=== PATIENT | male | born 1995 | race Caucasian/White ===

== ENCOUNTER 2018-06-29 19:59 | Emergency (ER) | payer SELFPAY ==
[~2018-06-29] VITALS: Ht 175.3 cm; Wt 135.2 kg
--- OUTSIDE RECORDS SUMMARY | 2018-06-29 20:08 | XMS REPORT | Clinical Summary ---
Author Author Admin, MARKUS Organization [facility] Address Unknown Phone Unavailable Allergies, Adverse Reactions, Alerts Allergy Name Reaction Description Start Date Severity Status Provider No Known Allergies Raysa Elder Conditions or Problems Problem Name Problem Code Onset Date Status Entry Date Provider Comment Standard Description Annotate G E R D 530.81 Active Stephanie Deluca MD Esophageal reflux HYPERTENSION 401.9 Active Stephanie Deluca MD Unspecified essential hypertension FH DIABETES V18.0 Active Stephanie Deluca MD Family history of diabetes mellitus INCONTINENCE, MIXED, URGE/STRESS 788.33 Active Stephanie Deluca MD Mixed incontinence (female) (male) Overactive Bladder 596.51 Active Stephanie Deluca MD Hypertonicity of bladder Medication List Medication Instructions Start Date Stop Date Generic Name NDC Status Provider Patient Instruction DETROL LA 4 MG CP24 1 cap daily TOLTERODINE TARTRATE 92087700814 No Longer Active Stephanie Deluca MD Active CELEXA 20 MG ORAL TABS 1 tab by mouth daily CITALOPRAM HYDROBROMIDE 25281833313 Active Stephanie Deluca MD Active METOPROLOL SUCCINATE ER 25 MG ORAL [id number] take 1 tab daily METOPROLOL SUCCINATE 99747677461 Active Stephanie Deluca MD Active RANITIDINE HCL 150 MG ORAL TABS take 1 tab at night RANITIDINE HCL 19594734305 Active Stephanie Deluca MD Active ABILIFY 10 MG ORAL TABS take1 tab in morning ARIPIPRAZOLE 09875561597 Active Stephanie Deluca MD Active RISPERDAL 1 MG TABS by mouth twice a day RISPERIDONE 91475979280 No Longer Active Stephanie Deluca MD Active INTUNIV 2 MG [id number] Take one by mouth daily GUANFACINE HCL 98289157534 No Longer Active Stephanie Deluca MD Active HYDROXYZINE HCL 25 MG TABS Take 2 by mouth in pm HYDROXYZINE HCL 89693272319 Active Stephanie Deluca MD Active VENTOLIN HFA 108 (90 BASE) MCG/ACT AERS ALBUTEROL SULFATE 55457961650 No Longer Active Stephanie Deluca MD Active DETROL LA 4 MG [id number] Take one by mouth daily TOLTERODINE TARTRATE 48662973932 Active Rebekah Blakely Active ESCITALOPRAM OXALATE 10 MG TABS Take one by mouth daily ESCITALOPRAM OXALATE 16373309706 Active Stephanie Deluca MD Active ALLERGY 10 MG TABS take at bedtime LORATADINE 79106879041 Active Stephanie Deluca MD Active [facility] OMEPRAZOLE 20 MG TBEC Take one by mouth daily OMEPRAZOLE 32850768271 Active Stephanie Deluca MD Active VENTOLIN HFA 108 (90 BASE) MCG/ACT AERS VENTOLIN HFA 108 (90 BASE) MCG/ACT AERS ALBUTEROL SULFATE Inactive INTUNIV 2 MG [id number]-JSM Take one by mouth daily INTUNIV 2 MG [id number] GUANFACINE HCL Inactive RISPERDAL 1 MG TABS by mouth twice a day RISPERDAL 1 MG TABS 570290 RISPERIDONE Inactive DETROL LA 4 MG CP24 1 cap daily DETROL LA 4 MG CP24 TOLTERODINE TARTRATE Inactive Advance Directives Directive Description Start Date PERMISSION TO SHARE Vital Signs Date Name Value Unit Range Description blood pressure, diastolic - 8462-4 65 mm[Hg] BP grant blood pressure, systolic - 8480-6 120 mm[Hg] BP sys pulse rate E&M - 8867-4 77 /min Heart rate weight E&M - 3141-9 290 [lb_av] Weight Measured Diagnostic Results Date Name Value Unit Range Description Office Visit: Yearly followup Detrol - Chemistry RBC, urine, dipstick negative protein, total urine random negative mg/dL Office Visit: Yearly followup Detrol - Urinalysis pH, urine, semiquantitative 5 specific gravity, urine 1.025 ketones, urine, by test strip negative bilirubin, urine negative glucose, urine, semiquantitative negative urinalysis, routine Clean Catch urine color yellow appearance, urine clear leukocyte esterase, urine, by dipstick negative nitrite, urine, semiquantitative negative urobilinogen, urine, semiquantitative (dipstick) 1 protein, urine, semiquantitative (dipstick) negative Encounters Code Encounter Date Provider Facility CPT-79991 Level 2 Est. Patient 13:42:45 CDT Stephanie Deluca MD [facility] CPT-70284 Level 3 Est. Patient 14:02:52 CDT Stephanie Deluca MD [facility] CPT-53874 Level 3 Est. Patient 16:52:37 CDT Stephanie Deluca MD [facility] CPT-76293 Level 3 New Patient 15:13:15 DOOR TO DOOR LEAD GENERATION Stephanie Deluca MD [facility] Procedures Code Procedure Name Date Entry Date Standard Description CPT-51082 Urine Dip (Floor Use Only) 14:02:53 CDT CPT-65788 Bladder Scan 14:02:53 CDT CPT-93475 Bladder Scan 16:52:37 CDT CPT-39251 Urine Dip (Floor Use Only) 15:13:15 DOOR TO DOOR LEAD GENERATION CPT-96919 Bladder Scan 15:13:15 DOOR TO DOOR LEAD GENERATION
--- OUTSIDE RECORDS SUMMARY | 2018-06-29 20:09 | XMS REPORT | Clinical Summary ---
Author Author Admin, MARKUS Organization [facility] Address Unknown Phone Unavailable Allergies, Adverse Reactions, Alerts Allergy Name Reaction Description Start Date Severity Status Provider No Known Allergies BAO Aparicio Conditions or Problems Problem Name Problem Code [...] Instructions Start Date Stop Date Generic Name ND Status Provider Patient Instruction DETROL LA 4 MG CP24 1 cap daily TOLTERODINE TARTRATE 40680833288 No Longer Active Stephanie Deluca MD Active CELEXA 20 MG ORAL TABS 1 tab by mouth daily CITALOPRAM HYDROBROMIDE 89281040166 Active Stephanie Deluca MD Active METOPROLOL SUCCINATE ER 25 MG ORAL [id number] take 1 tab daily METOPROLOL SUCCINATE 70660688177 Active Stephanie Deluca MD Active RANITIDINE HCL 150 MG ORAL TABS take 1 tab at night RANITIDINE HCL 14264296999 Active Stephanie Deluca MD Active ABILIFY 10 MG ORAL TABS take1 tab in morning ARIPIPRAZOLE 25947452801 Active Stephanie Deluca MD Active RISPERDAL 1 MG TABS by mouth twice a day RISPERIDONE 71299375881 No Longer Active Stephanie Deluca MD Active INTUNIV 2 MG IN88Q-MFB Take one by mouth daily GUANFACINE HCL 12448670707 No Longer Active Stephanie Deluca MD Active HYDROXYZINE HCL 25 MG TABS Take 2 by mouth in pm HYDROXYZINE HCL 44036813916 Active Stephanie Deluca MD Active VENTOLIN HFA 108 (90 BASE) MCG/ACT AERS ALBUTEROL SULFATE 36997962028 No Longer Active Stephanie Deluca MD Active DETROL LA 4 MG [id number]-QYF Take one by mouth daily TOLTERODINE TARTRATE 61540373757 Active Rebekah Reddy Active ESCITALOPRAM OXALATE 10 MG TABS Take one by mouth daily ESCITALOPRAM OXALATE 43708182642 Active Stephanie Deluca MD Active ALLERGY 10 MG TABS take at bedtime LORATADINE 66768843171 Active Stephanie Deluca MD Active [facility] OMEPRAZOLE 20 MG TBEC Take one by mouth daily OMEPRAZOLE 81912213303 Active Stephanie Deluca MD Active VENTOLIN HFA 108 (90 BASE) MCG/ACT AERS VENTOLIN HFA 108 (90 BASE) MCG/ACT AERS ALBUTEROL SULFATE Inactive INTUNIV 2 MG FJ68I-TFQ Take one by mouth daily INTUNIV 2 MG [id number]-UQO GUANFACINE HCL Inactive RISPERDAL 1 MG TABS by mouth twice a day RISPERDAL 1 MG TABS 064287 RISPERIDONE Inactive DETROL LA 4 MG CP24 1 cap daily DETROL LA 4 MG CP24 TOLTERODINE TARTRATE Inactive Advance Directives Directive Description Start Date PERMISSION TO SHARE Encounters Code Encounter Date Provider Facility CPT-04009 Level 2 Est. Patient 13:42:45 CDT Stephanie Deluca MD [facility] CPT-02200 Level 3 Est. Patient 14:02:52 CDT Stephanie Deluca MD [facility] CPT-87589 Level 3 Est. Patient 16:52:37 CDT Stephanie Deluca MD [facility] CPT-81381 Level 3 New Patient 15:13:15 PHYSICAL AERODYNAMICIST Stephanie Deluca MD [facility] Procedures Code Procedure Name Date Entry Date Standard Description CPT-58031 Urine Dip (Floor Use Only) 14:02:53 CDT CPT-82404 Bladder Scan 14:02:53 CDT CPT-93406 Bladder Scan 16:52:37 CDT CPT-24786 Urine Dip (Floor Use Only) 15:13:15 PHYSICAL AERODYNAMICIST CPT-63758 Bladder Scan 15:13:15 PHYSICAL AERODYNAMICIST
--- OUTSIDE RECORDS SUMMARY | 2018-06-29 20:09 | XMS REPORT ---
Author Author CHELO ADAM [facility] Address [address] [place] [address] Care Team Providers Care [employer] Information [employer] Supervisor Name Role Phone CHELO ADAM Unavailable PROBLEMS Type Condition ICD9-CM Code ZFS09-ST Code Onset Dates Condition Status SNOMED Code Problem ADHD (attention deficit hyperactivity disorder), combined type 314.01 Active 76609151 Problem ODD (oppositional defiant disorder) 313.81 Active 65685491 Problem Hypothyroid 244.9 Active 07529598 Problem Benign hypertension 401.1 Active 07850292 Problem Bipolar disorder 296.80 Active 24366087 Problem Hypothyroidism 244.9 Active 90105084 Problem ADHD (attention deficit hyperactivity disorder) 314.01 Active 733874327 Problem Bipolar 1 disorder 296.7 Active 180692814 Problem GERD (gastroesophageal reflux disease) 530.81 Active 551319163 Problem Other chronic pain G89.29 Active 64352338 Problem Asthma 493.90 Active 141169620 Problem Hyperlipidemia, unspecified E78.5 Active 91982604 Problem Hyperlipidemia 272.4 Active 40857509 Problem Hypothyroidism, unspecified E03.9 Active 95240991 Problem Right foot pain M79.671 Active 84847670 Problem Essential (primary) hypertension I10 Active 46049464 Problem Mood disorder F39 Active 80531526 Problem Mild intellectual disabilities F70 Active 35760810 Problem Knee pain, right M25.561 Active 22250319 Problem Constipation K59.00 Active 49759090 Problem Wrist pain, right M25.531 Active 09482830 Problem Pain in left shoulder M25.512 Active 76312706 Problem Intractable migraine, unspecified migraine type G43.919 Active 156047398 Problem Morbid obesity due to excess calories E66.01 Active 296049741 Problem Obesity (BMI 30-39.9) E66.9 Active 534614177 Problem Dental examination V72.2 Active 42606739 Problem Gastro-esophageal reflux disease without esophagitis K21.9 Active 869400440 Problem OCD (obsessive compulsive disorder) 300.3 Active 117510082 Problem Bipolar disorder, unspecified F31.9 Active 66890611 Problem Left ankle sprain S93.402A Active 30871690 Problem Pain in left wrist M25.532 Active 25971033 Problem Acne vulgaris L70.0 Active 38267698 Problem Bruised ribs, right, subsequent encounter S20.211D Active 904874757 Problem Attention-deficit hyperactivity disorder, combined type F90.2 Active 47112948 Problem Environmental allergies Z91.09 Active 274396625 ALLERGIES Substance Reaction Event Type Date Status pedialyte hives Non Drug Allergy Mar, Active ENCOUNTERS Encounter Location Date Diagnosis [facility] [id number] [place] [address] Apr, [facility] [address] [address] Mar, Mood disorder F39 and BMI 45.0-49.9, adult Z68.42 [facility] [id number] [place] [address] Feb, Mood disorder F39 and BMI 45.0-49.9, adult Z68.42 [facility] [id number] [place] [address] Feb, [address] [place] [address] Jan, [facility] [address] [place] [address] Dec, [facility] [id number] [place] [address] Dec, [facility] [address] [place] [address] Dec, BMI 45.0- 49.9, adult Z68.42 [facility] [address] [place] [address] Dec, BMI 45.0- 49.9, adult Z68.42 and Mood disorder F39 [facility] [address] [address] [place] [address] Dec, [facility] [address] [place] [address] Dec, [facility] [address] [place] [address] Dec, Bipolar disorder, unspecified F31.9 [facility] [place] [address] [place] [address] August, Bipolar disorder, unspecified F31.9 [facility] [place] [address] [place] [address] August, Bipolar disorder, unspecified F31.9 [facility] [place] [address] [place] [address] Jul, [facility] [place] [address] [place] [address] Jul, [facility] [place] [address] [place] [address] Apr, Bipolar disorder, unspecified F31.9 ; Attention-deficit hyperactivity disorder, combined type F90.2 and Mild intellectual disabilities F70 [facility] [place] [address] [place] [address] Apr, [facility] [place] [address] [place] [address] Mar, [facility] [place] [address] [place] [address] Jan, [facility] [place] [address] [place] [address] Dec, [facility] [place] [address] [place] [address] Nov, [facility] [place] [address] [place] [address] 09 Sep, 2016 Pain in left shoulder M25.512 ; Intractable migraine, unspecified migraine type G43.919 and Morbid obesity due to excess calories E66.01 [facility] [place] [address] [place] [address] 14 Jul, 2016 Right foot pain M79.671 [facility] [address] [place] [address] Jul, Attention- deficit hyperactivity disorder, combined type F90.2 ; Bipolar disorder, unspecified F31.9 ; Right foot pain M79.671 and Postoperative pain, acute, shoulder, left M25.512 [facility] [place] [address] [place] [address] Jun, [facility] [place] [address] [place] [address] Jun, [facility] [address] [address] Jun, Pain in left shoulder M25.512 [facility] [address] [address] May, Essential ( primary) hypertension I10 ; Hypothyroidism, unspecified E03.9 and Hyperlipidemia , unspecified E78.5 [facility] [address] [place] [address] Apr, [facility] [address] [address] Apr, [address] [address] Apr, Pain in left shoulder M25.512 and Other chronic pain G89.29 [address] [address] Apr, [address] [id number] [address] Feb, [facility] [address] [place] [address] Feb, Pain in left shoulder M25.512 and Other chronic pain G89.29 [facility] [address] [place] [address] Jan, Bruised ribs, right, subsequent encounter S20.211D ; Acne vulgaris L70.0 and Routine sports physical exam Z02.5 [facility] [address] [place] [address] Nov, Knee pain, right M25.561 ; Environmental allergies Z91.09 ; Attention-deficit hyperactivity disorder, combined type F90.2 and Bipolar disorder, unspecified F31.9 [facility] [place] [address] [place] [address] Nov, [facility] [place] [address] [place] [address] Oct, [facility] [place] [address] [place] [address] Oct, Knee pain, right M25.561 and Pain in left wrist M25.532 [facility] [place] [address] [place] [address] August, [facility] [place] [address] [place] [address] Jul, [facility] [place] [address] [place] [address] Jul, [facility] [place] [address] [place] [address] Jul, Gastro- esophageal reflux disease without esophagitis K21.9 and Pain in left wrist M25.532 [facility] [place] [address] [place] [address] Jul, [facility] [place] [address] [place] [address] Jun, [facility] [place] [address] [place] [address] Jun, Strain of right knee S86.911A and Right knee pain M25.561 [facility] [place] [address] [place] [address] May, Pain in left shoulder M25.512 [facility] [place] [address] [place] [address] May, [facility] [place] [address] [place] [address] Apr, Knee pain, right M25.561 and Left ankle sprain S93.402A [facility] [place] [address] [place] [address] Apr, Knee pain, right M25.561 [facility] [place] [address] [place] [address] Mar, [facility] [place] [address] [place] [address] Mar, Wrist pain , right M25.531 and Constipation K59.00 [facility] [place] [address] [place] [address] Feb, Wrist pain , right M25.531 [facility] [address] [address] Feb, Wrist pain , right M25.531 [facility] [address] [address] Jan, Wrist pain , right M25.531 [facility] [address] [address] Jan, [facility] [address] [address] Dec, Right leg pain 729.5 ; Benign hypertension 401.1 and GERD (gastroesophageal reflux disease ) 530.81 [facility] [address] [address] Dec, Dental examination V72.2 [facility] [address] [address] Dec, [facility] [address] [address] Dec, [facility] [address] [address] Nov, Benign hypertension 401.1 ; Hypothyroidism 244.9 and Hyperlipidemia 272.[address] [address] Nov, Benign hypertension 401.1 ; Bipolar 1 disorder 296.7 and GERD (gastroesophageal reflux disease) 530.[address] [address] Sep, [facility] [address] [address] Sep, ADHD ( attention deficit hyperactivity disorder), combined type 314.01 ; Bipolar disorder 296.80 ; OCD (obsessive compulsive disorder) 300.3 ; Hyperlipidemia 272.4 ; Hypothyroidism 244.9 and Asthma 493.90 [facility] [address] [facility] [id number] [place] [address] Jul, [facility] [address] [facility] [id number] [address] Jul, [facility] [address] [facility] [id number] [place] [address] Mar, IMMUNIZATIONS No Known Immunizations SOCIAL HISTORY Never Assessed REASON FOR VISIT f[facility]u [facility] Activity Details Follow Up 6 Weeks Reason: VITAL SIGNS Height 66.5" in 2018-03-26 Weight 290.7 lbs 2018-03-26 Heart Rate 60 bpm 2018-03-26 Respiratory Rate 20 2018-03-26 BMI 46.21 kg/m2 2018-03-26 Blood pressure systolic 118 mmHg 2018-03-26 Blood pressure diastolic 76 mmHg 2018-03-26 MEDICATIONS Medication Instructions Dosage Frequency Start Date End Date Duration Status Pantoprazole Sodium 40 mg Orally Once a day 1 tablet 24h 90 days Active Tolterodine Tartrate ER 4 MG TAKE 1 CAPSULE DAILY. 90 days Active Levothyroxine Sodium 25 MCG Orally Once a day TAKE 1 TABLET BY MOUTH DAILY 24h 90 days Active Escitalopram Oxalate 20 mg Orally Once a day 1 tablet 24h Active HydrOXYzine HCl 25 MG TAKE 1 TABLET BY MOUTH TWICE DAILY 90 days Active Celecoxib 200 mg TAKE 1 CAPSULE BY MOUTH DAILY 90 days Active GuanFACINE HCl ER 2 MG Orally Once a day TAKE 1 TABLET BY MOUTH DAILY 24h Active Simvastatin 10 mg Orally Once a day TAKE 1 TABLET DAILY IN THE EVENING 24h 90 days Active Metoprolol Succinate ER 25 MG Orally Once a day TAKE 1 TABLET BY MOUTH DAILY 24h 90 days Active Trileptal 300 MG Orally Twice a day 1 tablet 12h Feb, 30 days Active RESULTS No Results PROCEDURES No Known procedures INSTRUCTIONS MEDICATIONS ADMINISTERED No Known Medications MEDICAL (GENERAL) HISTORY Type Description Date Medical History Bipolar 1 disorder Medical History Benign hypertension Medical History Asthma Medical History GERD (gastroesophageal reflux disease) Medical History ODD (oppositional defiant disorder) Medical History Hypothyroid Medical History ADHD (attention deficit hyperactivity disorder) Surgical History tonsillectomy and adenoidectomy Surgical History ear tubes Surgical History left shoulder muscle repair 2016 Hospitalization History Hospitalization for surgery only
--- OUTSIDE RECORDS SUMMARY | 2018-06-29 20:09 | XMS REPORT ---
Author Author CHELO CARLTON [facility] Address [address] [place] [address] Care Team Providers Care Public Health Microbiologist Name Role Phone CHELO CARLTON Unavailable PROBLEMS Type Condition ICD9-CM Code LOX98-ZB Code Onset Dates Condition Status SNOMED Code Problem ADHD (attention deficit hyperactivity disorder), combined type 314.01 Active 82125942 Problem ODD (oppositional defiant disorder) 313.81 Active 96708526 Problem Hypothyroid 244.9 Active 78334250 Problem Benign hypertension 401.1 Active 61311366 Problem Bipolar disorder 296.80 Active 70140402 Problem Hypothyroidism 244.9 Active 51200384 Problem ADHD (attention deficit hyperactivity disorder) 314.01 Active 267512217 Problem Bipolar 1 disorder 296.7 Active 851802644 Problem GERD (gastroesophageal reflux disease) 530.81 Active 497696526 Problem Other chronic pain G89.29 Active 73352968 Problem Asthma 493.90 Active 847749136 Problem Hyperlipidemia, unspecified E78.5 Active 45485393 Problem Hyperlipidemia 272.4 Active 98000353 Problem Hypothyroidism, unspecified E03.9 Active 21047730 Problem Right foot pain M79.671 Active 80083366 Problem Essential (primary) hypertension I10 Active 15444385 Problem Mood disorder F39 Active 45925522 Problem Mild intellectual disabilities F70 Active 92451577 Problem Knee pain, right M25.561 Active 69693539 Problem Constipation K59.00 Active 36383927 Problem Wrist pain, right M25.531 Active 44947074 Problem Pain in left shoulder M25.512 Active 14905350 Problem Intractable migraine, unspecified migraine type G43.919 Active 165779169 Problem Morbid obesity due to excess calories E66.01 Active 989548910 Problem Obesity (BMI 30-39.9) E66.9 Active 910512155 Problem Dental examination V72.2 Active 35966031 Problem Gastro-esophageal reflux disease without esophagitis K21.9 Active 208576670 Problem OCD (obsessive compulsive disorder) 300.3 Active 947567352 Problem Bipolar disorder, unspecified F31.9 Active 43291244 Problem Left ankle sprain S93.402A Active 98395584 Problem Pain in left wrist M25.532 Active 59306050 Problem Acne vulgaris L70.0 Active 65592533 Problem Bruised ribs, right, subsequent encounter S20.211D Active 655201589 Problem Attention-deficit hyperactivity disorder, combined type F90.2 Active 11571873 Problem Environmental allergies Z91.09 Active 365011204 ALLERGIES Substance Reaction Event Type Date Status pedialyte hives Non Drug Allergy Feb, Active ENCOUNTERS Encounter Location Date Diagnosis [facility] [address] [address] Mar, [facility] [id number] [place] [address] Feb, Mood disorder F39 and BMI 45.0-49.9, adult Z68.42 [facility] [address] [place] [address] Feb, [facility] [address] [place] [address] Jan, [facility] [address] [place] [address] Dec, [facility] [address] [address] Dec, [facility] [address] [place] [address] Dec, BMI 45.0- 49.9, adult Z68.42 [facility] [address] [place] [address] Dec, BMI 45.0- 49.9, adult Z68.42 and Mood disorder F39 [facility] [address] [place] [address] 17 Dec, 2017 [facility] [address] [place] [address] Dec, [facility] [address] [place] [address] Dec, Bipolar disorder, unspecified F31.9 [facility] [place] [address] [place] [address] August, Bipolar disorder, unspecified F31.9 [facility] [place] [address] [place] [address] August, Bipolar disorder, unspecified F31.9 [facility] [address] [place] [address] Jul, [facility] [place] [address] [place] [address] Jul, [facility] [place] [address] [place] [address] Apr, Bipolar disorder, unspecified F31.9 ; Attention-deficit hyperactivity disorder, combined type F90.2 and Mild intellectual disabilities F70 [facility] [place] [address] [place] [address] Apr, [facility] [place] [address] [place] [address] Mar, [facility] [place] [address] [place] [address] Jan, [facility] [place] [address] [place] [address] Dec, [facility] [address] [place] [address] Nov, [facility] [address] [address] 09 Sep, 2016 Pain in left shoulder M25.512 ; Intractable migraine, unspecified migraine type G43.919 and Morbid obesity due to excess calories E66.01 [facility] [place] [address] [place] [address] 14 Jul, 2016 Right foot pain M79.671 [facility] [place] [address] [place] [address] Jul, Attention- deficit hyperactivity disorder, combined type F90.2 ; Bipolar disorder, unspecified F31.9 ; Right foot pain M79.671 and Postoperative pain, acute, shoulder, left M25.512 [facility] [place] [address] [place] [address] Jun, [facility] [place] [address] [place] [address] Jun, [facility] [place] [address] [place] [address] Jun, Pain in left shoulder M25.512 [facility] [place] [address] [place] [address] May, Essential ( primary) hypertension I10 ; Hypothyroidism, unspecified E03.9 and Hyperlipidemia , unspecified E78.5 [facility] [place] [address] [place] [address] Apr, [facility] [place] [address] [place] [address] Apr, Ana Rosa [place] [address] [place] [address] Apr, Pain in left shoulder M25.512 and Other chronic pain G89.29 [address] [address] Apr, [facility] [address] [place] [address] [place] [address] Feb, [facility] [place] [address] [place] [address] Feb, Pain in left shoulder M25.512 and Other chronic pain G89.29 [facility] [address] [place] [address] Jan, Bruised ribs, right, subsequent encounter S20.211D ; Acne vulgaris L70.0 and Routine sports physical exam Z02.5 [facility] [address] [place] [address] Nov, Knee pain, right M25.561 ; Environmental allergies Z91.09 ; Attention-deficit hyperactivity disorder, combined type F90.2 and Bipolar disorder, unspecified F31.9 [facility] [address] [place] [address] Nov, [facility] [address] [place] [address] Oct, [facility] [place] [address] [place] [address] Oct, Knee pain, right M25.561 and Pain in left wrist M25.532 [facility] [place] [place] [address] August, [facility] [place] [address] [place] [address] Jul, [facility] [place] [address] [place] [address] Jul, [facility] [place] [address] [place] [address] Jul, Gastro- esophageal reflux disease without esophagitis K21.9 and Pain in left wrist M25.532 [facility] [place] [address] [place] [address] Jul, [facility] [place] [address] [place] [address] Jun, [facility] [place] [address] [place] [address] Jun, Strain of right knee S86.911A and Right knee pain M25.561 [facility] [place] [address] [place] [address] May, Pain in left shoulder M25.512 [facility] [address] [place] [address] May, [facility] [place] [address] [place] [address] Apr, Knee pain, right M25.561 and Left ankle sprain S93.402A [facility] [place] [address] [place] [address] Apr, Knee pain, right M25.561 [facility] [place] [address] [place] [address] 16 Mar, 2015 [facility] [place] [address] [place] [address] Mar, Wrist pain , right M25.531 and Constipation K59.00 [facility] [address] [place] [address] Feb, Wrist pain , right M25.531 [facility] [place] [address] [place] [address] Feb, Wrist pain , right M25.531 [facility] [place] [address] [place] [address] Jan, Wrist pain , right M25.531 [facility] [address] [place] [address] Jan, [facility] [place] [address] [place] [address] Dec, Right leg pain 729.5 ; Benign hypertension 401.1 and GERD (gastroesophageal reflux disease ) 530.81 [facility] [place] [address] [place] [address] Dec, Dental examination V72.[address] [facility] [address] [address] 15 Dec, 2014 [facility] [address] [place] [address] Dec, [facility] [place] [address] [place] [address] Nov, Benign hypertension 401.1 ; Hypothyroidism 244.9 and Hyperlipidemia 272.4 [facility] [place] [address] [place] [address] Nov, Benign hypertension 401.1 ; Bipolar 1 disorder 296.7 and GERD (gastroesophageal reflux disease) 530.81 [facility] [place] [address] [place] [address] Sep, [facility] [place] [address] [place] [address] Sep, ADHD ( attention deficit hyperactivity disorder), combined type 314.01 ; Bipolar disorder 296.80 ; OCD (obsessive compulsive disorder) 300.3 ; Hyperlipidemia 272.4 ; Hypothyroidism 244.9 and Asthma 493.[address] [id number] [address] Jul, [facility] [address] [place] [id number] [address] Jul, [facility] [address] [facility] [id number] [address] Mar, IMMUNIZATIONS No Known Immunizations SOCIAL HISTORY Never Assessed REASON FOR VISIT f/u [place] [facility]en[place] PLAN OF CARE Activity Details Follow Up 3 Weeks Reason: VITAL SIGNS Height 66.5" in 2018-03-12 Weight 289.4 lbs 2018-03-12 Heart Rate 106 bpm 2018-03-12 Respiratory Rate 20 2018-03-12 BMI 46.01 kg/m2 2018-03-12 Blood pressure systolic 138 mmHg 2018-03-12 Blood pressure diastolic 90 mmHg 2018-03-12 MEDICATIONS Medication Instructions Dosage Frequency Start Date End Date Duration Status Levothyroxine Sodium 25 MCG Orally Once a day TAKE 1 TABLET BY MOUTH DAILY 24h 90 days Active HydrOXYzine HCl 25 MG TAKE 1 TABLET BY MOUTH TWICE DAILY 90 days Active Pantoprazole Sodium 40 mg Orally Once a day 1 tablet 24h 90 days Active Tolterodine Tartrate ER 4 MG TAKE 1 CAPSULE DAILY. 90 days Active Escitalopram Oxalate 20 mg Orally Once a day 1 tablet 24h Active Trileptal 300 MG Orally Twice a day 1 tablet 12h Feb, 30 day(s ) Active Metoprolol Succinate ER 25 MG Orally Once a day TAKE 1 TABLET BY MOUTH DAILY 24h 90 days Active Simvastatin 10 mg Orally Once a day TAKE 1 TABLET DAILY IN THE EVENING 24h 90 days Active Celecoxib 200 mg TAKE 1 CAPSULE BY MOUTH DAILY 90 days Active GuanFACINE HCl ER 2 MG Orally Once a day TAKE 1 TABLET BY MOUTH DAILY 24h Active RESULTS No Results PROCEDURES No Known [...]
--- OUTSIDE RECORDS SUMMARY | 2018-06-29 20:09 | XMS REPORT ---
Author Author CHELO CARLTON [facility] Address [address] [place] [address] Care Team Providers Care Plastic Surgery Technician Name Role Phone CHELO CARLTON Unavailable PROBLEMS Type Condition ICD9-CM Code [id number] Code Onset Dates Condition Status SNOMED Code Problem ADHD (attention deficit hyperactivity disorder), combined type 314.01 Active 64544749 Problem ODD (oppositional defiant disorder) 313.81 Active 53024769 Problem Hypothyroid 244.9 Active 47128399 Problem Benign hypertension 401.1 Active 72483456 Problem Bipolar disorder 296.80 Active 88212937 Problem Hypothyroidism 244.9 Active 31599137 Problem ADHD (attention deficit hyperactivity disorder) 314.01 Active 830854233 Problem Bipolar 1 disorder 296.7 Active 427953076 Problem GERD (gastroesophageal reflux disease) 530.81 Active 119355771 Problem Other chronic pain G89.29 Active 52135291 Problem Asthma 493.90 Active 632434572 Problem Hyperlipidemia, unspecified E78.5 Active 65543678 Problem Hyperlipidemia 272.4 Active 74844173 Problem Hypothyroidism, unspecified E03.9 Active 69435052 Problem Right foot pain M79.671 Active 79100208 Problem Essential (primary) hypertension I10 Active 86920469 Problem Mood disorder F39 Active 90394991 Problem Mild intellectual disabilities F70 Active 62403069 Problem Knee pain, right M25.561 Active 01518901 Problem Constipation K59.00 Active 06198174 Problem Wrist pain, right M25.531 Active 32599431 Problem Pain in left shoulder M25.512 Active 75054966 Problem Intractable migraine, unspecified migraine type G43.919 Active 568437841 Problem Morbid obesity due to excess calories E66.01 Active 483787452 Problem Obesity (BMI 30-39.9) E66.9 Active 245368067 Problem Dental examination V72.2 Active 63712262 Problem Gastro-esophageal reflux disease without esophagitis K21.9 Active 928728400 Problem OCD (obsessive compulsive disorder) 300.3 Active 669119696 Problem Bipolar disorder, unspecified F31.9 Active 14293747 Problem Left ankle sprain S93.402A Active 13102370 Problem Pain in left wrist M25.532 Active 71833857 Problem Acne vulgaris L70.0 Active 70946664 Problem Bruised ribs, right, subsequent encounter S20.211D Active 691956318 Problem Attention-deficit hyperactivity disorder, combined type F90.2 Active 62731856 Problem Environmental allergies Z91.09 Active 585116872 ALLERGIES No Information ENCOUNTERS Encounter Location Date Diagnosis [facility] [address] [place] [address] Mar, [address] [address] Feb, Mood disorder F39 and BMI 45.0-49.9, adult Z68.[address] [address] Feb, [facility] [address] [place] [address] Jan, [facility] [address] [place] [address] Dec, [place] [id number] [place] [address] Dec, [facility] [address] [place] [address] Dec, BMI 45.0- 49.9, adult Z68.42 [facility] [address] [place] [address] Dec, BMI 45.0- 49.9, adult Z68.42 and Mood disorder F39 [facility] [address] [facility] [address] [place] [address] 17 Dec, 2017 [facility] [address] [place] [address] 13 Dec, 2017 [facility] [address] [place] [address] 10 Dec, 2017 Bipolar disorder, unspecified F31.9 [facility] [place] [address] [place] [address] August, Bipolar disorder, unspecified F31.9 [facility] [address] [place] [address] August, Bipolar disorder, unspecified F31.9 [facility] [place] [address] [place] [address] Jul, [facility] [place] [address] [place] [address] Jul, [facility] [place] [address] [place] [address] Apr, Bipolar disorder, unspecified F31.9 ; Attention-deficit hyperactivity disorder, combined type F90.2 and Mild intellectual disabilities F70 [facility] [place] [address] [place] [address] Apr, [facility] [place] [address] [place] [address] Mar, [facility] [place] [address] [place] [address] Jan, [facility] [address] [place] [address] Dec, [facility] [place] [address] [place] [address] Nov, [facility] [address] [address] Sep, Pain in left shoulder M25.512 ; Intractable migraine, unspecified migraine type G43.919 and Morbid obesity due to excess calories E66.01 [facility] [address] [place] [address] Jul, Right foot pain M79.671 [facility] [place] [address] [place] [address] Jul, Attention- deficit hyperactivity disorder, combined type F90.2 ; Bipolar disorder, unspecified F31.9 ; Right foot pain M79.671 and Postoperative pain, acute, shoulder, left M25.512 [facility] [place] [address] [place] [address] Jun, [facility] [place] [address] [place] [address] Jun, [facility] [place] [address] [place] [address] Jun, Pain in left shoulder M25.512 [facility] [place] [address] [place] [address] May, Essential ( primary) hypertension I10 ; Hypothyroidism, unspecified E03.9 and Hyperlipidemia , unspecified E78.5 [facility] [place] [address] [place] [address] Apr, [facility] [place] [address] [place] [address] Apr, Ana Rosa [place] [address] [place] [address] Apr, Pain in left shoulder M25.512 and Other chronic pain G89.29 [address] [address] Apr, [facility] [address] [place] [address] [address] Feb, [facility] [place] [address] [place] [address] Feb, Pain in left shoulder M25.512 and Other chronic pain G89.29 [facility] [place] [address] [place] [address] Jan, Bruised ribs, right, subsequent encounter S20.211D ; Acne vulgaris L70.0 and Routine sports physical exam Z02.5 [facility] [address] [place] [address] Nov, Knee pain, right M25.561 ; Environmental allergies Z91.09 ; Attention-deficit hyperactivity disorder, combined type F90.2 and Bipolar disorder, unspecified F31.9 [facility] [place] [address] [place] [address] Nov, [facility] [place] [address] [place] [address] Oct, [facility] [place] [address] [place] [address] Oct, Knee pain, right M25.561 and Pain in left wrist M25.532 [facility] [place] [address] [place] [address] August, [facility] [place] [address] [place] [address] Jul, [facility] [place] [address] [place] [address] Jul, [facility] [place] [address] [place] [address] Jul, Gastro- esophageal reflux disease without esophagitis K21.9 and Pain in left wrist M25.532 [facility] [address] [place] [address] Jul, [facility] [place] [address] [place] [address] Jun, [facility] [place] [address] [place] [address] Jun, Strain of right knee S86.911A and Right knee pain M25.561 [facility] [place] [address] [place] [address] May, Pain in left shoulder M25.512 [facility] [place] [address] [place] [address] May, [facility] [place] [address] [place] [address] Apr, Knee pain, right M25.561 and Left ankle sprain S93.402A [facility] [address] [place] [address] Apr, Knee pain, right M25.561 [facility] [place] [address] [place] [address] Mar, [facility] [place] [address] [place] [address] Mar, Wrist pain , right M25.531 and Constipation K59.00 [facility] [address] [place] [address] Feb, Wrist pain , right M25.531 Ana Rosa [place] [address] [place] [address] Feb, Wrist pain , right M25.531 Sudarshan FOURNIER [address] [place] [address] Jan, Wrist pain , right M25.5[address] [address] Jan, Ana Rosa [address] [address] Dec, Right leg pain 729.5 ; Benign hypertension 401.1 and GERD (gastroesophageal reflux disease ) 530.81 [facility] [address] [address] Dec, Dental examination V72.[address] [address] Dec, [facility] [address] [address] Dec, [facility] [address] [address] Nov, Benign hypertension 401.1 ; Hypothyroidism 244.9 and Hyperlipidemia 272.4 [facility] [address] [address] Nov, Benign hypertension 401.1 ; Bipolar 1 disorder 296.7 and GERD (gastroesophageal reflux disease) 530.81 [facility] [address] [address] Sep, [address] [address] Sep, ADHD ( attention deficit hyperactivity disorder), combined type 314.01 ; Bipolar disorder 296.80 ; OCD (obsessive compulsive disorder) 300.3 ; Hyperlipidemia 272.4 ; Hypothyroidism 244.9 and Asthma 493.90 [facility] [id number] [address] Jul, [facility] [id number] [address] Jul, [facility] [address] [facility] [id number] [address] Mar, IMMUNIZATIONS No Known Immunizations SOCIAL HISTORY Never Assessed REASON FOR VISIT behavior PLAN OF CARE VITAL SIGNS MEDICATIONS Unknown Medications RESULTS No Results PROCEDURES No Known procedures [...] tubes Surgical History left shoulder muscle repair 2017 Hospitalization History Hospitalization for surgery only
--- OUTSIDE RECORDS SUMMARY | 2018-06-29 20:09 | XMS REPORT | Clinical Summary ---
Author Author Admin, MARKUS Organization [facility] Address Unknown Phone Unavailable Allergies, Adverse Reactions, [...] Generic Name NDC Status Provider Patient Instruction METOPROLOL SUCCINATE ER 25 MG ORAL [id number] take 1 tab daily METOPROLOL SUCCINATE 20686500635 Active Stephanie Deluca MD Active RANITIDINE HCL 150 MG ORAL TABS take 1 tab at night RANITIDINE HCL 31533674066 Active Stephanie Deluca MD Active ABILIFY 10 MG ORAL TABS take1 tab in morning ARIPIPRAZOLE 04296677487 Active Stephanie Deluca MD Active RISPERDAL 1 MG TABS by mouth twice a day RISPERIDONE 94440728582 No Longer Active Stephanie Deluca MD Active INTUNIV 2 MG [id number] Take one by mouth daily GUANFACINE HCL 09815350680 No Longer Active Stephanie Deluca MD Active HYDROXYZINE HCL 25 MG TABS Take 2 by mouth in pm HYDROXYZINE HCL 70192648463 Active Stephanie Deluca MD Active VENTOLIN HFA 108 (90 BASE) MCG/ACT AERS ALBUTEROL SULFATE 12532052367 No Longer Active Stephanie Deluca MD Active DETROL LA 4 MG [id number] Take one by mouth daily TOLTERODINE TARTRATE 18081696447 Active Stephanie Deluca MD Active DETROL LA 4 MG CP24 1 cap daily TOLTERODINE TARTRATE 59410582267 Active tSephanie Deluca MD Active ESCITALOPRAM OXALATE 10 MG TABS Take one by mouth daily ESCITALOPRAM OXALATE 26477677161 Active Stephanie Deluca MD Active ALLERGY 10 MG TABS take at bedtime LORATADINE 32868682686 Active Stephanie Deluca MD Active [facility] OMEPRAZOLE 20 MG TBEC Take one by mouth daily OMEPRAZOLE 67429128387 Active Stephanie Deluca MD Active VENTOLIN HFA 108 (90 BASE) MCG/ACT AERS VENTOLIN HFA 108 (90 BASE) MCG/ACT AERS ALBUTEROL SULFATE Inactive INTUNIV 2 MG SA25F-PHT Take one by mouth daily INTUNIV 2 MG [id number] GUANFACINE HCL Inactive RISPERDAL 1 MG TABS by mouth twice a day RISPERDAL 1 MG TABS 256165 RISPERIDONE Inactive Vital Signs Date Name Value Unit Range Description blood pressure, diastolic - 8462-4 68 mm[Hg] BP grant blood pressure, systolic - 8480-6 120 mm[Hg] BP sys temperature E&M 98.2 [degF] Body temperature weight E&M - 3141-9 256 [lb_av] Weight Measured Diagnostic Results Date Name Value Unit Range Description Office Visit: Medication refill - Chemistry RBC, urine, dipstick negative protein, total urine random negative mg/dL Office Visit: Medication refill - Urinalysis pH, urine, semiquantitative 5 specific gravity, urine 1.010 ketones, urine, by test strip negative bilirubin, urine negative glucose, urine, semiquantitative negative urine color light yellow appearance, urine clear leukocyte esterase, urine, by dipstick negative nitrite, urine, semiquantitative negative urobilinogen, urine, semiquantitative (dipstick) 0.2 Encounters Code Encounter Date Provider Facility CPT-72755 Level 3 Est. Patient 14:02:52 CDT Stephanie Deluca MD [facility] CPT-73104 Level 3 Est. Patient 16:52:37 CDT Stephanie Deluca MD [facility] CPT-41291 Level 3 New Patient 15:13:15 CANDLEMAKER Stephanie Deluca MD [facility] Procedures Code Procedure Name Date Entry Date Standard Description CPT-19014 Urine Dip (Floor Use Only) 14:02:53 CDT CPT-65130 Bladder Scan 14:02:53 CDT CPT-11563 Bladder Scan 16:52:37 CDT CPT-17451 Urine Dip (Floor Use Only) 15:13:15 CANDLEMAKER CPT-14388 Bladder Scan 15:13:15 CANDLEMAKER
--- OUTSIDE RECORDS SUMMARY | 2018-06-29 20:10 | XMS REPORT ---
Author Author GERSON MAJANO [facility] [address] Address [address] [place] [address] Care Team Providers Care Nailhead Setter Name Role Phone GERSON MAJANO Unavailable PROBLEMS Type Condition ICD9-CM Code DRL80-TT Code Onset Dates Condition Status SNOMED Code Problem ADHD (attention deficit hyperactivity disorder), combined type 314.01 Active 03962819 Problem ODD (oppositional defiant disorder) 313.81 Active 65598740 Problem Hypothyroid 244.9 Active 14813239 Problem Benign hypertension 401.1 Active 98301773 Problem Bipolar disorder 296.80 Active 25936491 Problem Hypothyroidism 244.9 Active 64018526 Problem ADHD (attention deficit hyperactivity disorder) 314.01 Active 779445928 Problem Bipolar 1 disorder 296.7 Active 537728100 Problem GERD (gastroesophageal reflux disease) 530.81 Active 957029738 Problem Other chronic pain G89.29 Active 60931263 Problem Asthma 493.90 Active 000340940 Problem Hyperlipidemia, unspecified E78.5 Active 44341989 Problem Hyperlipidemia 272.4 Active 86442335 Problem Hypothyroidism, unspecified E03.9 Active 22853722 Problem Right foot pain M79.671 Active 08923662 Problem Essential (primary) hypertension I10 Active 62060825 Problem Mood disorder F39 Active 31124104 Problem Mild intellectual disabilities F70 Active 83187948 Problem Knee pain, right M25.561 Active 63513732 Problem Constipation K59.00 Active 51057478 Problem Wrist pain, right M25.531 Active 11258136 Problem Pain in left shoulder M25.512 Active 99295795 Problem Intractable migraine, unspecified migraine type G43.919 Active 953983458 Problem Morbid obesity due to excess calories E66.01 Active 248585895 Problem Obesity (BMI 30-39.9) E66.9 Active 831333052 Problem Dental examination V72.2 Active 35256412 Problem Gastro-esophageal reflux disease without esophagitis K21.9 Active 415717201 Problem OCD (obsessive compulsive disorder) 300.3 Active 707043544 Problem Bipolar disorder, unspecified F31.9 Active 78223522 Problem Left ankle sprain S93.402A Active 05225447 Problem Pain in left wrist M25.532 Active 27897395 Problem Acne vulgaris L70.0 Active 75263272 Problem Bruised ribs, right, subsequent encounter S20.211D Active 039883086 Problem Attention-deficit hyperactivity disorder, combined type F90.2 Active 80375333 Problem Environmental allergies Z91.09 Active 506987362 ALLERGIES No Information ENCOUNTERS Encounter Location Date Diagnosis [facility] [id number], [place] [address] Jan, [facility] [address] [place] [address] Dec, [facility] [id number], [place] [address] Dec, [facility] [address] [place] [address] [place] [address] Dec, BMI 45.0- 49.9, adult Z68.42 [facility] [address] [place] [address] Dec, BMI 45.0- 49.9, adult Z68.42 and Mood disorder F39 [facility] [address] [place] [address] 17 Dec, 2017 [facility] [address] [place] [address] Dec, [facility] [address] [place] [address] Dec, Bipolar disorder, unspecified F31.9 [facility] [place] [address] [place] [address] August, Bipolar disorder, unspecified F31.9 [facility] [place] [address] [place] [address] August, Bipolar disorder, unspecified F31.9 [facility] [place] [address] [place] [address] Jul, [facility] [place] [address] [place] [address] Jul, [facility] [address] [place] [address] Apr, Bipolar disorder, unspecified F31.9 ; Attention-deficit hyperactivity disorder, combined type F90.2 and Mild intellectual disabilities F70 [facility] [address] [place] [address] Apr, [facility] [address] [place] [address] Mar, [facility] [address] [place] [address] Jan, [facility] [address] [place] [address] Dec, [facility] [address] [place] [address] Nov, [facility] [address] [place] [address] Sep, Pain in left shoulder M25.512 ; Intractable migraine, unspecified migraine type G43.919 and Morbid obesity due to excess calories E66.01 [facility] [address] [address] [place] [address] Jul, Right foot pain M79.671 Ana Rosa [address] [address] Jul, Attention- deficit hyperactivity disorder, combined type F90.2 ; Bipolar disorder, unspecified F31.9 ; Right foot pain M79.671 and Postoperative pain, acute, shoulder, left M25.512 [facility] [address] [address] [place] [address] Jun, [facility] [address] [place] [address] Jun, [facility] [address] [address] [place] [address] Jun, Pain in left shoulder M25.512 [facility] [address] [place] [address] May, Essential ( primary) hypertension I10 ; Hypothyroidism, unspecified E03.9 and Hyperlipidemia , unspecified E78.5 [facility] [place] [address] [place] [address] Apr, [facility] [address] [place] [address] Apr, [facility] [place] [address] [place] [address] Apr, Pain in left shoulder M25.512 and Other chronic pain G89.29 [facility] [id number], [place] [address] Apr, [facility] [id number], [place] [address] Feb, [facility] [address] [place] [address] Feb, Pain in left shoulder M25.512 and Other chronic pain G89.29 [facility] [address] [place] [address] Jan, Bruised ribs, right, subsequent encounter S20.211D ; Acne vulgaris L70.0 and Routine sports physical exam Z02.5 [facility] [address] [place] [address] Nov, Knee pain, right M25.561 ; Environmental allergies Z91.09 ; Attention-deficit hyperactivity disorder, combined type F90.2 and Bipolar disorder, unspecified F31.9 [facility] [address] [place] [address] Nov, [facility] [place] [address] [place] [address] Oct, [facility] [place] [address] [place] [address] Oct, Knee pain, right M25.561 and Pain in left wrist M25.532 [facility] [address] [place] [address] August, [facility] [place] [address] [place] [address] Jul, [facility] [place] [address] [place] [address] Jul, [facility] [address] [place] [address] Jul, Gastro- esophageal reflux disease without esophagitis K21.9 and Pain in left wrist M25.532 [facility] [address] [place] [address] 14 Jul, 2015 [facility] [place] [address] [place] [address] Jun, [facility]ADALBERT[facility] [address] [place] [address] Jun, Strain of right knee S86.911A and Right knee pain M25.561 [facility] [address] [address] [place] [address] May, Pain in left shoulder M25.512 zAna Rosa [facility] [address] [place] [address] May, [facility]ADALBERTOE[facility] [address] [place] [address] Apr, Knee pain, right M25.561 and Left ankle sprain S93.402A [facility] [address] [facility] [address] [place] [address] Apr, Knee pain, right M25.561 [facility] [address] [place] [address] Mar, [facility] [address] [place] [address] Mar, Wrist pain , right M25.531 and Constipation K59.00 [facility] [address] [place] [address] Feb, Wrist pain , right M25.531 [facility] [place] [address] [place] [address] Feb, Wrist pain , right M25.531 [facility] [place] [address] [place] [address] Jan, Wrist pain , right M25.531 [facility] [place] [address] [place] [address] Jan, [facility] [address] [place] [address] Dec, Right leg pain 729.5 ; Benign hypertension 401.1 and GERD (gastroesophageal reflux disease ) 530.[address] [address] Dec, Dental examination V72.[address] [address] Dec, [address] [address] Dec, [address] [address] Nov, Benign hypertension 401.1 ; Hypothyroidism 244.9 and Hyperlipidemia 272.[address] [address] Nov, Benign hypertension 401.1 ; Bipolar 1 disorder 296.7 and GERD (gastroesophageal reflux disease) 530.[address] [address] Sep, [address] [address] Sep, ADHD ( attention deficit hyperactivity disorder), combined type 314.01 ; Bipolar disorder 296.80 ; OCD (obsessive compulsive disorder) 300.3 ; Hyperlipidemia 272.4 ; Hypothyroidism 244.9 and Asthma 493.[address] [place] [address] Jul, [id number] [place] [address] Jul, [address] [place] [address] Mar, IMMUNIZATIONS No Known Immunizations SOCIAL HISTORY Never Assessed REASON FOR VISIT Requests return call PLAN OF CARE VITAL SIGNS MEDICATIONS Unknown [...]
--- OUTSIDE RECORDS SUMMARY | 2018-06-29 20:10 | XMS REPORT ---
Author Author CHELO CARLTON [facility] Address [address] [place] [address] Care Team Providers Care Horticulture Instructor Name Role Phone CHELO CARLTON Unavailable PROBLEMS Type Condition ICD9-CM Code KKK84-XD Code Onset Dates Condition Status SNOMED Code Problem ADHD (attention deficit hyperactivity disorder), combined type 314.01 Active 08201393 Problem ODD (oppositional defiant disorder) 313.81 Active 29607349 Problem Hypothyroid 244.9 Active 97959850 Problem Benign hypertension 401.1 Active 76004102 Problem Bipolar disorder 296.80 Active 89161079 Problem Hypothyroidism 244.9 Active 21557637 Problem ADHD (attention deficit hyperactivity disorder) 314.01 Active 301741158 Problem Bipolar 1 disorder 296.7 Active 950223067 Problem GERD (gastroesophageal reflux disease) 530.81 Active 052320496 Problem Other chronic pain G89.29 Active 74704733 Problem Asthma 493.90 Active 145191802 Problem Hyperlipidemia, unspecified E78.5 Active 06211559 Problem Hyperlipidemia 272.4 Active 01815960 Problem Hypothyroidism, unspecified E03.9 Active 34311991 Problem Right foot pain M79.671 Active 77548919 Problem Essential (primary) hypertension I10 Active 58939050 Problem Mood disorder F39 Active 56402510 Problem Mild intellectual disabilities F70 Active 41317202 Problem Knee pain, right M25.561 Active 05453852 Problem Constipation K59.00 Active 30817131 Problem Wrist pain, right M25.531 Active 90943273 Problem Pain in left shoulder M25.512 Active 90237476 Problem Intractable migraine, unspecified migraine type G43.919 Active 065954805 Problem Morbid obesity due to excess calories E66.01 Active 801794135 Problem Obesity (BMI 30-39.9) E66.9 Active 943613394 Problem Dental examination V72.2 Active 26323530 Problem Gastro-esophageal reflux disease without esophagitis K21.9 Active 048198244 Problem OCD (obsessive compulsive disorder) 300.3 Active 910386457 Problem Bipolar disorder, unspecified F31.9 Active 80636709 Problem Left ankle sprain S93.402A Active 37181141 Problem Pain in left wrist M25.532 Active 91206691 Problem Acne vulgaris L70.0 Active 95505458 Problem Bruised ribs, right, subsequent encounter S20.211D Active 317701772 Problem Attention-deficit hyperactivity disorder, combined type F90.2 Active 71164284 Problem Environmental allergies Z91.09 Active 371788199 ALLERGIES Substance Reaction Event Type Date Status pedialyte hives Non Drug Allergy Dec, Active ENCOUNTERS Encounter Location Date Diagnosis [facility] [id number], [place] [address] Jan, [facility] [place] [address] [place] [address] Dec, [facility] [id number], [place] [address] Dec, [facility] [address] [place] [address] Dec, BMI 45.0- 49.9, adult Z68.42 [facility] [address] [place] [address] Dec, BMI 45.0- 49.9, adult Z68.42 and Mood disorder F39 [facility] [address] [place] [address] 17 Dec, 2017 [facility] [address] [place] [address] Dec, [facility] [address] [place] [address] Dec, Bipolar disorder, unspecified F31.9 [facility] [place] [address] [place] [address] August, Bipolar disorder, unspecified F31.9 [facility] [place] [address] [place] [address] August, Bipolar disorder, unspecified F31.9 [facility] [place] [address] [place] [address] Jul, [facility] [place] [address] [place] [address] Jul, [facility] [place] [address] [place] [address] Apr, Bipolar disorder, unspecified F31.9 ; Attention-deficit hyperactivity disorder, combined type F90.2 and Mild intellectual disabilities F70 [facility] [place] [address] [place] [address] Apr, [facility] [place] [address] [place] [address] Mar, [facility] [place] [address] [place] [address] Jan, [facility] [place] [address] [place] [address] Dec, [facility] [place] [address] [place] [address] Nov, [facility] [place] [address] [place] [address] Sep, Pain in left shoulder M25.512 ; Intractable migraine, unspecified migraine type G43.919 and Morbid obesity due to excess calories E66.01 [facility] [address] [place] [address] Jul, Right foot pain M79.671 [facility] [place] [address] [place] [address] Jul, Attention- deficit hyperactivity disorder, combined type F90.2 ; Bipolar disorder, unspecified F31.9 ; Right foot pain M79.671 and Postoperative pain, acute, shoulder, left M25.512 [facility] [place] [address] [place] [address] Jun, [facility] [place] [address] [place] [address] Jun, [facility] [place] [address] [place] [address] Jun, Pain in left shoulder M25.512 [facility] [place] [address] [place] [address] May, Essential ( primary) hypertension I10 ; Hypothyroidism, unspecified E03.9 and Hyperlipidemia , unspecified E78.5 [facility] [place] [address] [place] [address] Apr, [facility] [place] [address] [place] [address] Apr, Ana Rosa [place] [address] [place] [address] Apr, Pain in left shoulder M25.512 and Other chronic pain G89.29 [facility] [id number], [place] [address] Apr, [facility] [address] [place] [id number], [place] [address] Feb, Ana Rosa [place] [address] [place] [address] Feb, Pain in left shoulder M25.512 and Other chronic pain G89.29 [facility] [place] [address] [place] [address] Jan, Bruised ribs, right, subsequent encounter S20.211D ; Acne vulgaris L70.0 and Routine sports physical exam Z02.5 [facility] [place] [address] [place] [address] Nov, Knee pain, right M25.561 ; Environmental allergies Z91.09 ; Attention-deficit hyperactivity disorder, combined type F90.2 and Bipolar disorder, unspecified F31.9 [facility] [place] [address] [place] [address] Nov, [facility] [place] [address] [place] [address] Oct, [facility] [place] [address] [place] [address] Oct, Knee pain, right M25.561 and Pain in left wrist M25.532 [facility] [place] [address] [place] [address] August, [facility] [place] [address] [place] [address] Jul, [facility] [place] [address] [place] [address] Jul, [facility] [place] [address] [place] [address] Jul, Gastro- esophageal reflux disease without esophagitis K21.9 and Pain in left wrist M25.532 [facility] [place] [address] [place] [address] Jul, [facility] [place] [address] [place] [address] Jun, [facility] [place] [address] [place] [address] Jun, Strain of right knee S86.911A and Right knee pain M25.561 [facility] [address] [place] [address] 15 May, 2015 Pain in left shoulder M25.512 [facility] [place] [address] [place] [address] May, [facility] [place] [address] [place] [address] Apr, Knee pain, right M25.561 and Left ankle sprain S93.402A [facility] [address] [place] [address] Apr, Knee pain, right M25.561 [facility] [place] [address] [place] [address] 16 Mar, 2015 [facility] [place] [address] [place] [address] Mar, Wrist pain , right M25.531 and Constipation K59.00 [facility] [address] [place] [address] Feb, Wrist pain , right M25.531 [facility] [place] [address] [place] [address] Feb, Wrist pain , right M25.531 [facility] [place] [address] [place] [address] Jan, Wrist pain , right M25.531 [facility] [address] [place] [address] Jan, [address] [address] Dec, Right leg pain 729.5 ; Benign hypertension 401.1 and GERD (gastroesophageal reflux disease ) 530.81 [facility] [address] [place] [address] Dec, Dental examination V72.2 [facility] [address] [place] [address] Dec, [address] [address] Dec, [address] [address] Nov, Benign hypertension 401.1 ; Hypothyroidism 244.9 and Hyperlipidemia 272.[address] [address] Nov, Benign hypertension 401.1 ; Bipolar 1 disorder 296.7 and GERD (gastroesophageal reflux disease) 530.[address] [address] Sep, [address] [address] Sep, ADHD ( attention deficit hyperactivity disorder), combined type 314.01 ; Bipolar disorder 296.80 ; OCD (obsessive compulsive disorder) 300.3 ; Hyperlipidemia 272.4 ; Hypothyroidism 244.9 and Asthma 493.90 [address], [place] [address] Jul, [facility] [address] [place] [address] [place] [address] Jul, [address] [place] [address] Mar, IMMUNIZATIONS No Known Immunizations SOCIAL HISTORY Never Assessed REASON FOR VISIT BH intake, seeking new medication to control anger management and depression. Fabi Joseph RN PLAN OF CARE Activity Details Follow Up 2 Weeks Reason: VITAL SIGNS Height 66.5" in 2018-01-09 Weight 299.3 lbs 2018-01-09 Temperature 98.7 degrees Fahrenheit 2018-01-09 Heart Rate 66 bpm 2018-01-09 Respiratory Rate 20 2018-01-09 BMI 47.58 kg/m2 2018-01-09 Blood pressure systolic 124 mmHg 2018-01-09 Blood pressure diastolic 87 mmHg 2018-01-09 MEDICATIONS Medication Instructions Dosage Frequency Start Date End Date Duration Status Celecoxib 200 mg TAKE 1 CAPSULE BY MOUTH DAILY 90 days Active GuanFACINE HCl ER 2 MG Orally Once a day TAKE 1 TABLET BY MOUTH DAILY 24h Active HydrOXYzine HCl 25 MG TAKE 1 TABLET BY MOUTH TWICE DAILY 90 days Active Escitalopram Oxalate 20 MG Orally Once a day 1 tablet 24h 30 days Active Simvastatin 10 mg Orally Once a day TAKE 1 TABLET DAILY IN THE EVENING 24h 90 days Active Tolterodine Tartrate ER 4 MG TAKE 1 CAPSULE DAILY. 90 days Active Metoprolol Succinate ER 25 MG Orally Once a day TAKE 1 TABLET BY MOUTH DAILY 24h 90 days Active Levothyroxine Sodium 25 MCG [place] Once a day TAKE 1 TABLET BY MOUTH DAILY 24h 90 days Active Pantoprazole Sodium 40 mg Orally Once a day 1 tablet 24h 90 days Active RESULTS No Results PROCEDURES No [...]
--- OUTSIDE RECORDS SUMMARY | 2018-06-29 20:10 | XMS REPORT ---
Author Author GERSON MAJANO [facility] [address] Address [address] [place] [address] Care Team Providers Care Power Cleaner Operator Name Role Phone GERSON MAJANO Unavailable PROBLEMS Type Condition ICD9-CM Code [id number] Code Onset Dates Condition Status SNOMED Code Problem ADHD (attention deficit hyperactivity disorder), combined type 314.01 Active 74862606 Problem ODD (oppositional defiant disorder) 313.81 Active 15829872 Problem Hypothyroid 244.9 Active 64018944 Problem Benign hypertension 401.1 Active 96213476 Problem Bipolar disorder 296.80 Active 53487298 Problem Hypothyroidism 244.9 Active 27989931 Problem ADHD (attention deficit hyperactivity disorder) 314.01 Active 494653978 Problem Bipolar 1 disorder 296.7 Active 153125993 Problem GERD (gastroesophageal reflux disease) 530.81 Active 040863296 Problem Other chronic pain G89.29 Active 63404497 Problem Asthma 493.90 Active 867428253 Problem Hyperlipidemia, unspecified E78.5 Active 36029674 Problem Hyperlipidemia 272.4 Active 28463154 Problem Hypothyroidism, unspecified E03.9 Active 68766879 Problem Right foot pain M79.671 Active 09205390 Problem Essential (primary) hypertension I10 Active 57204727 Problem Mood disorder F39 Active 07561801 Problem Mild intellectual disabilities F70 Active 97070668 Problem Knee pain, right M25.561 Active 04042496 Problem Constipation K59.00 Active 91603270 Problem Wrist pain, right M25.531 Active 39475070 Problem Pain in left shoulder M25.512 Active 96905725 Problem Intractable migraine, unspecified migraine type G43.919 Active 401441941 Problem Morbid obesity due to excess calories E66.01 Active 905502492 Problem Obesity (BMI 30-39.9) E66.9 Active 953628237 Problem Dental examination V72.2 Active 65616682 Problem Gastro-esophageal reflux disease without esophagitis K21.9 Active 231474357 Problem OCD (obsessive compulsive disorder) 300.3 Active 887840777 Problem Bipolar disorder, unspecified F31.9 Active 42871070 Problem Left ankle sprain S93.402A Active 89825872 Problem Pain in left wrist M25.532 Active 88410264 Problem Acne vulgaris L70.0 Active 47315992 Problem Bruised ribs, right, subsequent encounter S20.211D Active 079992754 Problem Attention-deficit hyperactivity disorder, combined type F90.2 Active 90252842 Problem Environmental allergies Z91.09 Active 697828395 ALLERGIES No Information ENCOUNTERS Encounter Location Date Diagnosis [facility] [id number], [place] [address] Jan, [facility] [address] [place] [address] Dec, [facility] [id number], [place] [address] Dec, [facility] [address] [place] [address] [place] [address] Dec, BMI 45.0- 49.9, adult Z68.42 [facility] [address] [place] [address] Dec, BMI 45.0- 49.9, adult Z68.42 and Mood disorder F39 [facility] [address] [place] [address] 17 Dec, 2017 [facility] [address] [place] [address] Dec, [facility] [address] [place] [address] Dec, Bipolar disorder, unspecified F31.9 [facility] [place] [address] [place] [address] August, Bipolar disorder, unspecified F31.9 [facility] [place] [address] [place] [address] August, Bipolar disorder, unspecified F31.9 [facility] [place] [address] [place] [address] Jul, [facility] [place] [address] [place] [address] Jul, [facility] [place] [address] [place] [address] Apr, Bipolar disorder, unspecified F31.9 ; Attention-deficit hyperactivity disorder, combined type F90.2 and Mild intellectual disabilities F70 [facility] [place] [address] [place] [address] Apr, [facility] [place] [address] [place] [address] Mar, [facility] [place] [address] [place] [address] Jan, [facility] [place] [address] [place] [address] Dec, Ana Rosa [place] [address] [place] [address] Nov, Ana Rosa [place] [address] [place] [address] Sep, Pain in left shoulder M25.512 ; Intractable migraine, unspecified migraine type G43.919 and Morbid obesity due to excess calories E66.01 [facility] [place] [address] [place] [address] Jul, Right foot pain M79.671 Ana Rosa [address] [address] Jul, Attention- deficit hyperactivity disorder, combined type F90.2 ; Bipolar disorder, unspecified F31.9 ; Right foot pain M79.671 and Postoperative pain, acute, shoulder, left M25.512 [facility] [place] [address] [place] [address] Jun, [facility] [place] [address] [place] [address] Jun, [facility] [place] [address] [place] [address] Jun, Pain in left shoulder M25.512 [facility] [place] [address] [place] [address] May, Essential ( primary) hypertension I10 ; Hypothyroidism, unspecified E03.9 and Hyperlipidemia , unspecified E78.5 [facility] [place] [address] [place] [address] Apr, [facility] [address] [place] [address] Apr, [facility] [place] [address] [place] [address] Apr, Pain in left shoulder M25.512 and Other chronic pain G89.29 [facility] [id number] [address] Apr, [facility] [id number], [place] [address] Feb, [facility] [place] [address] [place] [address] Feb, Pain in left shoulder M25.512 and Other chronic pain G89.29 [facility] [place] [address] [place] [address] Jan, Bruised ribs, right, subsequent encounter S20.211D ; Acne vulgaris L70.0 and Routine sports physical exam Z02.5 [facility] [place] [address] [place] [address] Nov, Knee pain, right M25.561 ; Environmental allergies Z91.09 ; Attention-deficit hyperactivity disorder, combined type F90.2 and Bipolar disorder, unspecified F31.9 [facility] [place] [address] [place] [address] Nov, [facility] [place] [address] [place] [address] Oct, [facility] [place] [address] [place] [address] Oct, Knee pain, right M25.561 and Pain in left wrist M25.532 [facility] [place] [address] [place] [address] August, [facility] [place] [address] [place] [address] Jul, [facility] [place] [address] [place] [address] Jul, [facility] [address] [place] [address] Jul, Gastro- esophageal reflux disease without esophagitis K21.9 and Pain in left wrist M25.532 [facility] [address] [place] [address] 14 Jul, 2015 [facility] [place] [address] [place] [address] Jun, [facility] [address] [place] [address] Jun, Strain of right knee S86.911A and Right knee pain M25.561 [facility] [place] [address] [place] [address] May, Pain in left shoulder M25.512 [facility] [address] [place] [address] May, [facility] [address] [place] [address] Apr, Knee pain, right M25.561 and Left ankle sprain S93.402A [facility] [place] [address] [place] [address] Apr, Knee pain, right M25.561 [facility] [address] [place] [address] Mar, [facility] [place] [address] [place] [address] Mar, Wrist pain , right M25.531 and Constipation K59.00 [facility] [address] [place] [address] Feb, Wrist pain , right M25.531 [facility] [place] [address] [place] [address] Feb, Wrist pain , right M25.531 [facility] [place] [address] [place] [address] Jan, Wrist pain , right M25.531 [facility] [place] [address] [place] [address] Jan, [facility] [address] [place] [address] Dec, Right leg pain 729.5 ; Benign hypertension 401.1 and GERD (gastroesophageal reflux disease ) 530.[address] [address] Dec, Dental examination V72.[address] [address] Dec, [address] [address] Dec, [address] [address] Nov, Benign hypertension 401.1 ; Hypothyroidism 244.9 and Hyperlipidemia 272.[address] [address] Nov, Benign hypertension 401.1 ; Bipolar 1 disorder 296.7 and GERD (gastroesophageal reflux disease) 530.[address] [address] Sep, [address] [address] Sep, ADHD ( attention deficit hyperactivity disorder), combined type 314.01 ; Bipolar disorder 296.80 ; OCD (obsessive compulsive disorder) 300.3 ; Hyperlipidemia 272.4 ; Hypothyroidism 244.9 and Asthma 493.90 [address] [place] [address] Jul, [id number] [place] [address] Jul, [address] [place] [phone] Mar, IMMUNIZATIONS No Known Immunizations SOCIAL HISTORY Never Assessed REASON FOR VISIT Refill request PLAN OF CARE VITAL SIGNS MEDICATIONS Unknown [...]
--- OUTSIDE RECORDS SUMMARY | 2018-06-29 20:10 | XMS REPORT ---
Author CHELO Baker [facility] Address [address] [place] [address] Care Team Providers Care Engine Watchman Name Role Phone CHELO CARLTON Unavailable PROBLEMS ALLERGIES No Information ENCOUNTERS IMMUNIZATIONS No Known Immunizations SOCIAL HISTORY No smoking Hx information available REASON FOR VISIT PLAN OF CARE VITAL SIGNS MEDICATIONS Unknown Medications RESULTS No Results PROCEDURES No Known procedures INSTRUCTIONS MEDICATIONS ADMINISTERED No Known Medications MEDICAL (GENERAL) HISTORY
--- OUTSIDE RECORDS SUMMARY | 2018-06-29 20:10 | XMS REPORT ---
Author Author CHELO CARLTON [facility] Address [address] [place] [address] Care Team Providers Care Trichologist Name Role Phone CHELO CARLTON Unavailable PROBLEMS Type Condition ICD9-CM Code AJI82-LU Code Onset Dates Condition Status SNOMED Code Problem ADHD (attention deficit hyperactivity disorder), combined type 314.01 Active 84229195 Problem ODD (oppositional defiant disorder) 313.81 Active 24320569 Problem Hypothyroid 244.9 Active 96322983 Problem Benign hypertension 401.1 Active 64727826 Problem Bipolar disorder 296.80 Active 46014020 Problem Hypothyroidism 244.9 Active 42481846 Problem ADHD (attention deficit hyperactivity disorder) 314.01 Active 405002048 Problem Bipolar 1 disorder 296.7 Active 440882103 Problem GERD (gastroesophageal reflux disease) 530.81 Active 761240696 Problem Other chronic pain G89.29 Active 25667662 Problem Asthma 493.90 Active 678431365 Problem Hyperlipidemia, unspecified E78.5 Active 85647248 Problem Hyperlipidemia 272.4 Active 18034331 Problem Hypothyroidism, unspecified E03.9 Active 01446605 Problem Right foot pain M79.671 Active 45108164 Problem Essential (primary) hypertension I10 Active 15832547 Problem Mood disorder F39 Active 01094467 Problem Mild intellectual disabilities F70 Active 77142665 Problem Knee pain, right M25.561 Active 93373922 Problem Constipation K59.00 Active 66679635 Problem Wrist pain, right M25.531 Active 22354085 Problem Pain in left shoulder M25.512 Active 07996899 Problem Intractable migraine, unspecified migraine type G43.919 Active 076985694 Problem Morbid obesity due to excess calories E66.01 Active 263079077 Problem Obesity (BMI 30-39.9) E66.9 Active 284592277 Problem Dental examination V72.2 Active 99234125 Problem Gastro-esophageal reflux disease without esophagitis K21.9 Active 201875233 Problem OCD (obsessive compulsive disorder) 300.3 Active 216004113 Problem Bipolar disorder, unspecified F31.9 Active 25912914 Problem Left ankle sprain S93.402A Active 24213975 Problem Pain in left wrist M25.532 Active 11060600 Problem Acne vulgaris L70.0 Active 88745190 Problem Bruised ribs, right, subsequent encounter S20.211D Active 612132168 Problem Attention-deficit hyperactivity disorder, combined type F90.2 Active 09541754 Problem Environmental allergies Z91.09 Active 543229841 ALLERGIES No Information ENCOUNTERS Encounter Location Date Diagnosis [facility] [id number], [place] [address] Jan, [facility] [address] [place] [address] Dec, [facility] [id number], [place] [address] Dec, [facility] [address] [place] [address] Dec, BMI 45.0- 49.9, adult Z68.42 [facility] [address] [place] [address] Dec, BMI 45.0- 49.9, adult Z68.42 and Mood disorder F39 [facility] [address] [place] [address] 17 Dec, 2017 [facility] [address] [place] [address] Dec, [facility] [address] [place] [address] Dec, Bipolar disorder, unspecified F31.9 [facility] [place] [address] [place] [address] August, Bipolar disorder, unspecified F31.9 [facility] [place] [address] [place] [address] August, Bipolar disorder, unspecified F31.9 [facility] [place] [address] [place] [address] Jul, [facility] [place] [address] [place] [address] Jul, [facility] [place] [address] [place] [address] Apr, Bipolar disorder, unspecified F31.9 ; Attention-deficit hyperactivity disorder, combined type F90.2 and Mild intellectual disabilities F70 [facility] [place] [address] [place] [address] Apr, [facility] [place] [address] [place] [address] Mar, [facility] [place] [address] [place] [address] Jan, [facility] [place] [address] [place] [address] Dec, Ana Rosa [place] [address] [place] [address] Nov, [facility]HELLE [place] [address] [place] [address] Sep, Pain in left shoulder M25.512 ; Intractable migraine, unspecified migraine type G43.919 and Morbid obesity due to excess calories E66.01 [facility] [place] [address] [place] [address] Jul, Right foot pain M79.671 Ana Rosa [place] [address] [place] [address] Jul, Attention- deficit hyperactivity disorder, combined type F90.2 ; Bipolar disorder, unspecified F31.9 ; Right foot pain M79.671 and Postoperative pain, acute, shoulder, left M25.512 [facility] [place] [address] [place] [address] Jun, [facility] [place] [address] [place] [address] Jun, [facility] [place] [address] [place] [address] Jun, Pain in left shoulder M25.512 [facility] [place] [address] [place] [address] May, Essential ( primary) hypertension I10 ; Hypothyroidism, unspecified E03.9 and Hyperlipidemia , unspecified E78.5 [facility] [place] [address] [place] [address] Apr, [facility] [place] [address] [place] [address] Apr, [facility] [place] [address] [place] [address] Apr, Pain in left shoulder M25.512 and Other chronic pain G89.29 [facility] [id number], [place] [address] Apr, [facility] [id number], [place] [address] Feb, [facility] [place] [address] [place] [address] Feb, Pain in left shoulder M25.512 and Other chronic pain G89.29 [facility] [place] [address] [place] [address] Jan, Bruised ribs, right, subsequent encounter S20.211D ; Acne vulgaris L70.0 and Routine sports physical exam Z02.5 [facility] [place] [address] [place] [address] Nov, Knee pain, right M25.561 ; Environmental allergies Z91.09 ; Attention-deficit hyperactivity disorder, combined type F90.2 and Bipolar disorder, unspecified F31.9 [facility] [place] [address] [place] [address] Nov, [facility] [place] [address] [place] [address] Oct, [facility] [place] [address] [place] [address] Oct, Knee pain, right M25.561 and Pain in left wrist M25.532 [facility] [place] [address] [place] [address] August, [facility] [place] [address] [place] [address] Jul, [facility] [place] [address] [place] [address] Jul, [facility] [place] [address] [place] [address] Jul, Gastro- esophageal reflux disease without esophagitis K21.9 and Pain in left wrist M25.532 [facility] [place] [address] [place] [address] 14 Jul, 2015 [facility] [place] [address] [place] [address] Jun, [facility] [place] [address] [place] [address] Jun, Strain of right knee S86.911A and Right knee pain M25.561 [facility] [place] [address] [place] [address] May, Pain in left shoulder M25.512 [facility] [place] [address] [place] [address] May, [facility] [place] [address] [place] [address] Apr, Knee pain, right M25.561 and Left ankle sprain S93.402A [facility] [address] [place] [address] Apr, Knee pain, right M25.561 [facility] [place] [address] [place] [address] Mar, [facility] [place] [address] [place] [address] Mar, Wrist pain , right M25.531 and Constipation K59.00 [facility] [place] [address] [place] [address] Feb, Wrist pain , right M25.531 [facility] [place] [address] [place] [address] Feb, Wrist pain , right M25.531 [facility] [place] [address] [place] [address] Jan, Wrist pain , right M25.531 [facility] [place] [address] [place] [address] Jan, [facility] [address] [place] [address] Dec, Right leg pain 729.5 ; Benign hypertension 401.1 and GERD (gastroesophageal reflux disease ) 530.[address] [address] Dec, Dental examination V72.[address] [address] 15 Dec, [address] [address] Dec, [address] [address] Nov, Benign hypertension 401.1 ; Hypothyroidism 244.9 and Hyperlipidemia 272.[address] [address] Nov, Benign hypertension 401.1 ; Bipolar 1 disorder 296.7 and GERD (gastroesophageal reflux disease) 530.[address] [address] Sep, [address] [address] Sep, ADHD ( attention deficit hyperactivity disorder), combined type 314.01 ; Bipolar disorder 296.80 ; OCD (obsessive compulsive disorder) 300.3 ; Hyperlipidemia 272.4 ; Hypothyroidism 244.9 and Asthma 493.90 [address] [place] [address] Jul, [id number] [place] [address] Jul, [id number] [place] [address] Mar, IMMUNIZATIONS No Known Immunizations SOCIAL HISTORY Never Assessed REASON FOR VISIT repository - med --- Escitalopram 20 mg PLAN OF CARE VITAL SIGNS MEDICATIONS Medication Instructions Dosage Frequency Start Date End Date Duration Status Escitalopram Oxalate 20 mg Orally Once a [...]
--- OUTSIDE RECORDS SUMMARY | 2018-06-29 20:11 | XMS REPORT ---
Author Author GERSON MAJANO Organization [facility] [address] Address [address] [place] [address] Care Team Providers Care Plastic Parts Fabricator Name Role Phone GERSON MAJANO Unavailable PROBLEMS Type Condition ICD9-CM Code [id number] Code Onset Dates Condition Status SNOMED Code Problem ODD (oppositional defiant disorder) 313.81 Active 15784706 Problem OCD (obsessive compulsive disorder) 300.3 Active 530156069 Problem Benign hypertension 401.1 Active 21561035 Problem ADHD (attention deficit hyperactivity disorder), combined type 314.01 Active 37030228 Problem Hypothyroid 244.9 Active 37836398 Problem Bipolar disorder 296.80 Active 34421316 Problem Hypothyroidism 244.9 Active 20340256 Problem ADHD (attention deficit hyperactivity disorder) 314.01 Active 766508646 Problem Bipolar 1 disorder 296.7 Active 486506046 Problem Bruised ribs, right, subsequent encounter S20.211D Active 725974953 Problem GERD (gastroesophageal reflux disease) 530.81 Active 537709022 Problem Other chronic pain G89.29 Active 99552588 Problem Asthma 493.90 Active 881667100 Problem Hyperlipidemia, unspecified E78.5 Active 77823942 Problem Essential (primary) hypertension I10 Active 58599249 Problem Hypothyroidism, unspecified E03.9 Active 56476450 Problem Mild intellectual disabilities F70 Active 16019019 Problem Pain in left shoulder M25.512 Active 35952466 Problem Constipation K59.00 Active 39986551 Problem Wrist pain, right M25.531 Active 84737193 Problem Hyperlipidemia 272.4 Active 45829328 Problem Intractable migraine, unspecified migraine type G43.919 Active 386993110 Problem Right foot pain M79.671 Active 92997874 Problem Morbid obesity due to excess calories E66.01 Active 596396490 Problem Obesity (BMI 30-39.9) E66.9 Active 782953025 Problem Pain in left wrist M25.532 Active 71867499 Problem Dental examination V72.2 Active 68200557 Problem Gastro-esophageal reflux disease without esophagitis K21.9 Active 248356998 Problem Knee pain, right M25.561 Active 55859865 Problem Left ankle sprain S93.402A Active 45510961 Problem Environmental allergies Z91.09 Active 845315919 Problem Acne vulgaris L70.0 Active 53516388 Problem Bipolar disorder, unspecified F31.9 Active 76455770 Problem Attention-deficit hyperactivity disorder, combined type F90.2 Active 15078275 ALLERGIES No Information ENCOUNTERS Encounter Location Date Diagnosis [facility] [place] [address] [place] [address] August, Bipolar disorder , unspecified F31.[address] [address] August, Bipolar disorder , unspecified F31.[address] [address] Jul, [facility] [address] [address] Jul, [facility] [address] [address] Apr, Bipolar disorder , unspecified F31.9 ; Attention-deficit hyperactivity disorder, combined type F90.2 and Mild intellectual disabilities F70 [facility] [address] [address] Apr, [facility] [place] [address] [place] [address] Mar, [facility] [place] [address] [place] [address] Jan, [facility] [address] [address] Dec, [facility] [address] [address] Nov, [facility] [place] [address] [place] [address] 09 Sep, 2016 Pain in left shoulder M25.512 ; Intractable migraine, unspecified migraine type G43.919 and Morbid obesity due to excess calories E66.01 [facility] [place] [address] [place] [address] 14 Jul, 2016 Right foot pain M79.671 [facility] [address] [address] 12 Jul, 2016 Attention- deficit hyperactivity disorder, combined type F90.2 ; Bipolar disorder, unspecified F31.9 ; Right foot pain M79.671 and Postoperative pain, acute, shoulder, left M25.512 [facility] [address] [address] Jun, [facility] [address] [address] [place] [address] Jun, [facility] [address] [address] Jun, Pain in left shoulder M25.512 [facility] [address] [address] May, Essential ( primary) hypertension I10 ; Hypothyroidism, unspecified E03.9 and Hyperlipidemia , unspecified E78.[address] [address] Apr, [address] [address] Apr, [address] [address] Apr, Pain in left shoulder M25.512 and Other chronic pain G89.29 [facility] [address] [address] Apr, [facility] [address] [address] Feb, [address] [address] Feb, Pain in left shoulder M25.512 and Other chronic pain G89.[address] [address] Jan, Bruised ribs, right, subsequent encounter S20.211D ; Acne vulgaris L70.0 and Routine sports physical exam Z02.[address] [address] Nov, Knee pain, right M25.561 ; Environmental allergies Z91.09 ; Attention-deficit hyperactivity disorder, combined type F90.2 and Bipolar disorder, unspecified F31.[address] [address] Nov, [facility] [address] Oct, [facility] [place] [address] [place] [address] Oct, Knee pain, right M25.561 and Pain in left wrist M25.532 [facility] [place] [address] [place] [address] August, [facility] [place] [address] [place] [address] Jul, [facility] [place] [address] [place] [address] Jul, [facility] [place] [address] [place] [address] Jul, Gastro- esophageal reflux disease without esophagitis K21.9 and Pain in left wrist M25.532 [facility] [place] [address] [place] [address] Jul, [facility] [place] [address] [place] [address] Jun, [facility] [place] [address] [place] [address] Jun, Strain of right knee S86.911A and Right knee pain M25.561 [facility] [place] [address] [place] [address] May, Pain in left shoulder M25.512 [facility] [place] [address] [place] [address] May, [facility] [place] [address] [place] [address] Apr, Knee pain, right M25.561 and Left ankle sprain S93.402A [facility] [place] [address] [place] [address] Apr, Knee pain, right M25.561 [facility] [place] [address] [place] [address] 16 Mar, 2015 [facility] [place] [address] [place] [address] 04 Mar, 2015 Wrist pain, right M25.531 and Constipation K59.00 [facility] [place] [address] [place] [address] 30 Feb, 2015 Wrist pain, right M25.531 [facility] [place] [address] [place] [address] Feb, Wrist pain, right M25.531 [facility] [address] [place] [address] Jan, Wrist pain, right M25.[address] [address] Jan, [address] [address] Dec, Right leg pain 729.5 ; Benign hypertension 401.1 and GERD (gastroesophageal reflux disease) 530.[address] [address] Dec, Dental examination V72.[address] [address] Dec, [address] [address] Dec, [address] [address] Nov, Benign hypertension 401.1 ; Hypothyroidism 244.9 and Hyperlipidemia 272.[address] [address] Nov, Benign hypertension 401.1 ; Bipolar 1 disorder 296.7 and GERD (gastroesophageal reflux disease) 530.[address] [address] Sep, [address] [address] Sep, ADHD (attention deficit hyperactivity disorder), combined type 314.01 ; Bipolar disorder 296.80 ; OCD (obsessive compulsive disorder) 300.3 ; Hyperlipidemia 272.4 ; Hypothyroidism 244.9 and Asthma 493.90 [facility] [address] [place] [address] Jul, [facility] [address] [place] [address] Jul, [place] [id number] [place] [address] Mar, IMMUNIZATIONS No Known Immunizations SOCIAL HISTORY Never Assessed REASON FOR VISIT Repository Medication PLAN OF CARE VITAL SIGNS MEDICATIONS Medication Instructions Dosage Frequency Start Date End Date Duration Status Atorvastatin Calcium 10 mg Orally Once a day 1 tablet 24h Active Lansoprazole 30 MG Orally Once a day 1 capsule 24h Jul, Unknown Celecoxib 200 mg TAKE 1 CAPSULE BY MOUTH DAILY 90 days Active Escitalopram Oxalate 10 mg Orally Once a day TAKE 1 TABLET BY MOUTH DAILY 24h Active Loratadine 10 MG Orally 1-2 times a day PRN 1 tablet Mar, Unknown Metoprolol Succinate ER 25 MG Orally Once a day TAKE 1 TABLET BY MOUTH DAILY 24h 90 days Active Fluticasone Propionate 50 TAKE 2 SPRAYS IN EACH NOSTRIL ONCE DAILY 30 Unknown Asmanex 60 Metered Doses 220 INHALE 1 PUFF TWICE DAILY 30 Unknown Aripiprazole 15 mg Orally Once a day 1 tablet 24h 13 Jan, 2017 30 day(s ) Unknown Diclofenac Sodium 50 MG TAKE 1 TABLET BY MOUTH 3 TIMES DAILY 20 Unknown Pseudoephedrine HCl ER 120 MG Orally every 12 hrs 1 tablet as needed 12h Nov, Unknown Pantoprazole Sodium 40 mg Orally Once a day 1 tablet 24h 90 days Active Fluticasone Propionate 50 MCG/ACT Nasally Once a day 2 spray in each nostril 24h Apr, 30 day(s) Unknown GuanFACINE HCl ER 3 MG Orally Once a day TAKE 1 TABLET BY MOUTH DAILY 24h 90 days Unknown HydrOXYzine HCl 25 MG TAKE 1 TABLET BY MOUTH TWICE DAILY 90 days Unknown Simvastatin 10 mg Orally Once a day TAKE 1 TABLET DAILY IN THE EVENING 24h 90 days Not-Taking Levothyroxine Sodium 25 MCG Orally Once a day TAKE 1 TABLET BY MOUTH DAILY 24h 90 days Active Tolterodine Tartrate ER 4 MG TAKE 1 CAPSULE DAILY. 90 days Unknown RESULTS No Results PROCEDURES No Known procedures INSTRUCTIONS MEDICATIONS ADMINISTERED No Known Medications MEDICAL (GENERAL) HISTORY Type Description Date Medical History ADHD (attention deficit hyperactivity disorder) Medical History Bipolar 1 disorder Medical History Benign hypertension Medical History Asthma Medical History GERD (gastroesophageal reflux disease) Medical History ODD (oppositional defiant disorder) Medical History Hypothyroid Surgical History tonsillectomy and adenoidectomy Surgical History ear tubes Surgical History left shoulder muscle repair 2016 Hospitalization History Hospitalization for surgery only
--- OUTSIDE RECORDS SUMMARY | 2018-06-29 20:11 | XMS REPORT ---
Author Author GERSON MAJANO Organization [facility] [address] Address [address] [place] [address] Care Team Providers Care Electrician Technician Name Role Phone GERSON MAJANO Unavailable PROBLEMS Type Condition ICD9-CM Code EYX58-AH Code Onset Dates Condition Status SNOMED Code Problem ADHD (attention deficit hyperactivity disorder), combined type 314.01 Active 65564067 Problem ODD (oppositional defiant disorder) 313.81 Active 65266904 Problem Hypothyroid 244.9 Active 97717568 Problem Benign hypertension 401.1 Active 38954088 Problem Bipolar disorder 296.80 Active 85385717 Problem Hypothyroidism 244.9 Active 32379336 Problem ADHD (attention deficit hyperactivity disorder) 314.01 Active 146997863 Problem Bipolar 1 disorder 296.7 Active 917607860 Problem GERD (gastroesophageal reflux disease) 530.81 Active 889408119 Problem Other chronic pain G89.29 Active 36812142 Problem Asthma 493.90 Active 415956737 Problem Hyperlipidemia, unspecified E78.5 Active 78280268 Problem Hyperlipidemia 272.4 Active 33965948 Problem Hypothyroidism, unspecified E03.9 Active 46596038 Problem Right foot pain M79.671 Active 59950478 Problem Essential (primary) hypertension I10 Active 35513843 Problem Mood disorder F39 Active 12822412 Problem Mild intellectual disabilities F70 Active 38975325 Problem Knee pain, right M25.561 Active 28686906 Problem Constipation K59.00 Active 14743829 Problem Wrist pain, right M25.531 Active 56776399 Problem Pain in left shoulder M25.512 Active 72077926 Problem Intractable migraine, unspecified migraine type G43.919 Active 099132448 Problem Morbid obesity due to excess calories E66.01 Active 090225415 Problem Obesity (BMI 30-39.9) E66.9 Active 760346070 Problem Dental examination V72.2 Active 07422325 Problem Gastro-esophageal reflux disease without esophagitis K21.9 Active 891159566 Problem OCD (obsessive compulsive disorder) 300.3 Active 603268712 Problem Bipolar disorder, unspecified F31.9 Active 78341337 Problem Left ankle sprain S93.402A Active 23389183 Problem Pain in left wrist M25.532 Active 64603796 Problem Acne vulgaris L70.0 Active 70213846 Problem Bruised ribs, right, subsequent encounter S20.211D Active 050226417 Problem Attention-deficit hyperactivity disorder, combined type F90.2 Active 47743858 Problem Environmental allergies Z91.09 Active 665204678 ALLERGIES No Information ENCOUNTERS Encounter Location Date Diagnosis [facility] [id number] [address] Jan, [facility] [address] [place] [address] Dec, [facility] [id number] [address] Dec, [facility] [address] [place] [address] [place] [address] Dec, BMI 45.0- 49.9, adult Z68.42 [facility] [address] [place] [address] [place] [address] Dec, BMI 45.0- 49.9, adult Z68.42 and Mood disorder F39 [facility] [address] [place] [address] [place] [address] 17 Dec, 2017 [facility] [address] [address] [place] [address] Dec, [facility] [address] [place] [address] Dec, Bipolar disorder, unspecified F31.9 [facility] [place] [address] [place] [address] August, Bipolar disorder, unspecified F31.9 [facility] [place] [address] [place] [address] August, Bipolar disorder, unspecified F31.9 [facility] [place] [address] [place] [address] Jul, [facility] [place] [address] [place] [address] Jul, [facility] [address] [place] [address] Apr, Bipolar disorder, unspecified F31.9 ; Attention-deficit hyperactivity disorder, combined type F90.2 and Mild intellectual disabilities F70 [facility] [address] [place] [address] Apr, [facility] [place] [address] [place] [address] Mar, [facility] [place] [address] [place] [address] Jan, [facility] [place] [address] [place] [address] Dec, [facility] [place] [address] [place] [address] Nov, [facility] [place] [address] [place] [address] Sep, Pain in left shoulder M25.512 ; Intractable migraine, unspecified migraine type G43.919 and Morbid obesity due to excess calories E66.01 [facility] [place] [address] [place] [address] Jul, Right foot pain M79.671 [facility] [address] [address] Jul, Attention- deficit hyperactivity disorder, combined type F90.2 ; Bipolar disorder, unspecified F31.9 ; Right foot pain M79.671 and Postoperative pain, acute, shoulder, left M25.512 [facility] [place] [address] [place] [address] Jun, [facility] [place] [address] [place] [address] Jun, [facility] [place] [address] [place] [address] Jun, Pain in left shoulder M25.512 [facility] [place] [address] [place] [address] May, Essential ( primary) hypertension I10 ; Hypothyroidism, unspecified E03.9 and Hyperlipidemia , unspecified E78.5 [facility] [place] [address] [place] [address] Apr, [facility] [address] [place] [address] Apr, [facility] [place] [address] [place] [address] Apr, Pain in left shoulder M25.512 and Other chronic pain G89.29 [facility] [id number] [address] Apr, [facility] [id number] [address] Feb, [facility] [place] [address] [place] [address] Feb, Pain in left shoulder M25.512 and Other chronic pain G89.29 [facility] [place] [address] [place] [address] Jan, Bruised ribs, right, subsequent encounter S20.211D ; Acne vulgaris L70.0 and Routine sports physical exam Z02.5 [facility] [place] [address] [place] [address] Nov, Knee pain, right M25.561 ; Environmental allergies Z91.09 ; Attention-deficit hyperactivity disorder, combined type F90.2 and Bipolar disorder, unspecified F31.9 [facility] [place] [address] [place] [address] Nov, [facility] [place] [address] [place] [address] Oct, [facility] [place] [address] [place] [address] Oct, Knee pain, right M25.561 and Pain in left wrist M25.532 [facility] [place] [address] [place] [address] August, [facility] [place] [address] [place] [address] Jul, [facility] [place] [address] [place] [address] Jul, [facility] [address] [place] [address] Jul, Gastro- esophageal reflux disease without esophagitis K21.9 and Pain in left wrist M25.532 [facility] [address] [place] [address] 14 Jul, 2015 [facility] [place] [address] [place] [address] Jun, [facility] [address] [place] [address] Jun, Strain of right knee S86.911A and Right knee pain M25.561 [facility] [place] [address] [place] [address] May, Pain in left shoulder M25.512 [facility] [address] [place] [address] May, [facility] [address] [place] [address] Apr, Knee pain, right M25.561 and Left ankle sprain S93.402A [facility] [place] [address] [place] [address] Apr, Knee pain, right M25.561 [facility] [address] [place] [address] Mar, [facility] [place] [address] [place] [address] Mar, Wrist pain , right M25.531 and Constipation K59.00 [facility] [address] [place] [address] Feb, Wrist pain , right M25.531 [facility] [place] [address] [place] [address] Feb, Wrist pain , right M25.531 [facility] [place] [address] [place] [address] Jan, Wrist pain , right M25.531 [facility] [place] [address] [place] [address] Jan, [facility] [address] [place] [address] Dec, Right leg pain 729.5 ; Benign hypertension 401.1 and GERD (gastroesophageal reflux disease ) 530.[address] [address] Dec, Dental examination V72.[address] [address] Dec, [address] [address] Dec, [address] [address] Nov, Benign hypertension 401.1 ; Hypothyroidism 244.9 and Hyperlipidemia 272.[address] [address] Nov, Benign hypertension 401.1 ; Bipolar 1 disorder 296.7 and GERD (gastroesophageal reflux disease) 530.[address] [address] Sep, [address] [address] Sep, ADHD ( attention deficit hyperactivity disorder), combined type 314.01 ; Bipolar disorder 296.80 ; OCD (obsessive compulsive disorder) 300.3 ; Hyperlipidemia 272.4 ; Hypothyroidism 244.9 and Asthma 493.[address] [place] [address] Jul, [address] [place] [address] Jul, [address] [place] [address] Mar, IMMUNIZATIONS No Known Immunizations SOCIAL HISTORY Never Assessed REASON FOR VISIT cost of medication PLAN OF CARE VITAL SIGNS MEDICATIONS Unknown [...]
--- OUTSIDE RECORDS SUMMARY | 2018-06-29 20:11 | XMS REPORT ---
Author Author GERSON MAJANO Organization [facility] [address] Address [address] [place] [address] Care Team Providers Care Core Filer Name Role Phone GERSON MAJANO Unavailable PROBLEMS Type Condition ICD9-CM Code TUO01-XM Code Onset Dates Condition Status SNOMED Code Problem ADHD (attention deficit hyperactivity disorder), combined type 314.01 Active 15179301 Problem ODD (oppositional defiant disorder) 313.81 Active 89794472 Problem Hypothyroid 244.9 Active 95579732 Problem Benign hypertension 401.1 Active 16180564 Problem Bipolar disorder 296.80 Active 36696739 Problem Hypothyroidism 244.9 Active 80847027 Problem ADHD (attention deficit hyperactivity disorder) 314.01 Active 161692216 Problem Bipolar 1 disorder 296.7 Active 874414703 Problem GERD (gastroesophageal reflux disease) 530.81 Active 757879386 Problem Other chronic pain G89.29 Active 48599803 Problem Asthma 493.90 Active 529634302 Problem Hyperlipidemia, unspecified E78.5 Active 01171639 Problem Hyperlipidemia 272.4 Active 55485552 Problem Hypothyroidism, unspecified E03.9 Active 05173663 Problem Right foot pain M79.671 Active 65400023 Problem Essential (primary) hypertension I10 Active 86657931 Problem Mood disorder F39 Active 26462881 Problem Mild intellectual disabilities F70 Active 15493909 Problem Knee pain, right M25.561 Active 96463683 Problem Constipation K59.00 Active 58994071 Problem Wrist pain, right M25.531 Active 41142804 Problem Pain in left shoulder M25.512 Active 17835885 Problem Intractable migraine, unspecified migraine type G43.919 Active 110508807 Problem Morbid obesity due to excess calories E66.01 Active 298693030 Problem Obesity (BMI 30-39.9) E66.9 Active 848510142 Problem Dental examination V72.2 Active 32097515 Problem Gastro-esophageal reflux disease without esophagitis K21.9 Active 171765479 Problem OCD (obsessive compulsive disorder) 300.3 Active 646768641 Problem Bipolar disorder, unspecified F31.9 Active 70395978 Problem Left ankle sprain S93.402A Active 18219870 Problem Pain in left wrist M25.532 Active 31112489 Problem Acne vulgaris L70.0 Active 27341352 Problem Bruised ribs, right, subsequent encounter S20.211D Active 179379984 Problem Attention-deficit hyperactivity disorder, combined type F90.2 Active 13894025 Problem Environmental allergies Z91.09 Active 756450134 ALLERGIES No Information ENCOUNTERS Encounter Location Date Diagnosis [facility] [address] [place] [address] Dec, [facility] [address] [facility] [id number] [place] [address] Dec, [facility] [address] [place] [address] Dec, BMI 45.0- 49.9, adult Z68.42 [facility] [address] [place] [address] Dec, BMI 45.0- 49.9, adult Z68.42 and Mood disorder F39 [facility] [address] [place] [address] Dec, [facility] [address] [place] [address] Dec, [facility] [address] [place] [address] Dec, Bipolar disorder, unspecified F31.9 [facility] [place] [address] [place] [address] August, Bipolar disorder, unspecified F31.9 [facility] [place] [address] [place] [address] August, Bipolar disorder, unspecified F31.9 [facility] [place] [address] [place] [address] Jul, [facility] [place] [address] [place] [address] Jul, [facility] [place] [address] [place] [address] Apr, Bipolar disorder, unspecified F31.9 ; Attention-deficit hyperactivity disorder, combined type F90.2 and Mild intellectual disabilities F70 [facility] [address] [place] [address] Apr, [facility] [address] [address] [place] [address] Mar, [facility] [address] [address] [place] [address] Jan, [facility] [address] [place] [address] Dec, [facility] [address] [place] [address] Nov, Ana [facility] [address] [place] [address] Sep, Pain in left shoulder M25.512 ; Intractable migraine, unspecified migraine type G43.919 and Morbid obesity due to excess calories E66.01 [facility] [address] [address] [place] [address] Jul, Right foot pain M79.671 Ana Rosa [address] [address] Jul, Attention- deficit hyperactivity disorder, combined type F90.2 ; Bipolar disorder, unspecified F31.9 ; Right foot pain M79.671 and Postoperative pain, acute, shoulder, left M25.512 [facility] [address] [place] [address] Jun, [facility] [address] [place] [address] Jun, j[facility] [address] [place] [address] Jun, Pain in left shoulder M25.512 [facility] [address] [place] [address] May, Essential ( primary) hypertension I10 ; Hypothyroidism, unspecified E03.9 and Hyperlipidemia , unspecified E78.5 [facility] [address] [place] [address] Apr, [facility] [place] [address] [place] [address] Apr, [facility] [place] [address] [place] [address] Apr, Pain in left shoulder M25.512 and Other chronic pain G89.29 [facility] [id number] [address] Apr, [facility] [id number], [place] [address] Feb, [facility] [address] [place] [address] Feb, Pain in left shoulder M25.512 and Other chronic pain G89.29 [facility] [address] [place] [address] Jan, Bruised ribs, right, subsequent encounter S20.211D ; Acne vulgaris L70.0 and Routine sports physical exam Z02.5 [facility] [address] [place] [address] Nov, Knee pain, right M25.561 ; Environmental allergies Z91.09 ; Attention-deficit hyperactivity disorder, combined type F90.2 and Bipolar disorder, unspecified F31.9 [facility] [address] [place] [address] Nov, [facility] [address] [place] [address] Oct, [facility] [address] [place] [address] Oct, Knee pain, right M25.561 and Pain in left wrist M25.532 [facility] [address] [place] [address] August, [facility] [place] [address] [place] [address] Jul, [facility] [place] [address] [place] [address] Jul, [facility] [place] [address] [place] [address] Jul, Gastro- esophageal reflux disease without esophagitis K21.9 and Pain in left wrist M25.532 [facility] [place] [address] [place] [address] 14 Jul, 2015 [facility] [place] [address] [place] [address] Jun, [facility] [place] [address] [place] [address] Jun, Strain of right knee S86.911A and Right knee pain M25.561 [facility] [address] [place] [address] 15 May, 2015 Pain in left shoulder M25.512 [facility] [address] [place] [address] May, [facility] [place] [address] [place] [address] Apr, Knee pain, right M25.561 and Left ankle sprain S93.402A [facility] [address] [place] [address] Apr, Knee pain, right M25.561 [facility] [place] [address] [place] [address] Mar, [facility] [address] [place] [address] Mar, Wrist pain , right M25.531 and Constipation K59.00 [facility] [address] [place] [address] Feb, Wrist pain , right M25.531 [facility] [place] [address] [place] [address] Feb, Wrist pain , right M25.531 [facility] [place] [address] [place] [address] Jan, Wrist pain , right M25.531 [facility] [place] [address] [place] [address] Jan, [facility] [place] [address] [place] [address] Dec, Right leg pain 729.5 ; Benign hypertension 401.1 and GERD (gastroesophageal reflux disease ) 530.[address] [address] Dec, Dental examination V72.[address] [address] Dec, [address] [address] Dec, [address] [address] Nov, Benign hypertension 401.1 ; Hypothyroidism 244.9 and Hyperlipidemia 272.[address] [address] Nov, Benign hypertension 401.1 ; Bipolar 1 disorder 296.7 and GERD (gastroesophageal reflux disease) 530.[address] [address] Sep, [address] [address] Sep, ADHD ( attention deficit hyperactivity disorder), combined type 314.01 ; Bipolar disorder 296.80 ; OCD (obsessive compulsive disorder) 300.3 ; Hyperlipidemia 272.4 ; Hypothyroidism 244.9 and Asthma 493.90 [address], [place] [address] Jul, [address], [place] [address] Jul, [id number] [place] [address] Mar, IMMUNIZATIONS No Known Immunizations SOCIAL HISTORY Never Assessed REASON FOR VISIT repository refill PLAN OF CARE VITAL SIGNS MEDICATIONS Medication Instructions Dosage Frequency Start Date End Date Duration Status Levothyroxine Sodium 25 MCG Orally Once a day TAKE 1 TABLET BY MOUTH DAILY 24h 90 days Active Escitalopram Oxalate 10 mg Orally Once a day TAKE 1 TABLET BY MOUTH DAILY 24h Active Pantoprazole Sodium 40 mg Orally Once a day 1 tablet 24h 90 days Active GuanFACINE HCl ER 2 MG Orally Once a day TAKE 1 TABLET BY MOUTH DAILY 24h 90 days Active HydrOXYzine HCl 25 MG TAKE 1 TABLET BY MOUTH TWICE DAILY 90 days Active Atorvastatin Calcium 10 mg Orally Once a day 1 tablet 24h Active Celecoxib 200 mg TAKE 1 CAPSULE BY MOUTH DAILY 90 days Active Tolterodine Tartrate ER 4 MG TAKE 1 CAPSULE DAILY. 90 days Active Metoprolol Succinate ER 25 MG Orally Once a day TAKE 1 TABLET BY MOUTH DAILY 24h 90 days Active RESULTS No Results [...]
--- OUTSIDE RECORDS SUMMARY | 2018-06-29 20:11 | XMS REPORT ---
Author Author GERSON MAJANO Organization [facility] [address] Address [address] [place] [address] Care Team Providers Care Underwriting Sales Representative Name Role Phone GESRON MAJANO Unavailable PROBLEMS Type Condition ICD9-CM Code WHX30-AQ Code Onset Dates Condition Status SNOMED Code Problem ODD (oppositional defiant disorder) 313.81 Active 28977532 Problem OCD (obsessive compulsive disorder) 300.3 Active 226907155 Problem Benign hypertension 401.1 Active 56716410 Problem ADHD (attention deficit hyperactivity disorder), combined type 314.01 Active 06801602 Problem Hypothyroid 244.9 Active 03901249 Problem Bipolar disorder 296.80 Active 21608989 Problem Hypothyroidism 244.9 Active 27650679 Problem ADHD (attention deficit hyperactivity disorder) 314.01 Active 079624375 Problem Bipolar 1 disorder 296.7 Active 795688516 Problem Bruised ribs, right, subsequent encounter S20.211D Active 922075368 Problem GERD (gastroesophageal reflux disease) 530.81 Active 971770340 Problem Other chronic pain G89.29 Active 81231908 Problem Asthma 493.90 Active 099635554 Problem Hyperlipidemia, unspecified E78.5 Active 76643352 Problem Essential (primary) hypertension I10 Active 22135099 Problem Hypothyroidism, unspecified E03.9 Active 71372240 Problem Mild intellectual disabilities F70 Active 03190746 Problem Pain in left shoulder M25.512 Active 31392152 Problem Constipation K59.00 Active 25050666 Problem Wrist pain, right M25.531 Active 37783657 Problem Hyperlipidemia 272.4 Active 31432416 Problem Intractable migraine, unspecified migraine type G43.919 Active 200259807 Problem Right foot pain M79.671 Active 16750571 Problem Morbid obesity due to excess calories E66.01 Active 173950901 Problem Obesity (BMI 30-39.9) E66.9 Active 585033788 Problem Pain in left wrist M25.532 Active 91120492 Problem Dental examination V72.2 Active 40189294 Problem Gastro-esophageal reflux disease without esophagitis K21.9 Active 873632688 Problem Knee pain, right M25.561 Active 99653803 Problem Left ankle sprain S93.402A Active 16227635 Problem Environmental allergies Z91.09 Active 955400621 Problem Acne vulgaris L70.0 Active 50762681 Problem Bipolar disorder, unspecified F31.9 Active 67816116 Problem Attention-deficit hyperactivity disorder, combined type F90.2 Active 10720247 ALLERGIES No Information ENCOUNTERS Encounter Location Date Diagnosis [address] [address] August, Bipolar disorder, unspecified F31.[address] [address] August, Bipolar disorder, unspecified F31.[address] [address] Jul, [address] [address] Jul, [address] [address] Apr, Bipolar disorder, unspecified F31.9 ; Attention-deficit hyperactivity disorder, combined type F90.2 and Mild intellectual disabilities F70 [address] [address] Apr, [address] [address] Mar, [address] [address] Jan, [address] [address] Dec, [address] [address] Nov, [address] [address] 09 Sep, 2016 Pain in left shoulder M25.512 ; Intractable migraine, unspecified migraine type G43.919 and Morbid obesity due to excess calories E66.[address] [address] 14 Jul, 2016 Right foot pain M79.[address] [address] Jul, Attention- deficit hyperactivity disorder, combined type F90.2 ; Bipolar disorder, unspecified F31.9 ; Right foot pain M79.671 and Postoperative pain, acute, shoulder, left M25.[address] [address] Jun, [address] [address] Jun, [address] [address] Jun, Pain in left shoulder M25.[address] [address] May, Essential ( primary) hypertension I10 ; Hypothyroidism, unspecified E03.9 and Hyperlipidemia , unspecified E78.[address] [address] Apr, [address] [address] Apr, [address] [address] Apr, Pain in left shoulder M25.512 and Other chronic pain G89.29 [address], [place] [address] Apr, [id number] [address] Feb, [address] [address] Feb, Pain in left shoulder M25.512 and Other chronic pain G89.[address] [address] 04 Jan, 2016 Bruised ribs , right, subsequent encounter S20.211D ; Acne vulgaris L70.0 and Routine sports physical exam Z02.[address] [address] Nov, Knee pain, right M25.561 ; Environmental allergies Z91.09 ; Attention-deficit hyperactivity disorder, combined type F90.2 and Bipolar disorder, unspecified F31.9 [facility] [address] [place] [address] Nov, [address] [address] Oct, [address] [address] Oct, Knee pain, right M25.561 and Pain in left wrist M25.[address] [address] August, [facility] [address] [address] Jul, [address] [address] Jul, [address] [address] Jul, Gastro- esophageal reflux disease without esophagitis K21.9 and Pain in left wrist M25.[address] [address] Jul, [address] [address] Jun, [address] [address] Jun, Strain of right knee S86.911A and Right knee pain M25.[address] [address] May, Pain in left shoulder M25.[address] [address] May, [address] [address] Apr, Knee pain, right M25.561 and Left ankle sprain S93.402A [address] [address] Apr, Knee pain, right M25.[address] [address] Mar, [address] [address] Mar, Wrist pain, right M25.531 and Constipation K59.[address] [address] Feb, Wrist pain, right M25.[address] [address] Feb, Wrist pain, right M25.[address] [address] Jan, Wrist pain, right M25.[address] [address] Jan, [address] [address] Dec, Right leg pain 729.5 ; Benign hypertension 401.1 and GERD (gastroesophageal reflux disease ) 530.[address] [address] Dec, Dental examination V72.[address] [address] 15 Dec, [address] [address] 14 Dec, [address] [address] Nov, Benign hypertension 401.1 ; Hypothyroidism 244.9 and Hyperlipidemia 272.[address] [address] Nov, Benign hypertension 401.1 ; Bipolar 1 disorder 296.7 and GERD (gastroesophageal reflux disease) 530.[address] [address] Sep, [address] [address] Sep, ADHD ( attention deficit hyperactivity disorder), combined type 314.01 ; Bipolar disorder 296.80 ; OCD (obsessive compulsive disorder) 300.3 ; Hyperlipidemia 272.4 ; Hypothyroidism 244.9 and Asthma 493.[address] [id number] [address] Jul, [facility] [address] [place] [id number] [address] Jul, [facility] [address] [facility] [id number] [place] [address] Mar, IMMUNIZATIONS No Known Immunizations SOCIAL HISTORY Never Assessed REASON FOR VISIT refill medication from repository PLAN OF CARE VITAL SIGNS MEDICATIONS Medication Instructions Dosage Frequency Start Date End Date Duration Status HydrOXYzine HCl 25 MG TAKE 1 TABLET BY MOUTH TWICE DAILY 90 days Active GuanFACINE HCl ER 3 MG Orally Once a day TAKE 1 TABLET BY MOUTH DAILY 24h 90 days Active Tolterodine Tartrate ER 4 MG TAKE 1 CAPSULE DAILY. 90 days Active RESULTS No Results PROCEDURES [...]
--- OUTSIDE RECORDS SUMMARY | 2018-06-29 20:12 | XMS REPORT ---
Author Author GERSON MAJANO [facility] Address [address] [place] [address] Care Team Providers Care Lean Process Deployment Consultant Name Role Phone GERSON MAJANO Unavailable PROBLEMS Type Condition ICD9-CM Code WBG48-TJ Code Onset Dates Condition Status SNOMED Code Problem OCD (obsessive compulsive disorder) 300.3 Active 570340848 Problem Dental examination V72.2 Active 75517255 Problem ADHD (attention deficit hyperactivity disorder), combined type 314.01 Active 81043048 Problem ODD (oppositional defiant disorder) 313.81 Active 24120250 Problem Benign hypertension 401.1 Active 02532774 Problem Hypothyroid 244.9 Active 39077232 Problem Bipolar disorder 296.80 Active 85608978 Problem Hypothyroidism 244.9 Active 93401381 Problem ADHD (attention deficit hyperactivity disorder) 314.01 Active 553500470 Problem Bruised ribs, right, subsequent encounter S20.211D Active 533125173 Problem Bipolar 1 disorder 296.7 Active 255353773 Problem Acne vulgaris L70.0 Active 22127877 Problem GERD (gastroesophageal reflux disease) 530.81 Active 394368780 Problem Other chronic pain G89.29 Active 07774425 Problem Hypothyroidism, unspecified E03.9 Active 30086117 Problem Hyperlipidemia, unspecified E78.5 Active 10412657 Problem Pain in left shoulder M25.512 Active 04568115 Problem Morbid obesity due to excess calories E66.01 Active 681208248 Problem Wrist pain, right M25.531 Active 30753999 Problem Hyperlipidemia 272.4 Active 20138927 Problem Asthma 493.90 Active 671586467 Problem Right foot pain M79.671 Active 38993942 Problem Essential (primary) hypertension I10 Active 90670433 Problem Obesity (BMI 30-39.9) E66.9 Active 516280130 Problem Intractable migraine, unspecified migraine type G43.919 Active 996689428 Problem Left ankle sprain S93.402A Active 94439273 Problem Pain in left wrist M25.532 Active 91041733 Problem Constipation K59.00 Active 27085076 Problem Knee pain, right M25.561 Active 75661582 Problem Bipolar disorder, unspecified F31.9 Active 23958851 Problem Environmental allergies Z91.09 Active 299882991 Problem Gastro-esophageal reflux disease without esophagitis K21.9 Active 866568061 Problem Attention-deficit hyperactivity disorder, combined type F90.2 Active 49276678 ALLERGIES No Information SOCIAL HISTORY Never Assessed PLAN OF CARE Activity Details Follow Up prn Reason: VITAL SIGNS MEDICATIONS Unknown Medications RESULTS Name Result Date Reference Range TSH 2016-05-17 TSH 2.270 0.450-4.500 Request Problem QNS CBC 2016-05-17 WBC 10.6 3.4-10.8 RBC 5.50 4.14-5.80 Hemoglobin 15.0 12.6-17.7 Hematocrit 45.0 37.5-51.0 MCV 82 79-97 MCH 27.3 26.6-33.0 MCHC 33.3 31.5-35.7 RDW 15.5 12.3-15.4 Platelets 249 150-379 Neutrophils 64 Lymphs 29 Monocytes 5 Eos 2 Basos 0 Neutrophils (Absolute) 6.8 1.4-7.0 Lymphs (Absolute) 3.0 0.7-3.1 Monocytes(Absolute) 0.5 0.1-0.9 Eos (Absolute) 0.2 0.0-0.4 Baso (Absolute) 0.0 0.0-0.2 Immature Granulocytes 0 Immature Grans (Abs) 0.0 0.0-0.1 LIPID PANEL 2016-05-17 Cholesterol, Total QNS Triglycerides TNP HDL Cholesterol TNP VLDL Cholesterol Bebeto LDL Cholesterol Calc Comment: CMP 2016-05-17 Glucose, Serum QNS BUN TNP Creatinine, Serum TNP eGFR If NonAfricn Am eGFR If Africn Am BUN/Creatinine Ratio Sodium, Serum TNP Potassium, Serum TNP Chloride, Serum TNP Carbon Dioxide, Total TNP Calcium, Serum TNP Protein, Total, Serum TNP Albumin, Serum TNP Globulin, Total A/G Ratio Bilirubin, Total TNP Alkaline Phosphatase, S TNP AST (SGOT) TNP ALT (SGPT) TNP PROCEDURES Procedure Date Ordered Result Body Site ROUTINE VENIPUNCTURE 2016-05-17 N/A LAB NOT BILLED BY [facility] May 17, 2016 IMMUNIZATIONS No Known Immunizations MEDICAL (GENERAL) HISTORY Type Description Date Medical [...]
--- OUTSIDE RECORDS SUMMARY | 2018-06-29 20:12 | XMS REPORT ---
Author DEMETRIS Han [employer] Address Unknown Phone Unavailable Care Team Providers Care Billing Supervisor Name Role Phone DEMETRIS CASTILLO CP Unavailable Allergies, Adverse Reactions, Alerts Substance Reaction Event Type pedialyte hives Non Drug Allergy Problems Problem Type Condition Code Onset Dates Condition Status Problem GERD (gastroesophageal reflux disease) 530.81 Active Problem ADHD (attention deficit hyperactivity disorder) 314.01 Active Problem Bipolar 1 disorder 296.7 Active Problem Bipolar disorder 296.80 Active Problem OCD (obsessive compulsive disorder) 300.3 Active Problem ADHD (attention deficit hyperactivity disorder), combined type 314.01 Active Problem Asthma 493.90 Active Problem Benign hypertension 401.1 Active Problem Hyperlipidemia 272.4 Active Problem Hypothyroidism 244.9 Active Assessment Right leg pain 729.5 Active Problem Dental examination V72.2 Active Assessment GERD (gastroesophageal reflux disease) 530.81 Active Problem Hypothyroid 244.9 Active Assessment Benign hypertension 401.1 Active Problem ODD (oppositional defiant disorder) 313.81 Active Medications Medication Code System Code Instructions Start Date End Date Status Dosage Metoprolol Succinate NDC 0 25 mg Apr 03, 2014 by oral route once daily Simvastatin [facility] [address]-90 10 MG Orally Once a day 1 tablet in the evening Aripiprazole [facility] [address]-73 10 MG Orally Once a day 1 tablet Escitalopram Oxalate [facility] [address]-61 10 MG Orally Once a day Apr 03, 2014 by oral route Levothyroxine Sodium [facility] [address]-39 25 MCG Orally Once a day 1 tablet Loratadine [facility] [address]-32 10 MG Orally 1-2 times a day PRN Apr 03, 2014 1 tablet GuanFACINE HCl ER [facility] [address]-12 3 MG Orally Once a day 1 tablet HydrOXYzine HCl [facility] [address]-90 25 MG Orally 2 times a day Apr 03, 2014 Take 1 tablet Pantoprazole Sodium [facility] [address]-34 40 MG Orally Once a day 1 tablet tolterodine NDC 0 4 mg Once a day at night Apr 03, 2014 1 tablet Procedures Procedure Coding System Code Date X-RAY EXAM OF ANKLE CPT-4 91865 Jan 12, 2015 Office Visit, Est Pt., Level 3 CPT-4 49309 Jan 12, 2015 X-RAY EXAM OF LOWER LEG CPT-4 19531 Jan 12, 2015 Vital Signs Date/Time: Jan 12, 2015 Temperature 98.3 F Weight 275 lbs Height 5' 6.5" in BMI 43.72 Index Blood Pressure Diastolic 70 mmHg Blood Pressure Systolic 122 mmHg Cardiac Monitoring Heart Rate 78 bpm BMIPercentile 99.83 % Wt Percentile 99.73 % Results No Known Results Summary Purpose [employer]ClinicalWorks Submission
--- OUTSIDE RECORDS SUMMARY | 2018-06-29 20:12 | XMS REPORT ---
Author Author GERSON MAJANO [facility] Address [address] [place] [address] Care Team Providers Care Specialty Trimmer Name Role Phone GERSON MAJANO Unavailable PROBLEMS Type Condition ICD9-CM Code [id number] Code Onset Dates Condition Status SNOMED Code Problem OCD (obsessive compulsive disorder) 300.3 Active 053326258 Problem Dental examination V72.2 Active 15022908 Problem ADHD (attention deficit hyperactivity disorder), combined type 314.01 Active 49689397 Problem ODD (oppositional defiant disorder) 313.81 Active 72320072 Problem Benign hypertension 401.1 Active 34268394 Problem Hypothyroid 244.9 Active 21032468 Problem Bipolar disorder 296.80 Active 33850275 Problem Hypothyroidism 244.9 Active 76970616 Problem ADHD (attention deficit hyperactivity disorder) 314.01 Active 151093543 Problem Bruised ribs, right, subsequent encounter S20.211D Active 105922426 Problem Bipolar 1 disorder 296.7 Active 512343371 Problem Acne vulgaris L70.0 Active 73653327 Problem GERD (gastroesophageal reflux disease) 530.81 Active 873190656 Problem Other chronic pain G89.29 Active 93865258 Problem Hypothyroidism, unspecified E03.9 Active 20792048 Problem Hyperlipidemia, unspecified E78.5 Active 12082066 Problem Pain in left shoulder M25.512 Active 04164800 Problem Morbid obesity due to excess calories E66.01 Active 226396634 Problem Wrist pain, right M25.531 Active 79571342 Problem Hyperlipidemia 272.4 Active 58592336 Problem Asthma 493.90 Active 881333978 Problem Right foot pain M79.671 Active 30070379 Problem Essential (primary) hypertension I10 Active 72087980 Problem Obesity (BMI 30-39.9) E66.9 Active 756709172 Problem Intractable migraine, unspecified migraine type G43.919 Active 542833912 Problem Left ankle sprain S93.402A Active 11539748 Problem Pain in left wrist M25.532 Active 53426284 Problem Constipation K59.00 Active 50528336 Problem Knee pain, right M25.561 Active 48986801 Problem Bipolar disorder, unspecified F31.9 Active 29669750 Problem Environmental allergies Z91.09 Active 712095826 Problem Gastro-esophageal reflux disease without esophagitis K21.9 Active 730860951 Problem Attention-deficit hyperactivity disorder, combined type F90.2 Active 50216104 ALLERGIES Substance Reaction Event Type Date Status pedialyte hives Non Drug Allergy Jul, Active SOCIAL HISTORY Never Assessed PLAN OF CARE Activity Details Follow Up 4 Weeks Reason:foot pain VITAL SIGNS Height 66.5" in 2016-07-26 Weight 301.6 lbs 2016-07-26 Temperature 97.9 degrees Fahrenheit 2016-07-26 Heart Rate 76 bpm 2016-07-26 Respiratory Rate 20 2016-07-26 BMI 47.95 kg/m2 2016-07-26 Blood pressure systolic 140 mmHg 2016-07-26 Blood pressure diastolic 82 mmHg 2016-07-26 MEDICATIONS Medication Instructions Dosage Frequency Start Date End Date Duration Status GuanFACINE HCl ER 3 MG Orally Once a day TAKE 1 TABLET BY MOUTH DAILY 24h 30 Active Pantoprazole Sodium 40 mg Orally Once a day 1 tablet 24h Active Knee Brace . as directed Apr, Active Simvastatin 10 mg Orally Once a day TAKE 1 TABLET DAILY IN THE EVENING 24h 30 Active Pseudoephedrine HCl ER 120 MG Orally every 12 hrs 1 tablet as needed 12h Nov, Active Lansoprazole 30 MG Orally Once a day 1 capsule 24h Jul, Active Wrist Splint/Left Large as directed Feb, Active Polyethylene Glycol 3350 DIRECTED 30 Active Clindamycin Phosphate 1 % Externally Twice a day for acne 1 application to affected area Jan, Active Levothyroxine Sodium 25 MCG Orally Once a day TAKE 1 TABLET BY MOUTH DAILY 24h 30 Active Fluticasone Propionate 50 MCG/ACT Nasally Once a day 2 spray in each nostril 24h Apr, 30 day(s) Active Celebrex 200 mg Orally Once a day 1 capsule 24h 30 Active Tolterodine Tartrate ER 4 MG TAKE 1 CAPSULE DAILY. 30 Active Loratadine 10 MG Orally 1-2 times a day PRN 1 tablet Mar, Active Asmanex 60 Metered Doses 220 INHALE 1 PUFF TWICE DAILY 30 Active Metoprolol Succinate ER 25 MG Orally Once a day TAKE 1 TABLET BY MOUTH DAILY 24h 30 Active Celecoxib 200 MG TAKE 1 CAPSULE BY MOUTH DAILY 30 Active Cradle Arm Sling - as directed Apr, Active HydrOXYzine HCl 25 MG TAKE 1 TABLET BY MOUTH TWICE DAILY 30 Active Aircast Sport Ankle Brace/Left . as directed Apr, Active Cetirizine HCl 10 MG TAKE 1 TABLET BY MOUTH DAILY 30 Active Diclofenac Sodium 50 MG TAKE 1 TABLET BY MOUTH 3 TIMES DAILY 20 Active Aripiprazole 10 MG TAKE 1 TABLET BY MOUTH DAILY 30 Active Escitalopram Oxalate 10 mg Orally Once a day TAKE 1 TABLET BY MOUTH DAILY 24h 30 Active Wrist Splint Left/Right . as directed Jan, Active RESULTS Name Result Date Reference Range Xray : Foot, Right PROCEDURES No Known procedures IMMUNIZATIONS No Known Immunizations MEDICAL (GENERAL) HISTORY [...]
--- OUTSIDE RECORDS SUMMARY | 2018-06-29 20:12 | XMS REPORT ---
Author Author GERSON MAJANO Organization [facility] [address] Address [address] [place] [address] Care Team Providers Care Fur Ironer Name Role Phone GERSON MAJANO Unavailable PROBLEMS Type Condition ICD9-CM Code [id number] Code Onset Dates Condition Status SNOMED Code Problem ODD (oppositional defiant disorder) 313.81 Active 24906758 Problem OCD (obsessive compulsive disorder) 300.3 Active 435282926 Problem Benign hypertension 401.1 Active 74013337 Problem ADHD (attention deficit hyperactivity disorder), combined type 314.01 Active 16519043 Problem Hypothyroid 244.9 Active 61594877 Problem Bipolar disorder 296.80 Active 17520749 Problem Hypothyroidism 244.9 Active 86861145 Problem ADHD (attention deficit hyperactivity disorder) 314.01 Active 585844183 Problem Bipolar 1 disorder 296.7 Active 941567993 Problem Bruised ribs, right, subsequent encounter S20.211D Active 425758032 Problem GERD (gastroesophageal reflux disease) 530.81 Active 361458504 Problem Other chronic pain G89.29 Active 72975670 Problem Asthma 493.90 Active 136185398 Problem Hyperlipidemia, unspecified E78.5 Active 67036930 Problem Essential (primary) hypertension I10 Active 44534553 Problem Hypothyroidism, unspecified E03.9 Active 08638290 Problem Mild intellectual disabilities F70 Active 09062920 Problem Pain in left shoulder M25.512 Active 62039661 Problem Constipation K59.00 Active 59448545 Problem Wrist pain, right M25.531 Active 14810936 Problem Hyperlipidemia 272.4 Active 06091863 Problem Intractable migraine, unspecified migraine type G43.919 Active 126078903 Problem Right foot pain M79.671 Active 13289177 Problem Morbid obesity due to excess calories E66.01 Active 236944788 Problem Obesity (BMI 30-39.9) E66.9 Active 745013677 Problem Pain in left wrist M25.532 Active 31046692 Problem Dental examination V72.2 Active 69282081 Problem Gastro-esophageal reflux disease without esophagitis K21.9 Active 891540856 Problem Knee pain, right M25.561 Active 89295180 Problem Left ankle sprain S93.402A Active 29791631 Problem Environmental allergies Z91.09 Active 681751860 Problem Acne vulgaris L70.0 Active 33756608 Problem Bipolar disorder, unspecified F31.9 Active 78140076 Problem Attention-deficit hyperactivity disorder, combined type F90.2 Active 88984602 ALLERGIES No Information ENCOUNTERS Encounter Location Date Diagnosis [facility] [place] [address] [place] [address] August, Bipolar disorder , unspecified F31.[address] [address] August, Bipolar disorder , unspecified F31.[address] [address] Jul, [facility] [address] [address] Jul, [facility] [address] [address] Apr, Bipolar disorder , unspecified F31.9 ; Attention-deficit hyperactivity disorder, combined type F90.2 and Mild intellectual disabilities F70 [facility] [address] [address] Apr, [facility] [place] [address] [place] [address] Mar, [facility] [place] [address] [place] [address] Jan, [facility] [address] [address] Dec, [facility] [address] [address] Nov, [facility] [place] [address] [place] [address] 09 Sep, 2016 Pain in left shoulder M25.512 ; Intractable migraine, unspecified migraine type G43.919 and Morbid obesity due to excess calories E66.01 [facility] [place] [address] [place] [address] 14 Jul, 2016 Right foot pain M79.671 [facility] [address] [address] 12 Jul, 2016 Attention- deficit hyperactivity disorder, combined type F90.2 ; Bipolar disorder, unspecified F31.9 ; Right foot pain M79.671 and Postoperative pain, acute, shoulder, left M25.512 [facility] [address] [address] Jun, [facility] [place] [address] [place] [address] Jun, [facility] [address] [address] Jun, Pain in left shoulder M25.512 [facility] [address] [address] May, Essential ( primary) hypertension I10 ; Hypothyroidism, unspecified E03.9 and Hyperlipidemia , unspecified E78.[address] [address] Apr, [address] [address] Apr, [address] [address] Apr, Pain in left shoulder M25.512 and Other chronic pain G89.29 [facility] [place] [address] [address] Apr, [facility] [place] [address] [address] Feb, [address] [address] Feb, Pain in left shoulder M25.512 and Other chronic pain G89.[address] [address] Jan, Bruised ribs, right, subsequent encounter S20.211D ; Acne vulgaris L70.0 and Routine sports physical exam Z02.[address] [address] Nov, Knee pain, right M25.561 ; Environmental allergies Z91.09 ; Attention-deficit hyperactivity disorder, combined type F90.2 and Bipolar disorder, unspecified F31.[address] [address] Nov, [facility] [address] Oct, [facility] [place] [address] [place] [address] Oct, Knee pain, right M25.561 and Pain in left wrist M25.532 [facility] [place] [address] [place] [address] August, [facility] [place] [address] [place] [address] Jul, [facility] [place] [address] [place] [address] Jul, [facility] [place] [address] [place] [address] Jul, Gastro- esophageal reflux disease without esophagitis K21.9 and Pain in left wrist M25.532 [facility] [place] [address] [place] [address] Jul, [facility] [place] [address] [place] [address] Jun, [facility] [place] [address] [place] [address] Jun, Strain of right knee S86.911A and Right knee pain M25.561 [facility] [place] [address] [place] [address] May, Pain in left shoulder M25.512 [facility] [place] [address] [place] [address] May, [facility] [place] [address] [place] [address] Apr, Knee pain, right M25.561 and Left ankle sprain S93.402A [facility] [place] [address] [place] [address] Apr, Knee pain, right M25.561 [facility] [place] [address] [place] [address] 16 Mar, 2015 [facility] [place] [address] [place] [address] 04 Mar, 2015 Wrist pain, right M25.531 and Constipation K59.00 [facility] [place] [address] [place] [address] 30 Feb, 2015 Wrist pain, right M25.531 [facility] [place] [address] [place] [address] Feb, Wrist pain, right M25.[address] [facility] [address] [place] [address] Jan, Wrist pain, right M25.[address] [address] Jan, [address] [address] Dec, Right leg pain 729.5 ; Benign hypertension 401.1 and GERD (gastroesophageal reflux disease) 530.[address] [address] Dec, Dental examination V72.[address] [address] Dec, [address] [address] Dec, [address] [address] Nov, Benign hypertension 401.1 ; Hypothyroidism 244.9 and Hyperlipidemia 272.[address] [address] Nov, Benign hypertension 401.1 ; Bipolar 1 disorder 296.7 and GERD (gastroesophageal reflux disease) 530.[address] [address] Sep, [address] [address] Sep, ADHD (attention deficit hyperactivity disorder), combined type 314.01 ; Bipolar disorder 296.80 ; OCD (obsessive compulsive disorder) 300.3 ; Hyperlipidemia 272.4 ; Hypothyroidism 244.9 and Asthma 493.90 [facility] [place] [address] [place] [address] Jul, [facility] [place] [address] [place] [address] Jul, [facility] [place] [address] [place] [id number] [place] [address] Mar, IMMUNIZATIONS No Known Immunizations SOCIAL HISTORY Never Assessed REASON FOR VISIT letter to administration PLAN OF CARE VITAL SIGNS MEDICATIONS Unknown [...]
--- OUTSIDE RECORDS SUMMARY | 2018-06-29 20:12 | XMS REPORT ---
Author Author GERSON MAJANO Organization [facility] [address] Address [address] [place] [address] Care Team Providers Care Fisher Trot Line Name Role Phone GERSON MAJANO Unavailable PROBLEMS Type Condition ICD9-CM Code [id number] Code Onset Dates Condition Status SNOMED Code Problem ODD (oppositional defiant disorder) 313.81 Active 25204678 Problem OCD (obsessive compulsive disorder) 300.3 Active 533311206 Problem Benign hypertension 401.1 Active 39309010 Problem ADHD (attention deficit hyperactivity disorder), combined type 314.01 Active 12585047 Problem Hypothyroid 244.9 Active 28607043 Problem Bipolar disorder 296.80 Active 22378781 Problem Hypothyroidism 244.9 Active 31316399 Problem ADHD (attention deficit hyperactivity disorder) 314.01 Active 855363612 Problem Bipolar 1 disorder 296.7 Active 382720953 Problem Bruised ribs, right, subsequent encounter S20.211D Active 197033478 Problem GERD (gastroesophageal reflux disease) 530.81 Active 036787575 Problem Other chronic pain G89.29 Active 79095896 Problem Asthma 493.90 Active 713796831 Problem Hyperlipidemia, unspecified E78.5 Active 72646183 Problem Essential (primary) hypertension I10 Active 78872830 Problem Hypothyroidism, unspecified E03.9 Active 53256702 Problem Mild intellectual disabilities F70 Active 10193084 Problem Pain in left shoulder M25.512 Active 40473293 Problem Constipation K59.00 Active 64865598 Problem Wrist pain, right M25.531 Active 16030842 Problem Hyperlipidemia 272.4 Active 65611961 Problem Intractable migraine, unspecified migraine type G43.919 Active 572665986 Problem Right foot pain M79.671 Active 92416767 Problem Morbid obesity due to excess calories E66.01 Active 036861728 Problem Obesity (BMI 30-39.9) E66.9 Active 137571756 Problem Pain in left wrist M25.532 Active 08533099 Problem Dental examination V72.2 Active 27282273 Problem Gastro-esophageal reflux disease without esophagitis K21.9 Active 613164373 Problem Knee pain, right M25.561 Active 67513329 Problem Left ankle sprain S93.402A Active 00466042 Problem Environmental allergies Z91.09 Active 169094618 Problem Acne vulgaris L70.0 Active 39092371 Problem Bipolar disorder, unspecified F31.9 Active 70367955 Problem Attention-deficit hyperactivity disorder, combined type F90.2 Active 73355781 ALLERGIES No Information ENCOUNTERS Encounter Location Date Diagnosis [facility] [place] [address] [place] [address] August, Bipolar disorder , unspecified F31.[address] [address] August, Bipolar disorder , unspecified F31.[address] [address] Jul, [facility] [address] [address] Jul, [facility] [address] [address] Apr, Bipolar disorder , unspecified F31.9 ; Attention-deficit hyperactivity disorder, combined type F90.2 and Mild intellectual disabilities F70 [facility] [address] [address] Apr, [facility] [place] [address] [place] [address] Mar, [facility] [place] [address] [place] [address] Jan, [facility] [address] [address] Dec, [facility] [address] [address] Nov, [facility] [place] [address] [place] [address] 09 Sep, 2016 Pain in left shoulder M25.512 ; Intractable migraine, unspecified migraine type G43.919 and Morbid obesity due to excess calories E66.01 [facility] [place] [address] [place] [address] 14 Jul, 2016 Right foot pain M79.671 [facility] [address] [address] 12 Jul, 2016 Attention- deficit hyperactivity disorder, combined type F90.2 ; Bipolar disorder, unspecified F31.9 ; Right foot pain M79.671 and Postoperative pain, acute, shoulder, left M25.512 [facility] [address] [address] Jun, [facility] [place] [address] [place] [address] Jun, [facility] [address] [address] Jun, Pain in left shoulder M25.512 [facility] [address] [address] May, Essential ( primary) hypertension I10 ; Hypothyroidism, unspecified E03.9 and Hyperlipidemia , unspecified E78.[address] [address] Apr, [address] [address] Apr, [address] [address] Apr, Pain in left shoulder M25.512 and Other chronic pain G89.29 [facility] [place] [address], [place] [address] Apr, [facility] [place] [address], [place] [address] Feb, [address] [address] Feb, Pain in left shoulder M25.512 and Other chronic pain G89.[address] [address] Jan, Bruised ribs, right, subsequent encounter S20.211D ; Acne vulgaris L70.0 and Routine sports physical exam Z02.[address] [address] Nov, Knee pain, right M25.561 ; Environmental allergies Z91.09 ; Attention-deficit hyperactivity disorder, combined type F90.2 and Bipolar disorder, unspecified F31.[address] [address] Nov, [facility] [address] Oct, [facility] [place] [address] [place] [address] Oct, Knee pain, right M25.561 and Pain in left wrist M25.532 [facility] [place] [address] [place] [address] August, [facility] [place] [address] [place] [address] Jul, [facility] [place] [address] [place] [address] Jul, [facility] [place] [address] [place] [address] Jul, Gastro- esophageal reflux disease without esophagitis K21.9 and Pain in left wrist M25.532 [facility] [place] [address] [place] [address] Jul, [facility] [place] [address] [place] [address] Jun, [facility] [place] [address] [place] [address] Jun, Strain of right knee S86.911A and Right knee pain M25.561 [facility] [place] [address] [place] [address] May, Pain in left shoulder M25.512 [facility] [place] [address] [place] [address] May, [facility] [place] [address] [place] [address] Apr, Knee pain, right M25.561 and Left ankle sprain S93.402A [facility] [place] [address] [place] [address] Apr, Knee pain, right M25.561 [facility] [place] [address] [place] [address] 16 Mar, 2015 [facility] [place] [address] [place] [address] 04 Mar, 2015 Wrist pain, right M25.531 and Constipation K59.00 [facility] [place] [address] [place] [address] 30 Feb, 2015 Wrist pain, right M25.531 [facility] [place] [address] [place] [address] Feb, Wrist pain, right M25.531 [facility] [address] [place] [address] Jan, Wrist pain, right M25.[address] [address] Jan, [address] [address] Dec, Right leg pain 729.5 ; Benign hypertension 401.1 and GERD (gastroesophageal reflux disease) 530.[address] [address] Dec, Dental examination V72.[address] [address] Dec, [address] [address] Dec, [address] [address] Nov, Benign hypertension 401.1 ; Hypothyroidism 244.9 and Hyperlipidemia 272.[address] [address] Nov, Benign hypertension 401.1 ; Bipolar 1 disorder 296.7 and GERD (gastroesophageal reflux disease) 530.[address] [address] Sep, [address] [address] Sep, ADHD (attention deficit hyperactivity disorder), combined type 314.01 ; Bipolar disorder 296.80 ; OCD (obsessive compulsive disorder) 300.3 ; Hyperlipidemia 272.4 ; Hypothyroidism 244.9 and Asthma 493.90 [facility] [place] [address] [place] [address] Jul, [facility] [place] [address] [place] [address] Jul, [place] [address] [place] [id number] [place] [address] Mar, IMMUNIZATIONS No Known Immunizations SOCIAL HISTORY Never Assessed REASON FOR VISIT needing a letter of support PLAN OF CARE VITAL SIGNS MEDICATIONS Unknown [...]
--- OUTSIDE RECORDS SUMMARY | 2018-06-29 20:12 | XMS REPORT ---
Author Author GERSON MAJANO Organization [employer] Address Unknown Phone Unavailable Care Team Providers Care Janitor Name Role Phone GERSON MAJANO CP Unavailable Allergies No Known Allergies Problems Problem Type Condition ICD-9 Code Onset Dates Condition Status Problem GERD [...] Hyperlipidemia 272.4 Active Problem Hypothyroidism 244.9 Active Problem Dental examination V72.2 Active Problem Hypothyroid 244.9 Active Problem ODD (oppositional defiant disorder) 313.81 Active Medications Medication Code System Code Instructions Start Date End Date Status Dosage Levothyroxine Sodium [facility] [address]-92 25 MCG Orally Once a day 1 tablet Results No Known Results Summary Purpose [employer] Submission
--- OUTSIDE RECORDS SUMMARY | 2018-06-29 20:12 | XMS REPORT ---
Author Author GERSON MAJANO Organization [employer] Address Unknown Phone Unavailable Care Team Providers Care Cnc Machinist 2Nd Shift Name Role Phone GERSON MAJANO CP Unavailable Allergies No Known Allergies Problems Problem Type Condition Code Onset Dates [...] Instructions Start Date End Date Status Dosage HydrOXYzine HCl [facility] [address]-59 25 MG Orally 2 times a day Apr 03, 2014 Take 1 tablet Aripiprazole [facility] [address]-91 10 MG Orally Once a day 1 tablet Results No Known Results Summary Purpose [employer] Submission
--- OUTSIDE RECORDS SUMMARY | 2018-06-29 20:13 | XMS REPORT ---
Author GERSON Fernandez [facility] eClinicalWorks Address Unknown Phone Unavailable Care Team Providers Care Electrical Test Technician Name Role Phone GERSON MAJANO CP Unavailable Allergies, Adverse Reactions, Alerts Substance Reaction Event Type pedialyte hives Non Drug Allergy Problems Problem Type Condition Code Onset Dates Condition Status Assessment Routine sports physical exam Z02.5 Active Assessment Acne vulgaris L70.0 Active Problem ADHD (attention deficit hyperactivity disorder), combined type 314.01 Active Assessment Bruised ribs, right, subsequent encounter S20.211D Active Problem Wrist pain, right M25.531 Active Problem Dental examination V72.2 Active Problem Constipation K59.00 Active Problem Left ankle sprain S93.402A Active Problem Knee pain, right M25.561 Active Problem Acne vulgaris L70.0 Active Problem Environmental allergies Z91.09 Active Problem GERD (gastroesophageal reflux disease) 530.81 Active Problem ODD (oppositional defiant disorder) 313.81 Active Problem Bruised ribs, right, subsequent encounter S20.211D Active Problem Hypothyroid 244.9 Active Problem Gastro-esophageal reflux disease without esophagitis K21.9 Active Problem Pain in left wrist M25.532 Active Problem Attention-deficit hyperactivity disorder, combined type F90.2 Active Problem Bipolar disorder, unspecified F31.9 Active Problem Benign hypertension 401.1 Active Problem Asthma 493.90 Active Problem Bipolar 1 disorder 296.7 Active Problem ADHD (attention deficit hyperactivity disorder) 314.01 Active Problem OCD (obsessive compulsive disorder) 300.3 Active Problem Bipolar disorder 296.80 Active Problem Hypothyroidism 244.9 Active Problem Hyperlipidemia 272.4 Active Medications Medication Code System Code Instructions Start Date End Date Status Dosage Cetirizine HCl [facility] [address]-69 10 mg Orally Once a day Nov 30, 2015 1 tablet Clindamycin Phosphate [facility] [address]-72 1 % Externally Twice a day for acne Jan 18, 2016 1 application to affected area GuanFACINE HCl ER [facility] 90503404885 3 MG TAKE 1 TABLET BY MOUTH DAILY Lansoprazole [facility] [address]-59 30 MG Orally Once a day August 03, 2015 1 capsule Knee Brace [facility] [address]81 . Apr 26, 2015 as directed Levothyroxine Sodium [facility] 21347476900 25 MCG TAKE 1 TABLET BY MOUTH DAILY Asmanex 60 Metered Doses [facility] 16259128688 220 MCG/INH INHALE 1 PUFF TWICE DAILY. Pseudoephedrine HCl ER [facility] [address]-59 120 MG Orally every 12 hrs Nov 1 tablet as needed Pantoprazole Sodium [facility] 88414407197 40 MG TAKE 1 TABLET BY MOUTH DAILY Loratadine [facility] [address]-86 10 MG Orally 1-2 times a day PRN Apr 03, 2014 1 tablet Aripiprazole [facility] 46254222829 10 MG TAKE 1 TABLET BY MOUTH DAILY HydrOXYzine HCl [facility] 41503658578 25 MG TAKE ONE TABLET TWO TIMES A DAY Simvastatin [facility] 12862118795 10 MG TAKE 1 TABLET DAILY IN THE EVENING Metoprolol Succinate ER [facility] 74935701319 25 MG TAKE 1 TABLET DAILY. Diclofenac Sodium [facility] 22289491758 50 MG TAKE 1 TABLET BY MOUTH 3 TIMES DAILY Celebrex [facility] [address]-70 200 mg Orally Once a day 1 capsule Polyethylene Glycol 3350 [facility] 15382293695 DIRECTED Escitalopram Oxalate [facility] 76697612149 10 MG TAKE 1 TABLET BY MOUTH DAILY Nasonex [facility] 82453811776 50 MCG/ACT 2 SPRAYS EACH NOSTRIL ONCE DAILY. Tolterodine Tartrate ER [facility] 08074844203 4 MG TAKE 1 CAPSULE DAILY. Procedures Procedure Coding System Code Date Office Visit, Est Pt., Level 3 CPT-4 70077 Jan 18, 2016 Vital Signs Date/Time: Jan 18, 2016 Cardiac Monitoring Heart Rate 68 bpm Weight 285.2 lbs Height 66.5" in Wt Percentile 99.81 % BMI 45.34 Index Blood Pressure Diastolic 66 mmHg Blood Pressure Systolic 118 mmHg BMIPercentile 99.85 % Results No Known Results Summary Purpose eClinicalWorks Submission
--- OUTSIDE RECORDS SUMMARY | 2018-06-29 20:13 | XMS REPORT ---
Author Author [facility]O [facility] Address [address] [place] [address] Care Team Providers Care Plumbing Foreman Name Role Phone GERSON MAJANO Unavailable PROBLEMS Type Condition ICD9-CM Code [id number] Code Onset Dates Condition Status SNOMED Code Problem ODD (oppositional defiant disorder) 313.81 Active 88807687 Problem OCD (obsessive compulsive disorder) 300.3 Active 631225246 Problem Benign hypertension 401.1 Active 43556749 Problem ADHD (attention deficit hyperactivity disorder), combined type 314.01 Active 36738365 Problem Hypothyroid 244.9 Active 65732591 Problem Bipolar disorder 296.80 Active 42418415 Problem Hypothyroidism 244.9 Active 71338996 Problem ADHD (attention deficit hyperactivity disorder) 314.01 Active 405100800 Problem Bipolar 1 disorder 296.7 Active 764839884 Problem Bruised ribs, right, subsequent encounter S20.211D Active 881623282 Problem GERD (gastroesophageal reflux disease) 530.81 Active 507769519 Problem Other chronic pain G89.29 Active 38210512 Problem Asthma 493.90 Active 865771944 Problem Hyperlipidemia, unspecified E78.5 Active 13783670 Problem Essential (primary) hypertension I10 Active 63136823 Problem Hypothyroidism, unspecified E03.9 Active 91590312 Problem Mild intellectual disabilities F70 Active 86592403 Problem Pain in left shoulder M25.512 Active 19278048 Problem Constipation K59.00 Active 35334970 Problem Wrist pain, right M25.531 Active 66285814 Problem Hyperlipidemia 272.4 Active 59927930 Problem Intractable migraine, unspecified migraine type G43.919 Active 481837416 Problem Right foot pain M79.671 Active 82761298 Problem Morbid obesity due to excess calories E66.01 Active 645981652 Problem Obesity (BMI 30-39.9) E66.9 Active 773510723 Problem Pain in left wrist M25.532 Active 92833570 Problem Dental examination V72.2 Active 82514314 Problem Gastro-esophageal reflux disease without esophagitis K21.9 Active 734379217 Problem Knee pain, right M25.561 Active 11000246 Problem Left ankle sprain S93.402A Active 33452671 Problem Environmental allergies Z91.09 Active 652825874 Problem Acne vulgaris L70.0 Active 02011304 Problem Bipolar disorder, unspecified F31.9 Active 98648681 Problem Attention-deficit hyperactivity disorder, combined type F90.2 Active 93728701 ALLERGIES No Information ENCOUNTERS Encounter Location Date Diagnosis [facility] [place] [address] [facility] [address] [id number] [place] [id number] August, Bipolar disorder, unspecified F31.9 [facility] [place] [address] [facility] [address] [id number] [place] [id number] August, Bipolar disorder, unspecified F31.9 [facility] [place] [address] [facility] [address] [id number] [place] [id number] Jul, [facility] [place] [address] [facility] [address] [id number] [place] [id number] Jul, [facility] [place] [address] [facility] [address] [id number] [place] [id number] Apr, Bipolar disorder, unspecified F31.9 ; Attention-deficit hyperactivity disorder, combined type F90.2 and Mild intellectual disabilities F70 [facility] [place] [address] [facility] [address] [id number] [place] [id number] Apr, [facility] [place] [address] [facility] [address] [id number] [place] [id number] Mar, [facility] [place] [address] [facility] [address] [id number] [place] [id number] Jan, [facility] [place] [address] [facility] [address] [id number] [place] [id number] Dec, [facility] [place] [address] [facility] [address] [id number] [place] [id number] Nov, [facility] [place] [address] [facility] [address] [id number] [place] [id number] Sep, Pain in left shoulder M25.512 ; Intractable migraine, unspecified migraine type G43.919 and Morbid obesity due to excess calories E66.01 [facility] [place] [address] [facility] [address] [id number] [place] [id number] Jul, Right foot pain M79.[address] [facility] [place] [address] [facility] [address] [id number] [place] [id number] Jul, Attention-deficit hyperactivity disorder, combined type F90.2 ; Bipolar disorder, unspecified F31.9 ; Right foot pain M79.671 and Postoperative pain, acute, shoulder, left M25.512 [facility] [place] [address] [facility] [address] [id number] [place] [id number] Jun, [facility] [place] [address] [facility] [address] [id number] [place] [id number] Jun, [facility] [place] [address] [place] [address] C [id number] [place] [id number] Jun, Pain in left shoulder M25.512 [facility] [place] [address] [place] [address] C [id number] [place] [id number] May, Essential (primary) hypertension I10 ; Hypothyroidism, unspecified E03.9 and Hyperlipidemia, unspecified E78.5 [facility] [place] [address] [place] [address] C [id number] [place] [id number] Apr, [facility] [place] [address] [place] [address] C [id number] [place] [id number] Apr, [facility] [place] [address] [place] [address] C [id number] [place] [id number] Apr, Pain in left shoulder M25.512 and Other chronic pain G89.29 [facility] [address] [facility] [id number] [place] [address] Apr, [facility] [address] [facility] [id number] [place] [address] Feb, [facility] [place] [address] [place] [address] C [id number] [place] [id number] Feb, Pain in left shoulder M25.512 and Other chronic pain G89.[address] [facility] [place] [address] [facility] [address] [id number] [place] [id number] Jan, Bruised ribs, right, subsequent encounter S20.211D ; Acne vulgaris L70.0 and Routine sports physical exam Z02.5 [facility] [place] [address] [facility] [address] [id number] [place] [id number] Nov, Knee pain, right M25.561 ; Environmental allergies Z91.09 ; Attention- deficit hyperactivity disorder, combined type F90.2 and Bipolar disorder, unspecified F31.9 [facility] [place] [address] [facility] [address] [id number] [place] [id number] Nov, [facility] [place] [address] [facility] [address] [id number] [place] [id number] Oct, [facility] [place] [address] [facility] [address] [id number] [place] [id number] Oct, Knee pain, right M25.561 and Pain in left wrist M25.532 [facility] [place] [address] [place] [address] [address] [id number] [place] [id number] August, [facility] [place] [address] [place] [address] [address] [id number] [place] [id number] Jul, [facility] [place] [address] [facility] [address] [id number] [place] [id number] Jul, [facility] [place] [address] [place] [address] [address] [id number] [place] [id number] Jul, Gastro-esophageal reflux disease without esophagitis K21.9 and Pain in left wrist M25.532 [facility] [place] [address] [facility] [address] [id number] [place] [id number] Jul, [facility] [place] [address] [place] [address] [address] [id number] [place] [id number] Jun, [facility] [place] [address] [facility] [address] [id number] [place] [id number] Jun, Strain of right knee S86.911A and Right knee pain M25.561 [facility] [place] [address] [facility] [address] [id number] [place] [id number] May, Pain in left shoulder M25.512 [facility] [place] [address] [place] [address] [address] [id number] [place] [id number] May, [facility] [place] [address] [facility] [address] [id number] [place] [id number] Apr, Knee pain, right M25.561 and Left ankle sprain S93.402A [facility] [place] [address] [facility] [address] [id number] [place] [id number] Apr, Knee pain, right M25.561 [facility] [place] [address] [facility] [address] [id number] [place] [id number] Mar, [facility] [place] [address] [place] [address] [address] [id number] [place] [id number] Mar, Wrist pain, right M25.531 and Constipation K59.00 [facility] [place] [address] [place] [address] [address] [id number] [place] [id number] Feb, Wrist pain, right M25.531 [facility] [place] [address] [place] [address] [address] [id number] [place] [id number] Feb, Wrist pain, right M25.531 [facility] [place] [address] [place] [address] [address] [id number] [place] [id number] Jan, Wrist pain, right M25.531 [facility] [place] [address] [place] [address] [address] [id number] [place] [id number] Jan, [facility] [place] [address] [place] [address] [address] [id number] [place] [id number] Dec, Right leg pain 729.5 ; Benign hypertension 401.1 and GERD ( gastroesophageal reflux disease) 530.81 [facility] [place] [address] [place] [address] [address] [id number] [place] [id number] Dec, Dental examination V72.2 [facility] [place] [address] [place] [address] [address] [id number] [place] [id number] Dec, [facility] [place] [address] [place] [address] [address] [id number] [place] [id number] Dec, [facility] [place] [address] [place] [address] [address] [id number] [place] [id number] Nov, Benign hypertension 401.1 ; Hypothyroidism 244.9 and Hyperlipidemia 272.[address] [id number] [place] [id number] Nov, Benign hypertension 401.1 ; Bipolar 1 disorder 296.7 and GERD ( gastroesophageal reflux disease) 530.[address] [id number] [place] [id number] Sep, [address] [id number] [place] [id number] Sep, ADHD (attention deficit hyperactivity disorder), combined type 314.01 ; Bipolar disorder 296.80 ; OCD (obsessive compulsive disorder) 300.3 ; Hyperlipidemia 272.4 ; Hypothyroidism 244.9 and Asthma 493.90 [facility] [address] [place] [address] Jul, [facility] [address] [id number] [id number] Jul, [facility] [address] [id number] [address] Mar, IMMUNIZATIONS No Known Immunizations SOCIAL HISTORY [...]
--- OUTSIDE RECORDS SUMMARY | 2018-06-29 20:13 | XMS REPORT ---
Author Author GERSON MAJANO Organization eClinicalWorks Address Unknown Phone Unavailable Care Team Providers Care Court Security Officer Name Role Phone GERSON MAJANO CP Unavailable Allergies, Adverse Reactions, Alerts Substance Reaction Event Type pedialyte hives Non Drug Allergy Problems Problem Type Condition Code Onset Dates Condition Status Problem Hyperlipidemia 272.4 Active Problem Bipolar disorder 296.80 Active Problem OCD (obsessive compulsive disorder) 300.3 Active Problem Pain in left wrist M25.532 Active Assessment Pain in left wrist M25.532 Active Problem Left ankle sprain S93.402A Active Problem Gastro-esophageal reflux disease without esophagitis K21.9 Active Problem Wrist pain, right M25.531 Active Problem ADHD (attention deficit hyperactivity disorder), combined type 314.01 Active Problem Knee pain, right M25.561 Active Problem Constipation K59.00 Active Problem Hypothyroid 244.9 Active Problem ODD (oppositional defiant disorder) 313.81 Active Assessment Knee pain, right M25.561 Active Problem Dental examination V72.2 Active Problem ADHD (attention deficit hyperactivity disorder) 314.01 Active Problem Benign hypertension 401.1 Active Problem GERD (gastroesophageal reflux disease) 530.81 Active Problem Asthma 493.90 Active Problem Bipolar 1 disorder 296.7 Active Problem Hypothyroidism 244.9 Active Medications Medication Code System Code Instructions Start Date End Date Status Dosage Tolterodine Tartrate ER [facility] 17282021611 4 MG TAKE 1 CAPSULE DAILY. Wrist Splint Left/Right [facility] [address] . at bed time Feb 08, 2015 as directed Knee Brace [facility] [address] . Apr 26, 2015 as directed Aripiprazole [facility] 05442217512 10 MG TAKE 1 TABLET BY MOUTH DAILY Loratadine [facility] [address]-75 10 MG Orally 1-2 times a day PRN Apr 03, 2014 1 tablet GuanFACINE HCl ER [facility] [address]-83 3 MG TAKE 1 TABLET DAILY. Escitalopram Oxalate [facility] 24667590961 10 MG TAKE 1 TABLET BY MOUTH DAILY HydrOXYzine HCl [facility] [address]-58 25 MG Orally Once a day Apr 03, 2014 Take 1 tablet Simvastatin [facility] 75404681939 10 MG TAKE 1 TABLET DAILY IN THE EVENING Diclofenac Sodium [facility] 45668450525 50 MG TAKE 1 TABLET BY MOUTH 3 TIMES DAILY Lansoprazole [facility] [address]-20 30 MG Orally Once a day August 03, 2015 1 capsule Levothyroxine Sodium [facility] 41639300308 25 MCG TAKE 1 TABLET BY MOUTH DAILY Polyethylene Glycol 3350 [facility] 74253632357 DIRECTED Nasonex [facility] 50997427693 50 MCG/ACT 2 SPRAYS EACH NOSTRIL ONCE DAILY. Celebrex [facility] 58564841570 200 MG Orally Once a day 1 capsule Asmanex 60 Metered Doses [facility] 19706687871 220 MCG/INH INHALE 1 PUFF TWICE DAILY. Wrist Splint/Left Large [facility] [address] Mar 03, 2015 as directed Aircast Sport Ankle Brace/Left [facility] [address] . May 10, 2015 as directed Metoprolol Succinate ER [facility] 91398914279 25 MG TAKE 1 TABLET DAILY. Procedures Procedure Coding System Code Date Office Visit, Est Pt., Level 3 CPT-4 27617 October 26, 2015 Vital Signs Date/Time: October 26, 2015 Cardiac Monitoring Heart Rate 72 bpm Weight 296.2 lbs Height 66.5" in Wt Percentile 99.87 % BMI 47.09 Index Blood Pressure Diastolic 70 mmHg Blood Pressure Systolic 120 mmHg BMIPercentile 99.89 % Results No Known Results Summary Purpose eClinicalWorks Submission
--- OUTSIDE RECORDS SUMMARY | 2018-06-29 20:13 | XMS REPORT ---
Author Author GERSON MAJANO [facility] Address [address] [place] [address] Care Team Providers Care Sinter Feeder Name Role Phone GERSON MAJANO Unavailable PROBLEMS Type Condition ICD9-CM Code [id number] Code Onset Dates Condition Status SNOMED Code Problem OCD (obsessive compulsive disorder) 300.3 Active 789802652 Problem Dental examination V72.2 Active 65327683 Problem ADHD (attention deficit hyperactivity disorder), combined type 314.01 Active 60324059 Problem ODD (oppositional defiant disorder) 313.81 Active 49045449 Problem Benign hypertension 401.1 Active 16311535 Problem Hypothyroid 244.9 Active 60179223 Problem Bipolar disorder 296.80 Active 35538939 Problem Hypothyroidism 244.9 Active 59714832 Problem ADHD (attention deficit hyperactivity disorder) 314.01 Active 222822136 Problem Bruised ribs, right, subsequent encounter S20.211D Active 305968025 Problem Bipolar 1 disorder 296.7 Active 471982135 Problem Acne vulgaris L70.0 Active 63341661 Problem GERD (gastroesophageal reflux disease) 530.81 Active 015238182 Problem Other chronic pain G89.29 Active 72224462 Problem Hypothyroidism, unspecified E03.9 Active 17505871 Problem Hyperlipidemia, unspecified E78.5 Active 65109260 Problem Pain in left shoulder M25.512 Active 41229390 Problem Morbid obesity due to excess calories E66.01 Active 291215813 Problem Wrist pain, right M25.531 Active 59689778 Problem Hyperlipidemia 272.4 Active 62696517 Problem Asthma 493.90 Active 186519663 Problem Right foot pain M79.671 Active 34999008 Problem Essential (primary) hypertension I10 Active 30116517 Problem Obesity (BMI 30-39.9) E66.9 Active 146490030 Problem Intractable migraine, unspecified migraine type G43.919 Active 727394209 Problem Left ankle sprain S93.402A Active 33939652 Problem Pain in left wrist M25.532 Active 50459495 Problem Constipation K59.00 Active 26978009 Problem Knee pain, right M25.561 Active 95928922 Problem Bipolar disorder, unspecified F31.9 Active 43379081 Problem Environmental allergies Z91.09 Active 310145782 Problem Gastro-esophageal reflux disease without esophagitis K21.9 Active 624408328 Problem Attention-deficit hyperactivity disorder, combined type F90.2 Active 72902507 ALLERGIES Substance Reaction Event Type Date Status pedialyte hives Non Drug Allergy Apr, Active SOCIAL HISTORY No smoking Hx information available PLAN OF CARE Activity Details Follow Up 4 Weeks Reason: VITAL SIGNS Height 66.5" in 2016-04-25 Weight 303.6 lbs 2016-04-25 Temperature 98.6 degrees Fahrenheit 2016-04-25 Heart Rate 78 bpm 2016-04-25 Respiratory Rate 20 2016-04-25 BMI 48.26 kg/m2 2016-04-25 Blood pressure systolic 146 mmHg 2016-04-25 Blood pressure diastolic 89 mmHg 2016-04-25 MEDICATIONS Medication Instructions Dosage Frequency Start Date End Date Duration Status Tolterodine Tartrate ER 4 MG TAKE 1 CAPSULE DAILY. 30 Active Cetirizine HCl 10 MG TAKE 1 TABLET BY MOUTH DAILY 30 Active Asmanex 60 Metered Doses 220 MCG/INH INHALE 1 PUFF TWICE DAILY. 30 Active Diclofenac Sodium 50 MG TAKE 1 TABLET BY MOUTH 3 TIMES DAILY 20 Active Metoprolol Succinate ER 25 MG TAKE 1 TABLET BY MOUTH DAILY 30 Active Polyethylene Glycol 3350 DIRECTED 30 Active Pantoprazole Sodium 40 MG TAKE 1 TABLET BY MOUTH DAILY 30 Active Escitalopram Oxalate 10 MG TAKE 1 TABLET BY MOUTH DAILY 30 30 Active Levothyroxine Sodium 25 MCG TAKE 1 TABLET BY MOUTH DAILY 90 Active Celecoxib 200 MG TAKE 1 CAPSULE BY MOUTH DAILY 30 Active Clindamycin Phosphate 1 % Externally Twice a day for acne 1 application to affected area Jan, Active Pseudoephedrine HCl ER 120 MG Orally every 12 hrs 1 tablet as needed 12h Nov, Active Loratadine 10 MG Orally 1-2 times a day PRN 1 tablet Mar, Active Lansoprazole 30 MG Orally Once a day 1 capsule 24h Jul, Active GuanFACINE HCl ER 3 MG TAKE 1 TABLET BY MOUTH DAILY 30 Active Aripiprazole 10 MG TAKE 1 TABLET BY MOUTH DAILY 30 Active Cradle Arm Sling - as directed Apr, Active Knee Brace . as directed Apr, Active HydrOXYzine HCl 25 MG TAKE ONE TABLET TWO TIMES A DAY 30 Active Celebrex 200 mg Orally Once a day 1 capsule 24h 30 Active Fluticasone Propionate 50 MCG/ACT Nasally Once a day 2 spray in each nostril 24h Apr, 30 day(s) Active Simvastatin 10 MG TAKE 1 TABLET DAILY IN THE EVENING 30 Active RESULTS No Results PROCEDURES Procedure Date Ordered Related Diagnosis Body Site Office Visit, Est Pt., Level 3 Apr 25, 2016 IMMUNIZATIONS No Known Immunizations
--- OUTSIDE RECORDS SUMMARY | 2018-06-29 20:13 | XMS REPORT ---
Author Author GERSON MAJANO [facility] Address [address] [place] [address] Care Team Providers Care Military Pay Technician Name Role Phone GERSON MAJANO Unavailable PROBLEMS Type Condition ICD9-CM Code [id number] Code Onset Dates Condition Status SNOMED Code Problem Dental examination V72.2 Active 18078222 Problem Constipation K59.00 Active 27159244 Problem Hypothyroid 244.9 Active 32326129 Problem Knee pain, right M25.561 Active 69268807 Problem ODD (oppositional defiant disorder) 313.81 Active 87830372 Problem Left ankle sprain S93.402A Active 86866497 Problem Gastro-esophageal reflux disease without esophagitis K21.9 Active 505857202 Problem Pain in left wrist M25.532 Active 91781586 Problem Other chronic pain G89.29 Active 92778665 Problem Bruised ribs, right, subsequent encounter S20.211D Active 917876560 Problem ADHD (attention deficit hyperactivity disorder) 314.01 Active 989950080 Problem Bipolar 1 disorder 296.7 Active 062909423 Problem GERD (gastroesophageal reflux disease) 530.81 Active 061394933 Problem Attention-deficit hyperactivity disorder, combined type F90.2 Active 295393059 Problem Bipolar disorder, unspecified F31.9 Active 62772433 Problem Acne vulgaris L70.0 Active 08839764 Problem Environmental allergies Z91.09 Active 524614998 Problem Hypothyroidism 244.9 Active 81025560 Problem Hyperlipidemia 272.4 Active 21503186 Problem Benign hypertension 401.1 Active 38610314 Problem Asthma 493.90 Active 692349696 Problem ADHD (attention deficit hyperactivity disorder), combined type 314.01 Active 47653242 Problem Wrist pain, right M25.531 Active 59974886 Problem OCD (obsessive compulsive disorder) 300.3 Active 635476991 Problem Bipolar disorder 296.80 Active 76651619 ALLERGIES Unknown Allergies SOCIAL HISTORY No smoking Hx information available PLAN OF CARE VITAL SIGNS MEDICATIONS Unknown Medications RESULTS No Results PROCEDURES No Known procedures IMMUNIZATIONS No Known Immunizations
--- OUTSIDE RECORDS SUMMARY | 2018-06-29 20:13 | XMS REPORT ---
Author Author GERSON MAJANO Organization [employer] Address Unknown Phone Unavailable Care Team Providers Care Mechanism Inspector Name Role Phone GERSON MAJANO CP Unavailable Allergies, Adverse Reactions, Alerts Substance Reaction Event Type pedialyte hives Non Drug Allergy Problems Problem Type Condition Code Onset Dates Condition Status Problem Bipolar 1 disorder 296.7 Active Problem Benign hypertension 401.1 Active Problem ADHD (attention deficit hyperactivity disorder) 314.01 Active Problem ADHD (attention deficit hyperactivity disorder), combined type 314.01 Active Problem Bipolar disorder 296.80 Active Problem Wrist pain, right M25.531 Active Problem Hypothyroidism 244.9 Active Problem Asthma 493.90 Active Problem OCD (obsessive compulsive disorder) 300.3 Active Problem Hyperlipidemia 272.4 Active Problem Dental examination V72.2 Active Problem Hypothyroid 244.9 Active Problem ODD (oppositional defiant disorder) 313.81 Active Assessment Wrist pain, right M25.531 Active Problem GERD (gastroesophageal reflux disease) 530.81 Active Medications Medication Code System Code Instructions Start Date End Date Status Dosage Loratadine [facility] [address]-26 10 MG Orally 1-2 times a day PRN Apr 03, 2014 1 tablet Escitalopram Oxalate [facility] [address]-28 10 MG Orally Once a day Apr 03, 2014 by oral route Aripiprazole [facility] [address]-56 10 MG Orally Once a day 1 tablet Levothyroxine Sodium [facility] [address]-67 25 MCG Orally Once a day 1 tablet GuanFACINE HCl ER [facility] [address]-84 3 MG Orally Once a day 1 tablet Wrist Splint Left/Right [facility] [address] . at bed time Feb 08, 2015 as directed Pantoprazole Sodium [facility] [address]-61 40 MG Orally Once a day 1 tablet Simvastatin [facility] [address]-06 10 MG Orally Once a day 1 tablet in the evening Metoprolol Succinate NDC 0 25 mg Apr 03, 2014 by oral route once daily tolterodine NDC 0 4 mg Once a day at night Apr 03, 2014 1 tablet HydrOXYzine HCl [facility] [address]-10 25 MG Orally 2 times a day Apr 03, 2014 Take 1 tablet Procedures Procedure Coding System Code Date Office Visit, Est Pt., Level 3 CPT-4 64881 Feb 08, 2015 Vital Signs Date/Time: Feb 08, 2015 Temperature 98.8 F BMIPercentile 99.85 % Weight 280.2 lbs Height 66.5" in BMI 44.54 Index Blood Pressure Diastolic 80 mmHg Blood Pressure Systolic 140 mmHg Cardiac Monitoring Heart Rate 88 bpm Wt Percentile 99.77 % Ht Percentile 15.1 % Results No Known Results Summary Purpose [employer] Submission
--- OUTSIDE RECORDS SUMMARY | 2018-06-29 20:14 | XMS REPORT ---
Author Author [facility]O [facility] Address [address] [place] [address] Care Team Providers Care Physician Coding Specialist Name Role Phone GERSON MAJANO Unavailable PROBLEMS Type Condition ICD9-CM Code JAG45-AP Code Onset Dates Condition Status SNOMED Code Problem ODD (oppositional defiant disorder) 313.81 Active 15531595 Problem OCD (obsessive compulsive disorder) 300.3 Active 775114082 Problem Benign hypertension 401.1 Active 13343153 Problem ADHD (attention deficit hyperactivity disorder), combined type 314.01 Active 17438133 Problem Hypothyroid 244.9 Active 14818438 Problem Bipolar disorder 296.80 Active 91541156 Problem Hypothyroidism 244.9 Active 93259886 Problem ADHD (attention deficit hyperactivity disorder) 314.01 Active 941380126 Problem Bipolar 1 disorder 296.7 Active 184617676 Problem Bruised ribs, right, subsequent encounter S20.211D Active 882687047 Problem GERD (gastroesophageal reflux disease) 530.81 Active 574929677 Problem Other chronic pain G89.29 Active 91247916 Problem Asthma 493.90 Active 648453830 Problem Hyperlipidemia, unspecified E78.5 Active 89289494 Problem Essential (primary) hypertension I10 Active 15567733 Problem Hypothyroidism, unspecified E03.9 Active 42257175 Problem Mild intellectual disabilities F70 Active 17478730 Problem Pain in left shoulder M25.512 Active 86363583 Problem Constipation K59.00 Active 14018227 Problem Wrist pain, right M25.531 Active 67709188 Problem Hyperlipidemia 272.4 Active 04094859 Problem Intractable migraine, unspecified migraine type G43.919 Active 669650721 Problem Right foot pain M79.671 Active 07242941 Problem Morbid obesity due to excess calories E66.01 Active 128785408 Problem Obesity (BMI 30-39.9) E66.9 Active 342005258 Problem Pain in left wrist M25.532 Active 44913981 Problem Dental examination V72.2 Active 45003375 Problem Gastro-esophageal reflux disease without esophagitis K21.9 Active 729787665 Problem Knee pain, right M25.561 Active 48833314 Problem Left ankle sprain S93.402A Active 85531449 Problem Environmental allergies Z91.09 Active 443070033 Problem Acne vulgaris L70.0 Active 82406459 Problem Bipolar disorder, unspecified F31.9 Active 37156134 Problem Attention-deficit hyperactivity disorder, combined type F90.2 Active 93760703 ALLERGIES No Information ENCOUNTERS Encounter Location Date Diagnosis [facility] [place] [address] [facility] [address] [id number] [place] [id number] August, Bipolar disorder, unspecified F31.9 [facility] [place] [address] [facility] [address] [id number] [place] [id number] August, Bipolar disorder, unspecified F31.9 [facility] [place] [address] [facility] [address] [id number] [place] [id number] Jul, [facility] [place] [address] [facility] [address] [id number] [place] [id number] Jul, [facility] [place] [address] [facility] [address] [id number] [place] [id number] Apr, Bipolar disorder, unspecified F31.9 ; Attention-deficit hyperactivity disorder, combined type F90.2 and Mild intellectual disabilities F70 [facility] [place] [address] [facility] [address] [id number] [place] [id number] Apr, [facility] [place] [address] [facility] [address] [id number] [place] [id number] Mar, [facility] [place] [address] [facility] [address] [id number] [place] [id number] Jan, [facility] [place] [address] [facility] [address] [id number] [place] [id number] Dec, [facility] [place] [address] [facility] [address] [id number] [place] [id number] Nov, [facility] [place] [address] [facility] [address] [id number] [place] [id number] Sep, Pain in left shoulder M25.512 ; Intractable migraine, unspecified migraine type G43.919 and Morbid obesity due to excess calories E66.01 [facility] [place] [address] [facility] [address] [id number] [place] [id number] Jul, Right foot pain M79.671 [facility] [place] [address] [facility] [address] [id number] [place] [id number] Jul, Attention-deficit hyperactivity disorder, combined type F90.2 ; Bipolar disorder, unspecified F31.9 ; Right foot pain M79.671 and Postoperative pain, acute, shoulder, left M25.512 [facility] [place] [address] [facility] [address] [id number] [place] [id number] Jun, [facility] [place] [address] [facility] [address] [id number] [place] [id number] Jun, [facility] [place] [address] [place] [address] C [id number] [place] [id number] Jun, Pain in left shoulder M25.512 [facility] [place] [address] [place] [address] C [id number] [place] [id number] May, Essential (primary) hypertension I10 ; Hypothyroidism, unspecified E03.9 and Hyperlipidemia, unspecified E78.5 [facility] [place] [address] [place] [address] C [id number] [place] [id number] Apr, [facility] [place] [address] [place] [address] C [id number] [place] [id number] Apr, [facility] [place] [address] [place] [address] C [id number] [place] [id number] Apr, Pain in left shoulder M25.512 and Other chronic pain G89.29 [facility] [address] [facility] [id number] [place] [address] Apr, [facility] [address] [facility] [id number] [place] [address] Feb, [facility] [place] [address] [place] [address] C [id number] [place] [id number] Feb, Pain in left shoulder M25.512 and Other chronic pain G89.29 [facility] [place] [address] [facility] [address] [id number] [place] [id number] Jan, Bruised ribs, right, subsequent encounter S20.211D ; Acne vulgaris L70.0 and Routine sports physical exam Z02.5 [facility] [place] [address] [facility] [address] [id number] [place] [id number] Nov, Knee pain, right M25.561 ; Environmental allergies Z91.09 ; Attention- deficit hyperactivity disorder, combined type F90.2 and Bipolar disorder, unspecified F31.9 [facility] [place] [address] [facility] [address] [id number] [place] [id number] Nov, [facility] [place] [address] [facility] [address] [id number] [place] [id number] Oct, [facility] [place] [address] [facility] [address] [id number] [place] [id number] Oct, Knee pain, right M25.561 and Pain in left wrist M25.532 [facility] [place] [address] [place] [address] [address] [id number] [place] [id number] August, [facility] [place] [address] [place] [address] [address] [id number] [place] [id number] Jul, [facility] [place] [address] [facility] [address] [id number] [place] [id number] Jul, [facility] [place] [address] [place] [address] [address] [id number] [place] [id number] Jul, Gastro-esophageal reflux disease without esophagitis K21.9 and Pain in left wrist M25.532 [facility] [place] [address] [facility] [address] [id number] [place] [id number] Jul, [facility] [place] [address] [place] [address] [address] [id number] [place] [id number] Jun, [facility] [place] [address] [facility] [address] [id number] [place] [id number] Jun, Strain of right knee S86.911A and Right knee pain M25.561 [facility] [place] [address] [facility] [address] [id number] [place] [id number] May, Pain in left shoulder M25.512 [facility] [place] [address] [place] [address] [address] [id number] [place] [id number] May, [facility] [place] [address] [facility] [address] [id number] [place] [id number] Apr, Knee pain, right M25.561 and Left ankle sprain S93.402A [facility] [place] [address] [facility] [address] [id number] [place] [id number] Apr, Knee pain, right M25.561 [facility] [place] [address] [facility] [address] [id number] [place] [id number] Mar, [facility] [place] [address] [place] [address] [address] [id number] [place] [id number] Mar, Wrist pain, right M25.531 and Constipation K59.00 [facility] [place] [address] [place] [address] [address] [id number] [place] [id number] Feb, Wrist pain, right M25.531 [facility] [place] [address] [place] [address] [address] [id number] [place] [id number] Feb, Wrist pain, right M25.531 [facility] [place] [address] [place] [address] [address] [id number] [place] [id number] Jan, Wrist pain, right M25.531 [facility] [place] [address] [place] [address] [address] [id number] [place] [id number] Jan, [facility] [place] [address] [place] [address] [address] [id number] [place] [id number] Dec, Right leg pain 729.5 ; Benign hypertension 401.1 and GERD ( gastroesophageal reflux disease) 530.81 [facility] [place] [address] [place] [address] [address] [id number] [place] [id number] Dec, Dental examination V72.2 [facility] [place] [address] [place] [address] [address] [id number] [place] [id number] Dec, [facility] [place] [address] [place] [address] [address] [id number] [place] [id number] Dec, [facility] [place] [address] [place] [address] [address] [id number] [place] [id number] Nov, Benign hypertension 401.1 ; Hypothyroidism 244.9 and Hyperlipidemia 272.[address] [id number] [place] [id number] Nov, Benign hypertension 401.1 ; Bipolar 1 disorder 296.7 and GERD ( gastroesophageal reflux disease) 530.[address] [id number] [place] [id number] Sep, [address] [id number] [place] [id number] Sep, ADHD (attention deficit hyperactivity disorder), combined type 314.01 ; Bipolar disorder 296.80 ; OCD (obsessive compulsive disorder) 300.3 ; Hyperlipidemia 272.4 ; Hypothyroidism 244.9 and Asthma 493.90 [facility] [place] [address] [id number] [address] Jul, [facility] [address] [facility] [id number] [address] Jul, [facility] [address] [id number] [address] Mar, IMMUNIZATIONS No Known Immunizations SOCIAL HISTORY Never Assessed REASON FOR VISIT Refill request PLAN OF CARE VITAL SIGNS MEDICATIONS Medication Instructions Dosage Frequency Start Date End Date Duration Status Levothyroxine Sodium 25 MCG Orally Once a day TAKE 1 TABLET BY MOUTH DAILY 24h 90 days Active Pantoprazole Sodium 40 mg Orally Once a day 1 tablet 24h 90 days Active Simvastatin 10 mg Orally Once a day TAKE 1 TABLET DAILY IN THE EVENING 24h 90 days Active Tolterodine Tartrate ER 4 MG TAKE 1 CAPSULE DAILY. 90 days Active Celecoxib 200 mg TAKE 1 CAPSULE BY MOUTH DAILY 90 days Active HydrOXYzine HCl 25 MG TAKE 1 TABLET BY MOUTH TWICE DAILY 90 days Active Metoprolol Succinate ER 25 MG Orally Once a day TAKE 1 TABLET BY MOUTH DAILY 24h 90 days Active GuanFACINE HCl ER 3 [...]
--- OUTSIDE RECORDS SUMMARY | 2018-06-29 20:14 | XMS REPORT ---
Author Author GERSON MAJANO Organization [employer] Address Unknown Phone Unavailable Care Team Providers Care Spot Welder Line Name Role Phone GERSON MAJANO CP Unavailable [...] ODD (oppositional defiant disorder) 313.81 Active Problem Dental examination V72.2 Active Problem ADHD (attention deficit hyperactivity disorder) 314.01 Active Problem Benign hypertension 401.1 Active Problem GERD (gastroesophageal reflux disease) 530.81 Active Problem Asthma 493.90 Active Problem Bipolar 1 disorder 296.7 Active Problem Hypothyroidism 244.9 Active Medications No Known Medications Results No Known Results Summary Purpose eClinicalWorks Submission
--- OUTSIDE RECORDS SUMMARY | 2018-06-29 20:14 | XMS REPORT ---
Author Author GERSON [facility]JANO [facility] Address [address] [place] [address] Care Team Providers Care French Folder Name Role Phone GERSON MAJANO Unavailable PROBLEMS Type Condition ICD9-CM Code EPL27-ZZ Code Onset Dates Condition Status SNOMED Code Problem ODD (oppositional defiant disorder) 313.81 Active 55647208 Problem OCD (obsessive compulsive disorder) 300.3 Active 390378447 Problem Benign hypertension 401.1 Active 10948121 Problem ADHD (attention deficit hyperactivity disorder), combined type 314.01 Active 41504051 Problem Hypothyroid 244.9 Active 80558044 Problem Bipolar disorder 296.80 Active 80319448 Problem Hypothyroidism 244.9 Active 62101252 Problem ADHD (attention deficit hyperactivity disorder) 314.01 Active 691835034 Problem Bipolar 1 disorder 296.7 Active 603228451 Problem Bruised ribs, right, subsequent encounter S20.211D Active 913368626 Problem GERD (gastroesophageal reflux disease) 530.81 Active 899273091 Problem Other chronic pain G89.29 Active 84108477 Problem Asthma 493.90 Active 549335352 Problem Hyperlipidemia, unspecified E78.5 Active 75519642 Problem Essential (primary) hypertension I10 Active 31752663 Problem Hypothyroidism, unspecified E03.9 Active 77220058 Problem Mild intellectual disabilities F70 Active 23092515 Problem Pain in left shoulder M25.512 Active 41948375 Problem Constipation K59.00 Active 28068496 Problem Wrist pain, right M25.531 Active 58897759 Problem Hyperlipidemia 272.4 Active 97041045 Problem Intractable migraine, unspecified migraine type G43.919 Active 752195818 Problem Right foot pain M79.671 Active 23261181 Problem Morbid obesity due to excess calories E66.01 Active 979931540 Problem Obesity (BMI 30-39.9) E66.9 Active 438528182 Problem Pain in left wrist M25.532 Active 73229516 Problem Dental examination V72.2 Active 74350540 Problem Gastro-esophageal reflux disease without esophagitis K21.9 Active 992544336 Problem Knee pain, right M25.561 Active 38394583 Problem Left ankle sprain S93.402A Active 35734798 Problem Environmental allergies Z91.09 Active 849684082 Problem Acne vulgaris L70.0 Active 47163009 Problem Bipolar disorder, unspecified F31.9 Active 11516123 Problem Attention-deficit hyperactivity disorder, combined type F90.2 Active 22704213 ALLERGIES No Information ENCOUNTERS Encounter Location Date Diagnosis [facility] [place] [address] [facility] [address] [id number] [place] [id number] Jul, [facility] [place] [address] [facility] [address] [id number] [place] [id number] Jul, [facility] [place] [address] [facility] [address] [id number] [place] [id number] Apr, Bipolar disorder, unspecified F31.9 ; Attention-deficit hyperactivity disorder, combined type F90.2 and Mild intellectual disabilities F70 [facility] [place] [address] [facility] [address] [id number] [place] [id number] Apr, [facility] [place] [address] [facility] [address] [id number] [place] [id number] Mar, [facility] [place] [address] [facility] [address] [id number] [place] [id number] Jan, [facility] [place] [address] [facility] [address] [id number] [place] [id number] Dec, [facility] [place] [address] [facility] [address] [id number] [place] [id number] Nov, [facility] [place] [address] [facility] [address] [id number] [place] [id number] Sep, Pain in left shoulder M25.512 ; Intractable migraine, unspecified migraine type G43.919 and Morbid obesity due to excess calories E66.01 [facility] [place] [address] [facility] [address] [id number] [place] [id number] Jul, Right foot pain M79.671 [facility] [place] [address] [facility] [address] [id number] [place] [id number] Jul, Attention-deficit hyperactivity disorder, combined type F90.2 ; Bipolar disorder, unspecified F31.9 ; Right foot pain M79.671 and Postoperative pain, acute, shoulder, left M25.512 [facility] [place] [address] [facility] [address] [id number] [place] [id number] Jun, [facility] [place] [address] [facility] [address] [id number] [place] [id number] Jun, [facility] [place] [address] [place] [address] [address] [id number] [place] [id number] Jun, Pain in left shoulder M25.512 [facility] [place] [address] [place] [address] [address] [id number] [place] [id number] May, Essential (primary) hypertension I10 ; Hypothyroidism, unspecified E03.9 and Hyperlipidemia, unspecified E78.5 [facility] [place] [address] [place] [address] C [id number] [place] [id number] Apr, [facility] [place] [address] [place] [address] [address] [id number] [place] [id number] Apr, [facility] [place] [address] [place] [address] C [id number] [place] [id number] Apr, Pain in left shoulder M25.512 and Other chronic pain G89.29 [facility] [address] [id number] [address] Apr, [facility] [address] [facility] [id number] [address] Feb, [facility] [place] [address] [place] [address] C [id number] [place] [id number] Feb, Pain in left shoulder M25.512 and Other chronic pain G89.29 [facility] [place] [address] [facility] [address] [id number] [place] [id number] Jan, Bruised ribs, right, subsequent encounter S20.211D ; Acne vulgaris L70.0 and Routine sports physical exam Z02.5 [facility] [place] [address] [facility] [address] [id number] [place] [id number] Nov, Knee pain, right M25.561 ; Environmental allergies Z91.09 ; Attention- deficit hyperactivity disorder, combined type F90.2 and Bipolar disorder, unspecified F31.9 [facility] [place] [address] [facility] [address] [id number] [place] [id number] Nov, [facility] [place] [address] [facility] [address] [id number] [place] [id number] Oct, [facility] [place] [address] [facility] [address] [id number] [place] [id number] Oct, Knee pain, right M25.561 and Pain in left wrist M25.532 [facility] [place] [address] [place] [address] [address] [id number] [place] [id number] August, [facility] [place] [address] [facility] [address] [id number] [place] [id number] Jul, [facility] [place] [address] [facility] [address] [id number] [place] [id number] Jul, [facility] [place] [address] [place] [address] [address] [id number] [place] [id number] Jul, Gastro-esophageal reflux disease without esophagitis K21.9 and Pain in left wrist M25.532 [facility] [place] [address] [place] [address] [address] [id number] [place] [id number] Jul, [facility] [place] [address] [place] [address] [address] [id number] [place] [id number] Jun, [facility] [place] [address] [facility] [address] [id number] [place] [id number] Jun, Strain of right knee S86.911A and Right knee pain M25.561 [facility] [place] [address] [facility] [address] [id number] [place] [id number] May, Pain in left shoulder M25.512 [facility] [place] [address] [facility] [address] [id number] [place] [id number] May, [facility] [place] [address] [facility] [address] [id number] [place] [id number] Apr, Knee pain, right M25.561 and Left ankle sprain S93.402A [facility] [place] [address] [place] [address] [address] [id number] [place] [id number] Apr, Knee pain, right M25.561 [facility] [place] [address] [facility] [address] [id number] [place] [id number] Mar, [facility] [place] [address] [facility] [address] [id number] [place] [id number] Mar, Wrist pain, right M25.531 and Constipation K59.00 [facility] [place] [address] [facility] [address] [id number] [place] [id number] Feb, Wrist pain, right M25.531 [facility] [place] [address] [place] [address] [address] [id number] [place] [id number] Feb, Wrist pain, right M25.531 [facility] [place] [address] [place] [address] [address] [id number] [place] [id number] Jan, Wrist pain, right M25.531 [facility] [place] [address] [place] [address] [address] [id number] [place] [id number] Jan, [facility] [place] [address] [place] [address] [address] [id number] [place] [id number] Dec, Right leg pain 729.5 ; Benign hypertension 401.1 and GERD ( gastroesophageal reflux disease) 530.81 [facility] [place] [address] [place] [address] [address] [id number] [place] [id number] Dec, Dental examination V72.2 [facility] [place] [address] [place] [address] [address] [id number] [place], [place] [id number] Dec, [facility] [place] [address] [place] [address] [address] [id number] [place], [place] [id number] 14 Dec, 2014 [facility] [place] [address] [place] [address] [address] [id number] [place] [id number] Nov, Benign hypertension 401.1 ; Hypothyroidism 244.9 and Hyperlipidemia 272.4 [facility] [place] [address] [place] [address] [address] [id number] [place] [id number] Nov, Benign hypertension 401.1 ; Bipolar 1 disorder 296.7 and GERD ( gastroesophageal reflux disease) 530.81 [facility] [place] [address] [place] [address] [address] [id number] [place] [id number] Sep, [facility] [address] [facility] [address] [id number] [place] [id number] Sep, ADHD (attention deficit hyperactivity disorder), combined type 314.01 ; Bipolar disorder 296.80 ; OCD (obsessive compulsive disorder) 300.3 ; Hyperlipidemia 272.4 ; Hypothyroidism 244.9 and Asthma 493.90 [facility] [address] [facility] [id number] [address] Jul, [facility] [address] [facility] [id number] [address] Jul, [facility] [address] [facility] [id number][place] [id number] Mar, IMMUNIZATIONS No Known Immunizations SOCIAL HISTORY [...]
--- OUTSIDE RECORDS SUMMARY | 2018-06-29 20:14 | XMS REPORT ---
Author Author GERSON [facility]JANO [facility] Address [address] [place] [address] Care Team Providers Care Hotel Night Auditor Name Role Phone GERSON MAJANO Unavailable PROBLEMS Type Condition ICD9-CM Code [id number] Code Onset Dates Condition Status SNOMED Code Problem Wrist pain, right M25.531 Active 00951671 Problem Knee pain, right M25.561 Active 56481094 Problem Constipation K59.00 Active 96536001 Problem Environmental allergies Z91.09 Active 172387101 Problem ODD (oppositional defiant disorder) 313.81 Active 68203257 Problem Attention-deficit hyperactivity disorder, combined type F90.2 Active 469101505 Problem Hypothyroid 244.9 Active 96305401 Problem Dental examination V72.2 Active 81692995 Problem Pain in left wrist M25.532 Active 91385798 Problem Left ankle sprain S93.402A Active 72716502 Problem Bipolar disorder, unspecified F31.9 Active 17074734 Problem Gastro-esophageal reflux disease without esophagitis K21.9 Active 044451241 Problem ADHD (attention deficit hyperactivity disorder) 314.01 Active 496100161 Problem Benign hypertension 401.1 Active 74742509 Problem GERD (gastroesophageal reflux disease) 530.81 Active 585737524 Problem Bipolar 1 disorder 296.7 Active 664397254 Problem Hyperlipidemia 272.4 Active 32778261 Problem OCD (obsessive compulsive disorder) 300.3 Active 985153380 Problem Asthma 493.90 Active 229047363 Problem Bipolar disorder 296.80 Active 67562259 Assessment Knee pain, right M25.561 Nov, Active 30360356 Problem Hypothyroidism 244.9 Active 71768832 Problem ADHD (attention deficit hyperactivity disorder), combined type 314.01 Active 17218081 ALLERGIES Substance Reaction Event Type Date Status pedialyte hives Non Drug Allergy Nov, Active SOCIAL HISTORY No smoking Hx information available PLAN OF CARE VITAL SIGNS Height 66.5" in 2015-11-30 Weight 290.4 lbs 2015-11-30 Heart Rate 90 bpm 2015-11-30 Respiratory Rate 18 2015-11-30 BMI 46.16 kg/m2 2015-11-30 Blood pressure systolic 112 mmHg 2015-11-30 Blood pressure diastolic 72 mmHg 2015-11-30 MEDICATIONS Medication Instructions Dosage Frequency Start Date End Date Duration Status GuanFACINE HCl ER 3 MG TAKE 1 TABLET DAILY. 30 Active Cetirizine HCl 10 mg Orally Once a day 1 tablet 24h Nov, Active Diclofenac Sodium 50 MG TAKE 1 TABLET BY MOUTH 3 TIMES DAILY 20 Active Loratadine 10 MG Orally 1-2 times a day PRN 1 tablet Mar, Active Metoprolol Succinate ER 25 MG TAKE 1 TABLET DAILY. 30 Active Asmanex 60 Metered Doses 220 MCG/INH INHALE 1 PUFF TWICE DAILY. 30 Active Pseudoephedrine HCl ER 120 MG Orally every 12 hrs 1 tablet as needed 12h Nov, Active Celebrex 200 mg Orally Once a day 1 capsule 24h Active Aripiprazole 10 MG TAKE 1 TABLET BY MOUTH DAILY 30 Active Escitalopram Oxalate 10 MG TAKE 1 TABLET BY MOUTH DAILY 30 Active Simvastatin 10 MG TAKE 1 TABLET DAILY IN THE EVENING 30 Active Tolterodine Tartrate ER 4 MG TAKE 1 CAPSULE DAILY. 30 Active Nasonex 50 MCG/ACT 2 SPRAYS EACH NOSTRIL ONCE DAILY. 30 Active Levothyroxine Sodium 25 MCG TAKE 1 TABLET BY MOUTH DAILY Active Lansoprazole 30 MG Orally Once a day 1 capsule 24h Jul, Active Polyethylene Glycol 3350 DIRECTED 30 Active HydrOXYzine HCl 25 MG TAKE ONE TABLET TWO TIMES A DAY 30 Active Knee Brace . as directed Apr, Active Pantoprazole Sodium 40 MG TAKE 1 TABLET BY MOUTH DAILY 30 Active RESULTS No Results PROCEDURES Procedure Date Ordered Related Diagnosis Body Site Office Visit, Est Pt., Level 3 Nov 30, 2015 IMMUNIZATIONS No Known Immunizations
--- OUTSIDE RECORDS SUMMARY | 2018-06-29 20:14 | XMS REPORT ---
Author Author GERSON MAJANO Organization [employer] Address Unknown Phone Unavailable Care Team Providers Care Meat And Seafood Clerk Name Role Phone GERSON MAJANO CP Unavailable [...]
--- OUTSIDE RECORDS SUMMARY | 2018-06-29 20:14 | XMS REPORT ---
Author Author GERSON MAJANO [facility] Address [address] [place] [address] Care Team Providers Care Parts Picker Name Role Phone GERSON MAJANO Unavailable PROBLEMS Type Condition ICD9-CM Code [id number] Code Onset Dates Condition Status SNOMED Code Problem OCD (obsessive compulsive disorder) 300.3 Active 662370895 Problem Dental examination V72.2 Active 79337831 Problem ADHD (attention deficit hyperactivity disorder), combined type 314.01 Active 31505966 Problem ODD (oppositional defiant disorder) 313.81 Active 21721882 Problem Benign hypertension 401.1 Active 57330100 Problem Hypothyroid 244.9 Active 44520610 Problem Bipolar disorder 296.80 Active 59820471 Problem Hypothyroidism 244.9 Active 12520475 Problem ADHD (attention deficit hyperactivity disorder) 314.01 Active 009875813 Problem Bruised ribs, right, subsequent encounter S20.211D Active 188306655 Problem Bipolar 1 disorder 296.7 Active 733679431 Problem Acne vulgaris L70.0 Active 71131743 Problem GERD (gastroesophageal reflux disease) 530.81 Active 487055851 Problem Other chronic pain G89.29 Active 97409508 Problem Hypothyroidism, unspecified E03.9 Active 40253565 Problem Hyperlipidemia, unspecified E78.5 Active 44575467 Problem Pain in left shoulder M25.512 Active 23043344 Problem Morbid obesity due to excess calories E66.01 Active 481217996 Problem Wrist pain, right M25.531 Active 58193026 Problem Hyperlipidemia 272.4 Active 30366876 Problem Asthma 493.90 Active 173368745 Problem Right foot pain M79.671 Active 00505811 Problem Essential (primary) hypertension I10 Active 18562317 Problem Obesity (BMI 30-39.9) E66.9 Active 477417602 Problem Intractable migraine, unspecified migraine type G43.919 Active 248511485 Problem Left ankle sprain S93.402A Active 02560426 Problem Pain in left wrist M25.532 Active 13227248 Problem Constipation K59.00 Active 72315503 Problem Knee pain, right M25.561 Active 24762620 Problem Bipolar disorder, unspecified F31.9 Active 12707697 Problem Environmental allergies Z91.09 Active 664982770 Problem Gastro-esophageal reflux disease without esophagitis K21.9 Active 484893342 Problem Attention-deficit hyperactivity disorder, combined type F90.2 Active 39612509 ALLERGIES No Information SOCIAL HISTORY Never Assessed PLAN OF CARE VITAL SIGNS MEDICATIONS Unknown [...]
--- OUTSIDE RECORDS SUMMARY | 2018-06-29 20:15 | XMS REPORT ---
Author Author GERSON MAJANO [facility] Address [address] [place] [address] Care Team Providers Care Certified Coder Name Role Phone GERSON MAJANO Unavailable PROBLEMS Type Condition ICD9-CM Code SUS29-JF Code Onset Dates Condition Status SNOMED Code Problem OCD (obsessive compulsive disorder) 300.3 Active 381878392 Problem Dental examination V72.2 Active 13699490 Problem ADHD (attention deficit hyperactivity disorder), combined type 314.01 Active 73062048 Problem ODD (oppositional defiant disorder) 313.81 Active 18252362 Problem Benign hypertension 401.1 Active 50589185 Problem Hypothyroid 244.9 Active 87969242 Problem Bipolar disorder 296.80 Active 12308616 Problem Hypothyroidism 244.9 Active 24214319 Problem ADHD (attention deficit hyperactivity disorder) 314.01 Active 373884476 Problem Bruised ribs, right, subsequent encounter S20.211D Active 027334473 Problem Bipolar 1 disorder 296.7 Active 333114647 Problem Acne vulgaris L70.0 Active 36562562 Problem GERD (gastroesophageal reflux disease) 530.81 Active 069661235 Problem Other chronic pain G89.29 Active 21315764 Problem Hypothyroidism, unspecified E03.9 Active 80058889 Problem Hyperlipidemia, unspecified E78.5 Active 73693547 Problem Pain in left shoulder M25.512 Active 56341283 Problem Morbid obesity due to excess calories E66.01 Active 285648853 Problem Wrist pain, right M25.531 Active 99899781 Problem Hyperlipidemia 272.4 Active 98639393 Problem Asthma 493.90 Active 243192056 Problem Right foot pain M79.671 Active 31867756 Problem Essential (primary) hypertension I10 Active 79937684 Problem Obesity (BMI 30-39.9) E66.9 Active 287913851 Problem Intractable migraine, unspecified migraine type G43.919 Active 871642589 Problem Left ankle sprain S93.402A Active 90467879 Problem Pain in left wrist M25.532 Active 91945117 Problem Constipation K59.00 Active 28442663 Problem Knee pain, right M25.561 Active 06444430 Problem Bipolar disorder, unspecified F31.9 Active 03701829 Problem Environmental allergies Z91.09 Active 792861908 Problem Gastro-esophageal reflux disease without esophagitis K21.9 Active 537122393 Problem Attention-deficit hyperactivity disorder, combined type F90.2 Active 95086550 ALLERGIES No Information SOCIAL HISTORY Never Assessed PLAN OF CARE VITAL SIGNS MEDICATIONS Medication Instructions Dosage Frequency Start Date End Date Duration Status Escitalopram Oxalate 10 mg Orally Once a day TAKE 1 TABLET BY MOUTH DAILY 24h 30 Active Levothyroxine Sodium 25 MCG Orally Once a day TAKE 1 TABLET BY MOUTH DAILY 24h 30 Active Metoprolol Succinate ER 25 MG Orally Once a day TAKE 1 TABLET BY MOUTH DAILY 24h 30 Active GuanFACINE HCl ER 3 MG Orally Once a day TAKE 1 TABLET BY MOUTH DAILY 24h 30 Active Fluticasone Propionate 50 MCG/ACT Nasally Once a day 2 spray in each nostril 24h Apr, 30 day(s) Active Simvastatin 10 mg Orally Once a day TAKE 1 TABLET DAILY IN THE EVENING 24h 30 Active RESULTS No Results PROCEDURES No Known [...]
--- OUTSIDE RECORDS SUMMARY | 2018-06-29 20:15 | XMS REPORT ---
Author Author GERSON MAJANO [facility] [employer] Address Unknown Phone Unavailable Care Team Providers Care Crown Perforator Operator Name Role Phone GERSON MAJANO CP Unavailable [...] Instructions Start Date End Date Status Dosage Wrist Splint/Left Large [facility] [address]75 Mar 03, 2015 as directed Naprosyn [facility] [address]-63 375 MG Orally Twice a day Mar 03, 2015 1 tablet Levothyroxine Sodium [facility] [address]-89 25 MCG Orally Once a day 1 tablet tolterodine [facility] 0 4 mg Once a day at night Apr 03, 2014 1 tablet Wrist Splint Left/Right [facility] 45548-19564 . at bed time Feb 08, 2015 as directed Escitalopram Oxalate [facility] [address]-25 10 MG Orally Once a day Apr 03, 2014 by oral route Loratadine [facility] [address]-47 10 MG Orally 1-2 times a day PRN Apr 03, 2014 1 tablet Aripiprazole [facility] [address]-74 10 MG Orally Once a day 1 tablet Pantoprazole Sodium [facility] [address]-15 40 MG Orally Once a day 1 tablet Metoprolol Succinate ND 0 25 mg Apr 03, 2014 by oral route once daily GuanFACINE HCl ER [facility] [address]-96 3 MG Orally Once a day 1 tablet HydrOXYzine HCl [facility] [address]-12 25 MG Orally 2 times a day Apr 03, 2014 Take 1 tablet Simvastatin [facility] [address]-30 10 MG Orally Once a day 1 tablet in the evening Procedures Procedure Coding System Code Date Office Visit, Est Pt., Level 3 CPT-4 25616 Mar 03, 2015 Vital Signs Date/Time: Mar 03, 2015 Temperature 99.7 F Weight 283.0 lbs Height 66.5" in BMI 44.99 Index Blood Pressure Diastolic 70 mmHg Blood Pressure Systolic 120 mmHg Cardiac Monitoring Heart Rate 68 bpm BMIPercentile 99.86 % Wt Percentile 99.79 % Results No Known Results Summary Purpose [employer] Submission
--- OUTSIDE RECORDS SUMMARY | 2018-06-29 20:15 | XMS REPORT ---
Author Author GERSON MAJANO Organization [employer] Address Unknown Phone Unavailable Care Team Providers Care Gas Regulator Repairer Helper Name Role Phone GERSON MAJANO CP Unavailable [...] GERD (gastroesophageal reflux disease) 530.81 Active Medications No Known Medications Results No Known Results Summary Purpose [employer] Submission
--- OUTSIDE RECORDS SUMMARY | 2018-06-29 20:15 | XMS REPORT ---
Author Author GERSON MAJANO Organization [employer] Address Unknown Phone Unavailable Care Team Providers Care Green Building Engineer Name Role Phone GERSON MAJANO CP Unavailable [...] Date End Date Status Dosage Levothyroxine Sodium [facility] [id number] 25 MCG TAKE 1 TABLET BY MOUTH DAILY Results No Known Results Summary Purpose [employer] Submission
--- OUTSIDE RECORDS SUMMARY | 2018-06-29 20:15 | XMS REPORT ---
Author Author GERSON MAJANO Organization [employer] Address Unknown Phone Unavailable Care Team Providers Care Investment Accounting Clerk Name Role Phone GERSON MAJANO CP Unavailable Allergies No Known Allergies Problems Problem Type Condition Code Onset Dates Condition Status Problem Asthma 493.90 Active Problem Hyperlipidemia 272.4 Active Problem Hypothyroidism 244.9 Active Problem Knee pain, right M25.561 Active Problem Constipation K59.00 Active Problem Left ankle sprain S93.402A Active Problem Bipolar disorder 296.80 Active Problem OCD (obsessive compulsive disorder) 300.3 Active Problem Wrist pain, right M25.531 Active Problem ADHD (attention deficit hyperactivity disorder), combined type 314.01 Active Problem Dental examination V72.2 Active Problem GERD (gastroesophageal reflux disease) 530.81 Active Problem Bipolar 1 disorder 296.7 Active Problem Hypothyroid 244.9 Active Problem ADHD (attention deficit hyperactivity disorder) 314.01 Active Problem ODD (oppositional defiant disorder) 313.81 Active Problem Benign hypertension 401.1 Active Medications Medication Code System Code Instructions Start Date End Date Status Dosage GuanFACINE HCl ER [facility] [address]-55 3 MG TAKE 1 TABLET DAILY. Results No Known Results Summary Purpose [employer] Submission
--- OUTSIDE RECORDS SUMMARY | 2018-06-29 20:15 | XMS REPORT ---
Author Author GERSON MAJANO Organization [employer] Address Unknown Phone Unavailable Care Team Providers Care Concession Manager Name Role Phone GERSON MAJANO CP Unavailable Allergies, Adverse Reactions, Alerts Substance Reaction Event Type pedialyte hives Non Drug Allergy Problems Problem Type Condition Code Onset Dates Condition Status Problem ADHD (attention deficit hyperactivity disorder) 314.01 Active Problem Asthma 493.90 Active Problem Benign hypertension 401.1 Active Problem Wrist pain, right M25.531 Active Problem ADHD (attention deficit hyperactivity disorder), combined type 314.01 Active Problem Constipation K59.00 Active Problem Hyperlipidemia 272.4 Active Problem Hypothyroidism 244.9 Active Problem Bipolar disorder 296.80 Active Problem OCD (obsessive compulsive disorder) 300.3 Active Assessment Constipation K59.00 Active Problem Hypothyroid 244.9 Active Problem ODD (oppositional defiant disorder) 313.81 Active Assessment Wrist pain, right M25.531 Active Problem GERD (gastroesophageal reflux disease) 530.81 Active Problem Dental examination V72.2 Active Problem Bipolar 1 disorder 296.7 Active Medications Medication Code System Code Instructions Start Date End Date Status Dosage Wrist Splint Left/Right [facility] [address] . at bed time Feb 08, 2015 as directed Naprosyn [facility] [address]-12 375 MG Orally Twice a day Mar 03, 2015 1 tablet GuanFACINE HCl ER [facility] [address]-47 3 MG Orally Once a day 1 tablet Pantoprazole Sodium [facility] [address]-72 40 MG Orally Once a day 1 tablet Loratadine [facility] [address]-37 10 MG Orally 1-2 times a day PRN Apr 03, 2014 1 tablet Wrist Splint/Left Large [facility] [address] Mar 03, 2015 as directed Escitalopram Oxalate [facility] [address]-76 10 MG Orally Once a day Apr 03, 2014 by oral route MiraLax [facility] [address]-79 . Orally Mar 19, 2015 as directed Metoprolol Succinate ND 0 25 mg Apr 03, 2014 by oral route once daily Diclofenac Sodium [facility] [address]-30 50 MG Orally Three times a day Mar 19, 2015 1 tablet Simvastatin [facility] [address]-05 10 MG Orally Once a day 1 tablet in the evening tolterodine NDC 0 4 mg Once a day at night Apr 03, 2014 1 tablet Aripiprazole [facility] [address]-68 10 MG Orally Once a day 1 tablet HydrOXYzine HCl [facility] [address]-34 25 MG Orally Once a day Apr 03, 2014 Take 1 tablet Levothyroxine Sodium [facility] [address]-43 25 MCG Orally Once a day 1 tablet Procedures Procedure Coding System Code Date VENIPUNCT, ROUTINE* CPT-4 37381 Mar 19, 2015 COMPLETE CBC W/AUTO DIFF WBC CPT-4 53427 Mar 19, 2015 Office Visit, Est Pt., Level 3 CPT-4 92134 Mar 19, 2015 RBC SED RATE, AUTOMATED CPT-4 86877 Mar 19, 2015 Vital Signs Date/Time: Mar 19, 2015 Temperature 98.5 F Weight 292.2 lbs Height 66.5" in BMI 46.45 Index Blood Pressure Diastolic 60 mmHg Blood Pressure Systolic 122 mmHg Cardiac Monitoring Heart Rate 64 bpm BMIPercentile 99.88 % Wt Percentile 99.85 % Results Name Result Date Reference Range Unit Abnormality Flag ESR/SED RATE ----Sedimentation Rate-Westergren 19 [id number] 0-15 mm/hr H No Test Indicated ROUTINE VENIPUNCTURE CBC ----MCHC 32.8 90107094 31.5-35.7 g/dL ----MCH 25.7 [id number] 26.6-33.0 pg L ----Platelets 253 [id number] 150-379 x10E3/uL ----RDW 15.7 [id number] 12.3-15.4 % H ----Immature Granulocytes 0 51488131 % ----Immature Grans (Abs) 0.0 49420802 0.0-0.1 x10E3/uL ----Lymphs 37 04858945 % ----Monocytes 8 90556921 % ----Neutrophils 53 55104321 % ----Neutrophils (Absolute) 5.1 [id number] 1.4-7.0 x10E3/uL ----Hematocrit 40.0 73979931 37.5-51.0 % ----Lymphs (Absolute) 3.5 84394255 0.7-3.1 x10E3/uL H ----MCV 79 59675068 79-97 fL ----RBC 5.09 [id number] 4.14-5.80 x10E6/uL ----Eos 2 40551006 % ----Basos 0 28762181 % ----Hemoglobin 13.1 48316389 12.6-17.7 g/dL ----Baso (Absolute) 0.0 84257238 0.0-0.2 x10E3/uL ----WBC 9.6 05668933 3.4-10.8 x10E3/uL ----Monocytes(Absolute) 0.8 13304447 0.1-0.9 x10E3/uL ----Eos (Absolute) 0.2 92183832 0.0-0.4 x10E3/uL Summary Purpose [employer] Submission
--- OUTSIDE RECORDS SUMMARY | 2018-06-29 20:15 | XMS REPORT ---
Author Author GERSON MAJANO Organization [employer] Address Unknown Phone Unavailable Care Team Providers Care Radiology Transcriptionist Name Role Phone GERSON MAJANO CP Unavailable [...] OCD (obsessive compulsive disorder) 300.3 Active Problem Hypothyroid 244.9 Active Problem ODD (oppositional defiant disorder) 313.81 Active Problem GERD (gastroesophageal reflux disease) 530.81 Active Problem Dental examination V72.2 Active Problem Bipolar 1 disorder 296.7 Active Medications No Known Medications Results No Known Results Summary Purpose [employer] Submission
--- OUTSIDE RECORDS SUMMARY | 2018-06-29 20:15 | XMS REPORT ---
Author Author GERSON MAJANO [facility] Address [address] [place] [address] Care Team Providers Care Cathode Ray Tube Salvage Processor Name Role Phone GERSON MAJANO Unavailable PROBLEMS Type Condition ICD9-CM Code QPH34-DR Code Onset Dates Condition Status SNOMED Code Problem OCD (obsessive compulsive disorder) 300.3 Active 232707835 Problem Dental examination V72.2 Active 41075955 Problem ADHD (attention deficit hyperactivity disorder), combined type 314.01 Active 04624275 Problem ODD (oppositional defiant disorder) 313.81 Active 60742004 Problem Benign hypertension 401.1 Active 09054029 Problem Hypothyroid 244.9 Active 83708858 Problem Bipolar disorder 296.80 Active 89157867 Problem Hypothyroidism 244.9 Active 55608960 Problem ADHD (attention deficit hyperactivity disorder) 314.01 Active 232514319 Problem Bruised ribs, right, subsequent encounter S20.211D Active 012266680 Problem Bipolar 1 disorder 296.7 Active 315218286 Problem Acne vulgaris L70.0 Active 09240319 Problem GERD (gastroesophageal reflux disease) 530.81 Active 140374401 Problem Other chronic pain G89.29 Active 28430995 Problem Hypothyroidism, unspecified E03.9 Active 25892776 Problem Hyperlipidemia, unspecified E78.5 Active 83618460 Problem Pain in left shoulder M25.512 Active 10044487 Problem Morbid obesity due to excess calories E66.01 Active 382944304 Problem Wrist pain, right M25.531 Active 12813358 Problem Hyperlipidemia 272.4 Active 43028937 Problem Asthma 493.90 Active 477321651 Problem Right foot pain M79.671 Active 32953239 Problem Essential (primary) hypertension I10 Active 89841770 Problem Obesity (BMI 30-39.9) E66.9 Active 634474747 Problem Intractable migraine, unspecified migraine type G43.919 Active 763182550 Problem Left ankle sprain S93.402A Active 56134764 Problem Pain in left wrist M25.532 Active 19387931 Problem Constipation K59.00 Active 22410627 Problem Knee pain, right M25.561 Active 48326823 Problem Bipolar disorder, unspecified F31.9 Active 84643226 Problem Environmental allergies Z91.09 Active 261551831 Problem Gastro-esophageal reflux disease without esophagitis K21.9 Active 666566449 Problem Attention-deficit hyperactivity disorder, combined type F90.2 Active 85263648 ALLERGIES No Known Allergies SOCIAL HISTORY No smoking Hx information available PLAN OF CARE VITAL SIGNS MEDICATIONS Medication Instructions Dosage Frequency Start Date End Date Duration Status Fluticasone Propionate 50 MCG/ACT Nasally Once a day 2 spray in each nostril 24h Apr, 30 day(s) Active RESULTS No Results PROCEDURES No Known procedures IMMUNIZATIONS No Known Immunizations
--- OUTSIDE RECORDS SUMMARY | 2018-06-29 20:15 | XMS REPORT ---
Author Author GERSON MAJANO [facility] Address [address] [place] [address] Care Team Providers Care Sound Assistant Name Role Phone GERSON MAJANO Unavailable PROBLEMS Type Condition ICD9-CM Code QVJ63-JL Code Onset Dates Condition Status SNOMED Code Problem OCD (obsessive compulsive disorder) 300.3 Active 140220858 Problem Dental examination V72.2 Active 96758087 Problem ADHD (attention deficit hyperactivity disorder), combined type 314.01 Active 01877866 Problem ODD (oppositional defiant disorder) 313.81 Active 29020851 Problem Benign hypertension 401.1 Active 76938207 Problem Hypothyroid 244.9 Active 94730608 Problem Bipolar disorder 296.80 Active 92226025 Problem Hypothyroidism 244.9 Active 85506202 Problem ADHD (attention deficit hyperactivity disorder) 314.01 Active 581144372 Problem Bruised ribs, right, subsequent encounter S20.211D Active 836985567 Problem Bipolar 1 disorder 296.7 Active 987387470 Problem Acne vulgaris L70.0 Active 64384756 Problem GERD (gastroesophageal reflux disease) 530.81 Active 714239712 Problem Other chronic pain G89.29 Active 94287098 Problem Hypothyroidism, unspecified E03.9 Active 07994484 Problem Hyperlipidemia, unspecified E78.5 Active 56790671 Problem Pain in left shoulder M25.512 Active 37681336 Problem Morbid obesity due to excess calories E66.01 Active 073269630 Problem Wrist pain, right M25.531 Active 61888130 Problem Hyperlipidemia 272.4 Active 30149157 Problem Asthma 493.90 Active 263965538 Problem Right foot pain M79.671 Active 20333891 Problem Essential (primary) hypertension I10 Active 17823393 Problem Obesity (BMI 30-39.9) E66.9 Active 851347655 Problem Intractable migraine, unspecified migraine type G43.919 Active 124045489 Problem Left ankle sprain S93.402A Active 87563849 Problem Pain in left wrist M25.532 Active 50741401 Problem Constipation K59.00 Active 72017513 Problem Knee pain, right M25.561 Active 17888816 Problem Bipolar disorder, unspecified F31.9 Active 68255122 Problem Environmental allergies Z91.09 Active 651810010 Problem Gastro-esophageal reflux disease without esophagitis K21.9 Active 104036061 Problem Attention-deficit hyperactivity disorder, combined type F90.2 Active 25846111 ALLERGIES Unknown Allergies SOCIAL HISTORY No smoking Hx information available PLAN OF CARE VITAL SIGNS MEDICATIONS Medication Instructions Dosage Frequency Start Date End Date Duration Status Pantoprazole Sodium 40 mg Orally Once a day 1 tablet 24h Active RESULTS No Results PROCEDURES No Known procedures IMMUNIZATIONS No Known Immunizations
--- OUTSIDE RECORDS SUMMARY | 2018-06-29 20:15 | XMS REPORT ---
Author Author TOSIN GRULLON Organization [employer] Address Unknown Phone Unavailable Care Team Providers Care Cable Spooler Name Role Phone TOSIN GRULLON CP Unavailable Allergies No Known Allergies Problems [...] 272.4 Active Problem Hypothyroidism 244.9 Active Assessment Dental examination V72.2 Active Problem Dental examination V72.2 Active Problem Hypothyroid 244.9 Active Problem ODD (oppositional defiant disorder) 313.81 Active Medications No Known Medications Procedures Procedure Coding System Code Date INTRAORL-PERIAPICAL 1 FILM 58209 CPT-4 D0220 Jan 04, 2015 LTD ORAL EVALUATION - PROBLEM FOCUS CPT-4 D0140 Jan 04, 2015 Results No Known Results Summary Purpose [employer] Submission
--- NOTE | 2018-06-29 20:26 | ED Upper Extremity ---
General Chief Complaint: Upper Extremity Stated Complaint: THUMB PAIN--SLAMMED DOOR ON THUMB Nursing Triage Note: pt smashed left thumb in bathroom door yesterday, pt seen in urgent care yesterday with no xrays performed Nursing Sepsis Screen: No Definite Risk History of Present Illness Date Seen by Provider: Jun 29, 2018 Time Seen by Provider: 20:17 This is a 22-year-old man accompanied to the emergency department by his family for a left hand/thumb injury that occurred yesterday. He accidentally closed the door wall is hand was in the way injuring the radial aspect of the left hand. He does not have weakness although movement makes the pain worse, he does not have numbness or tingling. He denies any other injuries. The pain is present in the described areas and does not radiate. Sore. Moderate. Constant. Allergies and Home Medications Allergies Coded Allergies: No Known Drug Allergies (Unverified , 06/29/18) Patient Home Medication List Home Medication List Reviewed: Yes Review of Systems Constitutional: no symptoms reported EENTM: no symptoms reported Respiratory: no symptoms reported Cardiovascular: no symptoms reported Gastrointestinal: no symptoms reported Genitourinary: no symptoms reported Musculoskeletal: see HPI Skin: no symptoms reported Psychiatric/Neurological: No Symptoms Reported Past Nuarsdz-Ehmgen-Swflff Hx Past Med/Social Hx: Reviewed Nursing Past Med/Soc Hx Patient Social History Alcohol Use: Rarely Uses Recreational Drug Use: No Smoking Status: Current Someday Smoker Type Used: Cigarettes 2nd Hand Smoke Exposure: No Recent Foreign Travel: No Contact w/Someone Who Travel: No Recent Infectious Disease Expo: No Recent Hopitalizations: No Physical Abuse: No Sexual Abuse: No Mistreated: No Fear: No Seasonal Allergies Seasonal Allergies: No Past Medical History Surgeries: No Respiratory: No Cardiac: No Neurological: No Genitourinary: No Gastrointestinal: No Musculoskeletal: No Endocrine: No HEENT: No Cancer: No Psychosocial: Yes ADD/ADHD, Anxiety, ODD, Bipolar Integumentary: No Blood Disorders: No Adverse Reaction/Blood Tranf: No Physical Exam Vital Signs Vital Signs - First Documented 06/29/18 20:18 Temp 98.1 Pulse 76 Resp 15 B/P (MAP) 156/80 (105) Pulse Ox 98 O2 Delivery Room Air Capillary Refill : Less Than 3 Seconds Height, Weight, BMI Height: 5'9.00" Weight: 298lbs. oz. 135.638952ra; BMI Method:Stated General Appearance: no apparent distress HEENT: normal ENT inspection Neck: supple Cardiovascular: normal peripheral pulses, regular rate, rhythm Respiratory: lungs clear Gastrointestinal: non tender, soft Hand: Left (there is tenderness over the first metacarpal and proximal phalanx of the first digit, there is no visible ecchymosis or swelling, no crepitation or deformity, range of motion is limited secondary to pain, sensation to light touch is intact, capillary refill is brisk) Neurologic/Psychiatric: no motor/sensory deficits, alert; No abnormal gait Skin: warm/dry Progress/Results/Core Measures Results/Orders My Orders Orders - ALISTAIR RIVAS DO Oxycodone Immediate Rel Tablet (Oxyir Ta (06/29/18 20:30) Hand 2 View Left (06/29/18 20:26) Medications Given in ED Current Medications Medications Dose Ordered Sig/Lawrence Route Start Time Stop Time Status Last Admin Dose Admin Oxycodone HCl 15 mg ONCE ONCE PO 06/29/18 20:30 06/29/18 20:31 DC 06/29/18 20:38 15 MG Vital Signs/I&O 06/29/18 06/29/18 20:18 21:02 Temp 98.1 Pulse 76 64 Resp 15 18 B/P (MAP) 156/80 (105) 127/60 (82) Pulse Ox 98 96 O2 Delivery Room Air Room Air Blood Pressure Mean: 105 Progress Progress Note : Progress Note NVI, radiograph negative, thumb spica splint to be worn during the day and removed for range of motion as tolerated, follow-up with orthopedics. Departure Impression Primary Impression: Thumb contusion Disposition: 01 HOME, SELF-CARE Condition: Stable Departure-Patient Inst. Referrals: NO,LOCAL PHYSICIAN (PCP) Primary Care Physician JERZY WATT MD Patient Instructions: Speedy Frost (DC) ALISTAIR RIVAS DO Jun 29, 2018 20:26
--- NOTE | 2018-06-29 20:38 | Diagnostic Imaging Report ---
INDICATION: Trauma to left hand. Two views were obtained. FINDINGS: The alignment is normal. There is no fracture or dislocation. Soft tissues are unremarkable. IMPRESSION: No focal abnormality in the left hand. Dictated by: Dictated on workstation # [id number]
[2018-06-29 21:02] VITALS: BP 127/60
== END 2018-06-29 21:01 | disposition home or self-care (01) ==
LOC: ER FS 20:04
DX: S60.012A Contusion of left thumb without damage to nail, initial encounter (principal); F90.9 Attention-deficit hyperactivity disorder, unspecified type; F98.8 Other specified behavioral and emotional disorders with onset usually occurring in childhood and adolescence; F41.9 Anxiety disorder, unspecified; F31.9 Bipolar disorder, unspecified; F91.3 Oppositional defiant disorder; F17.210 Nicotine dependence, cigarettes, uncomplicated; W23.1XXA Caught, crushed, jammed, or pinched between stationary objects, initial encounter; Y92.002 Bathroom of unspecified non-institutional (private) residence as the place of occurrence of the external cause
CPT/HCPCS: 73120

== ENCOUNTER → 2018-12-17 | Outpatient (CLI) | payer MEDICARE, MEDICAID ==
--- NOTE | 2018-12-17 16:54 | Diagnostic Imaging Report ---
PROCEDURE: MRI right joint lower extremity without contrast. TECHNIQUE: Multiplanar, multisequence non contrast-enhanced MRI of the right lower extremity was accomplished. INDICATION: Right knee pain. EXAMINATION: MRI of the right lower extremity 12/17/2018. FINDINGS: The extensor mechanism is intact. The ACL and PCL are intact. MCL and the lateral collateral ligamentous complex is unremarkable. Medial meniscus is intact. The lateral meniscus is also intact. Patellar femoral cartilage is preserved. There is a small amount of fluid deep to the patella. The cartilage in the medial and lateral joint compartments is unremarkable. Incompletely imaged T1 and T2 hypointensity within the lateral border of the proximal tibial diaphysis most likely a bone island. IMPRESSION: 1. Minimal fluid within the joint space which may even be normal for patient. Otherwise, unremarkable examination with ligaments, tendons and menisci intact. Dictated by: Dictated on workstation # [id number]
== END ==
LOC: RAD 15:36
PROVIDERS: ATTEND Nurse Practitioner
DX: M22.41 Chondromalacia patellae, right knee (principal); S83.281A Other tear of lateral meniscus, current injury, right knee, initial encounter
CPT/HCPCS: 73721

== ENCOUNTER 2019-05-13 15:26 | Emergency (ER) | payer MEDICARE, MEDICAID ==
[~2019-05-13] VITALS: Ht 175 cm; Wt 131.8 kg
--- NOTE | 2019-05-13 15:50 | ED Psychosocial ---
General Stated Complaint: SUICIDAL THOUGHTS Source: patient Exam Limitations: no limitations History of Present Illness Date Seen by Provider: May 13, 2019 Time Seen by Provider: 15:45 Initial Comments The patient is a pleasant 23-year-old male presents for evaluation of suicidal thoughts. He states he has been having depression with suicidal thoughts on and off over the last month or so. He states that he considered grabbing a knife and stab himself in the chest recently. He does not have any homicidal thoughts. He does have a history of depression and has been hospitalized in the past. He denies any alcohol or substance abuse other than occasional smoking. He did not do anything to harm himself recently. He denies any recent medication changes. He is alert and oriented 4, calm, and appears in no distress. He states that he has "anger issues". Timing/Duration: changing over time Severity: moderate Associated Symptoms: anxiety, suicidal ideation Allergies and Home Medications Allergies Coded Allergies: No Known Drug Allergies (Unverified , 06/29/18) Patient Home Medication List Home Medication List Reviewed: Yes Review of Systems Constitutional: no symptoms reported EENTM: no symptoms reported Respiratory: no symptoms reported Cardiovascular: no symptoms reported Gastrointestinal: no symptoms reported Genitourinary: no symptoms reported Musculoskeletal: no symptoms reported Skin: no symptoms reported Psychiatric/Neurological: Anxiety, Depressed All Other Systems Reviewed Negative Unless Noted: Yes Past Zjjzwps-Jkdgje-Zpqqzo Hx Past Med/Social Hx: Reviewed Nursing Past Med/Soc Hx Patient Social History Type Used: Cigarettes 2nd Hand Smoke Exposure: No Recent Foreign Travel: No Contact w/Someone Who Travel: No Recent Hopitalizations: No Seasonal Allergies Seasonal Allergies: No Past Medical History Surgeries: No Respiratory: No Cardiac: No Neurological: No Genitourinary: No Gastrointestinal: No Musculoskeletal: No Endocrine: No HEENT: No Cancer: No Psychosocial: Yes ADD/ADHD, Anxiety, ODD, Bipolar Integumentary: No Blood Disorders: No Adverse Reaction/Blood Tranf: No Physical Exam Vital Signs - First Documented 05/13/19 15:57 Temp 36.3 Pulse 102 Resp 18 B/P (MAP) 157/99 (118) Pulse Ox 99 O2 Delivery Room Air Capillary Refill : Height, Weight, BMI Height: 5'9.00" Weight: 298lbs. oz. 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, alert, normal mood/affect, oriented x 3 Appearance/Memory: appropriate appearance, appropriate insight, disheveled Behavior/Eye Contact: cooperative, good eye contact, normal speech Thoughts/Hallucinations: no apparent hallucination Skin: normal color, warm/dry Progress/Results/Core Measures Results/Orders Lab Results Laboratory Tests Test 05/13/19 15:50 05/13/19 15:52 Range/Units Urine Color YELLOW Urine Clarity CLEAR Urine pH 6.5 5-9 Urine Specific [place] 1.025 H 1.016-1.022 Urine Protein NEGATIVE NEGATIVE Urine Glucose (UA) NEGATIVE NEGATIVE Urine Ketones NEGATIVE NEGATIVE Urine Nitrite NEGATIVE NEGATIVE Urine Bilirubin NEGATIVE NEGATIVE Urine Urobilinogen 0.2 < = 1.0 MG/DL Urine Leukocyte Esterase NEGATIVE NEGATIVE Urine RBC (Auto) NEGATIVE NEGATIVE Urine RBC NONE /HPF Urine WBC NONE /HPF Urine Squamous Epithelial Cells 0-2 /HPF Urine Crystals NONE /LPF Urine Bacteria NONE /HPF Urine Casts NONE /LPF Urine Mucus NEGATIVE /LPF Urine Culture Indicated NO Urine Opiates Screen NEGATIVE NEGATIVE Urine Oxycodone Screen NEGATIVE NEGATIVE Urine Methadone Screen NEGATIVE NEGATIVE Urine Propoxyphene Screen NEGATIVE NEGATIVE Urine Barbiturates Screen NEGATIVE NEGATIVE Ur Tricyclic Antidepressants Screen NEGATIVE NEGATIVE Urine Phencyclidine Screen NEGATIVE NEGATIVE Urine Amphetamines Screen NEGATIVE NEGATIVE Urine Methamphetamines Screen NEGATIVE NEGATIVE Urine Benzodiazepines Screen NEGATIVE NEGATIVE Urine Cocaine Screen NEGATIVE NEGATIVE Urine Cannabinoids Screen POSITIVE H NEGATIVE White Blood Count 12.3 H 4.3-11.0 10^3/uL Red Blood Count 5.45 4.35-5.85 10^6/uL Hemoglobin 15.8 13.3-17.7 G/DL Hematocrit 46 40-54 % Mean Corpuscular Volume 85 80-99 FL Mean Corpuscular Hemoglobin 29 25-34 PG Mean Corpuscular Hemoglobin Concent 34 32-36 G/DL Red Cell Distribution Width 13.2 10.0-14.5 % Platelet Count 271 130-400 10^3/uL Mean Platelet Volume 10.6 H 7.4-10.4 FL Neutrophils (%) (Auto) 64 42-75 % Lymphocytes (%) (Auto) 26 12-44 % Monocytes (%) (Auto) 7 0-12 % Eosinophils (%) (Auto) 3 0-10 % Basophils (%) (Auto) 0 0-10 % Neutrophils # (Auto) 7.9 H 1.8-7.8 X 10^3 Lymphocytes # (Auto) 3.2 1.0-4.0 X 10^3 Monocytes # (Auto) 0.8 0.0-1.0 X 10^3 Eosinophils # (Auto) 0.3 0.0-0.3 10^3/uL Basophils # (Auto) 0.1 0.0-0.1 10^3/uL Sodium Level 140 135-145 MMOL/L Potassium Level 4.0 3.6-5.0 MMOL/L Chloride Level 103 98-107 MMOL/L Carbon Dioxide Level 24 21-32 MMOL/L Anion Gap 13 5-14 MMOL/L Blood Urea Nitrogen 10 7-18 MG/DL Creatinine 0.83 0.60-1.30 MG/DL Estimat Glomerular Filtration Rate > 60 BUN/Creatinine Ratio 12 Glucose Level 101 70-105 MG/DL Calcium Level 10.2 H 8.5-10.1 MG/DL Corrected Calcium 8.5-10.1 MG/DL Total Bilirubin 0.3 0.1-1.0 MG/DL Aspartate Amino Transf (AST/SGOT) 19 5-34 U/L Alanine Aminotransferase (ALT/SGPT) 20 0-55 U/L Alkaline Phosphatase 76 40-136 U/L Total Protein 8.3 H 6.4-8.2 GM/DL Albumin 4.8 H 3.2-4.5 GM/DL Salicylates Level < 0.3 L 5.0-20.0 MG/DL Acetaminophen Level < 10 L 10-30 UG/ML Serum Alcohol < 10 <10 MG/DL My Orders Orders - PHANI BRADY DO Ua Culture If Indicated (05/13/19 15:34) Cbc With Automated Diff (05/13/19 15:34) Comprehensive Metabolic Panel (05/13/19 15:34) Alcohol (05/13/19 15:34) Drug Screen Stat (Urine) (05/13/19 15:34) Acetaminophen (05/13/19 15:34) Salicylate (05/13/19 15:34) Ekg Tracing (05/13/19 15:34) Bh Status Checks/Observation Q15M (05/13/19 15:34) Vital Signs/I&O 05/13/19 15:57 Temp 36.3 Pulse 102 Resp 18 B/P (MAP) 157/99 (118) Pulse Ox 99 O2 Delivery Room Air Progress Progress Note : Progress Note @1700 - patient medically cleared for mental health assessment. RN is calling the belly roller at this time. @1830 - the patient has been evaluated by the mental health professional. Both the belly roller and the patient agree that he will be going home with a suicide safety plan and has an appointment tomorrow with Nancy at [facility] at 11. The patient denies wanting to harm himself this time and is stable for discharge home. Departure Impression Primary Impression: Non-suicidal depressed mood Disposition: 01 HOME, SELF-CARE Condition: Stable Departure-Patient Inst. Decision time for Depature: 18:31 Referrals: NO,LOCAL PHYSICIAN (PCP) Primary Care Physician Patient Instructions: Depression, Adult (DC) Add. Discharge Instructions: Follow-up with Nancy at the [facility] at 11 AM tomorrow as we discussed. Return to the ER immediately for new or worsening symptoms. Take your medications at home as prescribed. PHANI BRADY DO May 13, 2019 15:50
[2019-05-13 16:08] LABS: BASOPHILS % (AUTO) 0 % (0-10); EOSINOPHILS % (AUTO) 3 % (0-10); HEMATOCRIT 46 % (40-54); HEMOGLOBIN 15.8 G/DL (13.3-17.7); LYMPHOCYTES % (AUTO) 26 % (12-44); MEAN CORPUSCULAR HEMOGLOBIN 29 PG (25-34); MEAN CORPUSCULAR HGB CONC 34 G/DL (32-36); MEAN CORPUSCULAR VOLUME 85 FL (80-99); MEAN PLATELET VOLUME 10.6 FL (7.4-10.4); MONOCYTES % (AUTO) 7 % (0-12); NEUTROPHILS % (AUTO) 64 % (42-75); PLATELET COUNT 271 10^3/uL (130-400); RED CELL DISTRIBUTION WIDTH 13.2 % (10.0-14.5); WHITE BLOOD COUNT 12.3 10^3/uL (4.3-11.0)
[2019-05-13 16:09] LABS: BASOPHILS # (AUTO) 0.1 10^3/uL (0.0-0.1); EOSINOPHILS # (AUTO) 0.3 10^3/uL (0.0-0.3); LYMPHOCYTES # (AUTO) 3.2 X 10^3 (1.0-4.0); MONOCYTES # (AUTO) 0.8 X 10^3 (0.0-1.0); NEUTROPHILS # (AUTO) 7.9 X 10^3 (1.8-7.8)
[2019-05-13 16:13] LABS: BILIRUBIN,URINE NEGATIVE (NEGATIVE); CLARITY,URINE CLEAR; COLOR,URINE YELLOW; GLUCOSE, URINE (UA) NEGATIVE (NEGATIVE); KETONES,URINE NEGATIVE (NEGATIVE); LEUKOCYTE ESTERASE ,URINE NEGATIVE (NEGATIVE); NITRITE,URINE NEGATIVE (NEGATIVE); PH,URINE 6.5 (5-9); PROTEIN,URINE NEGATIVE (NEGATIVE); SQUAMOUS EPITHELIAL CELL,UR 0-2 /HPF
[2019-05-13 16:16] LABS: AMPHETAMINE SCREEN, URINE NEGATIVE (NEGATIVE); BARBITURATE SCREEN URINE NEGATIVE (NEGATIVE); BENZODIAZEPINES SCREEN URINE NEGATIVE (NEGATIVE); CANNABINOID SCREEN, URINE POSITIVE (NEGATIVE); COCAINE SCREEN URINE NEGATIVE (NEGATIVE); METHADONE STAT NEGATIVE (NEGATIVE); METHAMPHETAMINE SCREEN URINE S NEGATIVE (NEGATIVE); OPIATE SCREEN URINE NEGATIVE (NEGATIVE); OXYCODONE STAT NEGATIVE (NEGATIVE); PROPOXYPHENE STAT NEGATIVE (NEGATIVE); TRICYCLIC ANTIDEPRESSANTS SCRE NEGATIVE (NEGATIVE)
[2019-05-13 16:43] LABS: ALANINE AMINOTRANSFERASE 20 U/L (0-55); ALBUMIN 4.8 GM/DL (3.2-4.5); ALKALINE PHOSPHATASE 76 U/L (40-136); BILIRUBIN,TOTAL 0.3 MG/DL (0.1-1.0); BUN/CREATININE RATIO 12; CALCIUM 10.2 MG/DL (8.5-10.1); CARBON DIOXIDE 24 MMOL/L (21-32); CHLORIDE 103 MMOL/L (98-107); CREATININE SERUM 0.83 MG/DL (0.60-1.30); GFR ESTIMATED > 60; GLUCOSE 101 MG/DL (70-105); SODIUM 140 MMOL/L (135-145); TOTAL PROTEIN 8.3 GM/DL (6.4-8.2)
[2019-05-13 16:44] LABS: ACETAMINOPHEN < 10 UG/ML (10-30); SALICYLATE < 0.3 MG/DL (5.0-20.0)
--- NOTE | 2019-05-13 17:03 | NUR ---
[facility] afterhours contacted and pt chart faxed at this time.
--- NOTE | 2019-05-13 18:05 | NUR ---
ROSIBEL BAGLEY CALLED AT 1755 FOR SCREENING. ESTRELLA WILL BE THE SCREENER.
--- NOTE | 2019-05-13 18:29 | NUR ---
PER ROSIBEL GARCIA, THE PT WILL GO HOME ON A SAFETY PLAN, SHE RECOMMENDS FAMILY THERAPY, AND HE HAS AN APPT TOMORROW AT 11 AM WITH NEL.
[2019-05-13 18:54] VITALS: BP 134/82
== END 2019-05-13 18:56 | disposition home or self-care (01) ==
LOC: EDUNIT# 15:26 → ER FS 15:28
DX: F32.9 Major depressive disorder, single episode, unspecified (principal)
CPT/HCPCS: 36415; 80053; 80306; 80320; 80329; 81000; 85025; 93005

== ENCOUNTER 2019-10-29 00:30 | Emergency (ER) | payer MEDICAID, MEDICARE ==
[~2019-10-29] VITALS: Ht 175.2 cm; Wt 134.7 kg
--- OUTSIDE RECORDS SUMMARY | 2019-10-29 00:44 | XMS REPORT ---
Author Author Laurent CASTRO [facility] Address [address] [place] [address] Care Team Providers Care Reconditioner Name Role Phone ADAM CASTRO Unavailable PROBLEMS Type Condition ICD9-CM Code CDB92-RB Code Onset Dates Condition S tatus SNOMED Code Problem Environmental allergies Z91.09 Active 918131811 Problem Attention-deficit hyperactivity disorder, combined type F90.2 Active 52435941 Problem Bipolar disorder, unspecified F31.9 Active 80475419 Problem Asthma J45.909 Active 330451360 Problem GERD (gastroesophageal reflux disease) K21.9 Active 062009218 Problem Morbid obesity due to excess calories E66.01 Active 980565398 Problem Intractable migraine, unspecified migraine type G4 3.919 Active 933178622 Problem Mood disorder F39 Active 620971 05 Problem Mild intellectual disabilities F70 Active 06800136 Problem Low HDL (under 40) E78.6 Active 3 64029809 Problem Moderate persistent asthma without complication J4 5.40 Active 868198203 Problem Hypothyroid E03.9 Active 00355748 Problem ODD (oppositional defiant disorder) F91.3 Active 08420223 Problem Benign hypertension I10 Active 11782802 Problem Urinary incontinence, unspecified type R32 Active 663161911 Problem Essential (primary) hypertension I10 Active 04624467 Problem Burning sensation of feet R20.8 Acti ve 68414380 Problem Hyperlipidemia, unspecified E78.5 Ac tive 83692580 Problem Obesity, morbid, BMI 40.0-49.9 E66.01 Active 210525790 Problem Acne vulgaris L70.0 Active 114717 00 Problem Hypothyroidism, unspecified E03.9 Ac tive 14393215 Problem Other chronic pain G89.29 Active 8 5347246 Problem Moderately severe depression F32.2 A ctive 685062275 Problem BMI 45.0-49.9, adult Z68.42 Active 071074241 Problem Mild depression F32.0 Active 3104 41942 ALLERGIES No Information ENCOUNTERS Encounter Location Date Diagnosis [address] [id number] [address] August, [address] [id number] [address] Jul, Bipolar disorder, unspecifie d F31.9 and Benign hypertension I10 [address] [id number] [address] Jun, Left arm numbness R20.0 [facility] [address] [id number], [place] [address] 10 Jun, 2019 Left arm numbness R20.0 ; Es sential (primary) hypertension I10 and Obesity, morbid, BMI 40.0-49.[address] [id number], [place] [address] Jun, Essential (primary) hyperten shadia I10 ; Obesity, morbid, BMI 40.0-49.9 E66.01 and Left arm numbness R20.[address] [id number] [address] 17 May, 2019 Mild depression F32.0 and Bu rning sensation of feet R20.[address] [id number] [address] May, Environmental allergies Z91. [address] [id number] [address] Apr, Left anterior shoulder pain M25.512 [facility] [address] [id number], [place] [address] Apr, Acute pain of left shoulder M25.512 ; Benign hypertension I10 ; Other chronic pain G89.29 ; Hypothyroidism, unspecified E03.9 ; Morbid obesity due to excess calories E66.01 ; BMI 45.0-49.9, adult Z68.42 ; Moderately severe depression F32.2 and Mood disorder F39 [facility] [address] [id number] [place] [address] Apr, [address] 340B [id number] [place] [address] Apr, Benign hypertension I10 ; Ot her chronic pain G89.29 ; Hypothyroidism, unspecified E03.9 ; Morbid obesity due to excess calories E66.01 ; BMI 45.0-49.9, adult Z68.42 ; Moderately severe depression F32.2 ; Mood disorder F39 and Acute pain of left shoulder M25.[address] 340B [id number] [place] [address] Apr, [address] [id number] [place] [address] Mar, Bipolar disorder, unspecifie d F31.[address] [id number], [place] [address] Mar, Bipolar disorder, unspecifie d F31.9 ; Essential (primary) hypertension I10 ; Encounter for immunization Z23 ; Hypothyroidism, unspecified E03.9 ; Environmental allergies Z91.09 ; GERD (gastroesophageal reflux disease) K21.9 ; Hyperlipidemia, unspecified E78.5 and Urinary incontinence, unspecified type R32 [facility] [address] [id number] [place] [address] Mar, Left anterior shoulder pain M25.512 and Left elbow pain M25.522 [facility] [address] [id number] [place] [address] Jan, [address] [id number] [place] [address] Jan, Bipolar disorder, unspecifie d F31.[address] 340[address] [id number] [place] [address] Jan, Bipolar disorder, unspecifie d F31.9 ; Mood disorder F39 and Acute pain of right shoulder M25.[address] [id number] [place] [address] Jan, Mood disorder F39 and Bipola r disorder, unspecified F31.9 [facility] [address] [id number] [place] [address] Dec, Mood disorder F39 [facility] [address] 340[address] [id number] [place] [address] Nov, [facility] [address] 340[address] [id number] [place] [address] Nov, [facility] [address] [address] [facility] [id number] [place] [address] Nov, Bipolar disorder, unspecifie d F31.9 [facility] [address] 340[address] [id number] [place] [address] Nov, [facility] [address] 340[address] [id number], [place] [address] Nov, [facility] [address] [facility] [id number] [place] [address] Nov, [facility] [address] 340[address] [id number], [place] [address] Nov, [facility] [address] [id number] [place] [address] Nov, Right knee pain M25.561 [facility] [address] [id number] [place] [address] Nov, [facility] [address] [id number] [place] [address] Nov, Morbid obesity due to excess calories E66.01 ; Essential (primary) hypertension I10 and Pain in right knee M25.561 [facility] [address] 340[address] [id number] [place] [address] Nov, [facility] [id number], [place] [address] Oct, [facility] [address] [id number] [place] [address] Oct, [facility] [address] 340[address] [id number] [place] [address] Oct, [facility] [address] 340[address] [id number] [place] [address] Oct, [facility] [address] 340B [id number] [place] [address] Sep, [facility] [address] [facility] [id number] [address] [place] [address] Sep, Bipolar disorder, unspecifie d F31.9 [facility] [address] 340B [id number] [place] [address] Sep, Low back pain M54.5 ; Enviro nmental allergies Z91.09 ; Low HDL (under 40) E78.6 and Morbid obesity E66.01 [facility] [address] 340B [id number] [place] [address] Sep, Mood disorder F39 [facility] [address] [id number] [place] [address] August, Unspecified injury of left a nkle, initial encounter S99.912A and Strain of left ankle, initial encounter S96.912A [facility] [address] 340B [id number], [place] [address] August, Benign hypertension 401.1 ; Hypothyroid 244.9 ; Essential (primary) hypertension I10 ; Hypothyroidism, unspecified E03.9 and Morbid obesity due to excess calories E66.01 [facility] [address] [facility] [id number] [place] [address] August, Mood disorder F39 [facility] [address] 340B [id number] [place] [address] Jul, Bipolar disorder, unspecifie d F31.9 ; Mood disorder F39 and Morbid obesity E66.01 [facility] [address] 340B [id number] [place] [address] Jul, Mood disorder F39 [facility] [address] [id number] [place] [address] Jul, [facility] [address] [facility] [id number] 100[place] [address] Jul, Mood disorder F39 and BMI 45 .0-49.9, adult Z68.42 [facility] [address] 340B [id number] [place] [address] Jul, [facility] [address] 340B [id number] [place] [address] Jul, [facility] [address] 340[address] [id number] [place] [address] Jul, [facility] [address] 340B [id number] [place] [address] Jul, [facility] [address] 340B [id number] [place] [address] Jun, Mood disorder F39 and Bipola r disorder, unspecified F31.9 [facility] [address] 340B [id number] [place] [address] Jun, Morbid obesity E66.01 and Pa in of left thumb M79.645 [facility] JAM[facility] [address] 340B [id number] [place] [address] Jun, [facility] [address] 340 [id number] [place] [address] Jun, Contusion of thumb S60.019A [facility] [address] 340B [id number] [place] [address] Jun, [facility] Y[facility]QUEL[facility] [address] 340B [id number] [place] [address] 12 Mar, 2019 Benign hypertension 401.1 ; Hypothyroid 244.9 ; Essential (primary) hypertension I10 ; Hypothyroidism, unspecified E03.9 ; Morbid obesity due to excess calories E66.01 ; Morbid obesity E66.01 ; Moderate persistent asthma without complication J45.40 ; Low back pain M54.5 and Other chronic pain G89.[address] 340B [id number] [place] [address] Jun, Mood disorder F39 and Bipola r disorder, unspecified F31.9 [place] [address] [place] [address] [place] [address] [id number] [place] [address] May, [address] [id number] [address] [place] [address] Apr, Mood disorder F39 and BMI 45 .0-49.9, adult Z68.42 [place] [id number] [address] [place] [address] Apr, [address] [id number] [address] [place] [address] Apr, [place] [address] [place] [address] [place] [address] [id number] [place] [address] Apr, Mood disorder F39 and Bipolar disorder, unspecified F31.9 [facility] [address] [place] [id number] [address] [place] [address] Mar, Mood disorder F39 and BMI 45 .0-49.9, adult Z68.42 [facility] [address] [address] [facility] [id number] [address] [place] [address] Feb, Mood disorder F39 and BMI 45 .0-49.9, adult Z68.42 [facility] [address] [facility] [address] [facility] [id number] [address] [place] [address] Feb, [place] [address] [place] 1 [facility] [id number] [place] [address] Jan, [facility] [address] [place] [address] [place] [address] [id number] [place] [address] Dec, [facility] [address] [address] [facility] [id number] [address] [address] Dec, [facility] [address] [place] [address] [id number] [address] Dec, BMI 45.0-49.9, adult Z68.42 [facility] [address] [place] [address] [place] [id number] [address] Dec, BMI 45.0-49.9, adult Z68.42 and Mood dis order F39 [facility] [address] [place] [address] [place] [id number] [address] Dec, [facility] [address] [place] [address] [place] [id number] [address] Dec, [facility] [address] [place] [address] [place] [address] [address] Dec, Bipolar disorder, unspecified F31.9 [facility] [place] [address] [place] [address] August, 18 Bipolar disorder, unspecified F31.9 [facility] [place] [address] [place] [address] August, 18 Bipolar disorder, unspecified F31.9 [facility] [place] [address] [place] [address] Jul, 18 [facility] [place] [address] [place] [address] Jul, 18 [facility] [place] [address] [place] [address] Apr, 18 Bipolar disorder, unspecified F31.9 ; Attention-deficit hyperactivity disorder, combined type F90.2 and Mild intellectual disabilities F70 [facility] [place] [address] [place] [address] Apr, 18 [facility] [place] [address] [place] [address] Mar, 17 [facility] [place] [address] [place] [address] Jan, 17 Ana [place] [address] [place] [address] Dec, 17 [facility] [place] [address] [place] [address] Nov, 17 [facility] [place] [address] [place] [address] Sep, 17 Pain in left shoulder M25.512 ; Intractable migraine, unspecified migraine type G43.919 and Morbid obesity due to excess calories E66.01 [facility] [place] [address] [place] [address] Jul, 17 Right foot pain M79.671 [facility] [place] [address] [place] [address] Jul, 17 Attention- deficit hyperactivity disorder, combined type F90.2 ; Bipolar disorder, unspecified F31.9 ; Right foot pain M79.671 and Postoperative pain, acute, shoulder, left M25.512 [facility] [address] [place] [address] Jun, 17 [facility] [address] [address] Jun, 17 [facility] [address] [address] Jun, 17 Pain in left shoulder M25.[address] [address] May, 17 Essential (primary) hypertension I10 ; Hypothyroidism, unspecified E03.9 and Hyperlipidemia, unspecified E78.5 [facility] [place] [address] [place] [address] Apr, 17 [facility] [address] [place] [address] Apr, 17 [facility] [address] [place] [address] Apr, 17 Pain in left shoulder M25.512 and Other chronic pain G89.29 [facility] [address] [facility] [id number] [address] [place] [address] Apr, [facility] [address] [facility] [id number] [place] [address] Feb, zAna Rosa [address] [address] Feb, 16 Pain in left shoulder M25.512 and Other chronic pain G89.29 [facility] [place] [address] [place] [address] Jan, 16 Bruised ribs, right, subsequent encounter S20.211D ; Acne vulgaris L70.0 and Routine sports physical exam Z02.5 [facility] [place] [address] [place] [address] Nov, 16 Knee pain, right M25.561 ; Environmental allergies Z91.09 ; Attention-deficit hyperactivity disorder, combined type F90.2 and Bipolar disorder, unspecified F31.9 [facility]onel[facility] [place] [address] [place] [address] Nov, [address] [place] [address] Oct, [address] [address] Oct, 16 Knee pain, right M25.561 and Pain in left wrist M25.532 [address]ITHA [address] [address] August, 16 [facility] [place] [address] [place] [address] Jul, [address] [place] [address] Jul, [address] [place] [address] Jul, 16 Gastro- esophageal reflux disease without esophagitis K21.9 and Pain in left wrist M25.532 [facility] [place] [address] [place] [address] Jul, 16 [facility] [place] [address] [place] [address] Jun, 16 [facility] [address] [place] [address] Jun, 16 Strain of right knee S86.911A and Right knee pain M25.561 [facility] [address] [address] 15 May, 16 Pain in left shoulder M25.512 [facility] [place] [address] [place] [address] May, [address] [address] Apr, 16 Knee pain, right M25.561 and Left ankle sprain S93.402A [facility] [address] [address] Apr, 16 Knee pain, right M25.561 [facility] [address] [address] Mar, 15 [facility] [address] [address] Mar, 15 Wrist pain, right M25.531 and Constipation K59.00 [facility] [address] [address] Feb, 15 Wrist pain, right M25.531 [facility] [address] [address] Feb, 15 Wrist pain, right M25.531 [facility] [address] [address] Jan, 15 Wrist pain, right M25.531 [facility] [address] [address] Jan, 15 [facility] [address] [address] Dec, 15 Right leg pain 729.5 ; Benign hypertension 401.1 and GERD (gastroesophageal reflux disease) 530.81 [facility] [address] [address] Dec, 15 Dental examination V72.2 [facility] [place] [address] [place] [address] 15 Dec, 15 [facility] [address] [place] [address] 14 Dec, [address] [address] Nov, 15 Benign hypertension 401.1 ; Hypothyroidism 244.9 and Hyperlipidemia 272.[address] [address] Nov, 15 Benign hypertension 401.1 ; Bipolar 1 disorder 296.7 and GERD (gastroesophageal reflux disease) 530.[address] [address] Sep, [address] [address] Sep, 15 ADHD (attention deficit hyperactivity disorder), combined type 314.01 ; Bipolar disorder 296.80 ; OCD (obsessive compulsive disorder) 300.3 ; Hyperlipidemia 272.4 ; Hypothyroidism 244.9 and Asthma 493.[address] [place] [address] Jul, [address] [address] Jul, [place] [id number] [place] [address] Mar, IMMUNIZATIONS No Known Immunizations SOCIAL HISTORY Never Assessed REASON FOR VISIT back pain PLAN OF CARE VITAL SIGNS MEDICATIONS Medication Instructions Dosage Frequency Start Date End Date Duration S tatus MethylPREDNISolone 4 MG Orally as directed as directed Jul, 2 019 21 days Active RESULTS No Results PROCEDURES No Known procedures INSTRUCTIONS MEDICATIONS ADMINISTERED No Known Medications MEDICAL (GENERAL) HISTORY Type Description Date Medical History Hypothyroid Medical History ADHD (attention deficit hyperactivity di sorder) Medical History Acne vulgaris Medical History Environmental allergies Medical History Hyperlipidemia, unspecified Medical History Bipolar 1 disorder Medical History Benign hypertension Medical History Asthma Medical History GERD (gastroesophageal reflux disease) Medical History ODD (oppositional defiant disorder) Medical History Hypothyroid Medical History Low HDL (under 40) Surgical History tonsillectomy and adenoidectomy Surgical History ear tubes Surgical History left shoulder muscle repair 2016 Hospitalization History Hospitalization for surgery only
--- OUTSIDE RECORDS SUMMARY | 2019-10-29 00:44 | XMS REPORT ---
Author Author Laurent CASTRO [facility] Address [address] [place] [address] Care Team Providers Care Olericulture Teacher Name Role Phone ADAM CASTRO Unavailable PROBLEMS Type Condition ICD9-CM Code MNE83-CZ Code Onset Dates Condition S tatus SNOMED Code Problem Environmental allergies Z91.09 Active 918485120 Problem Attention-deficit hyperactivity disorder, combined type F90.2 Active 39047095 Problem Bipolar disorder, unspecified F31.9 Active 06688299 Problem Asthma J45.909 Active 785056318 Problem GERD (gastroesophageal reflux disease) K21.9 Active 128162735 Problem Morbid obesity due to excess calories E66.01 Active 711308187 Problem Intractable migraine, unspecified migraine type G4 3.919 Active 051115808 Problem Mood disorder F39 Active 767290 05 Problem Mild intellectual disabilities F70 Active 98086586 Problem Low HDL (under 40) E78.6 Active 3 90037568 Problem Moderate persistent asthma without complication J4 5.40 Active 166852904 Problem Hypothyroid E03.9 Active 00928933 Problem ODD (oppositional defiant disorder) F91.3 Active 40598868 Problem Benign hypertension I10 Active 94549453 Problem Urinary incontinence, unspecified type R32 Active 496928171 Problem Essential (primary) hypertension I10 Active 46274105 Problem Burning sensation of feet R20.8 Acti ve 83335679 Problem Hyperlipidemia, unspecified E78.5 Ac tive 75156602 Problem Obesity, morbid, BMI 40.0-49.9 E66.01 Active 639535402 Problem Acne vulgaris L70.0 Active 585659 00 Problem Hypothyroidism, unspecified E03.9 Ac tive 20619856 Problem Other chronic pain G89.29 Active 8 6233306 Problem Moderately severe depression F32.2 A ctive 088628487 Problem BMI 45.0-49.9, adult Z68.42 Active 492443961 Problem Mild depression F32.0 Active 3104 71526 ALLERGIES No Information ENCOUNTERS Encounter Location Date Diagnosis [address] [id number] [address] August, [address] [id number] [address] Jul, Bipolar disorder, unspecifie d F31.9 and Benign hypertension I10 [address] [id number] [address] Jun, Left arm numbness R20.0 [facility] WALK IN [facility] [address] [id number] [address] 10 Jun, 2019 Left arm numbness R20.0 ; Es sential (primary) hypertension I10 and Obesity, morbid, BMI 40.0-49.9 E66.[address] [id number] [address] Jun, Essential (primary) hyperten shadia I10 ; Obesity, morbid, BMI 40.0-49.9 E66.01 and Left arm numbness R20.[address] [id number] [address] 17 May, 2019 Mild depression F32.0 and Bu rning sensation of feet R20.[address] [id number] [address] May, Environmental allergies Z91. [address] [id number] [address] Apr, Left anterior shoulder pain M25.512 [facility] WALK IN [facility] [address] [id number] [address] Apr, Acute pain of left shoulder M25.512 ; Benign hypertension I10 ; Other chronic pain G89.29 ; Hypothyroidism, unspecified E03.9 ; Morbid obesity due to excess calories E66.01 ; BMI 45.0-49.9, adult Z68.42 ; Moderately severe depression F32.2 and Mood disorder F39 [facility] [address] 340B [id number] [place] [address] Apr, [address] 340B [id number] [place] [address] Apr, Benign hypertension I10 ; Ot her chronic pain G89.29 ; Hypothyroidism, unspecified E03.9 ; Morbid obesity due to excess calories E66.01 ; BMI 45.0-49.9, adult Z68.42 ; Moderately severe depression F32.2 ; Mood disorder F39 and Acute pain of left shoulder M25.[address] 340B [id number] [place] [address] Apr, [address] 340[address] [id number] [place] [address] Mar, Bipolar disorder, unspecifie d F31.[address] 340[address] [id number] [address] Mar, Bipolar disorder, unspecifie d F31.9 ; Essential (primary) hypertension I10 ; Encounter for immunization Z23 ; Hypothyroidism, unspecified E03.9 ; Environmental allergies Z91.09 ; GERD (gastroesophageal reflux disease) K21.9 ; Hyperlipidemia, unspecified E78.5 and Urinary incontinence, unspecified type R32 [facility] WALK [facility] [address] [id number] [place] [address] Mar, Left anterior shoulder pain M25.512 and Left elbow pain M25.522 [facility] YAQUELIN [address] [id number] [place] [address] Jan, [address] 340[address] [id number] [place] [address] Jan, Bipolar disorder, unspecifie d F31.[address] 340[address] [id number] [place] [address] Jan, Bipolar disorder, unspecifie d F31.9 ; Mood disorder F39 and Acute pain of right shoulder M25.[address] [id number] [place] [address] Jan, Mood disorder F39 and Bipola r disorder, unspecified F31.9 [facility] [address] [id number] [place] [address] Dec, Mood disorder F39 [facility] YAQUELIN [address] 340B [id number] [place] [address] Nov, [facility] YAQUELIN [address] 340B [id number] [place] [address] Nov, [facility] [address] [facility] [id number] [place] [address] Nov, Bipolar disorder, unspecifie d F31.9 [facility] YAQUELIN [address] 340B [id number] [place] [address] Nov, [facility] YAQUELIN [address] 340B [id number] [address] Nov, [facility] [address] [facility] [id number] [place] [address] Nov, [facility] YAQUELIN [address] 340B [id number] [address] Nov, [facility] [address] [id number] [place] [address] Nov, Right knee pain M25.561 [facility] [address] [id number] [place] [address] Nov, [facility] YAQUELIN [address] 340B [id number] [place] [address] Nov, Morbid obesity due to excess calories E66.01 ; Essential (primary) hypertension I10 and Pain in right knee M25.561 [facility] [address] 340B [id number] [place] [address] Nov, [facility] YAQUELIN [address] 340[address] [id number] [address] Oct, [facility] [address] 340B [id number] [place] [address] Oct, [facility] D[facility] [address] 340B [id number] [place] [address] Oct, [facility] [address] 340B [id number] [place] [address] Oct, [facility] YAQUELIN DOUGLAS [address] 340B [id number] [place] [address] Sep, [facility] [address] [facility] [id number] [address] [place] [address] Sep, Bipolar disorder, unspecifie d F31.9 [facility] YAQUELIN [address] 340B [id number] [place] [address] Sep, Low back pain M54.5 ; Enviro nmental allergies Z91.09 ; Low HDL (under 40) E78.6 and Morbid obesity E66.01 [facility] YAQUELIN [address] 340B [id number] [place] [address] Sep, Mood disorder F39 [facility] [address] [id number] [place] [address] August, Unspecified injury of left a nkle, initial encounter S99.912A and Strain of left ankle, initial encounter S96.912A [facility] YAQUELIN [address] 340B [id number] [address] August, Benign hypertension 401.1 ; Hypothyroid 244.9 ; Essential (primary) hypertension I10 ; Hypothyroidism, unspecified E03.9 and Morbid obesity due to excess calories E66.01 [facility] [address] [facility] [id number] [place] [address] August, Mood disorder F39 [facility] [address] 340B [id number] [place] [address] Jul, Bipolar disorder, unspecifie d F31.9 ; Mood disorder F39 and Morbid obesity E66.01 [facility] DOUGLAS [address] 340B [id number] [place] [address] Jul, Mood disorder F39 [facility] [address] [id number] [place] [address] Jul, [facility] [address] [facility] [id number] 100[place] [address] Jul, Mood disorder F39 and BMI 45 .0-49.9, adult Z68.42 [facility] Y[place]QUEL[place] [address] 340B [id number] [place] [address] Jul, [facility] Y[facility] [address] 340B [id number] [place] [address] Jul, [facility] Y[facility] [address] 340B [id number] [place] [address] Jul, [facility] YAQUELIN [address] 340B [id number] [place] [address] Jul, [facility] [address] 340B [id number] [place] [address] Jun, Mood disorder F39 and Bipola r disorder, unspecified F31.9 [facility] Y[place]QUELIN [address] 340B [id number] [place] [address] Jun, Morbid obesity E66.01 and Pa in of left thumb M79.645 [facility] JAMISON [address] 340B [id number] [place] [address] Jun, [facility] [address] 340 [id number] [place] [address] Jun, Contusion of thumb S60.019A [facility] JAMISON [address] 340B [id number] [place] [address] Jun, [facility] YAQUELIN [address] 340B [id number] [place] [address] 12 Mar, 2019 Benign hypertension 401.1 ; Hypothyroid 244.9 ; Essential (primary) hypertension I10 ; Hypothyroidism, unspecified E03.9 ; Morbid obesity due to excess calories E66.01 ; Morbid obesity E66.01 ; Moderate persistent asthma without complication J45.40 ; Low back pain M54.5 and Other chronic pain G89.[address] 340B [id number] [place] [address] Jun, Mood disorder F39 and Bipola r disorder, unspecified F31.9 [place] [address] [place] [address] [place] [address] [id number] [place] [address] May, [address] [id number] [address] [place] [address] Apr, Mood disorder F39 and BMI 45 .0-49.9, adult Z68.42 [place] [id number] [address] [place] [address] Apr, [address] [id number] [address] [place] [address] Apr, [place] [address] [place] [address] [place] [address] [id number] [place] [address] Apr, Mood disorder F39 and Bipolar disorder, unspecified F31.9 [facility] [address] [place] [id number] [address] [place] [address] Mar, Mood disorder F39 and BMI 45 .0-49.9, adult Z68.42 [facility] [address] [facility] [id number] [address] [place] [address] Feb, Mood disorder F39 and BMI 45 .0-49.9, adult Z68.42 [facility] [address] [facility] [id number] [address] [place] [address] Feb, [place] [address] [place] [address] [facility] [id number] [place] [address] Jan, [facility] [address] [place] [address] [place] [address] [id number] [place] [address] Dec, [facility] [address] [facility] [id number] 100[place] [address] Dec, [facility] [address] [place] [address] [place] [id number] [address] Dec, BMI 45.0-49.9, adult Z68.42 [facility] [address] [place] [address] [place] [id number] [address] Dec, BMI 45.0-49.9, adult Z68.42 and Mood dis order F39 [facility] [address] [place] [address] [place] [id number] [address] Dec, [facility] [address] [place] [address] [place] [id number] [address] Dec, [facility] [address] [place] [address] [place] [id number] [address] Dec, Bipolar disorder, unspecified F31.9 [facility] [place] [address] [place] [address] August, 18 Bipolar disorder, unspecified F31.9 [facility] [place] [address] [place] [address] August, 18 Bipolar disorder, unspecified F31.9 [facility] [place] [address] [place] [address] Jul, 18 [facility] [place] [address] [place] [address] Jul, 18 [facility] [place] [address] [place] [address] Apr, 18 Bipolar disorder, unspecified F31.9 ; Attention-deficit hyperactivity disorder, combined type F90.2 and Mild intellectual disabilities F70 [facility] [place] [address] [place] [address] Apr, 18 [facility] [place] [address] [place] [address] Mar, 17 [facility] [place] [address] [place] [address] Jan, 17 Ana Rosa [place] [address] [place] [address] Dec, 17 [facility] [place] [address] [place] [address] Nov, 17 [facility] [place] [address] [place] [address] Sep, 17 Pain in left shoulder M25.512 ; Intractable migraine, unspecified migraine type G43.919 and Morbid obesity due to excess calories E66.01 [facility] [place] [address] [place] [address] Jul, 17 Right foot pain M79.671 [facility] [place] [address] [place] [address] Jul, 17 Attention- deficit hyperactivity disorder, combined type F90.2 ; Bipolar disorder, unspecified F31.9 ; Right foot pain M79.671 and Postoperative pain, acute, shoulder, left M25.512 [facility] [address] [place] [address] Jun, 17 [facility] [address] [address] Jun, 17 [facility] [address] [address] Jun, 17 Pain in left shoulder M25.[address] [address] May, 17 Essential (primary) hypertension I10 ; Hypothyroidism, unspecified E03.9 and Hyperlipidemia, unspecified E78.5 [facility] [place] [address] [place] [address] Apr, 17 [facility] [address] [place] [address] Apr, 17 [facility] [address] [place] [address] Apr, 17 Pain in left shoulder M25.512 and Other chronic pain G89.29 [facility] [address] [facility] [id number] [address] [place] [address] Apr, [facility] [address] [facility] [id number] [place] [address] Feb, zAna Rosa [address] [address] Feb, 16 Pain in left shoulder M25.512 and Other chronic pain G89.29 [facility] [place] [address] [place] [address] Jan, 16 Bruised ribs, right, subsequent encounter S20.211D ; Acne vulgaris L70.0 and Routine sports physical exam Z02.5 [facility] [place] [address] [place] [address] Nov, 16 Knee pain, right M25.561 ; Environmental allergies Z91.09 ; Attention-deficit hyperactivity disorder, combined type F90.2 and Bipolar disorder, unspecified F31.9 zjonelCHCSEK [place] [address] [place] [address] Nov, [address] [place] [address] Oct, [address] [address] Oct, 16 Knee pain, right M25.561 and Pain in left wrist M25.[address]ITHA [address] [address] August, 16 [facility] [place] [address] [place] [address] Jul, [address] [place] [address] Jul, [address] [place] [address] Jul, 16 Gastro- esophageal reflux disease without esophagitis K21.9 and Pain in left wrist M25.532 [facility] [place] [address] [place] [address] Jul, 16 [facility] [place] [address] [place] [address] Jun, 16 [facility] [address] [place] [address] Jun, 16 Strain of right knee S86.911A and Right knee pain M25.561 [facility] [address] [address] 15 May, 16 Pain in left shoulder M25.512 [facility] [place] [address] [place] [address] May, [address] [address] Apr, 16 Knee pain, right M25.561 and Left ankle sprain S93.402A [facility] Center[facility] [address] [address] Apr, 16 Knee pain, right M25.561 [facility] [address] [address] Mar, 15 [facility] [address] [address] Mar, 15 Wrist pain, right M25.531 and Constipation K59.00 [facility] [address] [address] Feb, 15 Wrist pain, right M25.531 [facility] [address] [address] Feb, 15 Wrist pain, right M25.531 [facility] [address] [address] Jan, 15 Wrist pain, right M25.531 [facility] [address] [address] Jan, 15 [facility] [address] [address] Dec, 15 Right leg pain 729.5 ; Benign hypertension 401.1 and GERD (gastroesophageal reflux disease) 530.81 [facility] [address] [address] Dec, 15 Dental examination V72.2 [facility] [place] [address] [place] [address] 15 Dec, 15 [facility] [address] [place] [address] 14 Dec, 15 [facility] [address] [place] [address] Nov, 15 Benign hypertension 401.1 ; Hypothyroidism 244.9 and Hyperlipidemia 272.4 [facility] [address] [place] [address] Nov, 15 Benign hypertension 401.1 ; Bipolar 1 disorder 296.7 and GERD (gastroesophageal reflux disease) 530.81 [facility] [address] [place] [address] Sep, [address] [address] Sep, 15 ADHD (attention deficit hyperactivity disorder), combined type 314.01 ; Bipolar disorder 296.80 ; OCD (obsessive compulsive disorder) 300.3 ; Hyperlipidemia 272.4 ; Hypothyroidism 244.9 and Asthma 493.[address] [place] [address] Jul, [facility] [address] [place] [address] Jul, [facility] [address] [place], [place] [id number] [address] [place] [address] Mar, IMMUNIZATIONS No Known Immunizations SOCIAL HISTORY Never Assessed REASON FOR VISIT PT ORDERS PLAN OF CARE VITAL SIGNS MEDICATIONS Unknown [...]
--- OUTSIDE RECORDS SUMMARY | 2019-10-29 00:44 | XMS REPORT ---
Author Author Laurent CASTRO [facility] [facility] Address [address] [place] [address] Care Team Providers Care Pharmacist In Charge Owner Name Role Phone ADAM CASTRO Unavailable PROBLEMS Type Condition ICD9-CM Code IUK97-IP Code Onset Dates Condition S tatus SNOMED Code Problem Environmental allergies Z91.09 Active 296443456 Problem Attention-deficit hyperactivity disorder, combined type F90.2 Active 02693408 Problem Bipolar disorder, unspecified F31.9 Active 65099682 Problem Asthma J45.909 Active 906238077 Problem GERD (gastroesophageal reflux disease) K21.9 Active 749789841 Problem Morbid obesity due to excess calories E66.01 Active 252469456 Problem Intractable migraine, unspecified migraine type G4 3.919 Active 600421034 Problem Mood disorder F39 Active 076788 05 Problem Mild intellectual disabilities F70 Active 07689417 Problem Low HDL (under 40) E78.6 Active 3 81442810 Problem Moderate persistent asthma without complication J4 5.40 Active 310576574 Problem Hypothyroid E03.9 Active 01784011 Problem ODD (oppositional defiant disorder) F91.3 Active 34071170 Problem Benign hypertension I10 Active 34579617 Problem Urinary incontinence, unspecified type R32 Active 718924382 Problem Essential (primary) hypertension I10 Active 95415098 Problem Burning sensation of feet R20.8 Acti ve 11327986 Problem Hyperlipidemia, unspecified E78.5 Ac tive 32758958 Problem Obesity, morbid, BMI 40.0-49.9 E66.01 Active 778005806 Problem Acne vulgaris L70.0 Active 020444 00 Problem Hypothyroidism, unspecified E03.9 Ac tive 68649535 Problem Other chronic pain G89.29 Active 8 7784298 Problem Moderately severe depression F32.2 A ctive 467280471 Problem BMI 45.0-49.9, adult Z68.42 Active 983556947 Problem Mild depression F32.0 Active 3104 89352 ALLERGIES No Information ENCOUNTERS Encounter Location Date Diagnosis [address] [id number] [address] August, [address] [id number] [address] Jul, Bipolar disorder, unspecifie d F31.9 and Benign hypertension I10 [address] [id number] [address] Jun, Left arm numbness R20.0 [facility] WALK IN [facility] [address] [id number] [address] 10 Jun, 2019 Left arm numbness R20.0 ; Es sential (primary) hypertension I10 and Obesity, morbid, BMI 40.0-49.[address] [id number] [address] Jun, Essential (primary) hyperten shadia I10 ; Obesity, morbid, BMI 40.0-49.9 E66.01 and Left arm numbness R20.[address] [id number] [address] 17 May, 2019 Mild depression F32.0 and Bu rning sensation of feet R20.[address] [id number] [address] May, Environmental allergies Z91. [address] [id number] [place] [address] Apr, Left anterior shoulder pain M25.512 [facility] WALK IN [facility] [address] [id number] [address] Apr, Acute pain of left shoulder M25.512 ; Benign hypertension I10 ; Other chronic pain G89.29 ; Hypothyroidism, unspecified E03.9 ; Morbid obesity due to excess calories E66.01 ; BMI 45.0-49.9, adult Z68.42 ; Moderately severe depression F32.2 and Mood disorder F39 [facility] [address] 340B [id number] [place] [address] Apr, [address] 340B [id number] [place] [address] Apr, Benign hypertension I10 ; Ot her chronic pain G89.29 ; Hypothyroidism, unspecified E03.9 ; Morbid obesity due to excess calories E66.01 ; BMI 45.0-49.9, adult Z68.42 ; Moderately severe depression F32.2 ; Mood disorder F39 and Acute pain of left shoulder M25.[address] 340[address] [id number] [place] [address] Apr, [address] [id number] [place] [address] Mar, Bipolar disorder, unspecifie d F31.[address] 340[address] [id number] [address] Mar, Bipolar disorder, unspecifie d F31.9 ; Essential (primary) hypertension I10 ; Encounter for immunization Z23 ; Hypothyroidism, unspecified E03.9 ; Environmental allergies Z91.09 ; GERD (gastroesophageal reflux disease) K21.9 ; Hyperlipidemia, unspecified E78.5 and Urinary incontinence, unspecified type R32 [facility] [place] [facility] WALK [facility] [address] [id number] [place] [address] Mar, Left anterior shoulder pain M25.512 and Left elbow pain M25.522 [facility] Y[place]EL[place] [address] [id number] [place] [address] Jan, [address] [id number] [place] [address] Jan, Bipolar disorder, unspecifie d F31.[address] [id number] [place] [address] Jan, Bipolar disorder, unspecifie d F31.9 ; Mood disorder F39 and Acute pain of right shoulder M25.[address] [id number] [place] [address] Jan, Mood disorder F39 and Bipola r disorder, unspecified F31.9 [facility] [place] [address] [id number] [place] [address] Dec, Mood disorder F39 [facility] Y[place] [address] [id number] [place] [address] Nov, [facility] Y[place]QUEL[place] [address] 340[address] [id number] [place] [address] Nov, [facility] [place] [address] [facility] [id number] [place] [address] Nov, Bipolar disorder, unspecifie d F31.9 [facility] Y[place]QUEL[place] [address] 340B [id number] [place] [address] Nov, [facility] Y[place]QUEL[place] [address] 340[address] [id number] [place] [address] Nov, [facility] [place] [address] [facility] [id number] [place] [address] Nov, [facility] Y[place]QUEL[place] [address] 340[address] [id number] [place] [address] Nov, [facility] [address] [id number] [place] [address] Nov, Right knee pain M25.561 [facility] [address] [id number] [place] [address] Nov, [facility] Y[place]QUELIN [address] 340B [id number] [place] [address] Nov, Morbid obesity due to excess calories E66.01 ; Essential (primary) hypertension I10 and Pain in right knee M25.561 [facility] [address] 340B [id number] [place] [address] Nov, [facility] Y[place]QUELIN [address] 340[address] [id number] [place] [address] Oct, [facility] [address] 340B [id number] [place] [address] Oct, [facility] [address] [id number] [place] [address] Oct, [facility] [address] 340B [id number] [place] [address] Oct, [facility] Y[place]EL[place] DOUGLAS [address] 340B [id number] [place] [address] Sep, [facility] [place] [address] [facility] [id number] [address] [place] [address] Sep, Bipolar disorder, unspecifie d F31.9 [facility] Y[place] [address] 340B [id number] [place] [address] Sep, Low back pain M54.5 ; Enviro nmental allergies Z91.09 ; Low HDL (under 40) E78.6 and Morbid obesity E66.01 [facility] Y[place]EL[place] [address] 340B [id number] [place] [address] Sep, Mood disorder F39 [facility] [address] [id number] [place] [address] August, Unspecified injury of left a nkle, initial encounter S99.912A and Strain of left ankle, initial encounter S96.912A [facility] Y[place] [address] 340B [id number] [address] August, Benign hypertension 401.1 ; Hypothyroid 244.9 ; Essential (primary) hypertension I10 ; Hypothyroidism, unspecified E03.9 and Morbid obesity due to excess calories E66.01 [facility] [place] [address] [facility] [id number] [place] [address] August, Mood disorder F39 [facility] [address] 340B [id number] [place] [address] Jul, Bipolar disorder, unspecifie d F31.9 ; Mood disorder F39 and Morbid obesity E66.01 [facility] DOU[place]AS [address] 340B [id number] [place] [address] Jul, Mood disorder F39 [facility] [address] [id number] [place] [address] Jul, [facility] [address] [facility] [id number] 100[place] [address] Jul, Mood disorder F39 and BMI 45 .0-49.9, adult Z68.42 [facility] [place] [address] 340B [id number] [place] [address] Jul, [facility] [address] 340[address] [id number] [place] [address] Jul, [facility] [place] [address] 340B [id number] [place] [address] Jul, [facility] [address] 340[address] [id number] [place] [address] Jul, [facility] [address] 340[address] [id number] [place] [address] Jun, Mood disorder F39 and Bipola r disorder, unspecified F31.9 [facility] [place] [address] 340B [id number] [place] [address] Jun, Morbid obesity E66.01 and Pa in of left thumb M79.645 [facility] [address] 340B [id number] [place] [address] Jun, [facility] [address] 340 [id number] [place] [address] Jun, Contusion of thumb S60.019A [facility] [address] 340B [id number] [place] [address] Jun, [facility] Y[place]QUEL[place] [address] 340B [id number] [place] [address] 12 Mar, 2019 Benign hypertension 401.1 ; Hypothyroid 244.9 ; Essential (primary) hypertension I10 ; Hypothyroidism, unspecified E03.9 ; Morbid obesity due to excess calories E66.01 ; Morbid obesity E66.01 ; Moderate persistent asthma without complication J45.40 ; Low back pain M54.5 and Other chronic pain G89.[address] 340B [id number] [place] [address] Jun, Mood disorder F39 and Bipola r disorder, unspecified F31.9 [place] [address] [place] [address] [place] [address] [id number] [place] [address] May, [address] [id number] [address] [place] [address] Apr, Mood disorder F39 and BMI 45 .0-49.9, adult Z68.42 [place] [id number] [address] [place] [address] Apr, [address] [id number] [address] [place] [address] Apr, [place] [address] [place] [address] [place] [address] [id number] [place] [address] Apr, Mood disorder F39 and Bipolar disorder, unspecified F31.9 [facility] [place] [address] [place] [id number] [address] [place] [address] Mar, Mood disorder F39 and BMI 45 .0-49.9, adult Z68.42 [facility] [place] [address] [facility] [id number] [address] [place] [address] Feb, Mood disorder F39 and BMI 45 .0-49.9, adult Z68.42 [facility] [place] [address] [facility] [id number] [address] [place] [address] Feb, [place] [address] [place] 1 [facility] [id number] [place] [address] Jan, [facility] [address] [place] [address] [place] [address] [id number] [place] [address] Dec, [facility] [address] [facility] [id number] 100[place] [address] Dec, [facility] [address] [place] [address] [id number] [address] Dec, BMI 45.0-49.9, adult Z68.42 [facility] [address] [place] [address] [place] [id number] [address] Dec, BMI 45.0-49.9, adult Z68.42 and Mood dis order F39 [facility] [address] [place] [address] [place] [id number] [address] Dec, [facility] [address] [place] [address] [place] [id number] [address] Dec, [facility] [address] [place] [address] [id number] [address] Dec, Bipolar disorder, unspecified F31.9 [facility] [place] [address] [place] [address] August, 18 Bipolar disorder, unspecified F31.9 [facility] [place] [address] [place] [address] August, 18 Bipolar disorder, unspecified F31.9 [facility] [place] [address] [place] [address] Jul, 18 [facility] [place] [address] [place] [address] Jul, 18 [facility] [place] [address] [place] [address] Apr, 18 Bipolar disorder, unspecified F31.9 ; Attention-deficit hyperactivity disorder, combined type F90.2 and Mild intellectual disabilities F70 [facility] [place] [address] [place] [address] Apr, 18 [facility] [place] [address] [place] [address] Mar, 17 [facility] [place] [address] [place] [address] Jan, 17 Ana Rosa [facility] [address] [place] [address] Dec, 17 [facility] [place] [address] [place] [address] Nov, 17 [facility] [place] [address] [place] [address] Sep, 17 Pain in left shoulder M25.512 ; Intractable migraine, unspecified migraine type G43.919 and Morbid obesity due to excess calories E66.01 [facility] [place] [address] [place] [address] Jul, 17 Right foot pain M79.671 [facility] [place] [address] [place] [address] Jul, 17 Attention- deficit hyperactivity disorder, combined type F90.2 ; Bipolar disorder, unspecified F31.9 ; Right foot pain M79.671 and Postoperative pain, acute, shoulder, left M25.512 [facility] [address] [place] [address] Jun, 17 [facility] [address] [address] Jun, 17 [facility] [address] [address] Jun, 17 Pain in left shoulder M25.[address] [address] May, 17 Essential (primary) hypertension I10 ; Hypothyroidism, unspecified E03.9 and Hyperlipidemia, unspecified E78.5 [facility] [place] [address] [place] [address] Apr, 17 [facility] [address] [place] [address] Apr, 17 [facility] [address] [place] [address] Apr, 17 Pain in left shoulder M25.512 and Other chronic pain G89.29 [facility] [place] [address] [facility] [id number] [address] [place] [address] Apr, [facility] [address] [facility] [id number] [place] [address] Feb, zAna Rosa [address] [address] Feb, 16 Pain in left shoulder M25.512 and Other chronic pain G89.29 [facility] [place] [address] [place] [address] Jan, 16 Bruised ribs, right, subsequent encounter S20.211D ; Acne vulgaris L70.0 and Routine sports physical exam Z02.5 [facility] [place] [address] [place] [address] Nov, 16 Knee pain, right M25.561 ; Environmental allergies Z91.09 ; Attention-deficit hyperactivity disorder, combined type F90.2 and Bipolar disorder, unspecified F31.9 [facility] [place] [address] [place] [address] Nov, [address] [place] [address] Oct, [address] [address] Oct, 16 Knee pain, right M25.561 and Pain in left wrist M25.532 [facility]A [address] [address] August, 16 [facility] [place] [address] [place] [address] Jul, [address] [place] [address] Jul, [address] [place] [address] Jul, 16 Gastro- esophageal reflux disease without esophagitis K21.9 and Pain in left wrist M25.532 [facility] [place] [address] [place] [address] Jul, 16 [facility] [place] [address] [place] [address] Jun, 16 [facility] [address] [place] [address] Jun, 16 Strain of right knee S86.911A and Right knee pain M25.561 [facility] [address] [address] 15 May, 16 Pain in left shoulder M25.512 [facility] [place] [address] [place] [address] May, [address] [address] Apr, 16 Knee pain, right M25.561 and Left ankle sprain S93.402A [facility] [address] [address] Apr, 16 Knee pain, right M25.561 [facility] [address] [address] Mar, 15 [facility] [address] [address] Mar, 15 Wrist pain, right M25.531 and Constipation K59.00 [facility] [address] [address] Feb, 15 Wrist pain, right M25.531 [facility] [address] [address] Feb, 15 Wrist pain, right M25.531 [facility] [address] [address] Jan, 15 Wrist pain, right M25.531 [facility] [address] [address] Jan, 15 [facility] [address] [address] Dec, 15 Right leg pain 729.5 ; Benign hypertension 401.1 and GERD (gastroesophageal reflux disease) 530.81 [facility] [address] [address] Dec, 15 Dental examination V72.2 [facility] [place] [address] [place] [address] 15 Dec, 15 [facility] [address] [place] [address] 14 Dec, 15 [facility] [address] [place] [address] Nov, 15 Benign hypertension 401.1 ; Hypothyroidism 244.9 and Hyperlipidemia 272.4 [facility] [address] [place] [address] Nov, 15 Benign hypertension 401.1 ; Bipolar 1 disorder 296.7 and GERD (gastroesophageal reflux disease) 530.81 [facility] [address] [place] [address] Sep, [address] [address] Sep, 15 ADHD (attention deficit hyperactivity disorder), combined type 314.01 ; Bipolar disorder 296.80 ; OCD (obsessive compulsive disorder) 300.3 ; Hyperlipidemia 272.4 ; Hypothyroidism 244.9 and Asthma 493.90 [facility] [place] [address] [place] [address] Jul, [facility] [place] [address] [place] [address] Jul, [facility] [place] [address] [place], [place] [id number] [address] [place] [address] Mar, IMMUNIZATIONS No Known Immunizations SOCIAL HISTORY [...]
--- OUTSIDE RECORDS SUMMARY | 2019-10-29 00:44 | XMS REPORT ---
Author Author Laurent CASTRO [facility] [facility] Address [address] [place] [address] Care Team Providers Care Golf Superintendent Name Role Phone ADAM CASTRO Unavailable PROBLEMS Type Condition ICD9-CM Code [id number] Code Onset Dates Condition S tatus SNOMED Code Problem Environmental allergies Z91.09 Active 481350335 Problem Attention-deficit hyperactivity disorder, combined type F90.2 Active 69564546 Problem Bipolar disorder, unspecified F31.9 Active 89943722 Problem Asthma J45.909 Active 470676222 Problem GERD (gastroesophageal reflux disease) K21.9 Active 182157891 Problem Morbid obesity due to excess calories E66.01 Active 086638359 Problem Intractable migraine, unspecified migraine type G4 3.919 Active 751753826 Problem Mood disorder F39 Active 589543 05 Problem Mild intellectual disabilities F70 Active 28122526 Problem Low HDL (under 40) E78.6 Active 3 26913626 Problem Moderate persistent asthma without complication J4 5.40 Active 458277543 Problem Hypothyroid E03.9 Active 56709037 Problem ODD (oppositional defiant disorder) F91.3 Active 53472441 Problem Benign hypertension I10 Active 08749790 Problem Urinary incontinence, unspecified type R32 Active 301300470 Problem Essential (primary) hypertension I10 Active 87703547 Problem Burning sensation of feet R20.8 Acti ve 37999587 Problem Hyperlipidemia, unspecified E78.5 Ac tive 67127034 Problem Obesity, morbid, BMI 40.0-49.9 E66.01 Active 728606008 Problem Acne vulgaris L70.0 Active 125539 00 Problem Hypothyroidism, unspecified E03.9 Ac tive 55760157 Problem Other chronic pain G89.29 Active 8 9582425 Problem Moderately severe depression F32.2 A ctive 825527839 Problem BMI 45.0-49.9, adult Z68.42 Active 997697977 Problem Mild depression F32.0 Active 3104 17355 ALLERGIES No Information ENCOUNTERS Encounter Location Date Diagnosis [address] [id number] [address] August, [address] [id number], [place] [address] Jul, Bipolar disorder, unspecifie d F31.9 and Benign hypertension I10 [address] [id number], [place] [address] Jun, Left arm numbness R20.0 [facility] [address] [id number], [place] [address] 10 Jun, 2019 Left arm numbness R20.0 ; Es sential (primary) hypertension I10 and Obesity, morbid, BMI 40.0-49.[address] [id number], [place] [address] Jun, Essential (primary) hyperten shadia I10 ; Obesity, morbid, BMI 40.0-49.9 E66.01 and Left arm numbness R20.[address] [id number], [place] [address] 17 May, 2019 Mild depression F32.0 and Bu rning sensation of feet R20.[address] [id number], [place] [address] May, Environmental allergies Z91. [address] [id number], [place] [address] Apr, Left anterior shoulder pain M25.512 [facility] [address] [id number], [place] [address] Apr, Acute pain of left shoulder M25.512 ; Benign hypertension I10 ; Other chronic pain G89.29 ; Hypothyroidism, unspecified E03.9 ; Morbid obesity due to excess calories E66.01 ; BMI 45.0-49.9, adult Z68.42 ; Moderately severe depression F32.2 and Mood disorder F39 [facility] [address] 340B [id number] [place] [address] Apr, [address] [id number] [place] [address] Apr, Benign hypertension I10 ; Ot her chronic pain G89.29 ; Hypothyroidism, unspecified E03.9 ; Morbid obesity due to excess calories E66.01 ; BMI 45.0-49.9, adult Z68.42 ; Moderately severe depression F32.2 ; Mood disorder F39 and Acute pain of left shoulder M25.[address] [id number] [place] [address] Apr, [address] [id number] [place] [address] Mar, Bipolar disorder, unspecifie d F31.[address] [id number], [place] [address] Mar, Bipolar disorder, unspecifie d F31.9 ; Essential (primary) hypertension I10 ; Encounter for immunization Z23 ; Hypothyroidism, unspecified E03.9 ; Environmental allergies Z91.09 ; GERD (gastroesophageal reflux disease) K21.9 ; Hyperlipidemia, unspecified E78.5 and Urinary incontinence, unspecified type R32 [facility] [address] [id number] [place] [address] Mar, Left anterior shoulder pain M25.512 and Left elbow pain M25.522 [facility] [place] [address] [id number] [place] [address] Jan, [address] [id number] [place] [address] Jan, Bipolar disorder, unspecifie d F31.[address] [id number] [place] [address] Jan, Bipolar disorder, unspecifie d F31.9 ; Mood disorder F39 and Acute pain of right shoulder M25.[address] [id number] [place] [address] Jan, Mood disorder F39 and Bipola r disorder, unspecified F31.9 [facility] [address] [id number] [place] [address] Dec, Mood disorder F39 [facility] Y[place] [address] 340[address] [id number] [place] [address] Nov, [facility] Y[place] [address] 340B [id number] [place] [address] Nov, [facility] [address] [facility] [id number] [place] [address] Nov, Bipolar disorder, unspecifie d F31.9 [facility] Y[place] [address] 340B [id number] [place] [address] Nov, [facility] Y[place]QUELIN [address] [id number], [place] [address] Nov, [facility] [address] [facility] [id number] [place] [address] Nov, [facility] Y[place]QUEL[place] [address] 340[place] [id number], [place] [address] Nov, [facility] [address] [id number] [place] [address] Nov, Right knee pain M25.561 [facility] [address] [id number] [place] [address] Nov, [facility] Y[place] [address] 340B [id number] [place] [address] Nov, Morbid obesity due to excess calories E66.01 ; Essential (primary) hypertension I10 and Pain in right knee M25.561 [facility] [address] 340B [id number] [place] [address] Nov, [facility] Y[place]QUEL[place] [address] [id number], [place] [address] Oct, [facility] [address] 340B [id number] [place] [address] Oct, [facility] [address] 340B [id number] [place] [address] Oct, [facility] [address] 340B [id number] [place] [address] Oct, [facility] [place] [address] 340B [id number] [place] [address] Sep, [facility] [address] [facility] [id number] [address] [place] [address] Sep, Bipolar disorder, unspecifie d F31.9 [facility] Y[place] [address] 340B [id number] [place] [address] Sep, Low back pain M54.5 ; Enviro nmental allergies Z91.09 ; Low HDL (under 40) E78.6 and Morbid obesity E66.01 [facility] Y[place] [address] 340B [id number] [place] [address] Sep, Mood disorder F39 [facility] [address] [id number] [place] [address] August, Unspecified injury of left a nkle, initial encounter S99.912A and Strain of left ankle, initial encounter S96.912A [facility] Y[place] [address] 340[id number], [place] [address] August, Benign hypertension 401.1 ; Hypothyroid 244.9 ; Essential (primary) hypertension I10 ; Hypothyroidism, unspecified E03.9 and Morbid obesity due to excess calories E66.01 [facility] [address] [facility] [id number] [place] [address] August, Mood disorder F39 [facility] [address] 340B [id number] [place] [address] Jul, Bipolar disorder, unspecifie d F31.9 ; Mood disorder F39 and Morbid obesity E66.01 [facility] [place] [address] 340B [id number] [place] [address] Jul, Mood disorder F39 [facility] [address] [address] [id number] [place] [address] Jul, [facility] [address] [facility] [id number] [place] [address] Jul, Mood disorder F39 and BMI 45 .0-49.9, adult Z68.42 [facility] [place] [address] 340B [id number] [place] [address] Jul, [facility] [place] [address] 340B [id number] [place] [address] Jul, [facility] [place] [address] 340B [id number] [place] [address] Jul, [facility] [address] 340B [id number] [place] [address] Jul, [facility] [address] 340B [id number] [place] [address] Jun, Mood disorder F39 and Bipola r disorder, unspecified F31.9 [facility] [place] [address] 340B [id number] [place] [address] Jun, Morbid obesity E66.01 and Pa in of left thumb M79.645 [facility] JAM[facility] [address] 340B [id number] [place] [address] Jun, [facility] [address] [id number] [place] [address] Jun, Contusion of thumb S60.019A [facility]AM[facility] [address] 340B [id number] [place] [address] Jun, [facility] YAQUELIN [address] 340B [id number] [place] [address] 12 Mar, 2019 Benign hypertension 401.1 ; Hypothyroid 244.9 ; Essential (primary) hypertension I10 ; Hypothyroidism, unspecified E03.9 ; Morbid obesity due to excess calories E66.01 ; Morbid obesity E66.01 ; Moderate persistent asthma without complication J45.40 ; Low back pain M54.5 and Other chronic pain G89.[address] 340B [id number] [place] [address] Jun, Mood disorder F39 and Bipola r disorder, unspecified F31.9 [place] [address] [place] [address] [place] [address] [id number] [place] [address] May, [address] [id number] [address] [place] [address] Apr, Mood disorder F39 and BMI 45 .0-49.9, adult Z68.42 [place] [id number] [address] [place] [address] Apr, [address] [id number] [address] [place] [address] Apr, [place] [address] [place] [address] [place] [address] [id number] [place] [address] Apr, Mood disorder F39 and Bipolar disorder, unspecified F31.9 [facility] [address] [place] [id number] [address] [place] [address] Mar, Mood disorder F39 and BMI 45 .0-49.9, adult Z68.42 [facility] [address] [facility] [id number] [address] [place] [address] Feb, Mood disorder F39 and BMI 45 .0-49.9, adult Z68.42 [facility] [address] [facility] [id number] [address] [place] [address] Feb, [place] [address] [place] [address] [facility] [id number] [place] [address] Jan, [facility] [address] [place] [address] [place] [address] [id number] [place] [address] Dec, [facility] [address] [facility] [id number] [address] [address] Dec, [facility] [address] [place] [address] [place] [id number] [address] Dec, BMI 45.0-49.9, adult Z68.42 [facility] [address] [place] [address] [place], [place] [id number] [address] Dec, BMI 45.0-49.9, adult Z68.42 and Mood dis order F39 [facility] [address] [place] [address] [place], [place] [id number] [address] Dec, [facility] [address] [place] [address] [place], [place] [id number] [address] Dec, [facility] [address] [place] [address] [place] [id number] [address] Dec, Bipolar disorder, unspecified F31.9 [facility] [place] [address] [place] [address] August, 18 Bipolar disorder, unspecified F31.9 [facility] [place] [address] [place] [address] August, 18 Bipolar disorder, unspecified F31.9 [facility] [place] [address] [place] [address] Jul, 18 [facility] [place] [address] [place] [address] Jul, 18 [facility] [place] [address] [place] [address] Apr, 18 Bipolar disorder, unspecified F31.9 ; Attention-deficit hyperactivity disorder, combined type F90.2 and Mild intellectual disabilities F70 [facility] [place] [address] [place] [address] Apr, 18 [facility] [place] [address] [place] [address] Mar, 17 [facility] [place] [address] [place] [address] Jan, 17 Ana Rosa [place] [address] [place] [address] Dec, 17 [facility] [place] [address] [place] [address] Nov, 17 [facility] [place] [address] [place] [address] Sep, 17 Pain in left shoulder M25.512 ; Intractable migraine, unspecified migraine type G43.919 and Morbid obesity due to excess calories E66.01 [facility] [place] [address] [place] [address] Jul, 17 Right foot pain M79.671 [facility] [place] [address] [place] [address] Jul, 17 Attention- deficit hyperactivity disorder, combined type F90.2 ; Bipolar disorder, unspecified F31.9 ; Right foot pain M79.671 and Postoperative pain, acute, shoulder, left M25.512 [facility] [address] [place] [address] Jun, 17 [facility] [address] [address] Jun, 17 [facility] [address] [address] Jun, 17 Pain in left shoulder M25.[address] [address] May, 17 Essential (primary) hypertension I10 ; Hypothyroidism, unspecified E03.9 and Hyperlipidemia, unspecified E78.5 [facility] [place] [address] [place] [address] Apr, 17 [facility] [address] [place] [address] Apr, 17 [facility] [address] [place] [address] Apr, 17 Pain in left shoulder M25.512 and Other chronic pain G89.29 [facility] [address] [facility] [id number] [address] [place] [address] Apr, [facility] [address] [facility] [id number] [place] [address] Feb, zAna Rosa [address] [address] Feb, 16 Pain in left shoulder M25.512 and Other chronic pain G89.29 [facility] [place] [address] [place] [address] Jan, 16 Bruised ribs, right, subsequent encounter S20.211D ; Acne vulgaris L70.0 and Routine sports physical exam Z02.5 [facility] [place] [address] [place] [address] Nov, 16 Knee pain, right M25.561 ; Environmental allergies Z91.09 ; Attention-deficit hyperactivity disorder, combined type F90.2 and Bipolar disorder, unspecified F31.9 [facility] [place] [address] [place] [address] Nov, [address] [place] [address] Oct, [address] [address] Oct, 16 Knee pain, right M25.561 and Pain in left wrist M25.532 [address]A [address] [address] August, 16 [facility] [place] [address] [place] [address] Jul, [address] [place] [address] Jul, [address] [address] Jul, 16 Gastro- esophageal reflux disease without esophagitis K21.9 and Pain in left wrist M25.532 [facility] [place] [address] [place] [address] Jul, 16 [facility] [place] [address] [place] [address] Jun, 16 Ana Rosa [facility] [address] [place] [address] Jun, 16 Strain of right knee S86.911A and Right knee pain M25.561 [facility] [address] [address] 15 May, 16 Pain in left shoulder M25.512 [facility] [place] [address] [place] [address] May, [address] [address] Apr, 16 Knee pain, right M25.561 and Left ankle sprain S93.402A [facility] [address] [address] Apr, 16 Knee pain, right M25.561 [facility] [address] [address] Mar, 15 [facility] [address] [address] Mar, 15 Wrist pain, right M25.531 and Constipation K59.00 [facility] [address] [address] Feb, 15 Wrist pain, right M25.531 [facility] [address] [address] Feb, 15 Wrist pain, right M25.531 [facility] [address] [address] Jan, 15 Wrist pain, right M25.531 [facility] [address] [address] Jan, 15 [facility] [address] [address] Dec, 15 Right leg pain 729.5 ; Benign hypertension 401.1 and GERD (gastroesophageal reflux disease) 530.81 [facility] [address] [address] Dec, 15 Dental examination V72.2 [facility] [place] [address] [place] [address] 15 Dec, 15 [facility] [address] [place] [address] 14 Dec, 15 [facility] [address] [place] [address] Nov, 15 Benign hypertension 401.1 ; Hypothyroidism 244.9 and Hyperlipidemia 272.4 [facility] [address] [place] [address] Nov, 15 Benign hypertension 401.1 ; Bipolar 1 disorder 296.7 and GERD (gastroesophageal reflux disease) 530.81 [facility] [address] [place] [address] Sep, [address] [address] Sep, 15 ADHD (attention deficit hyperactivity disorder), combined type 314.01 ; Bipolar disorder 296.80 ; OCD (obsessive compulsive disorder) 300.3 ; Hyperlipidemia 272.4 ; Hypothyroidism 244.9 and Asthma 493.90 [facility] [address] [place] [address] Jul, [facility] [address] [place] [address] Jul, [facility] [address] [place], [place] [id number] [address] [place] [address] Mar, IMMUNIZATIONS No Known Immunizations SOCIAL HISTORY Never Assessed REASON FOR VISIT repository med PLAN OF CARE VITAL SIGNS MEDICATIONS Unknown [...]
--- OUTSIDE RECORDS SUMMARY | 2019-10-29 00:44 | XMS REPORT ---
Author Author Laurent CASTRO [facility] Address [address] [place] [address] Care Team Providers Care Reproduction Production Manager Name Role Phone ADAM CASTRO Unavailable PROBLEMS Type Condition ICD9-CM Code GZY19-OM Code Onset Dates Condition S tatus SNOMED Code Problem Bipolar disorder, unspecified F31.9 Active 07734107 Problem Environmental allergies Z91.09 Active 922571644 Problem Acne vulgaris L70.0 Active 069019 00 Problem Attention-deficit hyperactivity disorder, combined type F90.2 Active 67277373 Problem Hypothyroidism, unspecified E03.9 Ac tive 98418963 Problem Hyperlipidemia, unspecified E78.5 Ac tive 44707647 Problem Morbid obesity due to excess calories E66.01 Active 384239000 Problem Intractable migraine, unspecified migraine type G4 3.919 Active 544125142 Problem Moderate persistent asthma without complication J4 5.40 Active 184179009 Problem Low HDL (under 40) E78.6 Active 3 71411442 Problem ODD (oppositional defiant disorder) F91.3 Active 91244500 Problem Urinary incontinence, unspecified type R32 Active 520842501 Problem Mood disorder F39 Active 762955 05 Problem Essential (primary) hypertension I10 Active 73851130 Problem Mild intellectual disabilities F70 Active 02006507 Problem Hypothyroid E03.9 Active 89791513 Problem GERD (gastroesophageal reflux disease) K21.9 Active 228298878 Problem Asthma J45.909 Active 737680222 Problem Benign hypertension I10 Active 45818390 ALLERGIES No Information ENCOUNTERS Encounter Location Date Diagnosis [address] [place] [address] Mar, Bipolar disorder, unspecifie d F31.9 [address] [place] [address] Mar, Bipolar disorder, unspecifie d F31.9 ; Essential (primary) hypertension I10 ; Encounter for immunization Z23 ; Hypothyroidism, unspecified E03.9 ; Environmental allergies Z91.09 ; GERD (gastroesophageal reflux disease) K21.9 ; Hyperlipidemia, unspecified E78.5 and Urinary incontinence, unspecified type R32 [facility] [address] [place] [address] Mar, Left anterior shoulder pain M25.512 and Left elbow pain M25.522 [address] [place] [address] Jan, [address] [place] [address] Jan, Bipolar disorder, unspecifie d F31.9 [address] [place] [address] Jan, Bipolar disorder, unspecifie d F31.9 ; Mood disorder F39 and Acute pain of right shoulder M25.[address] [place] [address] Jan, Mood disorder F39 and Bipola r disorder, unspecified F31.9 [facility] [id number] [place] [address] Dec, Mood disorder F39 [address] [place] [address] Nov, [address] [place] [address] Nov, [facility] [address] [id number] [place] [address] Nov, Bipolar disorder, unspecified F31.[address] [place] [address] Nov, [address] [place] [address] Nov, [facility] [id number] [place] [address] Nov, [facility] [address] [place] [address] Nov, [facility] [address] [place] [address] Nov, Right knee pain M25.561 [facility] [address] [place] [address] Nov, [facility] [place] [facility] [address] [place] [address] Nov, Morbid obesity due to excess calories E66.01 ; Essential (primary) hypertension I10 and Pain in right knee M25.561 [facility] [address] [place] [address] Nov, [facility] [address] [place] [address] Oct, [facility] [address] [place] [address] Oct, [facility] [address] [place] [address] Oct, [facility] [address] [place] [address] Oct, [facility] [address] [place] [address] Sep, [facility] [address] [id number] [place] [address] Sep, Bipolar disorder, unspecified F31.9 [facility] [address] [place] [address] Sep, Low back pain M54.5 ; Enviro nmental allergies Z91.09 ; Low HDL (under 40) E78.6 and Morbid obesity E66.01 [facility] [address] [place] [address] Sep, Mood disorder F39 [facility] [address] [place] [address] August, Unspecified injury of left a nkle, initial encounter S99.912A and Strain of left ankle, initial encounter S96.912A [address] [place] [address] August, Benign hypertension 401.1 ; Hypothyroid 244.9 ; Essential (primary) hypertension I10 ; Hypothyroidism, unspecified E03.9 and Morbid obesity due to excess calories E66.01 [facility] [address] [id number] [place] [address] August, Mood disorder F39 [address] [place] [address] Jul, Bipolar disorder, unspecifie d F31.9 ; Mood disorder F39 and Morbid obesity E66.01 [address] [place] [address] Jul, Mood disorder F39 [address] [place] [address] Jul, [facility] [address] [id number] [place] [address] Jul, Mood disorder F39 and BMI 45.0-49.9, kal lt Z68.42 [address] [place] [address] Jul, [address] [place] [address] Jul, [address] [place] [address] Jul, [address] [place] [address] Jul, [address] [place] [address] Jun, Mood disorder F39 and Bipola r disorder, unspecified F31.[address] [place] [address] Jun, Morbid obesity E66.01 and Pa in of left thumb M79.[address] [place] [address] Jun, [facility] [address] [place] [address] Jun, Contusion of thumb S60.019A [address] [place] [address] Jun, [address] [place] [address] Jun, Benign hypertension 401.1 ; Hypothyroid 244.9 ; Essential (primary) hypertension I10 ; Hypothyroidism, unspecified E03.9 ; Morbid obesity due to excess calories E66.01 ; Morbid obesity E66.01 ; Moderate persistent asthma without complication J45.40 ; Low back pain M54.5 and Other chronic pain G89.29 [address] [place] [address] Jun, Mood disorder F39 and Bipola r disorder, unspecified F31.9 [facility] [address] [address] May, [id number] [place] [address] Apr, Mood disorder F39 and BMI 45.0-49.9, kal lt Z68.42 [facility] [id number] [place] [address] Apr, [address] [address] Apr, [facility] [address] [address] Apr, Mood disorder F39 and Bipolar disorder, unspecified F31.9 [facility] [address] [facility] [place] [address] Mar, Mood disorder F39 and BMI 45.0-49.9, kal lt Z68.42 [facility] [address] [facility] [place] [address] Feb, Mood disorder F39 and BMI 45.0-49.9, kal lt Z68.42 [facility] [id number] [place] [address] Feb, [facility] [place] [address] [place] [id number] [address] Jan, [facility] [place] [address] [place] [address] Dec, [facility] [address] [facility] [place] [address] Dec, [facility] [address] [place] [address] [place] [id number] [address] Dec, BMI 45.0-49.9, adult Z68.42 [facility] [place] [address] [place] [address] [address] Dec, BMI 45.0-49.9, adult Z68.42 and Mood disorder F39 [facility] [address] [place] [address] [place] [id number] [address] 17 Dec, 2017 [facility] [address] [place] [address] [place] [id number] [address] Dec, [facility] [address] [place] [address] [place] [id number] [address] Dec, Bipolar disorder, unspecified F31.9 [facility] [place] [address] [place] [address] August, Bipolar disorder, unspecified F31.9 [facility] [place] [address] [place] [address] August, Bipolar disorder, unspecified F31.9 [facility] [place] [address] [place] [address] 13 Jul, 18 [facility] [place] [address] [place] [address] Jul, 18 [facility] [place] [address] [place] [address] Apr, 18 Bipolar disorder, unspecified F31.9 ; Attention-deficit hyperactivity disorder, combined type F90.2 and Mild intellectual disabilities F70 [facility] [address] [place] [address] Apr, 18 [facility] [place] [address] [place] [address] Mar, 17 [facility] [place] [address] [place] [address] Jan, 17 [facility] [address] [place] [address] Dec, [address] [facility] [address] [address] Nov, [address] [address] [address] Sep, 17 Pain in left shoulder M25.512 ; Intractable migraine, unspecified migraine type G43.919 and Morbid obesity due to excess calories E66.01 [facility] [address] [place] [address] 14 Jul, 17 Right foot pain M79.671 [facility] [address] [address] 12 Jul, 17 Attention- deficit hyperactivity disorder, combined type F90.2 ; Bipolar disorder, unspecified F31.9 ; Right foot pain M79.671 and Postoperative pain, acute, shoulder, left M25.512 [facility] [address] [place] [address] Jun, 17 [facility] [place] [address] [place] [address] Jun, [address] [address] Jun, 17 Pain in left shoulder M25.512 [facility] [address] [place] [address] May, 17 Essential (primary) hypertension I10 ; Hypothyroidism, unspecified E03.9 and Hyperlipidemia, unspecified E78.5 [facility] [address] [place] [address] Apr, [address] [address] Apr, [address] [address] Apr, 17 Pain in left shoulder M25.512 and Other chronic pain G89.29 [facility] [address] [place] [id number] [place] [address] Apr, [facility] [address] [place] [id number] [place] [address] Feb, [address] [address] Feb, 16 Pain in left shoulder M25.512 and Other chronic pain G89.[address] [address] Jan, 16 Bruised ribs, right, subsequent encounter S20.211D ; Acne vulgaris L70.0 and Routine sports physical exam Z02.[address] [address] Nov, 16 Knee pain, right M25.561 ; Environmental allergies Z91.09 ; Attention-deficit hyperactivity disorder, combined type F90.2 and Bipolar disorder, unspecified F31.9 [facility] [address] [place] [address] Nov, [address] [address] Oct, [address] [address] Oct, 16 Knee pain, right M25.561 and Pain in left wrist M25.[address] [address] August, 16 [facility] [place] [address] [place] [address] Jul, 16 [facility] [place] [address] [place] [address] Jul, 16 [facility] [place] [address] [place] [address] Jul, 16 Gastro- esophageal reflux disease without esophagitis K21.9 and Pain in left wrist M25.532 [facility] [address] [place] [address] 14 Jul, 16 [facility] [place] [address] [place] [address] Jun, 16 [facility] [place] [address] [place] [address] Jun, 16 Strain of right knee S86.911A and Right knee pain M25.561 [facility] [address] [place] [address] May, 16 Pain in left shoulder M25.512 [facility] [address] [place] [address] May, 16 [facility] [place] [address] [place] [address] Apr, 16 Knee pain, right M25.561 and Left ankle sprain S93.402A [facility] [address] [place] [address] Apr, 16 Knee pain, right M25.561 [facility] [place] [address] [place] [address] Mar, 15 [facility] [place] [address] [place] [address] Mar, 15 Wrist pain, right M25.531 and Constipation K59.00 [facility] [address] [place] [address] Feb, 15 Wrist pain, right M25.531 [facility] [address] [place] [address] Feb, 15 Wrist pain, right M25.531 [facility] [address] [place] [address] Jan, 15 Wrist pain, right M25.531 [facility] [address] [address] Jan, 15 [facility] [address] [place] [address] 29 Dec, 15 Right leg pain 729.5 ; Benign hypertension 401.1 and GERD (gastroesophageal reflux disease) 530.81 [facility] [address] [place] [address] 21 Dec, 15 Dental examination V72.[address] [address] 15 Dec, 15 [facility] [address] [address] 14 Dec, [address] [address] Nov, 15 Benign hypertension 401.1 ; Hypothyroidism 244.9 and Hyperlipidemia 272.4 [facility] [address] [place] [address] Nov, 15 Benign hypertension 401.1 ; Bipolar 1 disorder 296.7 and GERD (gastroesophageal reflux disease) 530.[address] [address] Sep, [address] [address] Sep, 15 ADHD (attention deficit hyperactivity disorder), combined type 314.01 ; Bipolar disorder 296.80 ; OCD (obsessive compulsive disorder) 300.3 ; Hyperlipidemia 272.4 ; Hypothyroidism 244.9 and Asthma 493.[address] [place] [address] Jul, [address] [place] [address] Jul, [address] [address] Mar, IMMUNIZATIONS No Known Immunizations SOCIAL HISTORY Never Assessed REASON FOR VISIT medication refill repository PLAN OF CARE VITAL SIGNS MEDICATIONS Medication Instructions Dosage Frequency Start Date End Date Duration S yomi Levothyroxine Sodium 25 MCG Orally Once a day TAKE 1 TABLET BY MOUT H DAILY 24h 90 days Active Pantoprazole Sodium 40 mg Orally Once a day 1 tablet 24h 90 days Active Simvastatin 10 mg Orally Once a day TAKE 1 TABLET DAILY IN THE EVENING 24h 90 days Active Escitalopram Oxalate 20 [...]
--- OUTSIDE RECORDS SUMMARY | 2019-10-29 00:45 | XMS REPORT ---
Author Author Laurent Patiño Doctor Organization [facility] Address Unknown Phone Unavailable Care Team Providers Care Balloon Sander Name Role Phone Migration, Doctor Unavailable Unavailable PROBLEMS Type Condition ICD9-CM Code ZCO22-ZV Code Onset Dates Condition S tatus SNOMED Code Problem Gastro-esophageal reflux disease without esophagitis K21.9 Active 228220405 Problem Attention-deficit hyperactivity disorder, combined type F90.2 Active 96249583 Problem Bipolar disorder, unspecified F31.9 Active 18650567 Problem Hyperlipidemia, unspecified E78.5 Ac tive 77399636 Problem Hypothyroidism, unspecified E03.9 Ac tive 46535784 Problem Essential (primary) hypertension I10 Active 44012024 Problem Moderate persistent asthma without complication J4 5.40 Active 847555138 Problem Acne vulgaris L70.0 Active 210013 00 Problem Low HDL (under 40) E78.6 Active 3 31770563 Problem Environmental allergies Z91.09 Active 229175034 Problem Intractable migraine, unspecified migraine type G4 3.919 Active 903333917 Problem Morbid obesity due to excess calories E66.01 Active 317081037 Problem Mild intellectual disabilities F70 Active 98962751 Problem Mood disorder F39 Active 306462 05 ALLERGIES No Information ENCOUNTERS Encounter Location Date Diagnosis [address] [address] Dec, [address] [address] Nov, [facility] [address] [facility] [id number] [address] [place] [address] Nov, Bipolar disorder, unspecifie d F31.[address] [address] Nov, [address] [address] Nov, [facility] [address] [facility] [id number] [address] [place] [address] Nov, [facility] [address] [place] [address] Nov, [facility] [address] [place] [address] 07 Nov, 2018 Right knee pain M25.561 [facility] [address] [facility] [place] [address] Nov, [facility] [address] [place] [address] Nov, Morbid obesity due to excess calories E6 6.01 ; Essential (primary) hypertension I10 and Pain in right knee M25.561 [facility] [address] [place] [address] Nov, [facility] [address] [place] [address] Oct, [facility] [address] [place] [address] Oct, [facility] [address] [place] [address] Oct, [facility] [address] [place] [address] Oct, [facility] [address] [place] [address] Sep, [facility] [address] [facility] [id number] [address] [place] [address] Sep, Bipolar disorder, unspecifie d F31.9 [facility] [address] [place] [address] Sep, Low back pain M54.5 ; Environmental fadia rgies Z91.09 ; Low HDL (under 40) E78.6 [address]66.01 [facility] [address] [place] [address] Sep, Mood disorder F39 [facility] [address] [facility] [place] [address] August, Unspecified injury of left ankle, initia l encounter S99.912A and Strain of left ankle, initial encounter S96.912A [address] [address] August, Benign hypertension 401.1 ; Hypothyroid 244.9 ; Essential (primary) hypertension I10 ; Hypothyroidism, unspecified E03.9 and Morbid obesity due to excess calories E66.01 [facility] [address] [facility] [id number] [place] [address] August, Mood disorder F39 [address] [address] Jul, Bipolar disorder, unspecified F31.9 ; Mo od disorder F39 and Morbid obesity E66.[address] [address] Jul, Mood disorder F39 [address] [address] Jul, [facility] [address] [facility] [id number] [place] [address] Jul, Mood disorder F39 and BMI 45 .0-49.9, adult Z68.[address] [address] Jul, [address] [address] Jul, [address] [address] Jul, [address] [address] Jul, [address] [address] Jun, Mood disorder F39 and Bipolar disorder, unspecified F31.[address] [address] Jun, Morbid obesity E66.01 and Pain of left t humb M79.[address] [address] Jun, [facility] [address] [place] [address] Jun, Contusion of thumb S60.019A [address] [address] Jun, [address] [address] Jun, Benign hypertension 401.1 ; Hypothyroid 244.9 ; Essential (primary) hypertension I10 ; Hypothyroidism, unspecified E03.9 ; Morbid obesity due to excess calories E66.01 ; Morbid obesity E66.01 ; Moderate persistent asthma without complication J45.40 ; Low back pain M54.5 and Other chronic pain G89.[address] [address] Jun, Mood disorder F39 and Bipolar disorder, unspecified F31.9 [facility] [address] [place] [address] [id number] May, 201 [address] [place] [id number] [address] [place] [address] Apr, Mood disorder F39 and BMI 45 .0-49.9, adult Z68.42 [facility] [address] [place] [id number] [address] [place] [address] Apr, [place] [id number] [address] [place] [address] Apr, [facility] [address] [place] [address] [id number] Apr, 201 9 Mood disorder F39 and Bipolar disorder, unspecified F31.9 [facility] [address] [place] [id number] [address] [place] [address] Mar, Mood disorder F39 and BMI 45 .0-49.9, adult Z68.42 [facility] [address] [facility] [id number] [address] [place] [address] Feb, Mood disorder F39 and BMI 45 .0-49.9, adult Z68.42 [facility] [address] [facility] [id number] [address] [place] [address] Feb, [facility] [address] [place] [id number] 12 Jan, 8 [facility] [address] [place] [address] [place] [id number] 27 Sep, 201 8 [facility] [address] [facility] [id number] [address] [place] [address] 26 Dec, 2017 [facility] [address] [facility] [address] [place] [id number] 26 Sep, 201 8 BMI 45.0-49.9, adult Z68.42 [facility] [address] [place] [address] [place] [id number] 26 Sep, 201 8 BMI 45.0-49.9, adult Z68.42 and Mood disorder F39 [facility] [address] [facility] [address] [place] [id number] 17 Dec, 8 [facility] [address] [place] [address] [place] [id number] 13 Dec, 201 8 [facility] [address] [facility] [address] [place] [id number] 10 Dec, 8 Bipolar disorder, unspecified F31.9 [facility] [place] [address] [place] [address] 10 August, 18 Bipolar disorder, unspecified F31.9 [facility] [place] [address] [place] [address] 04 August, 18 Bipolar disorder, unspecified F31.9 [facility] [place] [address] [place] [address] 13 Jul, 18 [facility] [place] [address] [place] [address] Jul, 18 [facility] [place] [address] [place] [address] Apr, 18 Bipolar disorder, unspecified F31.9 ; Attention-deficit hyperactivity disorder, combined type F90.2 and Mild intellectual disabilities F70 [facility] [address] [place] [phone] Apr, 18 [facility] [place] [address] [place] [address] 06 Mar, 17 [facility] [place] [address] [place] [phone] Jan, 17 [facility] [address] [place] [address] Dec, 17 [facility] [address] [place] [address] Nov, 17 [facility] [address] [address] Sep, 17 Pain in left shoulder M25.512 ; Intractable migraine, unspecified migraine type G43.919 and Morbid obesity due to excess calories E66.01 [facility] [address] [place] [address] Jul, 17 Right foot pain M79.671 [facility] [address] [address] Jul, 17 Attention- deficit hyperactivity disorder, combined type F90.2 ; Bipolar disorder, unspecified F31.9 ; Right foot pain M79.671 and Postoperative pain, acute, shoulder, left M25.512 [facility] [address] [place] [address] Jun, 17 [facility] [address] [address] Jun, [address] [address] Jun, 17 Pain in left shoulder M25.[address] [address] May, 17 Essential (primary) hypertension I10 ; Hypothyroidism, unspecified E03.9 and Hyperlipidemia, unspecified E78.[address] [address] Apr, [address] [address] Apr, [address] [address] Apr, 17 Pain in left shoulder M25.512 and Other chronic pain G89.29 [facility] [address] [facility] [id number] [address] [place] [address] Apr, [facility] [address] [facility] [id number] [address] [place] [address] Feb, zAna Rosa [address] [address] Feb, 16 Pain in left shoulder M25.512 and Other chronic pain G89.29 [facility] [address] [place] [address] Jan, 16 Bruised ribs, right, subsequent encounter S20.211D ; Acne vulgaris L70.0 and Routine sports physical exam Z02.5 [facility] [address] [place] [address] Nov, 16 Knee pain, right M25.561 ; Environmental allergies Z91.09 ; Attention-deficit hyperactivity disorder, combined type F90.2 and Bipolar disorder, unspecified F31.9 [facility] [address] [place] [address] Nov, 16 [facility] [address] [place] [address] Oct, 16 [facility] [address] [place] [address] Oct, 16 Knee pain, right M25.561 and Pain in left wrist M25.[address] [address] August, 16 [facility] [place] [address] [place] [address] Jul, 16 [facility] [place] [address] [place] [address] Jul, 16 [facility] [place] [address] [place] [address] Jul, 16 Gastro- esophageal reflux disease without esophagitis K21.9 and Pain in left wrist M25.532 [facility] [place] [address] [place] [address] Jul, 16 [facility] [place] [address] [place] [address] Jun, 16 [facility] [place] [address] [place] [address] Jun, 16 Strain of right knee S86.911A and Right knee pain M25.561 [facility] [address] [address] May, 16 Pain in left shoulder M25.512 [facility] [address] [address] May, 16 [facility] [address] [address] Apr, 16 Knee pain, right M25.561 and Left ankle sprain S93.402A [facility] [address] [address] Apr, 16 Knee pain, right M25.561 [facility] [address] [address] Mar, 15 [facility] [address] [address] Mar, 15 Wrist pain, right M25.531 and Constipation K59.00 [facility] [address] [address] Feb, 15 Wrist pain, right M25.[address] [address] Feb, 15 Wrist pain, right M25.531 [facility] [address] [address] Jan, 15 Wrist pain, right M25.[address] [address] Jan, 15 [facility] [address] [address] Dec, 15 Right leg pain 729.5 ; Benign hypertension 401.1 and GERD (gastroesophageal reflux disease) 530.81 [facility] [address] [address] Dec, 15 Dental examination V72.[address] [address] 15 Dec, 15 [facility] [address] [place] [address] 14 Dec, 15 [facility] [address] [place] [address] Nov, Benign hypertension 401.1 ; Hypothyroidism 244.9 and Hyperlipidemia 272.4 [facility] [address] [place] [address] Nov, Benign hypertension 401.1 ; Bipolar 1 disorder 296.7 and GERD (gastroesophageal reflux disease) 530.81 [facility] [address] [place] [address] Sep, [facility] [address] [place] [address] Sep, 15 ADHD (attention deficit hyperactivity disorder), combined type 314.01 ; Bipolar disorder 296.80 ; OCD (obsessive compulsive disorder) 300.3 ; Hyperlipidemia 272.4 ; Hypothyroidism 244.9 and Asthma 493.90 [facility] [address] [place] [id number] [address] [place] [address] Jul, [facility] [address] [address] Jul, [facility] [address] [place] [id number] [address] [place] [address] Mar, IMMUNIZATIONS No Known Immunizations SOCIAL HISTORY Never Assessed REASON FOR VISIT PLAN OF CARE VITAL SIGNS MEDICATIONS No Known Medications RESULTS No Results PROCEDURES Procedure Date Ordered Result Body Site PROPHYLAXIS - ADULT Apr 03, 2014 PANORAMIC FILM SEE ALSO CODE 50620 Apr 03, 2014 BITEWINGS - FOUR FILMS Apr 03, 2014 INTRAORL-PERIAPICAL EA ADD FILM Apr 03, 2014 INTRAORL-PERIAPICAL 1 FILM 64291 Apr 03, 2014 COMP ORAL EVALUATION - NEW/EST PT Apr 03, 2014 INSTRUCTIONS MEDICATIONS ADMINISTERED No Known Medications MEDICAL (GENERAL) HISTORY Type Description Date Medical History Bipolar 1 disorder Medical History Benign hypertension Medical History Asthma Medical History GERD (gastroesophageal reflux disease) Medical History ODD (oppositional defiant disorder) Medical History Hypothyroid Medical History ADHD (attention deficit hyperactivity di sorder) Surgical History tonsillectomy and adenoidectomy Surgical History ear tubes Surgical History left shoulder muscle repair 2017 Hospitalization History Hospitalization for surgery only
--- OUTSIDE RECORDS SUMMARY | 2019-10-29 00:45 | XMS REPORT ---
Author Author Laurent CASTRO [facility] Address [address] [place] [address] Care Team Providers Care Pt Skilled Name Role Phone ADAM CASTRO Unavailable PROBLEMS Type Condition ICD9-CM Code PBA67-VS Code Onset Dates Condition S tatus SNOMED Code Problem Gastro-esophageal reflux disease without esophagitis K21.9 Active 968252920 Problem Attention-deficit hyperactivity disorder, combined type F90.2 Active 02272636 Problem Bipolar disorder, unspecified F31.9 Active 16616319 Problem Hyperlipidemia, unspecified E78.5 Ac tive 65107570 Problem Hypothyroidism, unspecified E03.9 Ac tive 33972949 Problem Essential (primary) hypertension I10 Active 54559750 Problem Moderate persistent asthma without complication J4 5.40 Active 246461786 Problem Acne vulgaris L70.0 Active 164060 00 Problem Low HDL (under 40) E78.6 Active 3 71603501 Problem Environmental allergies Z91.09 Active 772221388 Problem Intractable migraine, unspecified migraine type G4 3.919 Active 166898295 Problem Morbid obesity due to excess calories E66.01 Active 994396379 Problem Mild intellectual disabilities F70 Active 49888312 Problem Mood disorder F39 Active 437129 05 ALLERGIES Substance Reaction Event Type Date Status pedialyte hives Non Drug Allergy Jun, Active ENCOUNTERS Encounter Location Date Diagnosis [address] [address] Dec, [address] [address] Nov, Morbid obesity due to excess calories E6 6.01 ; Essential (primary) hypertension I10 and Pain in right knee M25.[address] [address] Nov, [address] [address] Oct, [address] [address] Oct, [address] [address] Oct, [address] [address] Oct, [address] [address] Sep, [facility] [address] [facility] [id number] [address] [place] [address] Sep, Bipolar disorder, unspecifie d F31.[address] [address] Sep, Low back pain M54.5 ; Environmental fadia rgies Z91.09 ; Low HDL (under 40) E78.6 and Morbid obesity E66.[address] [address] Sep, Mood disorder F39 [facility] [address] [facility] [place] [address] August, Unspecified injury of left ankle, initia l encounter S99.912A and Strain of left ankle, initial encounter S96.912A [address] [address] August, Benign hypertension 401.1 ; Hypothyroid 244.9 ; Essential (primary) hypertension I10 ; Hypothyroidism, unspecified E03.9 and Morbid obesity due to excess calories E66.01 [facility] [address] [facility] [id number] [address] [place] [address] August, Mood disorder F39 [address] [address] Jul, Bipolar disorder, unspecified F31.9 ; Mo od disorder F39 and Morbid obesity E66.[address] [address] Jul, Mood disorder F39 [address] [address] Jul, [facility] [address] [facility] [id number] [address] [place] [address] Jul, Mood disorder F39 and BMI 45 .0-49.9, adult Z68.[address] [address] Jul, [address] [address] Jul, [address] [address] Jul, [address] [address] Jul, [address] [address] Jun, Mood disorder F39 and Bipolar disorder, unspecified F31.[address] [address] Jun, Morbid obesity E66.01 and Pain of left t humb M79.[address] [address] Jun, [facility] [address] [facility] [place] [address] Jun, Contusion of thumb S60.019A [address] [address] Jun, [address] [address] Jun, Benign hypertension 401.1 ; Hypothyroid 244.9 ; Essential (primary) hypertension I10 ; Hypothyroidism, unspecified E03.9 ; Morbid obesity due to excess calories E66.01 ; Morbid obesity E66.01 ; Moderate persistent asthma without complication J45.40 ; Low back pain M54.5 and Other chronic pain G89.[address] [address] Jun, Mood disorder F39 and Bipolar disorder, unspecified F31.9 [facility] [address] [place] [address] 18 Feb, 20 19 [facility] [address] [facility] [id number] [address] [place] [address] Apr, Mood disorder F39 and BMI 45 .0-49.9, adult Z68.42 [facility] [address] [place] [id number] [address] [place] [phone] Apr, [facility] [address] [place] [id number] [address] [place] [address] Apr, [facility] [address] [place] [address] Apr, 19 Mood disorder F39 and Bipolar disorder, unspecified F31.9 [facility] [address] [place] [id number] [place] [address] Mar, Mood disorder F39 and BMI 45 .0-49.9, adult Z68.42 [facility] [address] [place] [id number] [address] [place] [phone] Feb, Mood disorder F39 and BMI 45 .0-49.9, adult Z68.42 [facility] [address] [place] [id number] [address] [place] [phone] Feb, [facility] [address] [place] [address] Jan, 18 [facility] [address] [place] [address] Dec, 18 [facility] [address] [place] [id number] [address] [place] [address] Dec, [facility] [address] [place] [address] Dec, 20 18 BMI 45.0- 49.9, adult Z68.42 [facility] [address] [place] [address] Dec, 20 18 BMI 45.0- 49.9, adult Z68.42 and Mood disorder F39 [facility] [address] [place] [address] 17 Dec, 18 [facility] [address] [place] [address] 13 Dec, 18 [facility] [address] [place] [address] [place] [address] 10 Dec, 18 Bipolar disorder, unspecified F31.9 [facility] [address] [address] [place] [address] 10 August, 18 Bipolar disorder, unspecified F31.9 [facility] [place] [address] [place] [address] August, 18 Bipolar disorder, unspecified F31.9 [facility] [place] [address] [place] [address] Jul, 18 [facility] [address] [place] [address] Jul, 18 [facility] [place] [address] [place] [address] Apr, 18 Bipolar disorder, unspecified F31.9 ; Attention-deficit hyperactivity disorder, combined type F90.2 and Mild intellectual disabilities F70 [facility] [address] [place] [address] 08 Apr, 18 [facility] [place] [address] [place] [address] Mar, 17 [facility] [address] [place] [address] Jan, 17 [facility] [place] [address] [place] [address] Dec, 17 [facility] [place] [address] [place] [address] Nov, 17 [facility] [address] [address] 09 Sep, 17 Pain in left shoulder M25.512 ; Intractable migraine, unspecified migraine type G43.919 and Morbid obesity due to excess calories E66.01 [facility] [address] [place] [address] 14 Jul, 17 Right foot pain M79.[address] [address] Jul, 17 Attention- deficit hyperactivity disorder, combined type F90.2 ; Bipolar disorder, unspecified F31.9 ; Right foot pain M79.671 and Postoperative pain, acute, shoulder, left M25.512 [facility] [address] [place] [address] Jun, 17 [facility] [place] [address] [place] [address] Jun, [address] [address] Jun, 17 Pain in left shoulder M25.[address] [address] May, 17 Essential (primary) hypertension I10 ; Hypothyroidism, unspecified E03.9 and Hyperlipidemia, unspecified E78.5 [facility] [address] [place] [address] Apr, [address] [address] Apr, [address] [address] Apr, 17 Pain in left shoulder M25.512 and Other chronic pain G89.29 [place] [id number] [address] [place] [phone] Apr, [address] [id number] [address] [place] [address] Feb, [address] [address] Feb, 16 Pain in left shoulder M25.512 and Other chronic pain G89.[address] [address] Jan, 16 Bruised ribs, right, subsequent encounter S20.211D ; Acne vulgaris L70.0 and Routine sports physical exam Z02.[address] [address] Nov, 16 Knee pain, right M25.561 ; Environmental allergies Z91.09 ; Attention-deficit hyperactivity disorder, combined type F90.2 and Bipolar disorder, unspecified F31.9 [facility] [place] [address] [place] [address] Nov, 16 [facility] [place] [address] [place] [address] Oct, 16 [facility] [place] [address] [place] [address] Oct, 16 Knee pain, right M25.561 and Pain in left wrist M25.532 [facility] [place] [address] [place] [address] August, 16 [facility] [place] [address] [place] [address] Jul, 16 [facility] [place] [address] [place] [address] Jul, 16 [facility] [place] [address] [place] [address] Jul, 16 Gastro- esophageal reflux disease without esophagitis K21.9 and Pain in left wrist M25.532 [facility] [address] [place] [address] Jul, 16 [facility] [place] [address] [place] [address] Jun, 16 [facility] [place] [address] [place] [address] Jun, 16 Strain of right knee S86.911A and Right knee pain M25.561 [facility] [place] [address] [place] [address] May, 16 Pain in left shoulder M25.512 [facility] [place] [address] [place] [address] May, 16 [facility] [place] [address] [place] [address] Apr, 16 Knee pain, right M25.561 and Left ankle sprain S93.402A [facility] [address] [place] [address] Apr, 16 Knee pain, right M25.561 zAna Roas [place] [address] [place] [address] 16 Mar, 15 [facility] [place] [phone] 04 Mar, 15 Wrist pain, right M25.531 and Constipation K59.00 [facility] [place] [phone] Feb, 15 Wrist pain, right M25.531 [facility] [place] [phone] Feb, 15 Wrist pain, right M25.531 [facility] [place] [phone] Jan, 15 Wrist pain, right M25.531 zAna Rosa [address] [address] Jan, 15 [facility] [address] [address] 29 Dec, 15 Right leg pain 729.5 ; Benign hypertension 401.1 and GERD (gastroesophageal reflux disease) 530.[address] [address] 21 Dec, 15 Dental examination V72.2 [facility] [address] [address] 15 Dec, 15 [facility] [address] [address] 14 Dec, 15 [facility] [place] [phone] Nov, 15 Benign hypertension 401.1 ; Hypothyroidism 244.9 and Hyperlipidemia 272.4 [facility] [place] [phone] Nov, 15 Benign hypertension 401.1 ; Bipolar 1 disorder 296.7 and GERD (gastroesophageal reflux disease) 530.81 [facility] [address] [address] Sep, [address] [address] Sep, ADHD (attention deficit hyperactivity disorder), combined type 314.01 ; Bipolar disorder 296.80 ; OCD (obsessive compulsive disorder) 300.3 ; Hyperlipidemia 272.4 ; Hypothyroidism 244.9 and Asthma 493.90 [facility] [address] [facility] [id number] [address] [place] [phone] Jul, [facility] [address] [facility] [id number] [address] [place] [phone] Jul, [facility] [address] [facility] [id number] [address] [place] [phone] Mar, IMMUNIZATIONS No Known Immunizations SOCIAL HISTORY Never Assessed REASON FOR VISIT Establish Care PLAN OF CARE Activity Details Follow Up 3 Months Reason:fu CHM VITAL SIGNS Height 5'9" in 2018-06-25 Weight 300 lbs 2018-06-25 BMI 44.3 kg/m2 2018-06-25 Blood pressure systolic 118 mmHg 2018-06-25 Blood pressure diastolic 78 mmHg 2018-06-25 MEDICATIONS Medication Instructions Dosage Frequency Start Date End Date Duration S tatus Tolterodine Tartrate ER 4 MG TAKE 1 CAPSULE DAILY. 90 days Active Levothyroxine Sodium 25 MCG Orally Once a day TAKE 1 TABLET BY MOUT H DAILY 24h 90 days Active Trileptal 300 MG Orally Twice a day 1 tablet 12h Feb, Active Metoprolol Succinate ER 25 MG Orally Once a day TAKE 1 TABLET BY MOUTH DAILY 24h 90 days Active Pantoprazole Sodium 40 mg Orally Once a day 1 tablet 24h 90 days Active GuanFACINE HCl ER 2 MG Orally Once a day TAKE 1 TABLET BY MOUTH DAILY 24h 90 days Active Celecoxib 200 mg Orally daily TAKE 2 CAPSULEs BY MOUTH DAILY 24h 30 days Active Simvastatin 10 mg Orally Once a day TAKE 1 TABLET DAILY IN THE EVENING 24h 90 days Active HydrOXYzine HCl 25 mg TAKE 1 TABLET BY MOUTH TWICE DAILY 90 days Active Escitalopram Oxalate 20 mg [...]
--- OUTSIDE RECORDS SUMMARY | 2019-10-29 00:45 | XMS REPORT ---
Author Author Laurent CASTRO [facility] Address [address] [place] [address] Care Team Providers Care Machinist Helper Name Role Phone DAAM CASTRO Unavailable PROBLEMS Type Condition ICD9-CM Code [id number] Code Onset Dates Condition S tatus SNOMED Code Problem Gastro-esophageal reflux disease without esophagitis K21.9 Active 048935186 Problem Attention-deficit hyperactivity disorder, combined type F90.2 Active 66453389 Problem Bipolar disorder, unspecified F31.9 Active 04489436 Problem Hyperlipidemia, unspecified E78.5 Ac tive 04460971 Problem Hypothyroidism, unspecified E03.9 Ac tive 41206522 Problem Essential (primary) hypertension I10 Active 38112726 Problem Moderate persistent asthma without complication J4 5.40 Active 262543711 Problem Acne vulgaris L70.0 Active 898242 00 Problem Low HDL (under 40) E78.6 Active 3 96204319 Problem Environmental allergies Z91.09 Active 699278350 Problem Intractable migraine, unspecified migraine type G4 3.919 Active 271202811 Problem Morbid obesity due to excess calories E66.01 Active 297403457 Problem Mild intellectual disabilities F70 Active 43029256 Problem Mood disorder F39 Active 274970 05 ALLERGIES No Information ENCOUNTERS Encounter Location Date Diagnosis [address] [address] Dec, [address] [address] Nov, Morbid obesity due to excess calories E6 6.01 ; Essential (primary) hypertension I10 and Pain in right knee M25.[address] [address] Nov, [address] [address] Oct, [address] [address] Oct, [address] [address] Oct, [address] [address] Oct, [address] [address] Sep, [facility] [address] [facility] [id number] [address] [place] [address] Sep, Bipolar disorder, unspecifie d F31.[address] [address] Sep, Low back pain M54.5 ; Environmental fadia rgies Z91.09 ; Low HDL (under 40) E78.6 and Morbid obesity E66.[address] [address] Sep, Mood disorder F39 [facility] [address] [place] [place] [address] August, Unspecified injury of left ankle, initia l encounter S99.912A and Strain of left ankle, initial encounter S96.912A [address] [address] August, Benign hypertension 401.1 ; Hypothyroid 244.9 ; Essential (primary) hypertension I10 ; Hypothyroidism, unspecified E03.9 and Morbid obesity due to excess calories E66.01 [facility] [address] [facility] [id number] [address] [place] [address] August, Mood disorder F39 [address] [address] Jul, Bipolar disorder, unspecified F31.9 ; Mo od disorder F39 and Morbid obesity E66.[address] [address] Jul, Mood disorder F39 [address] [address] Jul, [facility] [address] [facility] [id number] [address] [place] [address] Jul, Mood disorder F39 and BMI 45 .0-49.9, adult Z68.[address] [address] Jul, [address] [address] Jul, [address] [address] Jul, [address] [address] Jul, [address] [address] Jun, Mood disorder F39 and Bipolar disorder, unspecified F31.[address] [address] Jun, Morbid obesity E66.01 and Pain of left t humb M79.[address] [address] Jun, [facility] [address] [place] [address] Jun, Contusion of thumb S60.019A [address] [address] Jun, [address] [address] Jun, Benign hypertension 401.1 ; Hypothyroid 244.9 ; Essential (primary) hypertension I10 ; Hypothyroidism, unspecified E03.9 ; Morbid obesity due to excess calories E66.01 ; Morbid obesity E66.01 ; Moderate persistent asthma without complication J45.40 ; Low back pain M54.5 and Other chronic pain G89.[address] [address] Jun, Mood disorder F39 and Bipolar disorder, unspecified F31.9 [facility] [address] [place] [address] May, [facility] [address] [facility] [id number] [address] [place] [address] Apr, Mood disorder F39 and BMI 45 .0-49.9, adult Z68.42 [facility] [address] [place] [id number] [address] [place] [address] Apr, [facility] [address] [place] [id number] [address] [place] [address] Apr, [facility] [address] [place] [address] Apr, 19 Mood disorder F39 and Bipolar disorder, unspecified F31.9 [facility] [address] [place] [id number] [address] [place] [address] Mar, Mood disorder F39 and BMI 45 .0-49.9, adult Z68.42 [facility] [address] [place] [id number] [address] [place] [address] Feb, Mood disorder F39 and BMI 45 .0-49.9, adult Z68.42 [facility] [address] [place] [id number] [address] [place] [address] Feb, [facility] [place] [address] [place] [address] Jan, 18 [facility] [address] [place] [address] 27 Dec, [address] [place] [id number] [address] [place] [address] Dec, [facility] [address] [place] [address] 26 Dec, 20 18 BMI 45.0- 49.9, adult Z68.42 [facility] [place] [address] [place] [address] 26 Dec, 20 18 BMI 45.0- 49.9, adult Z68.42 and Mood disorder F39 [facility] [address] [place] [address] 17 Dec, 20 18 [facility] [address] [place] [address] 13 Dec, 18 [facility] [address] [place] [address] 10 Dec, 18 Bipolar disorder, unspecified F31.9 [facility] [address] [place] [address] August, 18 Bipolar disorder, unspecified F31.9 [facility] [place] [address] [place] [address] August, 18 Bipolar disorder, unspecified F31.9 [facility] [place] [address] [place] [address] Jul, 18 [facility] [place] [address] [place] [address] Jul, 18 [facility] [place] [address] [place] [address] Apr, 18 Bipolar disorder, unspecified F31.9 ; Attention-deficit hyperactivity disorder, combined type F90.2 and Mild intellectual disabilities F70 [facility] [place] [address] [place] [address] Apr, 18 [facility] [place] [address] [place] [address] Mar, 17 [facility] [place] [address] [place] [address] Jan, 17 [facility] [place] [address] [place] [address] Dec, 17 [facility] [place] [address] [place] [address] Nov, 17 [facility] [address] [address] Sep, 17 Pain in left shoulder M25.512 ; Intractable migraine, unspecified migraine type G43.919 and Morbid obesity due to excess calories E66.01 [facility] [address] [place] [address] 14 Jul, 17 Right foot pain M79.671 [facility] [place] [address] [place] [address] 12 Jul, 17 Attention- deficit hyperactivity disorder, combined type F90.2 ; Bipolar disorder, unspecified F31.9 ; Right foot pain M79.671 and Postoperative pain, acute, shoulder, left M25.[address] [address] Jun, [address] [address] Jun, [address] [address] Jun, 17 Pain in left shoulder M25.[address] [address] May, 17 Essential (primary) hypertension I10 ; Hypothyroidism, unspecified E03.9 and Hyperlipidemia, unspecified E78.[address] [address] Apr, [address] [address] Apr, [address] [address] Apr, 17 Pain in left shoulder M25.512 and Other chronic pain G89.29 [place] [id number] [address] [place] [address] Apr, [facility] [address] [place], [place] [id number] [address] [place] [address] Feb, [address] [address] Feb, 16 Pain in left shoulder M25.512 and Other chronic pain G89.[address] [address] Jan, 16 Bruised ribs, right, subsequent encounter S20.211D ; Acne vulgaris L70.0 and Routine sports physical exam Z02.[address] [address] Nov, 16 Knee pain, right M25.561 ; Environmental allergies Z91.09 ; Attention-deficit hyperactivity disorder, combined type F90.2 and Bipolar disorder, unspecified F31.9 [facility] [place] [address] [place] [address] Nov, 16 [facility] [place] [address] [place] [address] Oct, 16 [facility] [place] [address] [place] [address] Oct, 16 Knee pain, right M25.561 and Pain in left wrist M25.532 [facility] [place] [address] [place] [address] August, 16 [facility] [place] [address] [place] [address] Jul, 16 [facility] [place] [address] [place] [address] Jul, 16 [facility] [place] [address] [place] [address] Jul, 16 Gastro- esophageal reflux disease without esophagitis K21.9 and Pain in left wrist M25.532 [facility] [place] [address] [place] [address] Jul, 16 [facility] [place] [address] [place] [address] Jun, 16 [facility] [place] [address] [place] [address] Jun, 16 Strain of right knee S86.911A and Right knee pain M25.561 [facility] [place] [address] [place] [address] May, 16 Pain in left shoulder M25.512 [facility] [place] [address] [place] [address] May, 16 [facility] [place] [address] [place] [address] Apr, 16 Knee pain, right M25.561 and Left ankle sprain S93.402A [facility] [place] [address] [place] [address] Apr, 16 Knee pain, right M25.561 [facility] [place] [address] [place] [address], [place] [address] 16 Mar, [address] [address] 04 Mar, 15 Wrist pain, right M25.531 and Constipation K59.00 zAna Rosa [address] [address] 30 Feb, 15 Wrist pain, right M25.531 [facility] [place] [address] 18 Feb, 15 Wrist pain, right M25.531 [facility] [address] [address] Jan, 15 Wrist pain, right M25.531 [facility] [address] [address] Jan, 15 [facility] [address] [address] 29 Dec, 15 Right leg pain 729.5 ; Benign hypertension 401.1 and GERD (gastroesophageal reflux disease) 530.81 [facility] [address] [address] 21 Dec, 15 Dental examination V72.2 [facility] [address] [address] 15 Dec, 15 [facility] [address] [address] 14 Dec, 15 [facility] [address] [address] 13 Nov, 15 Benign hypertension 401.1 ; Hypothyroidism 244.9 and Hyperlipidemia 272.4 [facility] [address] [address] 11 Nov, 15 Benign hypertension 401.1 ; Bipolar 1 disorder 296.7 and GERD (gastroesophageal reflux disease) 530.81 [facility] [address] [address] 29 Sep, 15 [facility] [address] [address] Sep, 15 ADHD (attention deficit hyperactivity disorder), combined type 314.01 ; Bipolar disorder 296.80 ; OCD (obsessive compulsive disorder) 300.3 ; Hyperlipidemia 272.4 ; Hypothyroidism 244.9 and Asthma 493.90 [facility] [address] [facility] [id number] [address] [place] [address] Jul, [facility] [address] [facility] [id number] [address] [place] [address] Jul, [facility] [address] [facility] [id number] [address] [place] [address] Mar, IMMUNIZATIONS No Known Immunizations SOCIAL HISTORY Never Assessed REASON FOR VISIT Repository medication PLAN OF CARE VITAL SIGNS MEDICATIONS Medication Instructions Dosage Frequency Start Date End Date Duration S tatus Celecoxib 200 mg Orally daily TAKE 2 CAPSULEs BY MOUTH DAILY 24h 90 days Active ProAir HFA 108 (90 Base) MCG/ACT Inhalation every 6 hrs 2 puffs as needed 6h Jun, 30 days Active RESULTS No Results PROCEDURES [...]
--- OUTSIDE RECORDS SUMMARY | 2019-10-29 00:45 | XMS REPORT ---
Author Author Laurent Patiño Doctor Organization [facility] Address Unknown Phone Unavailable Care Team Providers Care Assignment Desk Assistant Name Role Phone Migration, Doctor Unavailable Unavailable PROBLEMS Type Condition ICD9-CM Code HMJ73-BL Code Onset Dates Condition S tatus SNOMED Code Problem Gastro-esophageal reflux disease without esophagitis K21.9 Active 726406907 Problem Constipation K59.00 Active 1531758 8 Problem Attention-deficit hyperactivity disorder, combined type F90.2 Active 51648098 Problem Bipolar disorder, unspecified F31.9 Active 53526166 Problem Other chronic pain G89.29 Active 8 3133288 Problem Hyperlipidemia, unspecified E78.5 Ac tive 75854110 Problem Hypothyroidism, unspecified E03.9 Ac tive 16922681 Problem Mood disorder F39 Active 907975 05 Problem Acne vulgaris L70.0 Active 378011 00 Problem Moderate persistent asthma without complication J4 5.40 Active 023436584 Problem Environmental allergies Z91.09 Active 625704207 Problem Essential (primary) hypertension I10 Active 32997508 Problem Morbid obesity due to excess calories E66.01 Active 981063677 Problem Intractable migraine, unspecified migraine type G4 3.919 Active 143080599 Problem Mild intellectual disabilities F70 Active 41045805 ALLERGIES No Information ENCOUNTERS Encounter Location Date Diagnosis [address] [address] Sep, [facility] [address] [facility] [id number] [address] [place] [address] August, [address] [address] Jul, Bipolar disorder, unspecified F31.9 ; Mo od disorder F39 and Morbid obesity E66.[address] [address] Jul, Mood disorder F39 [address] [address] Jul, [facility] [address] [facility] [id number] [address] [place] [address] Jul, Mood disorder F39 and BMI 45 .0-49.9, adult Z68.[address] [address] Jul, [address] [address] Jul, [address] [address] Jul, [address] [address] Jul, [address] [address] Jun, Mood disorder F39 and Bipolar disorder, unspecified F31.[address] [address] Jun, Morbid obesity E66.01 and Pain of left t humb M79.[address] [address] Jun, [facility] [address] [facility] [place] [address] Jun, Contusion of thumb S60.019A [address] [address] Jun, [address] [address] Jun, Benign hypertension 401.1 ; Hypothyroid 244.9 ; Essential (primary) hypertension I10 ; Hypothyroidism, unspecified E03.9 ; Morbid obesity due to excess calories E66.01 ; Morbid obesity E66.01 ; Moderate persistent asthma without complication J45.40 ; Low back pain M54.5 and Other chronic pain G89.[address] [address] Jun, Mood disorder F39 and Bipolar disorder, unspecified F31.9 [facility] [address] [place] [address] May, [facility] [address] [place] [id number] [address] [place] [address] Apr, Mood disorder F39 and BMI 45 .0-49.9, adult Z68.42 [facility] [address] [place] [id number] [address] [place] [address] Apr, [facility] [address] [place] [id number] [address] [place] [address] Apr, [facility] [address] [place] [address] Apr, 19 Mood disorder F39 and Bipolar disorder, unspecified F31.9 [facility] [address] [place] [id number] [address] [place] [address] Mar, Mood disorder F39 and BMI 45 .0-49.9, adult Z68.42 [facility] [address] [place] [id number] [address] [place] [address] Feb, Mood disorder F39 and BMI 45 .0-49.9, adult Z68.42 [facility] [address] [place] [id number] [address] [place] [address] Feb, [facility] [place] [address] [place] [address] 12 Jan, 18 [facility] [place] [address] [place] [address] 27 Dec, 18 [facility] [address] [place] [id number] [address] [place] [address] Dec, [facility] [address] [place] [address] 26 Dec, 18 BMI 45.0- 49.9, adult Z68.42 [facility] [place] [address] [place] [address] 26 Dec, 18 BMI 45.0- 49.9, adult Z68.42 and Mood disorder F39 [facility] [address] [place] [address] 17 Dec, 18 [facility] [address] [place] [address] 13 Dec, 18 [facility] [address] [place] [address] [place] [address] 10 Dec, 18 Bipolar disorder, unspecified F31.9 [facility] [address] [place] [address] August, 18 Bipolar disorder, unspecified F31.9 [facility] [address] [place] [address] August, 18 Bipolar disorder, unspecified F31.9 [facility] [place] [address] [place] [address] Jul, 18 [facility] [address] [place] [address] Jul, 18 [facility] [place] [address] [place] [address] Apr, 18 Bipolar disorder, unspecified F31.9 ; Attention-deficit hyperactivity disorder, combined type F90.2 and Mild intellectual disabilities F70 [facility] [address] [place] [address] Apr, 18 [facility] [place] [address] [place] [address] Mar, 17 [facility] [place] [address] [place] [address] Jan, 17 [facility] [place] [address] [place] [address] Dec, 17 [facility] [address] [address] Nov, 17 [facility] [address] [address] Sep, 17 Pain in left shoulder M25.512 ; Intractable migraine, unspecified migraine type G43.919 and Morbid obesity due to excess calories E66.01 [facility] [address] [place] [address] 14 Jul, 17 Right foot pain M79.[address] [address] 12 Jul, 17 Attention- deficit hyperactivity disorder, combined type F90.2 ; Bipolar disorder, unspecified F31.9 ; Right foot pain M79.671 and Postoperative pain, acute, shoulder, left M25.[address] [address] Jun, 17 [facility] [address] [address] Jun, [address] [address] Jun, 17 Pain in left shoulder M25.[address] [address] May, 17 Essential (primary) hypertension I10 ; Hypothyroidism, unspecified E03.9 and Hyperlipidemia, unspecified E78.[address] [address] Apr, [address] [address] Apr, [address] [address] Apr, 17 Pain in left shoulder M25.512 and Other chronic pain G89.29 [place] [id number] [address] [place] [address] Apr, [place] [id number] [address] [place] [address] Feb, [address] [address] Feb, 16 Pain in left shoulder M25.512 and Other chronic pain G89.[address] [address] Jan, 16 Bruised ribs, right, subsequent encounter S20.211D ; Acne vulgaris L70.0 and Routine sports physical exam Z02.[address] [address] Nov, 16 Knee pain, right M25.561 ; Environmental allergies Z91.09 ; Attention-deficit hyperactivity disorder, combined type F90.2 and Bipolar disorder, unspecified F31.9 [facility] [place] [address] [place] [address] Nov, 16 [facility] [place] [address] [place] [address] Oct, 16 [facility] [place] [address] [place] [address] Oct, 16 Knee pain, right M25.561 and Pain in left wrist M25.532 [facility] [place] [address] [place] [address] August, 16 [facility] [place] [address] [place] [address] Jul, 16 [facility] [place] [address] [place] [address] Jul, 16 [facility] [place] [address] [place] [address] Jul, 16 Gastro- esophageal reflux disease without esophagitis K21.9 and Pain in left wrist M25.532 [facility] [place] [address] [place] [address] Jul, 16 [facility] [place] [address] [place] [address] Jun, 16 [facility] [place] [address] [place] [address] Jun, 16 Strain of right knee S86.911A and Right knee pain M25.561 [facility] [place] [address] [place] [address] May, 16 Pain in left shoulder M25.512 [facility] [place] [address] [place] [address] May, 16 [facility] [place] [address] [place] [address] Apr, 16 Knee pain, right M25.561 and Left ankle sprain S93.402A [facility] [place] [address] [place] [address] Apr, 16 Knee pain, right M25.561 [facility] [place] [address] [place] [address] 16 Mar, 15 [facility] [place] [address] 04 Mar, 15 Wrist pain, right M25.531 and Constipation K59.00 [facility] [place] [address] [place] [address] 30 Feb, 15 Wrist pain, right M25.531 [facility] [address] [address] Feb, 15 Wrist pain, right M25.531 [facility] [address] [address] Jan, 15 Wrist pain, right M25.[address] [address] Jan, 15 [facility] [address] [address] 29 Dec, 15 Right leg pain 729.5 ; Benign hypertension 401.1 and GERD (gastroesophageal reflux disease) 530.81 [facility] [address] [address] 21 Dec, 15 Dental examination V72.2 [facility] [address] [address] 15 Dec, [address] [facility] [address] [address] 14 Dec, 15 [facility] [address] [address] Nov, 15 Benign hypertension 401.1 ; Hypothyroidism 244.9 and Hyperlipidemia 272.4 [facility] [address] [address] Nov, 15 Benign hypertension 401.1 ; Bipolar 1 disorder 296.7 and GERD (gastroesophageal reflux disease) 530.81 [facility] [address] [address] Sep, [address] [address] 26 Ben, 20 15 ADHD (attention deficit hyperactivity disorder), combined type 314.01 ; Bipolar disorder 296.80 ; OCD (obsessive compulsive disorder) 300.3 ; Hyperlipidemia 272.4 ; Hypothyroidism 244.9 and Asthma 493.90 [facility] [address] [facility] [id number] [address] [place] [address] Jul, [facility] [address] [facility] [id number] [address] [place] [address] Jul, [facility] [address] [facility] [id number] [address] [place] [address] Mar, IMMUNIZATIONS No Known Immunizations SOCIAL HISTORY Never Assessed REASON FOR VISIT EMR-[facility] [place] PLAN OF CARE VITAL SIGNS MEDICATIONS Unknown [...]
--- OUTSIDE RECORDS SUMMARY | 2019-10-29 00:45 | XMS REPORT ---
Author Author Laurent FERNANDEZ [facility] [place] Address [address] [place] [address] Care Team Providers Care District Gauger Name Role Phone COLLIN FERNANDEZ Unavailable PROBLEMS Type Condition ICD9-CM Code [id number] Code Onset Dates Condition S tatus SNOMED Code Problem Gastro-esophageal reflux disease without esophagitis K21.9 Active 959631182 Problem Attention-deficit hyperactivity disorder, combined type F90.2 Active 18782493 Problem Bipolar disorder, unspecified F31.9 Active 36701566 Problem Hyperlipidemia, unspecified E78.5 Ac tive 45251145 Problem Hypothyroidism, unspecified E03.9 Ac tive 11044533 Problem Essential (primary) hypertension I10 Active 95574430 Problem Moderate persistent asthma without complication J4 5.40 Active 925592337 Problem Acne vulgaris L70.0 Active 988041 00 Problem Low HDL (under 40) E78.6 Active 3 57314901 Problem Environmental allergies Z91.09 Active 985685860 Problem Intractable migraine, unspecified migraine type G4 3.919 Active 495591698 Problem Morbid obesity due to excess calories E66.01 Active 426107336 Problem Mild intellectual disabilities F70 Active 52754456 Problem Mood disorder F39 Active 660893 05 ALLERGIES Substance Reaction Event Type Date Status pedialyte hives Non Drug Allergy Jun, Active ENCOUNTERS Encounter Location Date Diagnosis [facility] [address] [address] Dec, [address] [address] Nov, [facility] [address] [place] [address] Nov, Right knee pain M25.561 [facility] [address] [place] [address] Nov, [address] [place] [address] Nov, Morbid obesity due to excess calories E6 6.01 ; Essential (primary) hypertension I10 and Pain in right knee M25.561 [facility] [place] [address] [place] [address] Nov, [facility] [place] [address] [address] Oct, [address] [address] Oct, [address] [address] Oct, [address] [address] Oct, [address] [address] Sep, [facility] [address] [id number] [address] [place] [address] Sep, Bipolar disorder, unspecifie d F31.[address] [address] Sep, Low back pain M54.5 ; Environmental fadia rgies Z91.09 ; Low HDL (under 40) E78.6 and Morbid obesity E66.[address] [address] Sep, Mood disorder F39 [facility] [address] [facility] [place] [address] August, Unspecified injury of left ankle, initia l encounter S99.912A and Strain of left ankle, initial encounter S96.912A [address] [address] August, Benign hypertension 401.1 ; Hypothyroid 244.9 ; Essential (primary) hypertension I10 ; Hypothyroidism, unspecified E03.9 and Morbid obesity due to excess calories E66.01 [facility] [address] [id number] [address] [place] [address] August, Mood disorder F39 [facility] [address] [address] Jul, Bipolar disorder, unspecified F31.9 ; Mo od disorder F39 and Morbid obesity E66.[address] [address] Jul, Mood disorder F39 [address] [address] Jul, [facility] [address] [facility] [id number] [address] [place] [address] Jul, Mood disorder F39 and BMI 45 .0-49.9, adult Z68.[address] [address] Jul, [address] [address] Jul, [address] [address] Jul, [address] [address] Jul, [address] [address] Jun, Mood disorder F39 and Bipolar disorder, unspecified F31.[address] [address] Jun, Morbid obesity E66.01 and Pain of left t humb M79.[address] [address] Jun, [facility] [address] [facility] [place] [address] Jun, Contusion of thumb S60.019A [address] [address] Jun, [address] [address] Jun, Benign hypertension 401.1 ; Hypothyroid 244.9 ; Essential (primary) hypertension I10 ; Hypothyroidism, unspecified E03.9 ; Morbid obesity due to excess calories E66.01 ; Morbid obesity E66.01 ; Moderate persistent asthma without complication J45.40 ; Low back pain M54.5 and Other chronic pain G89.[address] [address] Jun, Mood disorder F39 and Bipolar disorder, unspecified F31.[address] [place] [address] May, 19 [facility] [address] [place] [id number] [address] [place] [address] Apr, Mood disorder F39 and BMI 45 .0-49.9, adult Z68.42 [facility] [address] [place] [id number] [address] [place] [address] Apr, [facility] [address] [place] [id number] [address] [place] [address] Apr, [address] [place] [address] Apr, 19 Mood disorder F39 and Bipolar disorder, unspecified F31.9 [facility] [address] [place] [id number] [address] [place] [address] Mar, Mood disorder F39 and BMI 45 .0-49.9, adult Z68.42 [facility] [address] [place] [id number] [address] [place] [address] Feb, Mood disorder F39 and BMI 45 .0-49.9, adult Z68.42 [facility] [address] [place] [id number] [address] [place] [address] Feb, [facility] [address] [place] [address] Jan, 18 [facility] [place] [address] [place] [address] Dec, 18 [facility] [address] [place] [id number] [address] [place] [address] Dec, [facility] [place] [address] [place] [address] Dec, 18 BMI 45.0- 49.9, adult Z68.42 [facility] [address] [place] [address] [place] [address] 26 Dec, 18 BMI 45.0- 49.9, adult Z68.42 and Mood disorder F39 [facility] [address] [place] [address] [place] [address] 17 Dec, 18 [facility] [address] [place] [address] [place] [address] 13 Dec, 18 [facility] [address] [place] [address] [place] [address] 10 Dec, 18 Bipolar disorder, unspecified F31.9 [facility] [address] [place] [address] August, 18 Bipolar disorder, unspecified F31.9 [facility] [place] [address] [place] [address] August, 18 Bipolar disorder, unspecified F31.9 [facility] [place] [address] [place] [address] Jul, 18 [facility] [place] [address] [place] [address] Jul, 18 [facility] [place] [address] [place] [address] Apr, 18 Bipolar disorder, unspecified F31.9 ; Attention-deficit hyperactivity disorder, combined type F90.2 and Mild intellectual disabilities F70 [facility] [place] [address] [place] [address] Apr, 18 [facility] [place] [address] [place] [address] Mar, 17 [facility] [place] [address] [place] [address] Jan, 17 [facility] [place] [address] [place] [address] Dec, 17 [facility] [place] [address] [place] [address] Nov, 17 [facility] [place] [address] [place] [address] Sep, 17 Pain in left shoulder M25.512 ; Intractable migraine, unspecified migraine type G43.919 and Morbid obesity due to excess calories E66.01 [facility] [place] [address] [place] [address] Jul, 17 Right foot pain M79.671 [facility] [place] [address] [place] [address] Jul, 17 Attention- deficit hyperactivity disorder, combined type F90.2 ; Bipolar disorder, unspecified F31.9 ; Right foot pain M79.671 and Postoperative pain, acute, shoulder, left M25.512 [facility] [place] [address] [place] [address] Jun, [address] [facility] [address] [address] Jun, [address] [address] Jun, 17 Pain in left shoulder M25.[address] [address] May, 17 Essential (primary) hypertension I10 ; Hypothyroidism, unspecified E03.9 and Hyperlipidemia, unspecified E78.5 [facility] [address] [place] [address] Apr, 17 [facility] [address] [address] Apr, 17 [facility] [address] [address] Apr, 17 Pain in left shoulder M25.512 and Other chronic pain G89.29 [facility] [address] [facility] [id number] [address] [place] [address] Apr, [facility] [address] [facility] [id number] [address] [place] [address] Feb, [address] [address] Feb, 16 Pain in left shoulder M25.512 and Other chronic pain G89.[address] [place] [address] 04 Jan, 16 Bruised ribs, right, subsequent encounter S20.211D ; Acne vulgaris L70.0 and Routine sports physical exam Z02.[address] [address] Nov, 16 Knee pain, right M25.561 ; Environmental allergies Z91.09 ; Attention-deficit hyperactivity disorder, combined type F90.2 and Bipolar disorder, unspecified F31.9 [facility] [address] [place] [address] Nov, 16 [facility] [address] [address] Oct, [address] [address] Oct, 16 Knee pain, right M25.561 and Pain in left wrist M25.[address] [address] August, [address] [address] Jul, [address] [address] Jul, [address] [address] Jul, 16 Gastro- esophageal reflux disease without esophagitis K21.9 and Pain in left wrist M25.[address] [address] Jul, [facility] [address] [address] Jun, 16 [facility] [address] [address] Jun, 16 Strain of right knee S86.911A and Right knee pain M25.[address] [address] 15 May, 16 Pain in left shoulder M25.[address] [place] [address] May, [address] [address] Apr, 16 Knee pain, right M25.561 and Left ankle sprain S93.402A [facility] [address] [address] Apr, 16 Knee pain, right M25.561 [facility] [address] [address] Mar, [facility] [address] [address] Mar, 15 Wrist pain, right M25.531 and Constipation K59.[address] [address] Feb, 15 Wrist pain, right M25.[address] [address] Feb, 15 Wrist pain, right M25.[address] [address] Jan, 15 Wrist pain, right M25.[address] [address] Jan, 15 [facility] [address] [address] Dec, 15 Right leg pain 729.5 ; Benign hypertension 401.1 and GERD (gastroesophageal reflux disease) 530.[address] [address] Dec, 15 Dental examination V72.2 [facility] [address] [address] 15 Dec, 15 [facility] [address] [address] 14 Dec, 15 [facility] [address] [address] Nov, 15 Benign hypertension 401.1 ; Hypothyroidism 244.9 and Hyperlipidemia 272.[address] [place] [address] Nov, Benign hypertension 401.1 ; Bipolar 1 disorder 296.7 and GERD (gastroesophageal reflux disease) 530.81 [facility] [address] [place] [address] Sep, [address] [address] Sep, ADHD (attention deficit hyperactivity disorder), combined type 314.01 ; Bipolar disorder 296.80 ; OCD (obsessive compulsive disorder) 300.3 ; Hyperlipidemia 272.4 ; Hypothyroidism 244.9 and Asthma 493.[address] [place] [address] Jul, [address] [id number] [address] [place] [address] Jul, [address] [id number] [address] [place] [address] Mar, IMMUNIZATIONS No Known Immunizations SOCIAL HISTORY Never Assessed REASON FOR VISIT First digit of left hand slammed in door at noon today. Pt reports hearing a " popping" sound. Self-treatment with ice and 800 mg Ibuprofen. [facility] OF CARE Activity Details Follow Up prn Reason: VITAL SIGNS Height 5'9" in 2018-06-28 Weight 298.5 lbs 2018-06-28 Temperature 98.4 degrees Fahrenheit 2018-06-28 Heart Rate 52 bpm 2018-06-28 Respiratory Rate 20 2018-06-28 BMI 44.08 kg/m2 2018-06-28 MEDICATIONS Medication Instructions Dosage Frequency Start Date End Date Duration S tatus Pantoprazole Sodium 40 mg Orally Once a day 1 tablet 24h 90 days Active Celecoxib 200 mg Orally daily TAKE 2 CAPSULEs BY MOUTH DAILY 24h 30 days Active GuanFACINE HCl ER 2 MG Orally Once a day TAKE 1 TABLET BY MOUTH DAILY 24h 90 days Active Escitalopram Oxalate 20 mg Orally Once a day 1 tablet 24h 90 days Active HydrOXYzine HCl 25 mg TAKE 1 TABLET BY MOUTH TWICE DAILY 90 days Active Trileptal 300 MG Orally [...] MOUT H DAILY 24h 90 days Active RESULTS No [...]
--- OUTSIDE RECORDS SUMMARY | 2019-10-29 00:45 | XMS REPORT ---
Author Author Laurent CASTRO [facility] Address [address] [place] [address] Care Team Providers Care Marketing Analytics Specialist Name Role Phone ADAM CASTRO Unavailable PROBLEMS Type Condition ICD9-CM Code [id number] Code Onset Dates Condition S tatus SNOMED Code Problem Acne vulgaris L70.0 Active 187792 00 Problem Environmental allergies Z91.09 Active 713348044 Problem Hyperlipidemia, unspecified E78.5 Ac tive 30129918 Problem Other chronic pain G89.29 Active 8 2120025 Problem Essential (primary) hypertension I10 Active 74429451 Problem Hypothyroidism, unspecified E03.9 Ac tive 53637332 Problem Morbid obesity due to excess calories E66.01 Active 765483169 Problem Constipation K59.00 Active 5672060 8 Problem Intractable migraine, unspecified migraine type G4 3.919 Active 146847510 Problem Moderate persistent asthma without complication J4 5.40 Active 423148900 Problem Low HDL (under 40) E78.6 Active 3 54707378 Problem ODD (oppositional defiant disorder) 313.81 Active 35079481 Problem GERD (gastroesophageal reflux disease) 530.81 Active 076756281 Problem Mood disorder F39 Active 842360 05 Problem Bipolar disorder, unspecified F31.9 Active 96388759 Problem Asthma 493.90 Active 603638207 Problem Mild intellectual disabilities F70 Active 13003183 Problem Gastro-esophageal reflux disease without esophagitis K21.9 Active 355748982 Problem Attention-deficit hyperactivity disorder, combined type F90.2 Active 90068351 Problem Benign hypertension 401.1 Active 82992653 Problem Hypothyroid 244.9 Active 16102536 Problem ADHD (attention deficit hyperactivity disorder) 314.01 Active 933969525 Problem Bipolar 1 disorder 296.7 Active 3 [id number] ALLERGIES No Information ENCOUNTERS Encounter Location Date Diagnosis [address] [address] Nov, [facility] [address] [address] Oct, [address] [address] Oct, [address] [address] Oct, [address] [address] Sep, [facility] [address] [facility] [id number] [address] [place] [address] Sep, Bipolar disorder, unspecifie d F31.[address] [address] Sep, Low back pain M54.5 ; Environmental fadia rgies Z91.09 ; Low HDL (under 40) E78.6 and Morbid obesity E66.[address] [address] Sep, Mood disorder F39 [facility] [address] [facility] [place] [address] August, Unspecified injury of left ankle, initia l encounter S99.912A and Strain of left ankle, initial encounter S96.912A [address] [address] August, Benign hypertension 401.1 ; Hypothyroid 244.9 ; Essential (primary) hypertension I10 ; Hypothyroidism, unspecified E03.9 and Morbid obesity due to excess calories E66.01 [facility] [address] [facility] [id number] [address] [place] [address] August, Mood disorder F39 [address] [address] Jul, Bipolar disorder, unspecified F31.9 ; Mo od disorder F39 and Morbid obesity E66.[address] [address] Jul, Mood disorder F39 [address] [address] Jul, [facility] [address] [facility] [id number] [address] [place] [address] Jul, Mood disorder F39 and BMI 45 .0-49.9, adult Z68.[address] [address] Jul, [address] [address] Jul, [address] [address] Jul, [address] [address] Jul, [address] [address] Jun, Mood disorder F39 and Bipolar disorder, unspecified F31.[address] [address] Jun, Morbid obesity E66.01 and Pain of left t humb M79.[address] [address] Jun, [facility] [address] [facility] [place] [address] Jun, Contusion of thumb S60.019A [address] [address] Jun, [address] [address] Jun, Benign hypertension 401.1 ; Hypothyroid 244.9 ; Essential (primary) hypertension I10 ; Hypothyroidism, unspecified E03.9 ; Morbid obesity due to excess calories E66.01 ; Morbid obesity E66.01 ; Moderate persistent asthma without complication J45.40 ; Low back pain M54.5 and Other chronic pain G89.[address] [address] Jun, Mood disorder F39 and Bipolar disorder, unspecified F31.9 [facility] [address] [place] [address] May, [facility] [address] [place] [id number] [address] [place] [address] Apr, Mood disorder F39 and BMI 45 .0-49.9, adult Z68.42 [facility] [address] [place] [id number] [address] [place] [address] Apr, [facility] [address] [place] [id number] [address] [place] [address] Apr, [facility] [address] [place] [address] Apr, 19 Mood disorder F39 and Bipolar disorder, unspecified F31.9 [facility] [address] [place] [address] Mar, Mood disorder F39 and BMI 45 .0-49.9, adult Z68.42 [facility] [address] [place], [place] [id number] [address] [place] [address] Feb, Mood disorder F39 and BMI 45 .0-49.9, adult Z68.42 [facility] [address] [place] [id number] [address] [place] [address] Feb, [facility] [place] [address] [place] [address] Jan, 18 [facility] [place] [address] [place] [address] 27 Dec, 18 [facility] [address] [place], [place] [id number] [address] [place] [address] Dec, [facility] [address] [place] [address] 26 Dec, 20 18 BMI 45.0- 49.9, adult Z68.42 [facility] [place] [address] [place] [address] 26 Dec, 20 18 BMI 45.0- 49.9, adult Z68.42 and Mood disorder F39 [facility] [address] [place] [address] 17 Dec, 18 [facility] [address] [place] [address] 13 Dec, 18 [facility] [address] [place] [address] [place] [address] 10 Dec, 18 Bipolar disorder, unspecified F31.9 [facility] [place] [address] [place] [address] August, 18 Bipolar disorder, unspecified F31.9 [facility] [place] [address] [place] [address] August, 18 Bipolar disorder, unspecified F31.9 [facility] [place] [address] [place] [address] Jul, 18 [facility] [place] [address] [place] [address] Jul, 18 [facility] [place] [address] [place] [address] Apr, 18 Bipolar disorder, unspecified F31.9 ; Attention-deficit hyperactivity disorder, combined type F90.2 and Mild intellectual disabilities F70 [facility] [place] [address] [place] [address] Apr, 18 [facility] [place] [address] [place] [address] Mar, 17 [facility] [place] [address] [place] [address] Jan, 17 [facility] [place] [address] [place] [address] Dec, 17 [facility] [place] [address] [place] [address] Nov, 17 [facility] [address] [address] Sep, 17 Pain in left shoulder M25.512 ; Intractable migraine, unspecified migraine type G43.919 and Morbid obesity due to excess calories E66.01 [facility] [address] [place] [address] 14 Jul, 17 Right foot pain M79.671 [facility] [place] [address] [place] [address] 12 Jul, 17 Attention- deficit hyperactivity disorder, combined type F90.2 ; Bipolar disorder, unspecified F31.9 ; Right foot pain M79.671 and Postoperative pain, acute, shoulder, left M25.[address] [address] Jun, 17 [facility] [address] [address] Jun, [address] [address] Jun, 17 Pain in left shoulder M25.[address] [address] May, 17 Essential (primary) hypertension I10 ; Hypothyroidism, unspecified E03.9 and Hyperlipidemia, unspecified E78.[address] [address] Apr, [address] [address] Apr, [address] [address] Apr, 17 Pain in left shoulder M25.512 and Other chronic pain G89.29 [address] [place] [address] Apr, [facility] [address] [place], [place] [id number] [address] [place] [address] Feb, [address] [address] Feb, 16 Pain in left shoulder M25.512 and Other chronic pain G89.[address] [address] Jan, 16 Bruised ribs, right, subsequent encounter S20.211D ; Acne vulgaris L70.0 and Routine sports physical exam Z02.[address] [address] Nov, 16 Knee pain, right M25.561 ; Environmental allergies Z91.09 ; Attention-deficit hyperactivity disorder, combined type F90.2 and Bipolar disorder, unspecified F31.9 [facility] [place] [address] [place] [address] Nov, 16 [facility] [place] [address] [place] [address] Oct, 16 [facility] [place] [address] [place] [address] Oct, 16 Knee pain, right M25.561 and Pain in left wrist M25.532 [facility] [place] [address] [place] [address] August, 16 [facility] [place] [address] [place] [address] Jul, 16 [facility] [place] [address] [place] [address] Jul, 16 [facility] [place] [address] [place] [address] Jul, 16 Gastro- esophageal reflux disease without esophagitis K21.9 and Pain in left wrist M25.532 [facility] [place] [address] [place] [address] Jul, 16 [facility] [place] [address] [place] [address] Jun, 16 [facility] [place] [address] [place] [address] Jun, 16 Strain of right knee S86.911A and Right knee pain M25.561 [facility] [place] [address] [place] [address] May, 16 Pain in left shoulder M25.512 [facility] [place] [address] [place] [address] May, 16 [facility] [place] [address] [place] [address] Apr, 16 Knee pain, right M25.561 and Left ankle sprain S93.402A [facility] [place] [address] [place] [address] Apr, 16 Knee pain, right M25.561 [facility] [place] [address] [place] [address] 16 Mar, 15 [facility] [place] [phone] 04 Mar, 15 Wrist pain, right M25.531 and Constipation K59.[address] [address] [address] 30 Feb, 15 Wrist pain, right M25.531 [facility] [place] [phone] Feb, 15 Wrist pain, right M25.531 [facility] [address] [address] Jan, 15 Wrist pain, right M25.531 [facility] [address] [address] Jan, 15 [facility] [address] [address] 29 Dec, 15 Right leg pain 729.5 ; Benign hypertension 401.1 and GERD (gastroesophageal reflux disease) 530.81 [facility] [address] [address] 21 Dec, 15 Dental examination V72.2 [facility] [address] [address] 15 Dec, [address] [address] [address] 14 Dec, 15 [facility] [place] [phone] 13 Nov, 15 Benign hypertension 401.1 ; Hypothyroidism 244.9 and Hyperlipidemia 272.4 [facility] [address] [address] Nov, 15 Benign hypertension 401.1 ; Bipolar 1 disorder 296.7 and GERD (gastroesophageal reflux disease) 530.81 [facility] [place] [address] [place] [address] Sep, [address] [facility] [address] [address] 26 Ben, 20 15 ADHD (attention deficit hyperactivity disorder), combined type 314.01 ; Bipolar disorder 296.80 ; OCD (obsessive compulsive disorder) 300.3 ; Hyperlipidemia 272.4 ; Hypothyroidism 244.9 and Asthma 493.90 [facility] [address] [facility] [id number] [address] [place] [address] Jul, [facility] [address] [facility] [id number] [address] [place] [address] Jul, [facility] [address] [facility] [id number] [address] [place] [address] Mar, IMMUNIZATIONS No Known Immunizations SOCIAL HISTORY Never Assessed REASON FOR VISIT Medication question PLAN OF CARE VITAL SIGNS MEDICATIONS Unknown [...]
--- OUTSIDE RECORDS SUMMARY | 2019-10-29 00:46 | XMS REPORT ---
Author Author Laurent MAJANO Organization [facility] [address] Address [address] [place] [address] Care Team Providers Care Pre Algebra Teacher Name Role Phone GERSON MAJANO Unavailable PROBLEMS Type Condition ICD9-CM Code RUF69-NR Code Onset Dates Condition S tatus SNOMED Code Problem Hypothyroidism 244.9 Active 00532 008 Problem Bipolar 1 disorder 296.7 Active 3 01536382 Problem ADHD (attention deficit hyperactivity disorder) 314.01 Active 645911296 Problem Asthma 493.90 Active 021802442 Problem GERD (gastroesophageal reflux disease) 530.81 Active 207000721 Problem Wrist pain, right M25.531 Active 56 915299 Problem Hyperlipidemia 272.4 Active 06592 004 Problem Hypothyroidism, unspecified E03.9 Ac tive 18622530 Problem Benign hypertension 401.1 Active 39413976 Problem Hyperlipidemia, unspecified E78.5 Ac tive 44579829 Problem ADHD (attention deficit hyperactivity disorder), combi buzz type 314.01 Active 90325155 Problem Bipolar disorder 296.80 Active 137 55941 Problem Hypothyroid 244.9 Active 47515151 Problem Gastro-esophageal reflux disease without esophagitis K21.9 Active 894697601 Problem Pain in left wrist M25.532 Active 5 6592478 Problem Attention-deficit hyperactivity disorder, combined type F90.2 Active 34772368 Problem Bipolar disorder, unspecified F31.9 Active 60540404 Problem Acne vulgaris L70.0 Active 674899 00 Problem Dental examination V72.2 Active 3 7532599 Problem Environmental allergies Z91.09 Active 069721196 Problem Other chronic pain G89.29 Active 8 2563753 Problem ODD (oppositional defiant disorder) 313.81 Active 22890021 Problem Bruised ribs, right, subsequent encounter S20.211D Active 468593967 Problem OCD (obsessive compulsive disorder) 300.3 Active 685256143 Problem Essential (primary) hypertension I10 Active 56970960 Problem Right foot pain M79.671 Active 4793 3007 Problem Intractable migraine, unspecified migraine type G4 3.919 Active 595938172 Problem Mood disorder F39 Active 396399 05 Problem Knee pain, right M25.561 Active 309 89667 Problem Moderate persistent asthma without complication J4 5.40 Active 230079080 Problem Constipation K59.00 Active 6238455 8 Problem Left ankle sprain S93.402A Active 44 725738 Problem Pain in left shoulder M25.512 Active 24952466 Problem Obesity (BMI 30-39.9) E66.9 Active 849597964 Problem Morbid obesity due to excess calories E66.01 Active 470783290 Problem Mild intellectual disabilities F70 Active 64240751 ALLERGIES No Information ENCOUNTERS Encounter Location Date Diagnosis [address] [address] Sep, [facility] [address] [facility] [place] [id number] [address] [place] [address] Jul, [address] [address] Jun, Morbid obesity E66.01 and Pain of left t humb M79.[address] [address] Jun, [facility] [address] [place] [address] Jun, Contusion of thumb S60.019A [address] [address] Jun, [address] [address] Jun, Benign hypertension 401.1 ; Hypothyroid 244.9 ; Essential (primary) hypertension I10 ; Hypothyroidism, unspecified E03.9 ; Morbid obesity due to excess calories E66.01 ; Morbid obesity E66.01 ; Moderate persistent asthma without complication J45.40 ; Low back pain M54.5 and Other chronic pain G89.[address] [address] Jun, Mood disorder F39 and Bipolar disorder, unspecified F31.9 [facility] [address] [place] [address] 18 May, 19 [facility] [address] [place] [id number] [address] [place] [address] Apr, Mood disorder F39 and BMI 45 .0-49.9, adult Z68.42 [facility] [address] [place] [id number] [address] [place] [address] Apr, [facility] [address] [place] [address] Apr, [facility] [address] [place] [address] Apr, 19 Mood disorder F39 and Bipolar disorder, unspecified F31.9 [facility] [address] [place], [place] [id number] [address] [place] [address] Mar, Mood disorder F39 and BMI 45 .0-49.9, adult Z68.42 [facility] [address] [place], [place] [id number] [address] [place] [address] Feb, Mood disorder F39 and BMI 45 .0-49.9, adult Z68.42 [facility] [address] [place] [id number] [address] [place] [address] Feb, [facility] [address] [place] [address] Jan, 18 [facility] [address] [place] [address] Dec, 18 [facility] [place] [address] [place], [place] [id number] [address] [place] [address] Dec, [facility] [address] [place] [address] Dec, 18 BMI 45.0- 49.9, adult Z68.42 [facility] [address] [place] [address] Dec, 18 BMI 45.0- 49.9, adult Z68.42 and Mood disorder F39 [facility] [address] [place] [address] 17 Dec, 18 [facility] [address] [place] [address] 13 Dec, 18 [facility] [address] [place] [address] Dec, 18 Bipolar disorder, unspecified F31.9 [facility] [place] [address] [place] [address] August, 18 Bipolar disorder, unspecified F31.9 [facility] [place] [address] [place] [address] August, 18 Bipolar disorder, unspecified F31.9 [facility] [place] [address] [place] [address] Jul, 18 [facility] [place] [address] [place] [address] Jul, 18 [facility] [place] [address] [place] [address] Apr, 18 Bipolar disorder, unspecified F31.9 ; Attention-deficit hyperactivity disorder, combined type F90.2 and Mild intellectual disabilities F70 [facility] [place] [address] [place] [address] Apr, 18 [facility] [place] [address] [place] [address] Mar, 17 [facility] [place] [address] [place] [address] Jan, 17 [facility] [place] [address] [place] [address] Dec, 17 [facility] [place] [address] [place] [address] Nov, 17 [facility] [place] [address] [place] [address] 09 Sep, 17 Pain in left shoulder M25.512 ; Intractable migraine, unspecified migraine type G43.919 and Morbid obesity due to excess calories E66.01 [facility] [address] [place] [address] 14 Jul, 17 Right foot pain M79.671 [facility] [place] [address] [place] [address] Jul, 17 Attention- deficit hyperactivity disorder, combined type F90.2 ; Bipolar disorder, unspecified F31.9 ; Right foot pain M79.671 and Postoperative pain, acute, shoulder, left M25.[address] [address] Jun, [address] [address] Jun, [address] [address] Jun, 17 Pain in left shoulder M25.[address] [address] May, 17 Essential (primary) hypertension I10 ; Hypothyroidism, unspecified E03.9 and Hyperlipidemia, unspecified E78.[address] [address] Apr, [address] [address] Apr, [address] [address] Apr, 17 Pain in left shoulder M25.512 and Other chronic pain G89.29 [place] [id number] [place] [address] Apr, [facility] [address] [place] [id number] [place] [address] Feb, [address] [address] Feb, 16 Pain in left shoulder M25.512 and Other chronic pain G89.[address] [address] Jan, 16 Bruised ribs, right, subsequent encounter S20.211D ; Acne vulgaris L70.0 and Routine sports physical exam Z02.[address] [address] Nov, 16 Knee pain, right M25.561 ; Environmental allergies Z91.09 ; Attention-deficit hyperactivity disorder, combined type F90.2 and Bipolar disorder, unspecified F31.9 [facility] [place] [address] [place] [address] Nov, 16 [facility] [place] [address] [place] [address] Oct, 16 [facility] [place] [address] [place] [address] Oct, 16 Knee pain, right M25.561 and Pain in left wrist M25.532 [facility] [place] [address] [place] [address] August, 16 [facility] [place] [address] [place] [address] Jul, 16 [facility] [place] [address] [place] [address] Jul, 16 [facility] [place] [address] [place] [address] Jul, 16 Gastro- esophageal reflux disease without esophagitis K21.9 and Pain in left wrist M25.532 [facility] [place] [address] [place] [address] Jul, 16 [facility] [place] [address] [place] [address] Jun, 16 [facility] [place] [address] [place] [address] Jun, 16 Strain of right knee S86.911A and Right knee pain M25.561 [facility] [address] [place] [address] 15 May, 16 Pain in left shoulder M25.512 [facility] [address] [place] [address] May, 16 [facility] [place] [address] [place] [address] Apr, 16 Knee pain, right M25.561 and Left ankle sprain S93.402A [facility] [place] [address] [place] [address] Apr, 16 Knee pain, right M25.[address] [address] [address] Mar, 15 [facility] [place] [phone] Mar, 15 Wrist pain, right M25.531 and Constipation K59.00 [facility] [place] [phone] Feb, 15 Wrist pain, right M25.531 [facility] [address] [address] Feb, 15 Wrist pain, right M25.531 [facility] [place] [phone] Jan, 15 Wrist pain, right M25.531 [facility] [address] [address] Jan, 15 [facility] [address] [address] Dec, 15 Right leg pain 729.5 ; Benign hypertension 401.1 and GERD (gastroesophageal reflux disease) 530.81 [facility] [address] [address] 21 Dec, 15 Dental examination V72.2 [facility] [address] [address] 15 Dec, 15 [facility] [place] [phone] 14 Dec, 15 [facility] [place] [phone] Nov, 15 Benign hypertension 401.1 ; Hypothyroidism 244.9 and Hyperlipidemia 272.4 [facility] [place] [phone] Nov, 15 Benign hypertension 401.1 ; Bipolar 1 disorder 296.7 and GERD (gastroesophageal reflux disease) 530.81 [facility] [address] [address] 29 Sep, [address] [facility] [address] [address] Sep, ADHD (attention deficit hyperactivity disorder), combined type 314.01 ; Bipolar disorder 296.80 ; OCD (obsessive compulsive disorder) 300.3 ; Hyperlipidemia 272.4 ; Hypothyroidism 244.9 and Asthma 493.90 [facility] [address] [facility] [place] [id number] [address] [place] [address] Jul, [facility] [address] [facility] [place] [id number] [address] [place] [address] Jul, [facility] [address] [facility] [place] [id number] [address] [place] [address] Mar, IMMUNIZATIONS No Known Immunizations SOCIAL HISTORY Never Assessed REASON FOR VISIT Medication refill request PLAN OF CARE VITAL SIGNS MEDICATIONS Medication Instructions Dosage Frequency Start Date End Date Duration S tatus Tolterodine Tartrate ER 4 MG TAKE 1 CAPSULE DAILY. 90 days Active HydrOXYzine HCl 25 mg [...]
--- OUTSIDE RECORDS SUMMARY | 2019-10-29 00:46 | XMS REPORT ---
Author Author Laurent Patiño Doctor Organization [facility] Address Unknown Phone Unavailable Care Team Providers Care Franchise Field Consultant Name Role Phone Migration, Doctor Unavailable Unavailable PROBLEMS Type Condition ICD9-CM Code SYP17-IN Code Onset Dates Condition S tatus SNOMED Code Problem Hypothyroidism 244.9 Active 68697 008 Problem Bipolar 1 disorder 296.7 Active 3 66934840 Problem ADHD (attention deficit hyperactivity disorder) 314.01 Active 532075353 Problem Asthma 493.90 Active 828492938 Problem GERD (gastroesophageal reflux disease) 530.81 Active 012326267 Problem Wrist pain, right M25.531 Active 56 026213 Problem Hyperlipidemia 272.4 Active 79078 004 Problem Hypothyroidism, unspecified E03.9 Ac tive 90387065 Problem Benign hypertension 401.1 Active 10453898 Problem Hyperlipidemia, unspecified E78.5 Ac tive 98864266 Problem ADHD (attention deficit hyperactivity disorder), combi buzz type 314.01 Active 35855459 Problem Bipolar disorder 296.80 Active 137 08830 Problem Hypothyroid 244.9 Active 82775125 Problem Gastro-esophageal reflux disease without esophagitis K21.9 Active 225093085 Problem Pain in left wrist M25.532 Active 5 7685658 Problem Attention-deficit hyperactivity disorder, combined type F90.2 Active 61652844 Problem Bipolar disorder, unspecified F31.9 Active 25126552 Problem Acne vulgaris L70.0 Active 029912 00 Problem Dental examination V72.2 Active 3 3472528 Problem Environmental allergies Z91.09 Active 887598582 Problem Other chronic pain G89.29 Active 8 1154713 Problem ODD (oppositional defiant disorder) 313.81 Active 31388265 Problem Bruised ribs, right, subsequent encounter S20.211D Active 667693527 Problem OCD (obsessive compulsive disorder) 300.3 Active 325169964 Problem Essential (primary) hypertension I10 Active 46883727 Problem Right foot pain M79.671 Active 4793 3007 Problem Intractable migraine, unspecified migraine type G4 3.919 Active 627379661 Problem Mood disorder F39 Active 415428 05 Problem Knee pain, right M25.561 Active 309 45064 Problem Moderate persistent asthma without complication J4 5.40 Active 560024206 Problem Constipation K59.00 Active 2277878 8 Problem Left ankle sprain S93.402A Active 44 997971 Problem Pain in left shoulder M25.512 Active 85084639 Problem Obesity (BMI 30-39.9) E66.9 Active 815035511 Problem Morbid obesity due to excess calories E66.01 Active 434584332 Problem Mild intellectual disabilities F70 Active 21800283 ALLERGIES No Information ENCOUNTERS Encounter Location Date Diagnosis [address] [address] Sep, [facility] [address] [facility] [id number] [address] [place] [address] Jul, [address] [address] Jun, Mood disorder F39 and Bipolar disorder, unspecified F31.[address] [address] Jun, Morbid obesity E66.01 and Pain of left t humb M79.[address] [address] Jun, [facility] [address] [place] [address] Jun, Contusion of thumb S60.019A [address] [address] Jun, [address] [address] Jun, Benign hypertension 401.1 ; Hypothyroid 244.9 ; Essential (primary) hypertension I10 ; Hypothyroidism, unspecified E03.9 ; Morbid obesity due to excess calories E66.01 ; Morbid obesity E66.01 ; Moderate persistent asthma without complication J45.40 ; Low back pain M54.5 and Other chronic pain G89.[address] [address] Jun, Mood disorder F39 and Bipolar disorder, unspecified F31.9 [facility] [address] [place] [address] 18 May, 19 [facility] [address] [place] [address] Apr, Mood disorder F39 and BMI 45 .0-49.9, adult Z68.42 [facility] [address] [place] [id number] [place] [address] Apr, [facility] [address] [address] Apr, [facility] [address] [place] [address] Apr, Mood disorder F39 and Bipolar disorder, unspecified F31.9 [facility] [address] [place] [id number] [place] [address] Mar, Mood disorder F39 and BMI 45 .0-49.9, adult Z68.42 [facility] [address] [place] [id number] [place] [address] Feb, Mood disorder F39 and BMI 45 .0-49.9, adult Z68.42 [facility] [address] [place], [place] [id number] [address] [place] [address] Feb, [facility] [address] [place] [address] Jan, 18 [facility] [address] [place] [address] Dec, 18 [facility] [address] [place] [address] Dec, [facility] [address] [place] [address] Dec, 18 BMI 45.0- 49.9, adult Z68.42 [facility] [address] [place] [address] Dec, 18 BMI 45.0- 49.9, adult Z68.42 and Mood disorder F39 [facility] [address] [place] [address] 17 Dec, 18 [facility] [place] [address] [place] [address] 13 Dec, 18 [facility] [place] [address] [place] [address] 10 Dec, 18 Bipolar disorder, unspecified F31.9 [facility] [place] [address] [place] [address] 10 August, 18 Bipolar disorder, unspecified F31.9 [facility] [place] [address] [place] [address] August, 18 Bipolar disorder, unspecified F31.9 [facility] [address] [place] [address] Jul, 18 [facility] [address] [place] [address] Jul, 18 [facility] [address] [place] [address] Apr, 18 Bipolar disorder, unspecified F31.9 ; Attention-deficit hyperactivity disorder, combined type F90.2 and Mild intellectual disabilities F70 [facility] [address] [place] [address] 08 Apr, 18 [facility] [place] [address] [place] [address] Mar, 17 [facility] [address] [place] [address] Jan, 17 [facility] [address] [place] [address] Dec, 17 [facility] [address] [place] [address] Nov, 17 [facility] [address] [place] [address] Sep, 17 Pain in left shoulder M25.512 ; Intractable migraine, unspecified migraine type G43.919 and Morbid obesity due to excess calories E66.01 [facility] [address] [place] [address] 14 Jul, 17 Right foot pain M79.671 [facility] [address] [place] [address] Jul, 17 Attention- deficit hyperactivity disorder, combined type F90.2 ; Bipolar disorder, unspecified F31.9 ; Right foot pain M79.671 and Postoperative pain, acute, shoulder, left M25.512 [facility] [address] [place] [address] Jun, 17 [facility] [address] [place] [address] Jun, [address] [address] Jun, 17 Pain in left shoulder M25.[address] [address] May, 17 Essential (primary) hypertension I10 ; Hypothyroidism, unspecified E03.9 and Hyperlipidemia, unspecified E78.5 [facility] [address] [place] [address] Apr, [address] [address] Apr, [address] [address] Apr, 17 Pain in left shoulder M25.512 and Other chronic pain G89.29 [place] [id number] [place] [address] Apr, [place] [id number] [place] [address] Feb, [address] [address] Feb, 16 Pain in left shoulder M25.512 and Other chronic pain G89.[address] [address] Jan, 16 Bruised ribs, right, subsequent encounter S20.211D ; Acne vulgaris L70.0 and Routine sports physical exam Z02.[address] [address] Nov, 16 Knee pain, right M25.561 ; Environmental allergies Z91.09 ; Attention-deficit hyperactivity disorder, combined type F90.2 and Bipolar disorder, unspecified F31.9 [facility] [place] [address] [place] [address] Nov, 16 [facility] [place] [address] [place] [address] Oct, 16 [facility] [address] [place] [address] Oct, 16 Knee pain, right M25.561 and Pain in left wrist M25.532 [facility] [address] [place] [address] August, 16 [facility] [address] [place] [address] Jul, 16 [facility] [address] [place] [address] Jul, 16 [facility] [address] [place] [address] Jul, 16 Gastro- esophageal reflux disease without esophagitis K21.9 and Pain in left wrist M25.532 [facility] [address] [place] [address] Jul, 16 [facility] [address] [place] [address] Jun, 16 [facility] [address] [place] [address] Jun, 16 Strain of right knee S86.911A and Right knee pain M25.561 [facility] [address] [place] [address] May, 16 Pain in left shoulder M25.512 [facility] [place] [address] [place] [address] May, 16 [facility] [place] [address] [place] [address] Apr, 16 Knee pain, right M25.561 and Left ankle sprain S93.402A [facility] [address] [place] [address] Apr, 16 Knee pain, right M25.[address] [facility] [address] [address] 16 Mar, 15 [place] [phone] 04 Mar, 15 Wrist pain, right M25.531 and Constipation K59.00 [facility] [place] [address] 30 Feb, 15 Wrist pain, right M25.531 [facility] [address] [address] Feb, 15 Wrist pain, right M25.531 [facility] [address] [address] Jan, 15 Wrist pain, right M25.531 [facility] [address] [address] Jan, 15 [facility] [address] [address] Dec, 15 Right leg pain 729.5 ; Benign hypertension 401.1 and GERD (gastroesophageal reflux disease) 530.81 [facility] [address] [address] 21 Dec, 15 Dental examination V72.2 [facility] [address] [address] 15 Dec, 15 [facility] [address] [address] 14 Dec, 15 [facility] [address] [address] Nov, 15 Benign hypertension 401.1 ; Hypothyroidism 244.9 and Hyperlipidemia 272.[address] [address] Nov, 15 Benign hypertension 401.1 ; Bipolar 1 disorder 296.7 and GERD (gastroesophageal reflux disease) 530.[address] [address] Sep, 15 [facility] [address] [place] [address] Sep, ADHD (attention deficit hyperactivity disorder), combined type 314.01 ; Bipolar disorder 296.80 ; OCD (obsessive compulsive disorder) 300.3 ; Hyperlipidemia 272.4 ; Hypothyroidism 244.9 and Asthma 493.90 [facility] [address] [facility] [id number] [address] [place] [address] Jul, [facility] [address] [facility] [id number] [address] [place] [address] Jul, [facility] [address] [facility] [id number] [address] [place] [address] Mar, IMMUNIZATIONS No Known Immunizations SOCIAL HISTORY Never Assessed REASON FOR VISIT [facility] PLAN OF CARE VITAL SIGNS MEDICATIONS Medication Instructions Dosage Frequency Start Date End Date Duration S tatus Abilify by oral route Mar, Activ e Omeprazole by oral route Mar, Ac tive tolterodine by oral route Mar, A ctive Naproxen by oral route Mar, Acti ve HydrOXYzine HCl by oral route Mar, Active Loratadine by oral route Mar, Ac tive Ranitidine HCl by oral route Mar, Active Metoprolol Succinate by oral route Mar, Active Escitalopram Oxalate by oral route Mar, Active RESULTS No Results PROCEDURES No Known [...]
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
[2019-10-29 01:08] VITALS: BP 185/95
--- NOTE | 2019-10-29 06:43 | Diagnostic Imaging Report ---
INDICATION: Left hand injury with pain AP, oblique and lateral views of the left hand are obtained with comparison made study of 06/29/2018. FINDINGS: No acute fracture or dislocation is identified. No abnormal lytic or sclerotic focus is seen, and there is no radiopaque foreign body. IMPRESSION: No acute abnormality. Dictated by: Dictated on workstation # [id number]
== END 2019-10-29 01:10 | disposition home or self-care (01) ==
LOC: ER FS 00:32
DX: S60.222A Contusion of left hand, initial encounter (principal); W22.8XXA Striking against or struck by other objects, initial encounter
CPT/HCPCS: 73130

== ENCOUNTER 2022-01-15 19:15 | Emergency (ER) | payer MEDICARE, MEDICAID ==
[~2022-01-15] VITALS: Ht 179 cm; Wt 164.0 kg
--- NOTE | 2022-01-15 20:34 | Diagnostic Imaging Report ---
EXAM: Foot 3 view right. INDICATION: Right foot pain. Trauma. COMPARISON: None. FINDINGS: No fracture or malalignment. Soft tissue shadows are unremarkable. IMPRESSION: Negative right foot radiographs. Dictated by: Dictated on workstation # [id number]
--- NOTE | 2022-01-15 21:00 | ED Lower Extremity ---
General Chief Complaint: Lower Extremity Stated Complaint: RIGHT FOOT INJURY Nursing Triage Note: patient verbalized 2 weeks ago dropped an appliance on his foot. states it is getting harder to walk. Source: patient Exam Limitations: no limitations History of Present Illness Date Seen by Provider: Jan 15, 2022 Time Seen by Provider: 16:50 Initial Comments Patient is a 26-year-old man who presents with right foot injury after dropping complaints on the dorsum of his right forefoot 2 weeks ago. Patient states it is getting harder to walk. He has not sought medical care prior to today. No medications or therapies. Onset: other Pain/Injury Location: right foot Method of Injury: other Modifying Factors: Improves With Other Allergies and Home Medications Allergies Coded Allergies: No Known Drug Allergies (Unverified , 06/29/18) Patient Home Medication List Home Medication List Reviewed: Yes Review of Systems Constitutional: see HPI Musculoskeletal: see HPI Past Cuhlhig-Qabjqr-Sxsjxa Hx Patient Social History Tobacco Use?: No Immunizations Up To Date Influenza Vaccine Up-to-Date: Yes; Up-to-Date Seasonal Allergies Seasonal Allergies: No Past Medical History Surgeries: No Respiratory: No Cardiac: No Neurological: No Genitourinary: No Gastrointestinal: No Musculoskeletal: No Endocrine: No HEENT: No Cancer: No Psychosocial: Yes ADD/ADHD, Anxiety, ODD, Bipolar, Depression Integumentary: No Blood Disorders: No Adverse Reaction/Blood Tranf: No Physical Exam Vital Signs Vital Signs - First Documented 01/15/22 19:27 Temp 36.9 Pulse 82 Resp 20 B/P (MAP) 140/83 (102) Pulse Ox 97 O2 Delivery Room Air Capillary Refill : Less Than 3 Seconds Height, Weight, BMI Height: 5'9.00" Weight: 298lbs. oz. 135.490698ah; 51.00 BMI Method:Stated General Appearance: WD/WN, no apparent distress Feet: right foot pain, right foot soft tissue tenderness Neurologic/Psychiatric: no motor/sensory deficits Progress/Results/Core Measures Results/Orders My Orders Orders - LUBNA JUAREZ DO Foot 3 View Right (01/15/22 20:19) Vital Signs/I&O 01/15/22 19:27 Temp 36.9 Pulse 82 Resp 20 B/P (MAP) 140/83 (102) Pulse Ox 97 O2 Delivery Room Air Blood Pressure Mean: 102 Departure Communication (Admissions) Right foot x-ray: No obvious displaced fracture per radiology report. Right foot contusion without evidence of fracture. Patient placed on orthopedic shoe with instructions to take ibuprofen. ECP follow-up as needed peer Impression Primary Impression: Contusion of right foot Disposition: HOME, SELF-CARE Condition: Stable Departure-Patient Inst. Decision time for Depature: 21:01 Referrals: SELFADAM MD (PCP/Family) Primary Care Physician Patient Instructions: Contusion (DC) Add. Discharge Instructions: You were evaluated in the emergency department for right foot injury. X-rays were performed and do not show evidence of a fracture. Please wear orthopedic shoe and take ibuprofen as needed for pain. Follow-up with your PCP in 5 to 7 days for reevaluation if symptoms persist. All discharge instructions reviewed with patient and/or family. Voiced understanding. LUBNA JUAREZ DO Jan 15, 2022 21:00
[2022-01-15 21:08] VITALS: BP 140/83
== END 2022-01-15 21:09 | disposition home or self-care (01) ==
LOC: EDUNIT# 19:15 → ER FS 19:19
DX: S90.31XA Contusion of right foot, initial encounter (principal); Z28.310 Unvaccinated for COVID-19; W20.8XXA Other cause of strike by thrown, projected or falling object, initial encounter
CPT/HCPCS: 73630

== ENCOUNTER 2022-04-06 17:21 | Emergency (ER) | payer MEDICARE, MEDICAID ==
[~2022-04-06] VITALS: Ht 175 cm; Wt 125.0 kg
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
[2022-04-06 17:42] VITALS: BP 130/76
--- NOTE | 2022-04-06 18:03 | Diagnostic Imaging Report ---
Hand 3 view right INDICATION: Injury of the small finger. COMPARISON: None available. TECHNIQUE: 3 views of the right hand. FINDINGS: Soft tissue swelling along the dorsal and ulnar aspect of the hand. There is an acute nondisplaced linear longitudinal fracture involving the radial cortex in the small finger proximal phalanx. There are other fracture lines, but overall the fracture appears incomplete. No angulation or displacement. IMPRESSION: Nondisplaced fracture in the small finger proximal phalanx shaft. Dictated by: Dictated on workstation # [id number]
[2022-04-06] MEDS ORDERED: ACHD5005 PO (18:07)
== END 2022-04-06 18:11 | disposition home or self-care (01) ==
LOC: EDUNIT# 17:21 → ER FS 17:22
DX: S62.646A Nondisplaced fracture of proximal phalanx of right little finger, initial encounter for closed fracture (principal); Z28.310 Unvaccinated for COVID-19; Y04.0XXA Assault by unarmed brawl or fight, initial encounter
CPT/HCPCS: 29130; 73130

== ENCOUNTER 2022-04-09 11:56 | Emergency (ER) | payer MEDICARE, MEDICAID ==
[~2022-04-09] VITALS: Ht 175.3 cm; Wt 120.2 kg
[~2022-04-09 11:56] MED LIST: ACHD5005 PO
[2022-04-09] MEDS ORDERED: NS IV 1000 ML 1,000 ML IV STA (12:06)
[2022-04-09 12:12] VITALS: BP_SYST 116; BP_SYST 132; BP_SYST 143; BP_DIAS 60; BP_DIAS 74
[2022-04-09 12:13] LABS: BASOPHILS % (AUTO) 0 % (0-10); EOSINOPHILS # (AUTO) 0.4 10^3/uL (0.0-0.3); EOSINOPHILS % (AUTO) 4 % (0-10); HEMATOCRIT 43 % (40-54); LYMPHOCYTES # (AUTO) 1.8 10^3/uL (1.0-4.0); LYMPHOCYTES % (AUTO) 19 % (12-44); MEAN CORPUSCULAR HEMOGLOBIN 31 pg (25-34); MEAN CORPUSCULAR HGB CONC 35 g/dL (32-36); MEAN CORPUSCULAR VOLUME 87 fL (80-99); MEAN PLATELET VOLUME 10.7 fL (9.0-12.2); MONOCYTES # (AUTO) 0.5 10^3/uL (0.0-1.0); MONOCYTES % (AUTO) 6 % (0-12); NEUTROPHILS # (AUTO) 6.4 10^3/uL (1.8-7.8); NEUTROPHILS % (AUTO) 70 % (42-75); PLATELET COUNT 224 10^3/uL (130-400); WHITE BLOOD COUNT 9.1 10^3/uL (4.3-11.0)
--- NOTE | 2022-04-09 12:15 | ED General ---
General Stated Complaint: FALL Source of Information: Patient, Family History of Present Illness Date Seen by Provider: Apr 09, 2022 Time Seen by Provider: 11:57 Initial Comments 26 yo male presenting with complaint of 2 days of feeling dizzy, lightheaded, not sleeping well, and then today had nausea with vomiting. He felt that he was not sleeping well because he has been thinking about his grandparents and not having them around. He also has felt more dizzy and lightheaded when he stands up and moves. He feels like he has blurred vision at times but it does not last very long. He is supposed to be changing from Seroquel to Latuda but has not started the Latuda yet. He took his last dose of Seroquel on night. He has not been taking pain medicine as he felt that it was not helping with his pain in his hand. He was seen for fracture to his pinky finger. Today he fell because he was so dizzy. He reports he is eating and drinking normally other than not having caffeine as he is waiting on his food stamps to get more. Timing/Duration: 2-3 Days Severity: Moderate Modifying Factors: worse with Movement (standing and walking makes it worse) Associated Systoms: No Chest Pain, No Cough, No Diaphoresis, No Fever/Chills, No Headaches, No Loss of Appetite, No Malaise; Nausea/Vomiting (today); No Rash, No Seizure, No Shortness of Air, No Syncope, No Weakness Allergies and Home Medications Allergies Coded Allergies: No Known Drug Allergies (Unverified , 06/29/18) Patient Home Medication List Home Medication List Reviewed: Yes Hydrocodone/Acetaminophen (Hydrocodone-Acetamin 5-325 mg) 5 Mg-325 Mg Tablet, 1 TAB PO Q6H PRN for PAIN-SEVERE (8-10) Prescribed by: MIS CORTES on 04/06/22 4957 Meclizine HCl (Meclizine HCl) 25 Mg Tablet, 25 MG PO Q6H PRN for DIZZINESS Prescribed by: MIS CORTES on 04/09/22 1246 Review of Systems Review of Systems Constitutional: No chills, No diaphoresis; dizziness; No fever EENTM: see HPI, blurred vision (intermittent); No ear discharge, No ear pain, No nose congestion Respiratory: No cough, No short of breath Cardiovascular: No chest pain, No palpitations Gastrointestinal: No abdominal pain; nausea, vomiting (today x 1) Genitourinary: No dysuria Musculoskeletal: other (pain in right hand from fracture to proximal phalanx pinky finger) Skin: No rash Psychiatric/Neurological: Emotional Problems (feels like he is having more problems now because he is thinking of his grandparents and that they are not around this holiday); Denies Headache, Denies Numbness, Denies Paresthesia Hematologic/Lymphatic: Denies Blood Clots Past Xwpoyoz-Eonfpu-Kcnhto Hx Seasonal Allergies Seasonal Allergies: No Past Medical History Surgeries: No Respiratory: No Cardiac: No Neurological: No Genitourinary: No Gastrointestinal: No Musculoskeletal: No Endocrine: No HEENT: No Cancer: No Psychosocial: Yes ADD/ADHD, Anxiety, ODD, Bipolar, Depression Integumentary: No Blood Disorders: No Adverse Reaction/Blood Tranf: No Physical Exam Vital Signs Vital Signs - First Documented 04/09/22 12:00 Temp 36.0 Pulse 76 Resp 18 B/P (MAP) 140/72 (94) Pulse Ox 97 O2 Delivery Room Air Capillary Refill : Height, Weight, BMI Height: 5'9.00" Weight: 298lbs. oz. [id number]; 40.00 BMI Method:Stated General Appearance: No Apparent Distress, WD/WN Eyes: Bilateral Eye PERRL, Bilateral Eye EOMI HEENT: PERRL/EOMI, Normal ENT Inspection, Pharynx Normal, Moist Mucous Membranes Neck: Full Range of Motion, Normal Inspection, Non Tender, Supple Respiratory: Chest Non Tender, Lungs Clear, Normal Breath Sounds, No Accessory Muscle Use, No Respiratory Distress Cardiovascular: Regular Rate, Rhythm, No Murmur, Normal Peripheral Pulses Gastrointestinal: Normal Bowel Sounds, No Pulsatile Mass, Non Tender, Soft Rectal: Deferred Extremity: Normal Capillary Refill, Normal Inspection, No Pedal Edema, Other (splint to right hand for fracture of pinky finger proximal phalanx) Neurologic/Psychiatric: Alert, Oriented x3, No Motor/Sensory Deficits, co supervisor grounds and landscape II- XII Norm as Tested, Other (flat affect) Skin: Normal Color, Warm/Dry Progress/Results/Core Measures Suspected Sepsis SIRS Temperature: Pulse: Respiratory Rate: Laboratory Tests 04/09/22 12:06: White Blood Count 9.1 Blood Pressure / Mean: Laboratory Tests 12/25/22 12:06: Creatinine 0.85, Platelet Count 224, Total Bilirubin 0.4 Results/Orders Lab Results Laboratory Tests Test 04/09/22 12:06 04/09/22 12:25 Range/Units White Blood Count 9.1 4.3-11.0 10^3/uL Red Blood Count 4.92 4.30-5.52 10^6/uL Hemoglobin 15.0 13.3-17.7 g/dL Hematocrit 43 40-54 % Mean Corpuscular Volume 87 80-99 fL Mean Corpuscular Hemoglobin 31 25-34 pg Mean Corpuscular Hemoglobin Concent 35 32-36 g/dL Red Cell Distribution Width 13.5 10.0-14.5 % Platelet Count 224 130-400 10^3/uL Mean Platelet Volume 10.7 9.0-12.2 fL Immature Granulocyte % (Auto) 0 % Neutrophils (%) (Auto) 70 42-75 % Lymphocytes (%) (Auto) 19 12-44 % Monocytes (%) (Auto) 6 0-12 % Eosinophils (%) (Auto) 4 0-10 % Basophils (%) (Auto) 0 0-10 % Neutrophils # (Auto) 6.4 1.8-7.8 10^3/uL Lymphocytes # (Auto) 1.8 1.0-4.0 10^3/uL Monocytes # (Auto) 0.5 0.0-1.0 10^3/uL Eosinophils # (Auto) 0.4 H 0.0-0.3 10^3/uL Basophils # (Auto) 0.0 0.0-0.1 10^3/uL Immature Granulocyte # (Auto) 0.0 0.0-0.1 10^3/uL Sodium Level 142 135-145 MMOL/L Potassium Level 4.1 3.6-5.0 MMOL/L Chloride Level 107 98-107 MMOL/L Carbon Dioxide Level 26 21-32 MMOL/L Anion Gap 9 5-14 MMOL/L Blood Urea Nitrogen 8 7-18 MG/DL Creatinine 0.85 0.60-1.30 MG/DL Estimat Glomerular Filtration Rate 124 BUN/Creatinine Ratio 9 Glucose Level 92 70-105 MG/DL Calcium Level 10.0 8.5-10.1 MG/DL Corrected Calcium 8.5-10.1 MG/DL Magnesium Level 2.0 1.6-2.4 MG/DL Total Bilirubin 0.4 0.1-1.0 MG/DL Aspartate Amino Transf (AST/SGOT) 12 5-34 U/L Alanine Aminotransferase (ALT/SGPT) 12 0-55 U/L Alkaline Phosphatase 59 40-136 U/L Total Protein 7.5 6.4-8.2 GM/DL Albumin 4.6 H 3.2-4.5 GM/DL Lipase 71 8-78 U/L Urine Color YELLOW Urine Clarity CLEAR Urine pH 8.0 5-9 Urine Specific [place] 1.020 1.016-1.022 Urine Protein NEGATIVE NEGATIVE Urine Glucose (UA) NEGATIVE NEGATIVE Urine Ketones NEGATIVE NEGATIVE Urine Nitrite NEGATIVE NEGATIVE Urine Bilirubin 1+ H NEGATIVE Urine Urobilinogen 1.0 < = 1.0 MG/DL Urine Leukocyte Esterase NEGATIVE NEGATIVE Urine RBC (Auto) NEGATIVE NEGATIVE Urine RBC 5-10 H /HPF Urine WBC NONE /HPF Urine Squamous Epithelial Cells NONE /HPF Urine Crystals NONE /LPF Urine Bacteria TRACE /HPF Urine Casts NONE /LPF Urine Mucus MODERATE H /LPF Urine Culture Indicated NO Urine Opiates Screen NEGATIVE NEGATIVE Urine Oxycodone Screen NEGATIVE NEGATIVE Urine Methadone Screen NEGATIVE NEGATIVE Urine Propoxyphene Screen NEGATIVE NEGATIVE Urine Barbiturates Screen NEGATIVE NEGATIVE Ur Tricyclic Antidepressants Screen NEGATIVE NEGATIVE Urine Phencyclidine Screen NEGATIVE NEGATIVE Urine Amphetamines Screen NEGATIVE NEGATIVE Urine Methamphetamines Screen NEGATIVE NEGATIVE Urine Benzodiazepines Screen NEGATIVE NEGATIVE Urine Cocaine Screen NEGATIVE NEGATIVE Urine Cannabinoids Screen POSITIVE H NEGATIVE My Orders Orders - MIS CORTES MD Cbc With Automated Diff (04/09/22 12:04) Magnesium (04/09/22 12:04) Comprehensive Metabolic Panel (04/09/22 12:04) Monitor-Rhythm Ecg Trace Only (04/09/22 12:04) Ed Iv/Invasive Line Start (04/09/22 12:04) Lipase (04/09/22 12:04) Orthostatic Vital Signs (Adult (04/09/22 12:04) Ua Culture If Indicated (04/09/22 12:04) Drug Screen Stat (Urine) (04/09/22 12:04) Ns Iv 1000 Ml (Sodium Chloride 0.9%) (04/09/22 12:06) Rx-Meclizine Hcl (Rx-Antivert) (04/09/22 13:00) Medications Given in ED Current Medications Medications Dose Ordered Sig/[place] Route Start Time Stop Time Status Last Admin Dose Admin Meclizine HCl 25 mg Q6H PRN PO 04/09/22 13:00 04/09/22 13:06 DC 04/09/22 13:00 25 MG Vital Signs/I&O 04/09/22 04/09/22 12:00 12:12 Temp 36.0 Pulse 76 67 64 80 Resp 18 B/P (MAP) 140/72 (94) 116/60 (78) 132/74 (93) 143/74 (97) Pulse Ox 97 O2 Delivery Room Air Capillary Refill : Progress Note #1: Progress Note Will check basic labs to look at electrolytes, kidney function, hepatic function, blood count to look for high WBC to indicate infection, anemia. Urine to check for hydration and drug screen to look for drugs of abuse in his system. Give NS 1 L IVF bolus for hydration. Orthostatic vital signs obtained but did not show significant change in heart rate or blood pressure. This may be due to his not having Seroquel or the replacement medicine Latuda since 04/06. He also may have some dizziness and not feel well because of not having caffeine. Progress Note #2: Time: 12:37 Progress Note CBC and Chemistry with Lipase do not show acute significant abnormality for his blood count, white blood cells, electrolytes, kidney function, hepatic function, pancreas function. He has not been able to provide a urine specimen yet but was getting IVF for hydration. With no acute electrolyte imbalance, anemia, high WBC count for infection, or acute abnormality on his basic labs, physical exam and vital signs, this may still be related to not having the Seroquel in his system and not starting the Latuda yet. Then this could be compounded with the fact he has not been drinking his normal amount of caffeine and not sleeping well due to pain in right hand and thinking about how he misses his grandparents. Will reassure patient that not seeing anything severe with his basic labs and try to get urine to look at hydration and look for infection. Can try treating symptoms with meclizine and encourage him to start Latuda once he is able to get it from friend's vehicle. Progress Note #3: Time: 13:01 Progress Note UA shows mild concentration with specific gravity of 1.020. No LE, Nit, Bacteria, WBC to indicate infection. Encourage to drink more fluids and stay better hydrated. Use Meclizine to help with nausea and dizziness. Check back wit h clinic for continued concerns and start Latuda as soon as possible. 1309 When discussing discharge instructions patient did report his symptoms are worse in am and improve during the day, especially if he drinks a Code Red Mountain Dew with caffeine. He felt a little better after fluids here in the ED. Departure Impression Primary Impression: Dizziness Additional Impressions: Dehydration Medication side effect Disposition: HOME, SELF-CARE Condition: Stable Departure-Patient Inst. Decision time for Depature: 13:02 Referrals: GERSON MAJANO MD (PCP/Family) Primary Care Physician Patient Instructions: Dizziness, Adult ED, Dehydration, Adult ED, Adverse Drug Reactions, Adult ED Add. Discharge Instructions: Try to stay well hydrated and drink more water and electrolyte drinks. Start your Latuda as soon as possible to help your symptoms from not having the Seroquel in your system. Try the Meclizine medicine to help with dizziness and nausea Check back with clinic for continued concerns and if not improving over the next few days. Scripts Meclizine HCl (Meclizine HCl) 25 Mg Tablet 25 MG PO Q6H PRN for DIZZINESS for 7 Days, #28 TAB 0 Refills Prov: MIS CORTES MD 04/09/22 MIS CORTES MD Apr 09, 2022 12:15
[2022-04-09 12:32] LABS: ALANINE AMINOTRANSFERASE 12 U/L (0-55); ALBUMIN 4.6 GM/DL (3.2-4.5); ALKALINE PHOSPHATASE 59 U/L (40-136); BILIRUBIN,TOTAL 0.4 MG/DL (0.1-1.0); BUN/CREATININE RATIO 9; CARBON DIOXIDE 26 MMOL/L (21-32); CHLORIDE 107 MMOL/L (98-107); CREATININE SERUM 0.85 MG/DL (0.60-1.30); GFR ESTIMATED 124; GLUCOSE 92 MG/DL (70-105); LIPASE 71 U/L (8-78); POTASSIUM 4.1 MMOL/L (3.6-5.0); SODIUM 142 MMOL/L (135-145); TOTAL PROTEIN 7.5 GM/DL (6.4-8.2)
[2022-04-09] MEDS ORDERED: MECL-149 PO (12:46)
[2022-04-09 12:56] LABS: CLARITY,URINE CLEAR; COLOR,URINE YELLOW; GLUCOSE, URINE (UA) NEGATIVE (NEGATIVE); KETONES,URINE NEGATIVE (NEGATIVE); LEUKOCYTE ESTERASE ,URINE NEGATIVE (NEGATIVE); NITRITE,URINE NEGATIVE (NEGATIVE); PROTEIN,URINE NEGATIVE (NEGATIVE)
[2022-04-09 13:00] LABS: BACTERIA,URINE TRACE /HPF; BILIRUBIN,URINE 1+ (NEGATIVE)
[2022-04-09] MEDS ORDERED: RX-MECLIZINE HCL (ANTIVERT) 25 MG TAB #4 PPK PO PRN (13:00)
[2022-04-09 13:06] LABS: AMPHETAMINE SCREEN, URINE NEGATIVE (NEGATIVE); BARBITURATE SCREEN URINE NEGATIVE (NEGATIVE); BENZODIAZEPINES SCREEN URINE NEGATIVE (NEGATIVE); CANNABINOID SCREEN, URINE POSITIVE (NEGATIVE); COCAINE SCREEN URINE NEGATIVE (NEGATIVE); METHADONE STAT NEGATIVE (NEGATIVE); OPIATE SCREEN URINE NEGATIVE (NEGATIVE); OXYCODONE STAT NEGATIVE (NEGATIVE); PROPOXYPHENE STAT NEGATIVE (NEGATIVE); TRICYCLIC ANTIDEPRESSANTS SCRE NEGATIVE (NEGATIVE)
== END 2022-04-09 13:06 | disposition home or self-care (01) ==
LOC: EDUNIT# 11:56 → ER FS 11:57
DX: E86.0 Dehydration (principal); T43.595A Adverse effect of other antipsychotics and neuroleptics, initial encounter; M79.641 Pain in right hand; Z28.310 Unvaccinated for COVID-19
CPT/HCPCS: 36415; 80053; 80306; 81000; 83690; 83735; 85025; 93041

== ENCOUNTER 2022-05-16 10:40 | Emergency (ER) | payer MEDICARE, MEDICAID ==
[~2022-05-16] VITALS: Ht 175 cm; Wt 73.0 kg
[~2022-05-16 10:40] MED LIST changes: +MECL-149 PO
--- NOTE | 2022-05-16 10:57 | ED General ---
General Chief Complaint: General Problems/Pain Stated Complaint: ELEV BP Source of Information: Patient Exam Limitations: No Limitations History of Present Illness Date Seen by Provider: May 16, 2022 Time Seen by Provider: 10:44 Initial Comments 26-year-old male sent over from the walk-in clinic for dizziness. He states symptoms have been present for 3 to 4 weeks and progressive. He was told it may be related to some of his medications. He is convinced that it is likely from medications as it does not happen if he takes his "anger pill only." If he takes the rest of his medications it tends to happen. Notably other medications include Seroquel, "a stomach pill" and hydroxyzine. He also was recently taking lisinopril, switched to amlodipine but has not yet picked up his amlodipine. He denies any fevers chills neck stiffness. He describes a sensation as lightheadedness rather than room spinning vertigo. He denies any URI type symptoms. He denies any urinary symptoms including retention. No confusion. He states for the last couple days he has not had any lightheadedness as he is not taking his other medications but his mom made him take his other medicines this morning. Allergies and Home Medications Allergies Coded Allergies: No Known Drug Allergies (Unverified , 06/29/18) Patient Home Medication List Home Medication List Reviewed: Yes Hydrocodone/Acetaminophen (Hydrocodone-Acetamin 5-325 mg) 5 Mg-325 Mg Tablet, 1 TAB PO Q6H PRN for PAIN-SEVERE (8-10) Prescribed by: MIS CORTES on 04/06/22 5467 Meclizine HCl (Meclizine HCl) 25 Mg Tablet, 25 MG PO Q6H PRN for DIZZINESS Prescribed by: MIS CORTES on 04/09/22 1246 Review of Systems Review of Systems Constitutional: dizziness EENTM: no symptoms reported Respiratory: no symptoms reported Cardiovascular: no symptoms reported Gastrointestinal: no symptoms reported Genitourinary: no symptoms reported Musculoskeletal: no symptoms reported Skin: no symptoms reported Psychiatric/Neurological: No Symptoms Reported Hematologic/Lymphatic: No Symptoms Reported Immunological/Allergic: no symptoms reported Past Quynsyl-Rluzve-Xtghcu Hx Patient Social History Tobacco Use?: Yes Tobacco type used: Cigarettes Smoking Status: Current Everyday Smoker Use of E-Cig and/or Vaping dev: No Substance use?: No Alcohol Use?: No Pt feels they are or have been: No Seasonal Allergies Seasonal Allergies: No Past Medical History Surgery/Hospitalization HX: Mental health issues Surgeries: No Respiratory: No Cardiac: No Neurological: No Genitourinary: No Gastrointestinal: No Musculoskeletal: No Endocrine: No HEENT: No Cancer: No Psychosocial: Yes ADD/ADHD, Anxiety, ODD, Bipolar, Depression Integumentary: No Blood Disorders: No Adverse Reaction/Blood Tranf: No Family Medical History Reviewed Nursing Family Hx No Pertinent Family Hx Physical Exam Vital Signs Vital Signs - First Documented 05/16/22 10:45 Temp 36.7 Pulse 80 Resp 16 B/P (MAP) 151/85 (107) Pulse Ox 98 O2 Delivery Room Air Capillary Refill : Less Than 3 Seconds Height, Weight, BMI Height: 5'9.00" Weight: 298lbs. oz. [id number]; 39.00 BMI Method:Stated General Appearance: No Apparent Distress, WD/WN Eyes: Bilateral Eye Normal Inspection, Bilateral Eye PERRL, Bilateral Eye EOMI, Bilateral Eye Other (Horizontal nystagmus bilaterally that is fatigable in each direction) HEENT: PERRL/EOMI, TMs Normal, Normal ENT Inspection, Pharynx Normal Neck: Full Range of Motion, Normal Inspection, Non Tender, Supple Respiratory: Chest Non Tender, Lungs Clear, Normal Breath Sounds, No Accessory Muscle Use, No Respiratory Distress Cardiovascular: Regular Rate, Rhythm, No Edema, No Gallop, No JVD, No Murmur, Normal Peripheral Pulses Gastrointestinal: Normal Bowel Sounds, No Organomegaly, Non Tender, Soft Back: Normal Inspection, No Vertebral Tenderness Extremity: Normal Capillary Refill, Normal Inspection, Normal Range of Motion, Non Tender, No Calf Tenderness Neurologic/Psychiatric: Alert, Oriented x3, No Motor/Sensory Deficits, Normal Mood/Affect, ambulatory services representative II-XII Norm as Tested Skin: Normal Color, Warm/Dry Lymphatic: No Adenopathy Progress/Results/Core Measures Suspected Sepsis SIRS Temperature: Pulse: Respiratory Rate: Blood Pressure / Mean: Results/Orders My Orders Orders - RANGEL KNOX DO Ct Head Wo (05/16/22 10:53) Vital Signs/I&O 05/16/22 05/16/22 10:45 11:32 Temp 36.7 36.7 Pulse 80 80 Resp 16 16 B/P (MAP) 151/85 (107) 151/85 Pulse Ox 98 98 O2 Delivery Room Air Room Air Capillary Refill : Less Than 3 Seconds Departure Communication (Admissions) Initial differential diagnosis includes URI, peripheral vertigo, medication reaction, normal pressure hydrocephalus. CT scan is negative for any evidence for hydrocephalus. He does have some balance issues however no overt ataxia and these resolve after he is standing for a little bit prior to walking. There is no evidence of brain tumor. He has had extensive lab work-up both at our ER, and [facility] in with his primary doctor so I do not think repeating his lab work is likely warranted at this time. He did not have any evidence for anemia, hyponatremia. He tells me if he only takes his anger medication that he does not have dizziness type symptoms. Advised that he continue to work with his primary doctor to figure out which medication is causative. Did advise it may take several attempts at switching medications before they find the right one. He has no focal neurologic deficits. He is discharged home in stable condition. Impression Primary Impression: Light-headed feeling Disposition: 01 HOME, SELF-CARE Condition: Stable Departure-Patient Inst. Referrals: GERSON MAJANO MD (PCP) Primary Care Physician Patient Instructions: Dizziness, Adult ED Add. Discharge Instructions: Continue to work with your primary doctor to establish which medication may be causing your lightheadedness. You need to tile picker the amlodipine and take it as prescribed. Return to the emergency department for any severe concerns. Follow-up with your primary doctor for any nonemergent needs. All discharge instructions reviewed with patient and/or family. Voiced understanding. RANGEL KNOX DO May 16, 2022 10:56
--- NOTE | 2022-05-16 11:21 | Diagnostic Imaging Report ---
PROCEDURE: CT head without contrast. TECHNIQUE: Multiple contiguous axial images were obtained through the brain without the use of intravenous contrast. Auto Exposure Controls were utilized during the CT exam to meet ALARA standards for radiation dose reduction. INDICATION: Vertigo. COMPARISON: No priors. FINDINGS: There is no hemorrhage, hydrocephalus, cerebral edema, mass, mass effect, or evidence for elevation of the intracranial pressures. The mastoid air cells and middle ear cavities are clear. No cerebellopontine angle mass or mass effect is identified. There is no sulcal effacement. The resendez-white matter differentiation is maintained. The orbits, sinuses, and calvarium are nonacute. IMPRESSION: Unremarkable CT head. Dictated by: Dictated on workstation # [id number]
[2022-05-16 11:32] VITALS: BP 151/85
== END 2022-05-16 11:32 | disposition home or self-care (01) ==
LOC: EDUNIT# 10:40 → ER FS 10:42
DX: R42 Dizziness and giddiness (principal); F17.210 Nicotine dependence, cigarettes, uncomplicated; Z28.310 Unvaccinated for COVID-19
CPT/HCPCS: 70450

== ENCOUNTER 2022-07-07 21:16 | Emergency (ER) | payer MEDICARE, MEDICAID ==
[~2022-07-07] VITALS: Ht 175.3 cm; Wt 114.9 kg
[2022-07-07 21:20] VITALS: BP 137/111
--- NOTE | 2022-07-07 21:29 | ED Upper Extremity ---
General Chief Complaint: Upper Extremity Stated Complaint: RIGHT SHOULDER INJURY Source: patient Exam Limitations: no limitations History of Present Illness Date Seen by Provider: Jul 07, 2022 Time Seen by Provider: 21:21 Initial Comments 26-year-old male is [id number] with no pertinent past medical history coming in after he was hurrying down some stairs to go to the bathroom, tripped, and fell down a couple stairs roughly 4 days ago. Landed on his right shoulder with pain. Took ibuprofen yesterday which helped. He saw a friend that was a nursing teacher who recommended he be seen by a physician. He is otherwise denying any other acute complaints. Did not hit his head or pass out, does not take any blood thinners. Allergies and Home Medications Allergies Coded Allergies: No Known Drug Allergies (Unverified , 06/29/18) Patient Home Medication List Home Medication List Reviewed: Yes Hydrocodone/Acetaminophen (Hydrocodone-Acetamin 5-325 mg) 5 Mg-325 Mg Tablet, 1 TAB PO Q6H PRN for PAIN-SEVERE (8-10) Prescribed by: MIS CORTES on 04/06/22 1807 Meclizine HCl (Meclizine HCl) 25 Mg Tablet, 25 MG PO Q6H PRN for DIZZINESS Prescribed by: MIS CORTES on 04/09/22 1246 Review of Systems Constitutional: No fever EENTM: no symptoms reported Respiratory: no symptoms reported Cardiovascular: no symptoms reported Musculoskeletal: see HPI Psychiatric/Neurological: No Symptoms Reported Past [id number] Hx Seasonal Allergies Seasonal Allergies: No Past Medical History Surgery/Hospitalization HX: Mental health issues Surgeries: No Respiratory: No Cardiac: No Neurological: No Genitourinary: No Gastrointestinal: No Musculoskeletal: No Endocrine: No HEENT: No Cancer: No Psychosocial: Yes ADD/ADHD, Anxiety, ODD, Bipolar, Depression Integumentary: No Blood Disorders: No Adverse Reaction/Blood Tranf: No Family Medical History No Pertinent Family Hx Physical Exam Vital Signs Vital Signs - First Documented 07/07/22 21:20 Temp 36.5 Pulse 115 Resp 16 B/P (MAP) 137/111 (120) Capillary Refill : Height, Weight, BMI Height: 5'9.00" Weight: 298lbs. oz. 135.776126dk; 23.00 BMI Method:Stated General Appearance: WD/WN, no apparent distress HEENT: PERRL/EOMI, normal ENT inspection, pharynx normal Neck: non-tender, full range of motion, supple, normal inspection Cardiovascular: regular rate, rhythm, no edema, no murmur Respiratory: chest non-tender, lungs clear, normal breath sounds, no respiratory distress, no accessory muscle use Gastrointestinal: normal bowel sounds, non tender, soft Back: normal inspection, no CVA tenderness, no vertebral tenderness Shoulder: normal inspection, normal ROM, pain (Pain to the axilla of the right shoulder, 5 out of 5 strength with shoulder abduction and good rotator cuff strength) Elbow/Forearm: normal inspection, non-tender, no evidence of injury, normal ROM Wrist: Yes normal inspection, Yes non-tender, Yes no evidence of injury, Yes normal ROM Neurologic/Tendon: normal sensation, normal motor functions, normal tendon functions Neurologic/Psychiatric: no motor/sensory deficits, alert, normal mood/affect Skin: normal color, warm/dry Progress/Results/Core Measures Results/Orders My Orders Orders - JORGE ALBERTO FARNSWORTH MD Ibuprofen Tablet (Motrin Tablet) (07/07/22 21:30) Acetaminophen Tablet (Tylenol Tablet) (07/07/22 21:30) Shoulder 3 View Right (07/07/22 21:25) Medications Given in ED Current Medications Medications Dose Ordered Sig/Lawrence Route Start Time Stop Time Status Last Admin Dose Admin Acetaminophen 1,000 mg ONCE ONCE PO 07/07/22 21:30 07/07/22 21:31 DC 07/07/22 21:34 1,000 MG Ibuprofen 600 mg ONCE ONCE PO 07/07/22 21:30 07/07/22 21:31 DC 07/07/22 21:34 600 MG Vital Signs/I&O 07/07/22 21:20 Temp 36.5 Pulse 115 Resp 16 B/P (MAP) 137/111 (120) Progress Progress Note : Progress Note 26-year-old male presenting for fall with right shoulder pain that happened 4 days ago. ABCs were intact and vitals were stable on presentation. Physical exam with some tenderness to the shoulder, but full range of motion and he is neurovascularly intact. X-ray of the right shoulder ordered and interpreted by me showing no obvious fracture or dislocation. He was given ibuprofen and Tylenol for pain. He can follow-up with orthopedics as an outpatient. He was then discharged home in stable condition with strict return precautions Diagnostic Imaging Diagonstic Imaging: Xray (shoulder) Comments NAME: DELMY RENNER [facility] REC#: [id number] PT STATUS: REG ER : 1995 PHYSICIAN: JORGE ALBERTO FARNSWORTH MD ADMIT DATE: 07/07/22/ER FS Draft Date of Exam:07/07/22 SHOULDER 3 VIEW RIGHT EXAMINATION: Right shoulder radiographs. EXAM DATE: 07/07/2022 9:37 PM. COMPARISON: None available. HISTORY: Fall, R shoulder pain TECHNIQUE: 3 views. FINDINGS: There is no acute fracture, dislocation or destructive osseous process. The joint spaces are normal. The soft tissues are normal. IMPRESSION: No acute osseous abnormality. Dictated on workstation # [id number] Dict: 07/07/222142 Trans: 07/07/222144 [facility] [id number] Interpreted by: PHANI CEDILLO DO Electronically signed by: Departure Impression Primary Impression: Contusion of right shoulder Qualified Codes: S40.011A - Contusion of right shoulder, initial encounter Disposition: HOME, SELF-CARE Condition: Stable Departure-Patient Inst. Decision time for Depature: 21:40 Referrals: GI BELTRE BRIAN D MD (PCP) Primary Care Physician Patient Instructions: Shoulder Pain ED Add. Discharge Instructions: Fortunately nothing appears broken or dislocated. Take ibuprofen and/or Tylenol as needed for pain. He can also ice the area. Follow-up with Mason Beltre here in town if pain is not improving after roughly 2 weeks. His number is in the paperwork Work/School Note: Work Release Form Date Seen in the Emergency Department: Jul 07, 2022 Return to Work: Jul 08, 2022 Restrictions: No Restrictions JORGE ALBERTO FARNSWORTH MD Jul 07, 2022 21:29
[2022-07-07] MEDS ORDERED: ACETAMINOPHEN 500 MG TAB (TYLENOL) PO ONE (21:30)
[2022-07-07] MEDS ORDERED: IBUPROFEN 600 MG (MOTRIN) TAB PO ONE (21:30)
--- NOTE | 2022-07-07 21:45 | Diagnostic Imaging Report ---
EXAMINATION: Right shoulder radiographs. EXAM DATE: 07/07/2022 9:37 PM. COMPARISON: None available. HISTORY: Fall, R shoulder pain TECHNIQUE: 3 views. FINDINGS: There is no acute fracture, dislocation or destructive osseous process. The joint spaces are normal. The soft tissues are normal. IMPRESSION: No acute osseous abnormality. Dictated by: Dictated on workstation # [id number]
== END 2022-07-07 22:16 | disposition home or self-care (01) ==
LOC: EDUNIT# 21:16 → ER FS 21:20
DX: S40.011A Contusion of right shoulder, initial encounter (principal); Z28.310 Unvaccinated for COVID-19; W10.9XXA Fall (on) (from) unspecified stairs and steps, initial encounter; Y93.02 Activity, running
CPT/HCPCS: 73030